=== PATIENT | female | born 1940 | race Caucasian/White ===

== ENCOUNTER → 2018-04-05 16:15 | Outpatient (CLI) | payer MEDICARE, OTHER, SELFPAY ==
[2018-04-05 16:59] LABS: Add Manual Diff / Slide Review NO; Basophils Percent Auto 1.5 % (0-2); Eosinophils Percent Auto 5.7 % (2-4); Hematocrit 28.5 % (36-46); Hemoglobin 9.6 g/dL (12.0-16.0); Lymphocytes Percent Auto 27.2 % (25-40); Mean Corpuscular HGB Conc 33.7 % (30-36); Mean Corpuscular Hemoglobin 29.6 PG (26-34); Mean Corpuscular Volume 87.6 fL (80-100); Monocytes Percent Auto 9.8 % (3-14); Neutrophils Absolute Auto 3900 /uL (3000-5900); Neutrophils Percent Auto 55.8 % (50-75); Platelet Count 390 X10^3/uL (150-400); Red Blood Cell Count 3.25 X10^6/uL (4.0-5.2); Red Cell Distribution Width 15.5 % (11.6-14.8)
[2018-04-05 17:05] LABS: Hemoglobin A1C% w Est Avg Glu 6.6 % (4.0-6.0)
[2018-04-05 17:21] LABS: Alanine Aminotransferase 30 IU/L (9-52); Albumin 3.7 g/dL (3.5-5.0); Albumin Globulin Ratio 1.2 (1.0-2.8); Alkaline Phosphatase 74 U/L (38-126); Aspartate Aminotransferase 27 IU/L (14-36); BUN Creatinine Ratio 25.6 (6-22); Bilirubin Total 0.4 mg/dL (0.2-1.3); Blood Urea Nitrogen 23 mg/dL (7-17); Calcium 8.8 mg/dL (8.4-10.2); Carbon Dioxide 24 mmol/L (22-32); Chloride 99 mmol/L (98-107); Estimated Glomerular Filt Rate > 60.0 mL/min (>60); Globulin 3.2 g/dL (1.7-4.1); Glucose 251 mg/dL (80-110); HEMOLYSIS < 15 (0-50); Potassium 5.1 mmol/L (3.4-5.1); Sodium 133 mmol/L (137-145); Total Protein 6.9 g/dL (6.3-8.2)
== END ==
PROVIDERS: Family Provider Internal Medicine; PCP Internal Medicine; Visit Provider Internal Medicine
DX: E11.9 Type 2 diabetes mellitus without complications (principal); I10 Essential (primary) hypertension
CPT/HCPCS: 36415; 80053; 83036; 85025

== ENCOUNTER → 2018-04-11 14:57 | Outpatient (CLI) | payer MEDICARE, OTHER, SELFPAY ==
--- NOTE | 2018-04-11 | DI.RAD.S_ITS ---
PROCEDURE: XR CHEST 2V INDICATIONS: 78 year-old female with cough. TECHNIQUE: 2 views of the chest were acquired. COMPARISON: [facility], CT, THORAX WITHOUT CONTRAST, 10/08/2012, 9:20. [facility], CR, CHEST 1 VIEW, 04/04/2015, 16:10. [facility], CR, CHEST 1 VIEW, 10/07/2012, 17:55. FINDINGS: Surgical changes and devices: None. Lungs and pleura: No pleural effusions or pneumothorax. Lungs are clear. Mediastinum: Mediastinal contours are normal. Heart size is normal. There is aortic atherosclerosis. Bones and chest wall: 8 mm sclerotic lesion in the left humeral metaphysis has slightly increased in size since 2014, and is new since 2011. There is asymmetric right hemidiaphragm elevation as before. IMPRESSION: 1. No acute cardiopulmonary disease. 2. 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 3. Slowly enlarging 8 mm sclerotic lesion in the proximal left humerus is new since 2011. Even though bone islands can enlarge over time, consider whole body bone scan for further evaluation if there is clinical possibility for sclerotic bony metastases. Dictated by: Luis Lopez M.D. on 04/11/2018 at 15:25 Approved by: Luis Lopez M.D. on 04/11/2018 at 15:29
== END ==
PROVIDERS: Family Provider Internal Medicine; PCP Internal Medicine; Visit Provider Internal Medicine
DX: R05 Cough (principal); M84.822 Other disorders of continuity of bone, left humerus
CPT/HCPCS: 71046

== ENCOUNTER → 2018-05-23 15:40 | Outpatient (CLI) | payer MEDICARE, OTHER, SELFPAY ==
--- NOTE | 2018-05-23 15:45 | DI.RAD.S_ITS ---
PROCEDURE: XR HIP W PEL IF DONE LT MIN 4V INDICATIONS: PAIN LEFT AND RIGHT LEG TECHNIQUE: AP pelvis with lateral view(s) of the left and right hip(s). COMPARISON: None. FINDINGS: Bones: Minimally displaced fracture of the left superior pubic ramus fracture is noted. There is a subtle lucency in the right femoral neck. No dislocations. There is a left hip prosthesis. Severe degenerative joint disease in right hip. No suspicious bony lesions. Soft tissues: The visualized bowel gas pattern is normal. No suspicious soft tissue calcifications. IMPRESSION: 1. Minimally displaced left superior pubic ramal fracture. 2. Subtle lucency in the left femoral neck. Cannot rule out a nondisplaced fracture. CT suggested if clinically indicated. 3. Severe right hip joint degeneration. 4. Left hip prosthesis appears intact. Dictated by: Surinder Sarmiento M.D. on 05/23/2018 at 17:17 Approved by: Surinder Sarmiento M.D. on 05/23/2018 at 17:22
--- NOTE | 2018-05-23 15:45 | DI.RAD.S_ITS ---
PROCEDURE: XR THORACIC SPINE 2V INDICATIONS: FALL, RIGHT AND LEFT LEG PAIN TECHNIQUE: 3 views of the thoracic spine were acquired. COMPARISON: [facility], CR, XR CHEST 2V, 04/11/2018, 14:44. [facility], CT, THORAX WITHOUT CONTRAST, 10/08/2012, 9:20. FINDINGS: Significant motion artifacts in the lower lumbar spine area. Bones: No fractures or dislocations. No suspicious bony lesions. Mild compression deformity of T8, likely chronic. Degenerative changes are noted in the thoracic spine. 12 pairs of ribs are noted, and appear intact where visualized. Soft tissues: No paravertebral stripe thickening. IMPRESSION: 1. Significant motion artifacts in the lower lumbar spine area. If clinical suspicion is high, CT suggested. 2. Mild chronic compression deformity of T8. 3. Degenerative changes. Dictated by: Surinder Sarmiento M.D. on 05/23/2018 at 17:05 Approved by: Surinder Sarmiento M.D. on 05/23/2018 at 17:15
--- NOTE | 2018-05-23 15:45 | DI.RAD.S_ITS ---
PROCEDURE: XR LUMBAR SPINE 2-3V INDICATIONS: FALL LEFT AND RIGHT LEG PAIN TECHNIQUE: 3 views of the lumbar spine were acquired. COMPARISON: [facility], CR, XR THORACIC SPINE 2V, 05/23/2018, 15:28. FINDINGS: Bones: 5 [id number] vertebrae are present. There is moderate scoliosis. No vertebral body compression fractures. No suspicious bony lesions. There is severe degenerative disc disease at T12-L1 and L1-L2, and mild degenerative disc changes at L2 at L3. Severe facet arthropathy is noted at L4 L5 and L5-S1. Osteopenia. Soft tissues: Overlying bowel gas pattern is normal. No suspicious soft tissue calcifications. IMPRESSION: 1. No fractures. 2. Degenerative disc and facet disease. 3. Scoliosis. Dictated by: Surinder Sarmiento M.D. on 05/23/2018 at 17:15 Approved by: Surinder Sarmiento M.D. on 05/23/2018 at 17:16
== END ==
PROVIDERS: Family Provider Internal Medicine; PCP Internal Medicine; Visit Provider Student in an Organized Health Care Education/Training Program
DX: S32.512A Fracture of superior rim of left pubis, initial encounter for closed fracture (principal); M51.34 Other intervertebral disc degeneration, thoracic region; M51.36 Other intervertebral disc degeneration, lumbar region; M41.9 Scoliosis, unspecified; M79.605 Pain in left leg; M79.604 Pain in right leg; M16.11 Unilateral primary osteoarthritis, right hip; Z96.642 Presence of left artificial hip joint
CPT/HCPCS: 72070; 72100; 73522

== ENCOUNTER → 2018-05-30 12:32 | Outpatient (CLI) | payer MEDICARE, OTHER, SELFPAY ==
--- NOTE | 2018-05-30 12:56 | DI.CT.S_ITS ---
PROCEDURE: CT PEL WO CON INDICATIONS: Unspecified fall, initial encounter Abnormal X-ray. TECHNIQUE: Noncontrast 3 mm axial sections acquired through the bony pelvis, with coronal and sagittal reformatting. COMPARISON: [facility], CR, XR HIP W PEL IF DONE JIM 3TO4V, 05/23/2018, 15:28. FINDINGS: Image quality: Excellent. Bones: Generalized osteopenia. Status post total left hip arthroplasty, components appearing in expected position and showing no evidence of loosening. The previously described fracture of the left hemipelvis is shown to be a comminuted fracture of the left pubic bone, involving both superior and inferior rami at the pubic junction. The pelvis is also of concern for possible bilateral insufficiency fractures of the sacral wings. No diastases of the sacroiliac joints seen. There is no apparent fracture of the right femoral neck as of concern on plain film exam. There is however advanced osteoarthritis of the right hip. Advanced facet arthropathy is noted at the L4-5 and L5-S1 levels bilaterally. Soft tissues: Supraumbilical fat filled ventral hernia. Uterus is positioned to the right of midline. IMPRESSION: 1. Severe osteoarthritis of the right hip but no femoral neck fracture is seen. 2. Generalized osteopenia. Probable bilateral sacral insufficiency fractures. This would be better evaluated by noncontrast MRI imaging of the pelvis if clinically indicated. 3. Comminuted fracture left pubic bone. 4. Status post total left hip arthroplasty with no acute abnormality. Dictated by: Darin Michelle M.D. on 05/30/2018 at 16:04 Approved by: Darin Michelle M.D. on 05/30/2018 at 16:16
== END ==
PROVIDERS: Family Provider Internal Medicine; PCP Internal Medicine; Visit Provider Student in an Organized Health Care Education/Training Program
DX: S32.502A Unspecified fracture of left pubis, initial encounter for closed fracture (principal); W19.XXXA Unspecified fall, initial encounter; M16.11 Unilateral primary osteoarthritis, right hip; M85.88 Other specified disorders of bone density and structure, other site; Z96.642 Presence of left artificial hip joint
CPT/HCPCS: 72192

== ENCOUNTER 2018-06-05 09:23 | Outpatient (RCR) | payer MEDICARE, OTHER, SELFPAY ==
--- NOTE | 2018-06-05 13:14 | PT.OIE ---
Current Diagnoses Other abnormalities of gait and mobility (06/05/18) Unspecified fracture of left pubis, initial encounter for closed fracture (06/05/18) History of falling (06/05/18) Past Medical History (Last Updated 03/05/18 @ 05:09 by Narendra Hernandez DO) Hyperlipidemia (Acute) CVA (cerebral vascular accident) (Chronic) Diabetes (Chronic) HTN (hypertension) (Chronic) Provider Visit Care Team Role Provider Type Vitaliy Brock MD Attending Provider Physician Family Provider Primary Care Provider Specialty: Internal Medicine Address: [address] [place] [address] Email: Physical Therapy Initial Evaluation PT-OP-A Visit Information Start: 06/05/18 09:42 Freq: Status: Active Protocol: Document 06/05/18 09:45 AMB (Rec: 06/06/18 10:05 AMB [email or web address]) Out-Patient Physical Therapy Visit Information Visit Information Visit Type Initial Evaluation Visit Start Time 09:45 Visit Stop Time 10:30 Total Visit Minutes 45 Visit Number 1 Evaluation Information Evaluation Date 06/05/18 PT-OP-B Current Condition Start: 06/05/18 09:42 Freq: Status: Active Protocol: Document 06/05/18 09:45 AMB (Rec: 06/06/18 10:05 AMB [email or web address]) Current Condition History of Current Condition Onset Date 05/23/18 Current Complaints inability to walk, bilateral hip pain History of Current Condition The patient fell out of bed onto her left hip. She has a history of CVA with right hemiplegia from 1993 but was ambulatory with a SPC before her fall. This was her second fall in a month, the first she hit her head. Denies lightheadedness/dizziness. Denies falls previous to the two she sustained recently. X -ray showed L hip replacement (from 2008) was intact but she did have a pubic rami fracture on the left, mildly displaced. She then had a CT because there was concern for femoral neck fracture, the CT ruled that out but showed comminuted fracture of the left pubic bone with possible bilateral sacral insufficiency fractures. She has not yet been evaluated by orthopedics, and has been weightbearing fully on the left leg during transfers. She has not been able to walk due to the pain. Future Testing and Treatments Planned After calling Dr. Brock's office for clarification of the patient's weightbearing status, his nurse called back after the patient had left and said that they would be arranging an ortho consult. Prior Functional Status Baseline Function- Other Independent ambulator, able to walk around [facility], used a SPC. Right hands is fairly non-functional due to prior CVA. Wears an AFO on the right foot. Current Functional Impairments (Reported) Functional Limitations- ADL's Unable to ambulate, able to transfer from w/c to bed with pain. Lying down is the most comfortable, then sitting, standing is painful. Personal Factors Other Personal Factors That May Effect Moderate expressive aphasia Therapy/Recovery from previous CVA PT-OP-C Subjective Start: 06/05/18 09:42 Freq: Status: Active Protocol: Document 06/05/18 09:45 AMB (Rec: 06/06/18 10:05 AMB [email or web address]) OP-PT Subjective Patient Comments Patient Comments After interviewing the patient it is apparent that she had stopped taking her hydrocodone , which was unknown to her . OP-PT Pain Assessment Location Bilateral Hip Intensity 4 Scale Used Numeric (1 - 10) PT-OP-G Mobility & Gait Start: 06/06/18 10:15 Freq: Status: Active Protocol: Document 06/05/18 09:45 AMB (Rec: 06/06/18 10:18 AMB [email or web address]) OP Mobility Evaluation Bed Mobility Supine to and from Sit Uses UE predominantly and grimaces slightly Transfers Sit to Stand Uses L UE and R LE predominantly but able to do with SBA. Bed to Chair Transfers Stand pivot transfer with SBA OP Gait Assessment Comments Gait Comments With hemiwalker in L UE pt able to take small step forward with left foot but unable to weightshift onto L leg without significant pain so did not ask patient to do more until after verifying weightbearing precautions. ( Pt has been transferring at home since the fracture). PT-OP-H Neuro Start: 06/06/18 10:14 Freq: Status: Active Protocol: Document 06/05/18 09:45 AMB (Rec: 06/06/18 10:15 AMB [email or web address]) Sensation Evaluation Comments Summary Comments Pt denies numbness tingling in left leg, does have some reduced light touch sensation in right foot due to previous CVA PT-OP-J Posture/Palpation/Skin Start: 06/05/18 09:42 Freq: Status: Active Protocol: Document 06/05/18 09:45 AMB (Rec: 06/06/18 12:58 AMB [email or web address]) Palpation Assessment Location One Palpation Location Left hip Palpation Details Pt denies pain with palpation throughout hip, groin. PT-OP-K Range of Motion Start: 06/05/18 09:42 Freq: Status: Active Protocol: Document 06/05/18 09:45 AMB (Rec: 06/06/18 12:58 AMB [email or web address]) Hip Goniometric Range of Motion Hip ROM Limitations Comments Gentle passive range of motion grossly WFL bilaterally PT-OP-M Strength Start: 06/05/18 09:42 Freq: Status: Active Protocol: Document 06/05/18 09:45 AMB (Rec: 06/06/18 12:58 AMB [email or web address]) Hip Strength Hip Manual Muscle Testing Right Flexion (L2) 4 Good Abduction 4 Good Left Flexion (L2) 4- Good- Knee Strength Knee Manual Muscle Testing Right Flexion (S2) 4 Good Extension (L3) 4 Good Left Flexion (S2) 4 Good Extension (L3) 4 Good PT-OP-Q Treatments Start: 06/05/18 09:42 Freq: Status: Active Protocol: Document 06/05/18 09:45 AMB (Rec: 06/06/18 10:13 AMB [email or web address]) Therapeutic Exercises Sitting Exercises 3 Sitting Exercise Name seated LAQ Reps/Minutes 1x10 2 Sitting Exercise Name ankle dorsiflexion Reps/Minutes 2x10 1 Sitting Exercise Name seated march Reps/Minutes 10 PT-OP-T Assessment and Plan Start: 06/05/18 09:42 Freq: Status: Active Protocol: Document 06/05/18 09:45 AMB (Rec: 06/06/18 10:24 AMB [email or web address]) Physical Therapy Assessment Rehab Potential Rehabilitation Potential Fair Evaluation Complexity Number of Personal Factors/Comorbidities 3 or More Number of Body Systems Impaired 4 or More Clinical Presentation at Evaluation Unstable Impairments Impairments Activity Tolerance Balance Functional Activities Functional Mobility Gait Pain Strength Transfers Goals Three Impairment Pain Short Term Goal (STG) The patient will sit for 1 hour wiht 1/10 pain or less. STG Duration 4 weeks [employer] Goal (LTG) The patient will stand for 10 minutes without an increase in her baseline pain. LTG Duration 8 weeks Two Impairment Transfers Short Term Goal (STG) The patient will perform a car transfer independently. STG Duration 4 weeks One Impairment Gait Short Term Goal (STG) The patient will ambulate with a maximiliano walker for 10 feet over smooth surfaces STG Duration 4 weeks [employer] Director Goal (LTG) The patient will ambulate with a single point cane for 50 feet over smooth surfaces. LTG Duration 8 weeks Assessment Summary Assessment The patient will be getting an orthopedic consultation soon, per Dr. Brock's office. If the patient is determined to be a surgical candidate, the goals and plan will need to be changed. The patient currently is unable to weightbear on the left without significant pain, but is transfering (this is currently quite painful). Her progression will be complicated by her previous CVA. We will confirm her weightbearing status as soon as possible, and that information will also impact her progress. She will benefit from physical therapy, assuming that she is safe to partial weightbear for strengthening and gait training, if she is non- weightbearing we can work on a home exercise program to prevent muscle atrophy while she is healing. Physical Therapy Plan Frequency and Duration Frequency of Treatment 2x/Week Duration of Treatment 8 weeks Plan of Care Start Date 06/05/18 Plan of Care End Date 07/24/18 Therapeutic Interventions Therapeutic Interventions Balance Training Gait Training Manual Therapy Neuromuscular Re-education Self-Care/Home Management Therapeutic Activities Therapeutic Exercises Modalities Cold Pack/Ice Massage Electric Stimulation Hot Packs Ultrasound Next Visit Focus/Plan Next Note Type Treatment Note Next Visit Plan Confirm weightbearing restrictions from pipe recovery specialist
--- NOTE | 2018-06-05 13:14 | PT.OPPOC ---
Current Diagnoses Other abnormalities of gait and mobility (06/05/18) Unspecified fracture of left pubis, initial encounter for closed fracture (06/05/18) History of falling (06/05/18) Provider Visit Care Team Role Provider Type Vitaliy Brock MD Attending Provider Physician Family Provider Primary Care Provider Specialty: Internal Medicine Address: [address] [place] [address], [phone] Email: Plan Of Care PT-OP-T Assessment and Plan Start: 06/05/18 09:42 Freq: Status: Active Protocol: Document 06/05/18 09:45 AMB (Rec: 06/06/18 10:24 AMB [email or web address]) Physical Therapy Assessment Rehab Potential Rehabilitation Potential Fair Evaluation Complexity Number of Personal Factors/Comorbidities 3 or More Number of Body Systems Impaired 4 or More Clinical Presentation at Evaluation Unstable Impairments Impairments Activity Tolerance Balance Functional Activities Functional Mobility Gait Pain Strength Transfers Goals Three Impairment Pain Short Term Goal (STG) The patient will sit for 1 hour wiht 1/10 pain or less. STG Duration 4 weeks Half-Way Goal (LTG) The patient will stand for 10 minutes without an increase in her baseline pain. LTG Duration 8 weeks Two Impairment Transfers Short Term Goal (STG) The patient will perform a car transfer independently. STG Duration 4 weeks One Impairment Gait Short Term Goal (STG) The patient will ambulate with a maximiliano walker for 10 feet over smooth surfaces STG Duration 4 weeks Half-Way Goal (LTG) The patient will ambulate with a single point cane for 50 feet over smooth surfaces. LTG Duration 8 weeks Assessment Summary Assessment The patient will be getting an orthopedic consultation soon, per Dr. Brock's office. If the patient is determined to be a surgical candidate, the goals and plan will need to be changed. The patient currently is unable to weightbear on the left without significant pain, but is transfering (this is currently quite painful). Her progression will be complicated by her previous CVA. We will confirm her weightbearing status as soon as possible, and that information will also impact her progress. She will benefit from physical therapy, assuming that she is safe to partial weightbear for strengthening and gait training, if she is non- weightbearing we can work on a home exercise program to prevent muscle atrophy while she is healing. Physical Therapy Plan Frequency and Duration Frequency of Treatment 2x/Week Duration of Treatment 8 weeks Plan of Care Start Date 06/05/18 Plan of Care End Date 07/24/18 Therapeutic Interventions Therapeutic Interventions Balance Training Gait Training Manual Therapy Neuromuscular Re-education Self-Care/Home Management Therapeutic Activities Therapeutic Exercises Modalities Cold Pack/Ice Massage Electric Stimulation Hot Packs Ultrasound Next Visit Focus/Plan Next Note Type Treatment Note Next Visit Plan Confirm weightbearing restrictions from accounting software specialist Plan of Care Dates Plan of Care Start Date 06/05/18 Plan of Care End Date 07/24/18 Please Sign and Return: I have reviewed this Plan of Care and certify that the skilled therapy services above are required to meet the patient?s needs. Physician Signature Date Printed Name and Credentials Clinical Instructor Signature Printed Name and Credentials
--- NOTE | 2018-06-13 15:20 | PT.OPDS ---
Current Diagnoses Other abnormalities of gait and mobility (06/05/18) Unspecified fracture of right pubis, initial encounter for closed fracture (06/05/18) Unspecified fracture of left pubis, initial encounter for closed fracture (06/05/18) History of falling (06/05/18) Provider Visit Care Team Role Provider Type Vitaliy Brock MD Attending Provider Physician Family Provider Primary Care Provider Specialty: Internal Medicine Address: [address] [place] [address], [facility] Email: Visit Number Visit Number 1 Discharge Summary PT-OP-B Current Condition Start: 06/05/18 09:42 Freq: Status: Active Protocol: Document 06/05/18 09:45 AMB (Rec: 06/06/18 10:05 AMB [id number]) Current Condition History of Current Condition Onset Date 05/23/18 Current Complaints inability to walk, bilateral hip pain History of Current Condition The patient fell out of bed onto her left hip. She has a history of CVA with right hemiplegia from 1993 but was ambulatory with a SPC before her fall. This was her second fall in a month, the first she hit her head. Denies lightheadedness/dizziness. Denies falls previous to the two she sustained recently. X -ray showed L hip replacement (from 2008) was intact but she did have a pubic rami fracture on the left, mildly displaced. She then had a CT because there was concern for femoral neck fracture, the CT ruled that out but showed comminuted fracture of the left pubic bone with possible bilateral sacral insufficiency fractures. She has not yet been evaluated by orthopedics, and has been weightbearing fully on the left leg during transfers. She has not been able to walk due to the pain. Future Testing and Treatments Planned After calling Dr. Brock's office for clarification of the patient's weightbearing status, his nurse called back after the patient had left and said that they would be arranging an ortho consult. Prior Functional Status Baseline Function- Other Independent ambulator, able to walk around [facility], used a SPC. Right hands is fairly non-functional due to prior CVA. Wears an AFO on the right foot. Current Functional Impairments (Reported) Functional Limitations- ADL's Unable to ambulate, able to transfer from w/c to bed with pain. Lying down is the most comfortable, then sitting, standing is painful. Personal Factors Other Personal Factors That May Effect Moderate expressive aphasia Therapy/Recovery from previous CVA PT-OP-C Subjective Start: 06/05/18 09:42 Freq: Status: Active Protocol: Document 06/05/18 09:45 AMB (Rec: 06/06/18 10:05 AMB [email or web address]) OP-PT Subjective Patient Comments Patient Comments After interviewing the patient it is apparent that she had stopped taking her hydrocodone , which was unknown to her . OP-PT Pain Assessment Location Bilateral Hip Intensity 4 Scale Used Numeric (1 - 10) PT-OP-G Mobility & Gait Start: 06/06/18 10:15 Freq: Status: Active Protocol: Document 06/05/18 09:45 AMB (Rec: 06/06/18 10:18 AMB [email or web address]) OP Mobility Evaluation Bed Mobility Supine to and from Sit Uses UE predominantly and grimaces slightly Transfers Sit to Stand Uses L UE and R LE predominantly but able to do with SBA. Bed to Chair Transfers Stand pivot transfer with SBA OP Gait Assessment Comments Gait Comments With hemiwalker in L UE pt able to take small step forward with left foot but unable to weightshift onto L leg without significant pain so did not ask patient to do more until after verifying weightbearing precautions. ( Pt has been transferring at home since the fracture). PT-OP-H Neuro Start: 06/06/18 10:14 Freq: Status: Active Protocol: Document 06/05/18 09:45 AMB (Rec: 06/06/18 10:15 AMB [email or web address]) Sensation Evaluation Comments Summary Comments Pt denies numbness tingling in left leg, does have some reduced light touch sensation in right foot due to previous CVA PT-OP-J Posture/Palpation/Skin Start: 06/05/18 09:42 Freq: Status: Active Protocol: Document 06/05/18 09:45 AMB (Rec: 06/06/18 12:58 AMB [email or web address]) Palpation Assessment Location One Palpation Location Left hip Palpation Details Pt denies pain with palpation throughout hip, groin. PT-OP-K Range of Motion Start: 06/05/18 09:42 Freq: Status: Active Protocol: Document 06/05/18 09:45 AMB (Rec: 06/06/18 12:58 AMB [email or web address]) Hip Goniometric Range of Motion Hip ROM Limitations Comments Gentle passive range of motion grossly WFL bilaterally PT-OP-M Strength Start: 06/05/18 09:42 Freq: Status: Active Protocol: Document 06/05/18 09:45 AMB (Rec: 06/06/18 12:58 AMB [email or web address]) Hip Strength Hip Manual Muscle Testing Right Flexion (L2) 4 Good Abduction 4 Good Left Flexion (L2) 4- Good- Knee Strength Knee Manual Muscle Testing Right Flexion (S2) 4 Good Extension (L3) 4 Good Left Flexion (S2) 4 Good Extension (L3) 4 Good PT-OP-T Assessment and Plan Start: 06/05/18 09:42 Freq: Status: Active Protocol: Document 06/13/18 15:19 AMB (Rec: 06/13/18 15:20 AMB [id number]) Physical Therapy Assessment Assessment Summary Assessment The patient was admitted to the hospital for an increase in pain. She is being discharged to a SNF, therefore her outpatient PT case is closed. She was only seen for evaluation. Physical Therapy Plan Discharge Physical Therapy Discharge Reasons Change in Medical Status
== END 2018-06-20 10:46 ==
LOC: PHYS 09:23
PROVIDERS: Family Provider Internal Medicine; PCP Internal Medicine; Visit Provider Internal Medicine
DX: S32.501A Unspecified fracture of right pubis, initial encounter for closed fracture (principal); R26.89 Other abnormalities of gait and mobility; Z91.81 History of falling; S32.502A Unspecified fracture of left pubis, initial encounter for closed fracture
CPT/HCPCS: 97110; 97163

== ENCOUNTER 2018-06-09 17:26 | Inpatient (IN) | payer MEDICARE, OTHER, SELFPAY ==
[2018-06-09 17:32] VITALS: BP 180/87; PULSE 94; RESP 20; TEMP 37.1; O2SAT 95
--- NOTE | 2018-06-09 18:06 | ED.LOWEXIN ---
HPI - Extremity Injury (Lower) General Chief Complaint: Extremity Injury, Lower Stated Complaint: R hip pain Time Seen by Provider: 06/09/18 18:06 Source: patient and family (Her ) Mode of arrival: wheelchair Limitations: no limitations History of Present Illness HPI Narrative: The patient fell 3 weeks ago sustaining a left pelvic fracture. Hip x-rays revealed a left superior pubic rami fracture. A right femoral neck fracture was suspected. She has a prior left hip replacement. The prosthesis was intact. The patient did well for the 1st week, she has since then had significant increases in pain. She is taking [place] every 6 hr. The pain has exacerbated to the point where she cannot stand or support herself. She has a history of CVA with right-sided deficits, prior to the fall she was ambulatory with a cane. She cannot even move herself to a sitting position due to pelvic pain at this point. She has no any urinary or bowel incontinence. She has no weakness or numbness in the legs. A pelvic CT was ordered last week. The CT shows osteoarthritis and osteopenia. There was no femoral neck fracture seen. A comminuted fracture of the left pubic bone is seen on CT. Also noted is probable bilateral sacral insufficiency fractures. She is having pain through the gluteal region bilaterally, and has pain with any motion of the lower back or the hips. She has no associated urinating or bowel incontinence. Related Data Home Medications Medication Instructions Recorded Confirmed CA CARBONATE/VITAMIN D3/VIT K 1 ctb PO BID #0 10/07/12 06/09/18 (Viactiv Soft Chew Tablet) Chondroitin Sulfate/Glucosam 1 cap PO BID #0 10/07/12 06/09/18 (#CHONDROITIN COMPLEX/GLUCOSAMINE 200 MG-500 M) Fluoxetine Hydrochloride 20 mg PO QDAY #0 10/07/12 06/09/18 (FLUOXETINE) Glucosamine Hydrochloride 1,500 mg PO BID #0 10/07/12 06/09/18 (#GLUCOSAMINE) aspirin 81 mg PO QDAY #0 10/07/12 06/09/18 lisinopril 10 mg PO QDAY #0 10/07/12 06/09/18 simvastatin 20 mg PO QDAY #0 10/07/12 06/09/18 insulin aspart U-100 50 unit SUB-Q DAILY 03/05/18 06/09/18 Allergies Allergy/AdvReac Type Severity Reaction Status Date / Time phenytoin Allergy Unknown TURNED Unverified 02/13/18 13:00 BRIGHT RED Review of Systems Review of Systems All systems reviewed & are unremarkable except as noted in HPI and below Constitutional Denies chills, Denies fever(s), Denies headache(s), Denies lethargy and Reports weakness (Previously existing right-sided weakness due to stroke.) ENT Ears, Nose, Mouth, and Throat: Denies change in voice, Denies dizziness, Denies headache(s), Denies hearing loss, Denies neck pain and Denies sore throat Cardiovascular Denies chest pain, Denies rapid heart rate, Denies irregular heart rhythm, Denies lightheadedness, Denies palpitations, Denies dyspnea, Denies dyspnea on exertion and Denies orthopnea Respiratory Denies cough, Denies dyspnea, Denies dyspnea on exertion and Denies wheezing Gastrointestinal Gastrointestinal: Denies abdominal pain, Denies change in bowel habits, Denies diarrhea, Denies nausea and Denies vomiting Genitourinary Denies hematuria, Denies dysuria and Denies urinary incontinence Musculoskeletal Reports as per HPI and Denies neck pain Integumentary/Breasts Denies erythema, Denies rash and Denies wounds Neurologic Denies dizziness, Denies headache(s) and Reports weakness (Previously existing right-sided weakness due to stroke.) Endocrine Denies palpitations Allergic/Immunologic Denies wheezing [facility] Medical History Hyperlipidemia (Acute) CVA (cerebral vascular accident) (Chronic) Diabetes (Chronic) HTN (hypertension) (Chronic) Social History Smoking Status: Never smoker Exam Initial Vital Signs Initial Vital Signs: Vital Signs Temperature 98.7 F 06/09/18 17:32 Pulse Rate 94 H 06/09/18 17:32 Respiratory Rate 20 06/09/18 17:32 Blood Pressure 180/87 H 06/09/18 17:32 Pulse Oximetry 95 06/09/18 17:32 Const General: cooperative and well developed Nutritional Appearance: well nourished Orientation: alert, awake, oriented x3 and not confused HENMT Head: normocephalic and atraumatic Mouth: oral mucosae normal and moist mucous membranes Throat: posterior oropharynx normal Eyes General: appearance normal, both eyes and all related structures Eyelids: eyelids normal Conjunctivae: conjunctivae normal Pupils: PERRL EOM: EOM intact bilaterally Resp Effort & Inspection: normal respiratory effort, able to speak in complete sentences, no respiratory distress and no use of accessory muscles Auscultation: clear to auscultation bilaterally, no rales, no rhonchi and no wheezes Cardio Rate: regular rate Rhythm: regular rhythm Heart Sounds: no click, no gallops, no murmurs and no rubs Pulses: normal peripheral pulses GI Inspection: non-distended Palpation: soft, no hepatosplenomegaly, No guarding, No pulsatile mass and No tender Auscultation: normal bowel sounds Back/Spine/Pelvis Back: No CVA tenderness Cervical Spine: cervical ROM normal Thoracic/Lumbar Spine: straight leg raise negative bilaterally and lumbar spinal tenderness Sacroiliac Joints: tender to palpation Sacrum: no tenderness Skin General: no rashes or lesions noted, No jaundice and No petechiae Neuro General: alert, oriented x3, gait normal and other (She has generalized lower extremity weakness. The right leg is weaker than the left. 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 She has sacral insufficiency fractures noted on CT, as well as the left pubic fracture. Pain is to the point where she is nonfunctional at home. She cannot support herself to a sitting position much less ambulate. I have discussed her care with the on-call hospitalist, Dr. Shah. The patient be admitted for pain control with consideration for transition to a care facility to hopefully facilitate rehab. Orders Ordered: ED Orders 06/09/18 20:14 Complete Blood Count AUTO DIFF Stat Comprehensive Metabolic Panel Stat Acetaminophen (Tylenol) 650 mg PO Q6HR PRN PRN Reason: As Needed for Fever/Mild Pain Sodium Chloride (Normal Saline 0.9%) 1,000 mls @ 150 mls/hr IV CONT RACHEL Last Admin: 06/09/18 20:23 Dose: 150 mls/hr Morphine Sulfate (Morphine) 2 mg IV Q4HR PRN PRN Reason: Pain, Moderate (4-6) Discontinued Medications Morphine Sulfate (Morphine) 4 mg SUBCUT NOW ONE Stop: 06/09/18 18:13 Last Admin: 06/09/18 18:23 Dose: 4 mg Vital Signs - 8 hr 06/09/18 17:32 06/09/18 18:30 06/09/18 20:00 Temperature 98.7 F Pulse Rate 94 H 83 82 Respiratory Rate 20 Blood Pressure 180/87 H Blood Pressure [Left Arm] 180/82 H 157/82 H Pulse Oximetry 95 93 94 06/09/18 20:56 Temperature 98.3 F Pulse Rate 94 H Respiratory Rate 16 Blood Pressure 179/83 H Blood Pressure [Left Arm] Pulse Oximetry 97 MDM - Extremity Injury (Lower) Lab Data Attestation: I reviewed the patient's lab results. Result diagrams: 06/09/18 20:14 06/09/18 20:14 Lab Results 06/09/18 06/09/18 Range/Units 20:14 20:14 WBC 9.7 (4.5-11.0) X10^3/uL RBC 3.56 L (4.0-5.2) X10^6/uL Hgb 9.1 L (12.0-16.0) g/dL Hct 28.1 L (36-46) % MCV 78.8 L (80-100) fL MCH 25.6 L (26-34) PG MCHC 32.6 (30-36) % RDW 18.5 H (11.6-14.8) % Plt Count 537 H (150-400) X10^3/uL Neut % (Auto) 74.5 (50-75) % Lymph % (Auto) 16.2 L (25-40) % [place] % (Auto) 7.9 (3-14) % Eos % (Auto) 0.7 L (2-4) % Baso % (Auto) 0.7 (0-2) % Neut # (Auto) 7200 H (0326-7420) /uL Sodium 137 (137-145) mmol/L Potassium 4.6 (3.4-5.1) mmol/L Chloride 100 (98-107) mmol/L Carbon Dioxide 31 (22-32) mmol/L BUN 15 (7-17) mg/dL Creatinine 0.80 (0.52-1.04) mg/dL Estimated GFR > 60.0 (>60) mL/min BUN/Creatinine Ratio 18.8 (6-22) Glucose 189 H (80-110) mg/dL Calcium 9.3 (8.4-10.2) mg/dL Total Bilirubin 0.4 (0.2-1.3) mg/dL AST 24 (14-36) IU/L ALT 18 (9-52) IU/L Alkaline Phosphatase 149 H (38-126) U/L Total Protein 6.5 (6.3-8.2) g/dL Albumin 3.4 L (3.5-5.0) g/dL Globulin 3.1 (1.7-4.1) g/dL Albumin/Globulin Ratio 1.1 (1.0-2.8) Discharge Plan Departure Patient Disposition: Admitted As Inpatient Clinical Impression: Bilateral sacral insufficiency fracture, Closed fracture of left superior pubic ramus Discharge Date/Time: 06/09/18 20:49 Interventions: ED Discharge Assessment Last Done: 06/09/18 20:27 Admit Date/Time: 06/09/18 19:49 Admit Provider: Yeimy Shah
[2018-06-09] MEDS: MORPHINE 4 MG/ML INJ SUBCUT (18:23)
[2018-06-09 18:30] VITALS: BP 180/82; PULSE 83; O2SAT 93
[2018-06-09 20:00] VITALS: BP 157/82; PULSE 82; O2SAT 94
[2018-06-09] MEDS: SODIUM CHLORIDE 0.9% 1,000 ML 150 ML IV (20:23)
[2018-06-09 20:31] LABS: Add Manual Diff / Slide Review NO; Basophils Percent Auto 0.7 % (0-2); Eosinophils Percent Auto 0.7 % (2-4); Hemoglobin 9.1 g/dL (12.0-16.0); Lymphocytes Percent Auto 16.2 % (25-40); Mean Corpuscular HGB Conc 32.6 % (30-36); Mean Corpuscular Hemoglobin 25.6 PG (26-34); Mean Corpuscular Volume 78.8 fL (80-100); Monocytes Percent Auto 7.9 % (3-14); Neutrophils Absolute Auto 7200 /uL (3000-5900); Neutrophils Percent Auto 74.5 % (50-75); Platelet Count 537 X10^3/uL (150-400); Red Blood Cell Count 3.56 X10^6/uL (4.0-5.2); Red Cell Distribution Width 18.5 % (11.6-14.8); White Blood Cell Count 9.7 X10^3/uL (4.5-11.0)
[2018-06-09 20:33] LABS: Hematocrit 28.1 % (36-46)
[2018-06-09 20:44] LABS: Alanine Aminotransferase 18 IU/L (9-52); Albumin 3.4 g/dL (3.5-5.0); Albumin Globulin Ratio 1.1 (1.0-2.8); Alkaline Phosphatase 149 U/L (38-126); Aspartate Aminotransferase 24 IU/L (14-36); BUN Creatinine Ratio 18.8 (6-22); Bilirubin Total 0.4 mg/dL (0.2-1.3); Blood Urea Nitrogen 15 mg/dL (7-17); Calcium 9.3 mg/dL (8.4-10.2); Carbon Dioxide 31 mmol/L (22-32); Chloride 100 mmol/L (98-107); Estimated Glomerular Filt Rate > 60.0 mL/min (>60); Globulin 3.1 g/dL (1.7-4.1); Glucose 189 mg/dL (80-110); HEMOLYSIS < 15 (0-50); Potassium 4.6 mmol/L (3.4-5.1); Sodium 137 mmol/L (137-145); Total Protein 6.5 g/dL (6.3-8.2)
[2018-06-09 20:56] VITALS: BP 179/83; PULSE 94; RESP 16; TEMP 36.8; O2SAT 97
[2018-06-10] VITALS (8 sets, daily range): BP systolic 134–179; BP diastolic 75–94; PULSE 84–91; RESP 16–18; TEMP 36.7–37.3; O2SAT 91–95; BMI 28.9
[2018-06-10] MEDS: SODIUM CHLORIDE 0.9% 1,000 ML 150 ML IV (04:17)
[2018-06-10] MEDS: MORPHINE 2 MG/ML INJ IV ×3 (07:51→18:40)
[2018-06-10] MEDS: SODIUM CHLORIDE 0.9% 1,000 ML 100 ML IV (08:15)
--- NOTE | 2018-06-10 10:21 | PT.IPTN ---
Physical Therapy Treatment Note M3 PT-IP Subjective Start: 06/10/18 11:15 Freq: NEEDED Status: Active Protocol: Document 06/10/18 11:15 MDD (Rec: 06/10/18 11:17 MDD [id number]) Subjective Physical Therapy Visit Type Type Patient Refusal Visit Start Time 10:18 Visit Stop Time 10:21 Total Visit Minutes 3 Notes Attempted to see pt at the above time. She refused, reporting that she would like her to be present. Pt has expressive aphasia, but appears to understand well. OT called to set up visit at 1:45 this afternoon.
--- NOTE | 2018-06-10 10:31 | CM.DANOTE ---
Addendum entered by Piper Newton LPN 06/10/18 15:20: Met now with pt. She confirms her has gone home after being part of the PT session. Discussed [facility] plan and she says she is very agreeable, noting that she was there before. Gave her the brochure and white board in room updated with the d/c plan for [facility]. Original Note: Discharge Planning/Care Management DCP: assessment: case received, EMR reviewed and met with pt 0830. Introduced self and role. Pt is a 78 year old female who admitted yesterday to care of hospitalist team. PCP: Dr. Brock. Payer: Medicare and for Life. Discussed case in [facility] team morning meeting. Hospitalist Dr. Shah will see pt today. States pt is admitted as inpt (UR JOVON Sinha indicates her review is in process.) PT and OT are ordered. Spoke by phone with pt's spouse Sandoval: home: [phone]. He cautions that pt has alot of trouble with word finding, needs extra time and often pointing to what she needs works best. He will be here at 1345 today to work with therapy dept. Discussed snf option and he readily agrees this will be needed. SNF choice list provided: decision: Said his was at [facility] in past after a hip surgery and she was happy there. Agreed to put in referral now and then meet later today with him and his to firm up this plan. P: [facility] when stable for same..8/ or >. Need: PAS[facility] CM Discharge Assessment Start: 06/10/18 10:21 Freq: Status: Active Protocol: Document 06/10/18 10:26 ITV (Rec: 06/10/18 10:31 ITV [id number]) Discharge Planning Assessment History Provided By Patient Significant Other Medical Record Is this patient on Medicare? Yes Prior Living Arrangements House Household Members spouse Independent with ADL's No Is patient alert and oriented? Yes: expressive aphasia since 1992 CVA Caregiver for Another No DME Already Rented / Owned Cane Comment prior to fall with pelvic fracture 3 weeks ago pt was functioning well with husands support and sp cane. condition has worsened markedly in the 3 weeks and now apparent new sacral fractures OT and PT are ordered. Review Status In Process Next Review Type Continued Stay Review
[2018-06-10] MEDS: CALCITONIN,SALMON, NASAL SPRAY 1 SPRAYS NASAL (12:36)
[2018-06-10] MEDS: ENOXAPARIN 40 MG/0.4 ML SYRINGE SUBCUT (12:36)
[2018-06-10] MEDS: DOCUSATE 100 MG CAPSULE PO ×2 (12:37→20:48)
[2018-06-10] MEDS: CALCIUM CARB/VIT D3 500/200 TABLET 1 EACH PO ×2 (12:37→20:48)
[2018-06-10] MEDS: ASPIRIN EC 81 MG TABLET PO (12:37)
[2018-06-10] MEDS: SIMVASTATIN 20 MG TABLET PO (12:38)
[2018-06-10] MEDS: FLUoxetine 20 MG CAPSULE PO (12:38)
[2018-06-10] MEDS: GLUCOSAMINE/CHONDROITIN CAPSULE 1 EACH PO ×2 (12:38→20:48)
[2018-06-10] MEDS: LISINOPRIL 10 MG TABLET PO (12:38)
--- NOTE | 2018-06-10 15:10 | PT.IIE ---
Medical History (Last Updated 06/09/18 @ 21:44 by Joann Baires RN) Insulin pump in place (Acute) Hyperlipidemia (Acute) CVA (cerebral vascular accident) (Chronic) Diabetes (Chronic) HTN (hypertension) (Chronic) Physical Therapy Inpatient Evaluation/Re-Eval M1 PT/OT-IP Prior Functional Status Start: 06/10/18 16:41 Freq: NEEDED Status: Active Protocol: Document 06/10/18 16:45 [facility] (Rec: 06/10/18 17:18 [facility] [id number]) Medical Review Prior Functional Status Medical History Reviewed Yes Communication Expressive aphasia, at times looks to her to help answer questions. Mobility and Gait Prior to fall able to use SPC to get around on her own, afterwards needing assist from for transfers and bed mobility. Activities of Daily Living and IADL's Per pt able to do all needs for ADL's and did all IADl needs. Social History Household Members spouse Living Arrangements House Number of Floors (Floors) One Floor Number of Stairs To Enter/Railing? One step and no railings. Home Environment Tub/Shower Home Equipment Straight Cane Manual Wheelchair Raised Toilet Seat Without Armrests Tub Transfer Bench M2 PT-IP Current Condition Start: 06/10/18 11:15 Freq: NEEDED Status: Active Protocol: Document 06/10/18 15:10 MDD (Rec: 06/10/18 17:35 MDD [id number]) Physical Therapy Current Condition Current Condition Evaluation Date 06/10/18 Treatment Diagnosis pelvic fracture, impaired mobility Onset Date 06/09/18 Weight Bearing Status Weight Bearing Status Weight Bear as Tolerated M3 PT-IP Subjective Start: 06/10/18 11:15 Freq: NEEDED Status: Active Protocol: Document 06/10/18 15:10 MDD (Rec: 06/10/18 17:35 MDD [id number]) Subjective Physical Therapy Visit Type Type Initial Evaluation Visit Start Time 14:35 Visit Stop Time 15:10 Total Visit Minutes 35 Notes Pt's reports that initially after her fall she was able to get in/out of bed and get to the bathroom. However, pain began to worsen significantly to the point she could not get out of bed, at which time he brought her to the ED. Number of SNOWMOBILE MECHANIC Visits 0 Physical Therapy Visit Comments Patient Comments Pt agreeable to participating with therapy this day. Therapy Pain Assessment Pain When Pain Assessed During Mobility Pain Present Pain Present Pain Reported Location Right Hip Intensity 10 Scale Used Numeric (1 - 10) Description With Movement Pain Behaviors Calling Out Crying Guarding Holding Area Moaning Pain Management Techniques Timing of Activity with Medications M4 PT-IP Mobility and Gait Start: 06/10/18 11:15 Freq: NEEDED Status: Active Protocol: Document 06/10/18 15:10 MDD (Rec: 06/10/18 17:35 [facility] [id number]) PT-Bed Mobility Assessment Rolling Type of Rolling Bilateral Level of Assist Moderate Assistance 2 Person Assistance PT-Transfer Assessment Comments Mobility Comments Attempted supine to sit x 3 today. Pain too great, pt unable to continue or make it fully upright. M5 PT-IP Objective Assessments Start: 06/10/18 11:15 Freq: NEEDED Status: Active Protocol: Document 06/10/18 15:10 MDD (Rec: 06/10/18 17:35 [facility] [id number]) Orientation Orientation/Cognition Level of Alertness Alert Orientation Name Age Birthday Month Place Situation Language Function Ability Expressive Aphagia Word Finding Difficulties Safety Awareness Understands Safety Issues Memory Description No Deficits Noted Gross Range of Motion Lower Extremity ROM Assessment Within Functional Limits Strength Lower Extremity Strength Assessment Right Impaired Comments Strength Comments R ankle dorsiflexion 3/5, able to perform B straight leg raise and heel slides actively . Additional MMT not tested today due to supine position. Sensation Assessment Sensation Gross Sensation Right UE Impaired Right LE Impaired Sensation Description Numbness Pain Comments Sensation Comments Pt reports her entire R leg is painful M7 PT-IP Assessment and Plan Start: 06/10/18 11:15 Freq: NEEDED Status: Active Protocol: Document 06/10/18 15:10 MDD (Rec: 06/10/18 17:35 [facility] [id number]) PT Summary Assessment and Plan Potential Rehabilitation Potential Fair Status of Condition at Evaluation Evolving Summary Impairments Pain Bed Mobility Transfers Gait Activity Tolerance Progress Towards Goals Slow Progress due to Pain Assessment Summary Evaluation today was extremely limited due to patient's complaints of 10/10 pain with bed mobility and attempts at supine to sit. LE strength appears decent and pt able to scoot up in bed well. If pain continues to be limiting factor, pt may require SNF to improve mobility back to her baseline for safe return home. Goals Bed Mobility Goal Independent Transfer Goal Independent Gait Goal Standby Assistance Gait Distance 30 Other Goals ascend/descend one step with LRAD and CGA Days to Meet Goals 3 Frequency of Treatment Frequency Of Treatment Once a Day Treatment Plan Physical Therapy Treatment Plan Bed Mobility Training Transfer Training Gait Training Therapeutic Exercise Balance Retraining Discharge Planning Other Recommendations and Next Treatment will be coming in at [facility] 11:00 tomorrow ( prefers him to be present). Continue bed mobility and sitting EOB if tolerable. Coordinate with nursing for pain medicine to be given prior to treatment. Recommendations To Nursing Amount of Assist Needed PT/OT Assist Only Discharge Recommendations PT Discharge Recommendations SNF Rehab
--- NOTE | 2018-06-10 17:18 | OT.IP.EVAL ---
Past Medical History (Last Updated 06/09/18 @ 21:44 by Joann Baires RN) Insulin pump in place (Acute) Hyperlipidemia (Acute) CVA (cerebral vascular accident) (Chronic) Diabetes (Chronic) HTN (hypertension) (Chronic) Occupational Therapy Inpatient Evaluation/Re-Eval M1 PT/OT-IP Prior Functional Status Start: 06/10/18 16:41 Freq: NEEDED Status: Active Protocol: Document 06/10/18 16:45 [facility] (Rec: 06/10/18 17:18 [facility] [id number]) Medical Review Prior Functional Status Medical History Reviewed Yes Communication Expressive aphasia, at times looks to her to help answer questions. Mobility and Gait Prior to fall able to use SPC to get around on her own, afterwards needing assist from for transfers and bed mobility. Activities of Daily Living and IADL's Per pt able to do all needs for ADL's and did all IADl needs. Social History Household Members spouse Living Arrangements House Number of Floors (Floors) One Floor Number of Stairs To Enter/Railing? One step and no railings. Home Environment Tub/Shower Home Equipment Straight Cane Manual Wheelchair Raised Toilet Seat Without Armrests Tub Transfer Bench M2 OT-IP Current Condition Start: 06/10/18 16:41 Freq: Status: Active Protocol: Document 06/10/18 16:45 [facility] (Rec: 06/10/18 17:18 [facility] [id number]) Occupational Therapy Current Condition Current Condition Evaluation Date 06/10/18 Treatment Diagnosis Bilateral sacral insuff fx and communited fracture of left pelvic bone M3 OT- IP Subjective and Pain Start: 06/10/18 16:41 Freq: Status: Active Protocol: Document 06/10/18 16:45 [facility] (Rec: 06/10/18 17:18 [facility] [id number]) OT- Subjective Occupational Therapy Visit Type Type Initial Evaluation Visit Start Time 14:40 Visit Stop Time 15:10 Total Visit Minutes 30 Occupational Therapy Visit Comments Patient Comments Pt very emotional and tearful during OT eval. OT Pain Assessment Pain When Pain Assessed During Mobility Pain Present Pain Present Pain Reported Location Right Hip Intensity 10 Scale Used Numeric (1 - 10) Description Shooting M4 OT- IP ADL's Start: 06/10/18 16:41 Freq: Status: Active Protocol: Document 06/10/18 16:45 [facility] (Rec: 06/10/18 17:18 [facility] [id number]) OT ADL-Dressing General Eval Lower Body Dressing Ability Total Assistance Areas Needing Assistance Socks Comments OT Dressing Comments At this time due to pain, pt total assist for LB dressing needs. OT ADL-Toileting General Evaluation Toileting Ability Total Assistance Areas Needing Assistance Manage Clothing Perform Perineal Hygiene Devices Toileting Assistive Devices Bedpan Comments OT Toileting Comments Total assist and use of bed walters due to pain and unable to tolerate sitting or standing at this time. M5 OT- IP IADL's Start: 06/10/18 16:41 Freq: Status: Active Protocol: Document 06/10/18 16:45 [facility] (Rec: 06/10/18 17:18 [facility] [email or web address]) OT-Instrumental Activities of Daily Living Deficits IADL Deficits Identified Deficits Medication Management Medication Management Caregiver Administers Money Management Money Management Caregiver Provides Assistance Meal Preparation Meal Preparation Caregiver Provides Assist Tractor Mechanic Tractor Mechanic Caregiver Provides Assist Driving Driving Caregiver Provides Assist M6 OT- IP Functional Cognition Start: 06/10/18 16:41 Freq: Status: Active Protocol: Document 06/10/18 16:45 [facility] (Rec: 06/10/18 17:18 [facility] [id number]) Cognitive Factors Limiting Selfcare Function Cognitive Ability Level of Alertness Alert Patient Orientation Name Attention Span Ability Capable of Focused Attention Unable to Sustain Attention Ability to Follow Commands Able to Follow One Step Commands Cognitive Comments Cognitive Assessment Comments Pt has expressive aphasia and trouble getting word out and looks to to answer questions. Pt having hard time focusing due to pain. OT- Vision and Hearing OT- Vision Assessment Vision Assessment Comments Pt able to read the clock in the room accurately and states has no deficits with vision. M7 OT- IP Mobility and Balance Start: 06/10/18 16:41 Freq: Status: Active Protocol: Document 06/10/18 16:45 [facility] (Rec: 06/10/18 17:18 [facility] [id number]) OT- Bed Mobility Assessment Rolling Type of Rolling Roll to Left Level of Assistance Moderate Assistance 2 Person Assistance OT-Transfer Assessment Comments Mobility Comments Unable to get to sitting due to severe pain 10/10 and not able to sit up all the way before needing to lie down again, attempted to sit x3. M8 OT- IP Objective Assessments Start: 06/10/18 16:41 Freq: Status: Active Protocol: Document 06/10/18 16:45 [facility] (Rec: 06/10/18 17:18 [facility] [id number]) OT Gross Range of Motion Upper Extremity Range of Motion Assessment Right Impaired ROM Impairments LUE WFL, RUE internally rotated, elbow flexed,hand supinated and flexed at wrist and hands closed. Pt has CVA years ago affected right side and need AFO for right foot. Pt's to bring in brace tomorrow. OT Strength Comments Strength Comments RUE 4/5 , LUE able to move shoulder abduction 0-20. OT-Muscle Tone Assessment Muscle Tone WNL No Comments Muscle Tone Comments Increased tone throughout RUE. OT Sensation Assessment Comments Summary Comments Decreased sensation to right arm, pt states when asked does bump into objects on right side at times. M9 OT- IP Assessment and Plan Start: 06/10/18 16:41 Freq: Status: Active Protocol: Document 06/10/18 16:45 [facility] (Rec: 06/10/18 17:18 [facility] [id number]) OT Summary Assessment and Plan Potential Rehabilitation Potential Good Analytic Complexity at Evaluation Moderate Summary OT Impairments Pain Range of Motion Strength Balance Coordination Sensation Tone Functional Cognition Functional Mobility Self-Feeding Grooming Dressing Toileting Bathing Toilet Transfers Shower Transfers Progress Towards Goals Slow Progress due to Pain Slow Progress due to Medical Issues Slow Progress due to Activity Tolerance Slow Progress due to Cognition Assessment Summary Pt MOD complexity main barrier is pain and not able to get up to sitting at this time. At this time pt needing extensive assist for ADl's, functional mobility, and would benefit from skilled rehab versus home with to assist pending progress and pain management needs. Goals Grooming Goal Standby Assistance Dressing Goal Minimal Assistance Toileting Goal Standby Assistance Bathing Goal Minimal Assistance Toilet Transfer Goal Standby Assistance Shower Transfer Goal Minimal Assistance Patient/Caregiver Education Goal Caregiver Independent Assisting Patient Days to Meet Goals 7 Frequency of Treatment Frequency Of Treatment Once a Day Treatment Plan OT Treatment Plan ADL Training Functional Cognition Training Functional Mobility Patient/Family Education Discharge Planning Other Treatment Recommendations and Next Reassess bed mobility, Treatment Focus functional mobility with right foot brace, ADL's if appropriate. Discharge Recommendations OT Discharge Recommendations SNF Rehab Other Discharge Recommendations Pending significant improvement in pain, pt may be able to go home with husbands [id number].
--- NOTE | 2018-06-10 19:16 | P.HP_ITS ---
History of Present Illness Chief complaint: R hip pain Patient History Medical History Insulin pump in place (Acute) Hyperlipidemia (Acute) CVA (cerebral vascular accident) (Chronic) Diabetes (Chronic) HTN (hypertension) (Chronic) Family & Social History Family History: Reviewed 06/10/18 by Yeimy Shah MD Social History: household members spouse Prior Living Arrangements House Safety & Behavioral: Feels Safe in Current Yes Environment Been Physically Hurt or No Threatened By a Person Suicidal Ideation Description None Suicide Plan Description No Plan Tobacco & Substance use: Smoking Status Never smoker alcohol intake never Substance Use Type does not use Meds Home Medications Medication Instructions Recorded Confirmed Type CA CARBONATE/VITAMIN D3/VIT K 1 ctb PO BID #0 10/07/12 06/09/18 History (Viactiv Soft Chew Tablet) Chondroitin Sulfate/Glucosam 1 cap PO BID #0 10/07/12 06/09/18 History (#CHONDROITIN COMPLEX/GLUCOSAMINE 200 MG-500 M) Fluoxetine Hydrochloride 20 mg PO QDAY #0 10/07/12 06/09/18 History (FLUOXETINE) Glucosamine Hydrochloride 1,500 mg PO BID #0 10/07/12 06/09/18 History (#GLUCOSAMINE) aspirin 81 mg PO QDAY #0 10/07/12 06/09/18 History lisinopril 10 mg PO QDAY #0 10/07/12 06/09/18 History simvastatin 20 mg PO QDAY #0 10/07/12 06/09/18 History insulin aspart U-100 50 unit SUB-Q DAILY 03/05/18 06/09/18 History calcitonin (salmon) 1 spray INTRANASAL QNOON 06/09/18 06/09/18 History hydrocodone-acetaminophen 1 tab PO Q4HR PRN 06/09/18 06/09/18 History Allergies Allergy/AdvReac Type Severity Reaction Status Date / Time phenytoin Allergy Unknown TURNED Unverified 02/13/18 13:00 BRIGHT RED Review of Systems Review of Systems All systems reviewed & are unremarkable except as noted in HPI and below Exam Vital Signs (past 8 hours): - 06/10/18 12:06 06/10/18 15:00 06/10/18 15:30 Temperature 98.8 F 98.8 F Pulse Rate 91 H 90 Respiratory Rate 18 18 Blood Pressure 134/87 H 141/85 H Pulse Oximetry 95 91 93 Oxygen Delivery Method Room Air Oxygen Flow Rate 0 Narrative Exam Narrative: HEENT: Normocephalic atraumatic, extraocular muscles are intact , oropharynx is clear neck is supple Lungs: Clear to auscultation CV: Regular rate and rhythm normal S1 and S2 Abdomen: Soft nontender nondistended without hepatosplenomegaly Extremities: No edema Neuro exam: Nonfocal Skin exam: No lesion Psych exam patient has normal mentation mentation. Objective Labs Result Diagrams: 06/09/18 20:14 06/09/18 20:14 Labs: Laboratory Results - last 24 hr 06/09/18 06/09/18 20:14 20:14 WBC 9.7 RBC 3.56 L Hgb 9.1 L Hct 28.1 L MCV 78.8 L MCH 25.6 L MCHC 32.6 RDW 18.5 H Plt Count 537 H Neut % (Auto) 74.5 Lymph % (Auto) 16.2 L Finney % (Auto) 7.9 Eos % (Auto) 0.7 L Baso % (Auto) 0.7 Neut # (Auto) 7200 H Sodium 137 Potassium 4.6 Chloride 100 Carbon Dioxide 31 BUN 15 Creatinine 0.80 Estimated GFR > 60.0 BUN/Creatinine Ratio 18.8 Glucose 189 H Calcium 9.3 Total Bilirubin 0.4 AST 24 ALT 18 Alkaline Phosphatase 149 H Total Protein 6.5 Albumin 3.4 L Globulin 3.1 Albumin/Globulin Ratio 1.1 Assessment & Plan (1) Bilateral sacral insufficiency fracture: Problem details: Physical therapy occupational therapy consultation. Will continue pain management DVT prophylaxis. Qualifiers: Encounter type: initial encounter Fracture healing: Qualified Code(s) : M84.48XA - Pathological fracture, other site, initial encounter for fracture Current visit: Yes Status: Acute (2) Closed fracture of left superior pubic ramus: Problem details: Continue PT and OT. Patient very likely will need SNF stay at discharge Qualifiers: Encounter type: sequela Fracture healing: Qualified Code(s): S32.512S - Fracture of superior rim of left pubis, sequela Current visit: Yes Status: Acute (3) Osteoporosis: Problem details: Continue vitamin D calcium and bisphosphonate Current visit: Yes Status: Acute (4) Diabetes mellitus: Problem details: Patient is on insulin pump which we will continue Current visit: Yes Status: Acute (5) Hyperlipidemia: Problem details: Continue her statin Current visit: Yes Status: Acute (6) Hypertension: Problem details: Continue HOSSEIN-inhibitor Current visit: Yes Status: Acute Plan: Assessment/Plan Narrative: Patient will require long-term stay at discharge. She is unable to ambulate and is in significant pain. Quality VTE Deep Vein Thrombosis/Pulmonary Embolism Present on Admission: No
[2018-06-11] VITALS (10 sets, daily range): BP systolic 162–186; BP diastolic 78–99; PULSE 66–90; RESP 16–18; TEMP 36.7–37.7; O2SAT 91–97
[2018-06-11] MEDS: MORPHINE 2 MG/ML INJ IV ×2 (03:41→10:54)
[2018-06-11] MEDS: SODIUM CHLORIDE 0.9% 1,000 ML 100 ML IV (03:50)
[2018-06-11] MEDS: ASPART INSULIN INJ (09:01)
[2018-06-11] MEDS: INSULIN ASPART 100 UNIT/ML INSULN PEN 50 UNIT SUBCUT (09:01)
[2018-06-11] MEDS: ENOXAPARIN 40 MG/0.4 ML SYRINGE SUBCUT (09:07)
[2018-06-11] MEDS: LISINOPRIL 10 MG TABLET PO (09:08)
[2018-06-11] MEDS: SIMVASTATIN 20 MG TABLET PO (09:08)
[2018-06-11] MEDS: GLUCOSAMINE/CHONDROITIN CAPSULE 1 EACH PO ×2 (09:08→20:34)
[2018-06-11] MEDS: FLUoxetine 20 MG CAPSULE PO (09:08)
[2018-06-11] MEDS: CALCIUM CARB/VIT D3 500/200 TABLET 1 EACH PO ×2 (09:08→20:34)
[2018-06-11] MEDS: ASPIRIN EC 81 MG TABLET PO (09:08)
[2018-06-11] MEDS: DOCUSATE 100 MG CAPSULE PO ×2 (09:08→20:34)
--- NOTE | 2018-06-11 11:02 | PM.PN.1 ---
Subjective Date Patient Seen: 06/11/18 Time Patient Seen: 11:02 Interval history: Still with bilateral sacral pain. She describes the pain as 5/10. She notes the pain medications help. She has been unable to ambulate. She is agreeable to going to the SNF. Her is at the bedside and concurs with the plan. She denies shortness of breath, chest pain, or nausea Exam Vital Signs (past 8 hours): - 06/11/18 06:29 06/11/18 07:00 06/11/18 08:03 Temperature 98.7 F 98.0 F Pulse Rate 89 90 Respiratory Rate 16 18 Blood Pressure 180/93 H 164/90 H Pulse Oximetry 94 96 95 Oxygen Delivery Method Room Air Oxygen Flow Rate 0 Narrative Exam Narrative: Lungs: Clear to auscultation CV: RRR nlS1S2 2/6 BEATRIZ ABd: soft/non tender/non distended Ext: no edema skin no lesions Neuro: right arm contracted, speech halting ( dysarthria) mild right facial droop Right leg weak Objective Labs Result Diagrams: 06/09/18 20:14 06/09/18 20:14 Assessment & Plan (1) Hypertension: Problem details: Continue HOSSEIN-inhibitor Current visit: Yes Status: Acute (2) Hyperlipidemia: Problem details: Continue her statin Current visit: Yes Status: Acute (3) Diabetes mellitus: Problem details: Patient is on insulin pump which we will continue Current visit: Yes Status: Acute (4) Osteoporosis: Problem details: Continue vitamin D calcium and salmon calcitonin Current visit: Yes Status: Acute (5) Bilateral sacral insufficiency fracture: Problem details: Physical therapy occupational therapy consultation. Will continue pain management DVT prophylaxis. Qualifiers: Encounter type: initial encounter Fracture healing: Qualified Code(s): M84.48XA - Pathological fracture, other site, initial encounter for fracture Current visit: Yes Status: Acute (6) Closed fracture of left superior pubic ramus: Problem details: Continue PT and OT. Patient very likely will need SNF stay at discharge Likely ready tomorrow Qualifiers: Encounter type: sequela Fracture healing: Qualified Code(s): S32.512S - Fracture of superior rim of left pubis, sequela Current visit: Yes Status: Acute Quality VTE Deep Vein Thrombosis/Pulmonary Embolism Present on Admission: No
--- NOTE | 2018-06-11 11:06 | P.PN_ITS ---
Subjective Date Patient Seen: 06/11/18 Time Patient Seen: 11:02 Interval history: Still with bilateral sacral pain. She describes the pain as 5/ 10. She notes the pain medications help. She has been unable to ambulate. She is agreeable to going to the SNF. Her is at the bedside and concurs with the plan. She denies shortness of breath, chest pain, or nausea Exam Vital Signs (past 8 hours): - 06/11/18 06:29 06/11/18 07:00 06/11/18 08:03 Temperature 98.7 F 98.0 F Pulse Rate 89 90 Respiratory Rate 16 18 Blood Pressure 180/93 H 164/90 H Pulse Oximetry 94 96 95 Oxygen Delivery Method Room Air Oxygen Flow Rate 0 Narrative Exam Narrative: Lungs: Clear to auscultation CV: RRR nlS1S2 2/6 BEATRIZ ABd: soft/non tender/non distended Ext: no edema skin no lesions Neuro: right arm contracted, speech halting ( dysarthria) mild right facial droop Right leg weak Objective Labs Result Diagrams: 06/09/18 20:14 06/09/18 20:14 Assessment & Plan (1) Hypertension: Problem details: Continue HOSSEIN-inhibitor Current visit: Yes Status: Acute (2) Hyperlipidemia: Problem details: Continue her statin Current visit: Yes Status: Acute (3) Diabetes mellitus: Problem details: Patient is on insulin pump which we will continue Current visit: Yes Status: Acute (4) Osteoporosis: Problem details: Continue vitamin D calcium and salmon calcitonin Current visit: Yes Status: Acute (5) Bilateral sacral insufficiency fracture: Problem details: Physical therapy occupational therapy consultation. Will continue pain management DVT prophylaxis. Qualifiers: Encounter type: initial encounter Fracture healing: Qualified Code(s) : M84.48XA - Pathological fracture, other site, initial encounter for fracture Current visit: Yes Status: Acute (6) Closed fracture of left superior pubic ramus: Problem details: Continue PT and OT. Patient very likely will need SNF stay at discharge Likely ready tomorrow Qualifiers: Encounter type: sequela Fracture healing: Qualified Code(s): S32.512S - Fracture of superior rim of left pubis, sequela Current visit: Yes Status: Acute Quality VTE Deep Vein Thrombosis/Pulmonary Embolism Present on Admission: No
--- NOTE | 2018-06-11 11:30 | PT.IPTN ---
Current Diagnoses Type 2 diabetes mellitus without complications (06/09/18) Hyperlipidemia, unspecified (06/09/18) Essential (primary) hypertension (06/09/18) Age-related osteoporosis without current pathological fracture (06/09/18) Pathological fracture, other site, initial encounter for fracture (06/09/18) Fracture of superior rim of left pubis, sequela (06/09/18) Physical Therapy Treatment Note M2 PT-IP Current Condition Start: 06/10/18 11:15 Freq: NEEDED Status: Active Protocol: Document 06/10/18 15:10 MDD (Rec: 06/10/18 17:35 MDD [id number]) Physical Therapy Current Condition Current Condition Evaluation Date 06/10/18 Treatment Diagnosis pelvic fracture, impaired mobility Onset Date 06/09/18 Weight Bearing Status Weight Bearing Status Weight Bear as Tolerated M3 PT-IP Subjective Start: 06/10/18 11:15 Freq: NEEDED Status: Active Protocol: Document 06/11/18 11:30 GGD (Rec: 06/11/18 12:58 GGD [email or web address]) Subjective Physical Therapy Visit Type Type Treatment Note Visit Start Time 11:15 Visit Stop Time 11:30 Total Visit Minutes 15 Number of DESK SERGEANT Visits 1 Physical Therapy Visit Comments Patient Comments Pt willing to try and get out of bed. Therapy Pain Assessment Pain When Pain Assessed At Rest Pain Present Pain Present Pain Reported Location Right Hip Intensity 5 Scale Used Numeric (1 - 10) Pain Behaviors Calling Out Crying Facial Grimacing Guarding Moaning Pain Management Techniques Modification of Treatment Timing of Activity with Medications M4 PT-IP Mobility and Gait Start: 06/10/18 11:15 Freq: NEEDED Status: Active Protocol: Document 06/11/18 11:30 GGD (Rec: 06/11/18 12:58 GGD [id number]) PT-Bed Mobility Assessment Supine to Sit Supine to Sit Moderate Assistance 2 Person Assistance Head of Bed Elevated Sit to Supine Sit to Supine Maximum Assistance 2 Person Assistance Head of Bed Elevated Scooting Scooting Up and Down in Bed Dependent PT-Transfer Assessment Comments Mobility Comments Pt unable to tolerate supine to sit. M5 PT-IP Objective Assessments Start: 06/10/18 11:15 Freq: NEEDED Status: Active Protocol: Document 06/10/18 15:10 MDD (Rec: 06/10/18 17:35 MDD [id number]) Orientation Orientation/Cognition Level of Alertness Alert Orientation Name Age Birthday Month Place Situation Language Function Ability Expressive Aphagia Word Finding Difficulties Safety Awareness Understands Safety Issues Memory Description No Deficits Noted Gross Range of Motion Lower Extremity ROM Assessment Within Functional Limits Strength Lower Extremity Strength Assessment Right Impaired Comments Strength Comments R ankle dorsiflexion 3/5, able to perform B straight leg raise and heel slides actively . Additional MMT not tested today due to supine position. Sensation Assessment Sensation Gross Sensation Right UE Impaired Right LE Impaired Sensation Description Numbness Pain Comments Sensation Comments Pt reports her entire R leg is painful M7 PT-IP Assessment and Plan Start: 06/10/18 11:15 Freq: NEEDED Status: Active Protocol: Document 06/11/18 11:30 GGD (Rec: 06/11/18 12:58 GGD [email or web address]) PT Summary Assessment and Plan Summary Assessment Summary Pt had increase in pain with bed mobility. She was unable to tolerate sitting. She had increase in pain when bed with in chair position greater than 45 degress. Pain is a limiting factor with mobility. She will need SNF before retruning to home. Frequency of Treatment Frequency Of Treatment Once a Day Treatment Plan Physical Therapy Treatment Plan Bed Mobility Training Transfer Training Gait Training Therapeutic Exercise Balance Retraining Discharge Planning Recommendations To Nursing Amount of Assist Needed PT/OT Assist Only Mechanical Lift Discharge Recommendations PT Discharge Recommendations SNF Rehab
--- NOTE | 2018-06-11 11:55 | OT.IP.TRT ---
Current Diagnoses Type 2 diabetes mellitus without complications (06/09/18) Hyperlipidemia, unspecified (06/09/18) Essential (primary) hypertension (06/09/18) Age-related osteoporosis without current pathological fracture (06/09/18) Pathological fracture, other site, initial encounter for fracture (06/09/18) Fracture of superior rim of left pubis, sequela (06/09/18) Occupational Therapy Treatment Note M2 OT-IP Current Condition Start: 06/10/18 16:41 Freq: Status: Active Protocol: Document 06/10/18 16:45 CCC (Rec: 06/10/18 17:18 [facility] [id number]) Occupational Therapy Current Condition Current Condition Evaluation Date 06/10/18 Treatment Diagnosis Bilateral sacral insuff fx and comminuted fracture of left pelvic bone M3 OT- IP Subjective and Pain Start: 06/10/18 16:41 Freq: Status: Active Protocol: Document 06/11/18 16:10 PJEloise (Rec: 06/11/18 16:29 PJM [id number]) OT- Subjective Occupational Therapy Visit Type Type Treatment Note Visit Start Time 11:23 Visit Stop Time 11:55 Total Visit Minutes 32 Notes Pt's her observing this session. Occupational Therapy Visit Comments Patient Comments Pt has expressive aphasia but gestures and communicates with short phrases Patient/Caregiver Goals to have less pain and tono ble to go home OT Pain Assessment Pain When Pain Assessed During Weight Bearing Pain Present Pain Present Pain Reported Location Right Hip Intensity 10 Scale Used Numeric (1 - 10) Description Aching Acute Sharp Pain Behaviors Facial Grimacing Guarding Moaning Wincing Management Techniques Re-positioning Timing of Activity with Medications M4 OT- IP ADL's Start: 06/10/18 16:41 Freq: Status: Active Protocol: Document 06/11/18 16:10 PJM (Rec: 06/11/18 16:29 PJM [id number]) OT FIP-Dkhd-Nlclqiy General Evaluation Self-Feeding Ability Independent Comments OT Self-Feeding Comments using dominant L hand OT ADL-Grooming General Evaluation Grooming Ability Standby Assistance Areas Needing Assistance Retrieving/Set-up of Grooming Items Combing/Brushing Hair Face Washing Comments OT Grooming Comments in bed OT ADL-Oral Care General Eval Oral Care Ability Standby Assistance Areas of Assistance Brushing Teeth Comments Oral Care Comments in bed OT ADL-Dressing General Eval Upper Body Dressing Ability Moderate Assistance Lower Body Dressing Ability Total Assistance Comments OT Dressing Comments pt has to dress in bed; unable to tolerate sitting EOB due to severe pain OT ADL-Toileting General Evaluation Toileting Ability Total Assistance Devices Toileting Assistive Devices Bedpan Comments OT Toileting Comments pt cannot tolerate sitting on BSc due to severe pain OT ADL-Bathing Bathing Type Bathing Type Bed Bath General Evaluation Bathing Ability Maximal Assistance M5 OT- IP IADL's Start: 06/10/18 16:41 Freq: Status: Active Protocol: Document 06/11/18 16:10 PJM (Rec: 06/11/18 16:29 [facility] [id number]) OT-Instrumental Activities of Daily Living Deficits IADL Deficits Identified Deficits Home Safety Awareness Awareness of Need for Assistance at Home Good Awareness Ability to Problem Solve Emergency Able to Problem Solve Situations Medication Management Medication Management No Deficits Identified Money Management Money Management No Deficits Identified Meal Preparation Meal Preparation No Deficits Identified Caregiver Provides Assist Meal Preparation Comments Pt did all cooking at home prior to admit. Architectural Engineering Teacher Architectural Engineering Teacher Caregiver Provides Assist Architectural Engineering Teacher Comments Pt/ share cleaning and laundry chores. Driving Driving Caregiver Provides Assist M6 OT- IP Functional Cognition Start: 06/10/18 16:41 Freq: Status: Active Protocol: Document 06/11/18 16:10 PJM (Rec: 06/11/18 16:29 [facility] [id number]) Cognitive Factors Limiting Selfcare Function Cognitive Ability Level of Alertness Alert Patient Orientation Name Age Birthday Month Date Year Day of Week Place Situation Attention Span Ability Capable of Focused Attention Capable of Sustained Attention Ability to Follow Commands Able to Follow One Step Commands Memory Description No Deficits Noted Safety Awareness No Deficits Noted Problem Solving Ability No deficits Noted Cognitive Comments Cognitive Assessment Comments Pt alert and oriented; good effort and participation with good receptive language skills . Pt has significant expressive aphasia and prefers to have present for therapy session to assist with providing information PRN. OT- Vision and Hearing OT- Hearing Assessment OT- Hearing Assessment WFL OT- Vision Assessment Visual Acuity WFL Glasses All The Time Visual Attentiveness WFL Occular Pursuits WFL Visual [place] WFL Vision Assessment Comments Pt denies any recent vision changes. Pt had no vision deficits from stroke M7 OT- IP Mobility and Balance Start: 06/10/18 16:41 Freq: Status: Active Protocol: Document 06/11/18 16:10 PJM (Rec: 06/11/18 16:29 [facility] [id number]) OT-Transfer Assessment Comments Mobility Comments Pt unable to transfer at present due to high pain level OT- Gait Assessment Comments Gait Ability Comments Pt unable to ambulate at present due to high pain level . OT- Balance Assessment Comments Other Balance Tests/Deviations/Treatment Pt unable to tolerate sitting : >45 degrees in bed due to pelvic pain. M8 OT- IP Objective Assessments Start: 06/10/18 16:41 Freq: Status: Active Protocol: Document 06/11/18 16:10 PJ (Rec: 06/11/18 16:29 [facility] [id number]) OT Gross Range of Motion Upper Extremity Range of Motion Assessment Right Impaired ROM Impairments R shldr active abd to about 30 , flexion to about 20 degrees. No AROM distally. 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 Pt tolerates passive IP extension to alow cleaning of palm. Thumb flexed and place between index and middle finger. OT Strength Upper Extremity Strength Assessment Right Impaired Shoulder 2-/5 abd, flex Elbow 0/5 Forearm 0/5 Wrist 0/5 Hand 0/5 Hand Railroad Track Mechanic Strength Hand Dominance Left OT- Coordination Assessment Upper Extremity Finger to Nose Test Right UE Impaired Finger Tapping Test Right UE Impaired Comments Coordination Comments RUE/hand non functional; pt does not use it as gross assist per OT-Muscle Tone Assessment Muscle Tone WNL No Muscle Tone Location Right Upper Extremity Type of Tone Hypertonicity Severity of Tone Moderate Adelaida Grade Scale Grade 4 OT Sensation Assessment Location Right Arm Light Touch Intact/Normal Edema Edema Absent M9 OT- IP Assessment and Plan Start: 06/10/18 16:41 Freq: Status: Active Protocol: Document 06/11/18 16:10 PJ (Rec: 06/11/18 16:29 [facility] [id number]) OT Summary Assessment and Plan Potential Rehabilitation Potential Fair Analytic Complexity at Evaluation Low Summary OT Impairments Pain Progress Towards Goals Slow Progress due to Pain Assessment Summary Pt seen to complete moderate complexity assessment due to comorbidity of old stroke with RUE flexion contracture and expressive aphasia which was started yesterday. Pt motivated to improve with good effort and participation this session, but unable to tolerate sitting up more than 45 degrees in bed and unable to tolerate EOB due to severe pelvic and back pain. Pt is far below her baseline level of function of complete independence with all self care,functional mobility with cane. IADLS and driving. Discussed pt's high pain level with Dr Shah. Pt will need SNF at discharge. Treatment Plan OT Treatment Plan ADL Training Functional Cognition Training Functional Mobility Patient/Family Education Discharge Planning Discharge Recommendations OT Discharge Recommendations SNF Rehab Home Equipment Needs to be determined in next rehab setting
--- NOTE | 2018-06-11 12:31 | PC.NURSE ---
Pts blood sugar 220 this morning, she gave herself 9u of insulin from her pump and she had an order for 50u of novolog to be given but she requested only 25u. Pt worked with p.t. and unable to get up, given 2mg of IV morphine and helpful. Pt is in a chair position in bed and has asked up to put hob up at 5 degree increments. She is visiting with her now. Noon bs is 126 and pt gave herself 3u from her insulin pump.
[2018-06-11] MEDS: CALCITONIN,SALMON, NASAL SPRAY 1 SPRAYS NASAL (12:57)
[2018-06-12] VITALS (7 sets, daily range): BP systolic 137–181; BP diastolic 67–88; PULSE 78–93; RESP 15–18; TEMP 36.2–36.9; O2SAT 91–95
--- NOTE | 2018-06-12 | DI.MRI.S_ITS ---
PROCEDURE: MR PELVIS WO CON INDICATIONS: pain in pelvis TECHNIQUE: Noncontrast coronal and axial T1 spin echo and STIR through the bony pelvis. COMPARISON: [facility], CT, CT PEL WO CON, 05/30/2018, 12:43. FINDINGS: Image quality: Excellent. Bones: Bilateral symmetric marrow edema seen within the sacral ala, in keeping with sacral insufficiency fractures as described and visualized on the comparison CT dated 05/30/18. There is also marrow edema related to the left pubic body fracture seen on the prior CT, with adjacent muscle edema in the left adductor compartment which could be reactive versus acute strain. Postsurgical changes related to left hip arthroplasty. Soft tissues: Presacral soft tissue edema No joint effusions. No free pelvic fluid. Bladder is distended. Genitourinary structures and bowel loops appear normal where visualized. IMPRESSION: Bilateral sacral ala insufficiency fractures. Comminuted left pubic body fracture with associated marrow edema. Distended bladder. Dictated by: Tereso Campos M.D. on 06/12/2018 at 13:06 Approved by: Tereso Campos M.D. on 06/12/2018 at 13:13
[2018-06-12] MEDS: FLUoxetine 20 MG CAPSULE PO (08:28)
[2018-06-12] MEDS: ENOXAPARIN 40 MG/0.4 ML SYRINGE SUBCUT (08:28)
[2018-06-12] MEDS: CALCIUM CARB/VIT D3 500/200 TABLET 1 EACH PO ×2 (08:28→20:26)
[2018-06-12] MEDS: GLUCOSAMINE/CHONDROITIN CAPSULE 1 EACH PO ×2 (08:28→20:26)
[2018-06-12] MEDS: DOCUSATE 100 MG CAPSULE PO ×2 (08:28→20:26)
[2018-06-12] MEDS: ASPIRIN EC 81 MG TABLET PO (08:28)
[2018-06-12] MEDS: LISINOPRIL 10 MG TABLET PO (08:28)
[2018-06-12] MEDS: SIMVASTATIN 20 MG TABLET PO (08:28)
[2018-06-12] MEDS: ASPART INSULIN INJ ×2 (08:29→12:17)
[2018-06-12] MEDS: ACETAMINOPHEN 325 MG TABLET 650 MG PO (08:59)
[2018-06-12] MEDS: OXYCODONE/ACETAMINOPHEN 5/325 TABLET 1 TAB PO ×2 (09:36→17:43)
--- NOTE | 2018-06-12 10:25 | PT.IPTN ---
Current Diagnoses Type 2 diabetes mellitus without complications (06/09/18) Hyperlipidemia, unspecified (06/09/18) Essential (primary) hypertension (06/09/18) Age-related osteoporosis without current pathological fracture (06/09/18) Pathological fracture, other site, initial encounter for fracture (06/09/18) Fracture of superior rim of left pubis, sequela (06/09/18) Physical Therapy Treatment Note M2 PT-IP Current Condition Start: 06/10/18 11:15 Freq: NEEDED Status: Active Protocol: Document 06/10/18 15:10 MDD (Rec: 06/10/18 17:35 MDD [id number]) Physical Therapy Current Condition Current Condition Evaluation Date 06/10/18 Treatment Diagnosis pelvic fracture, impaired mobility Onset Date 06/09/18 Weight Bearing Status Weight Bearing Status Weight Bear as Tolerated M3 PT-IP Subjective Start: 06/10/18 11:15 Freq: NEEDED Status: Active Protocol: Document 06/12/18 10:25 GGD (Rec: 06/12/18 11:50 GGD [id number]) Subjective Physical Therapy Visit Type Type Treatment Note Visit Start Time 10:00 Visit Stop Time 10:25 Total Visit Minutes 25 Number of NIGHT CLUB MANAGER Visits 2 Physical Therapy Visit Comments Patient Comments Pt willing to work with PT. Therapy Pain Assessment Pain When Pain Assessed During Mobility Pain Present Pain Present Pain Reported Location Right Hip Intensity 10 Scale Used Numeric (1 - 10) Pain Behaviors Calling Out Crying Facial Grimacing Moaning Pain Management Techniques Modification of Treatment Timing of Activity with Medications M4 PT-IP Mobility and Gait Start: 06/10/18 11:15 Freq: NEEDED Status: Active Protocol: Document 06/12/18 10:25 GGD (Rec: 06/12/18 11:50 GGD [id number]) PT-Bed Mobility Assessment Rolling Type of Rolling Bilateral Level of Assist Moderate Assistance 1 Person Assistance Scooting Scooting Up and Down in Bed Dependent PT-Transfer Assessment Comments Mobility Comments Pt unable to tolerate supine to sit. She was able to tolerate 65 degrees of head of bed elevation. M5 PT-IP Objective Assessments Start: 06/10/18 11:15 Freq: NEEDED Status: Active Protocol: Document 06/10/18 15:10 MDD (Rec: 06/10/18 17:35 MDD [id number]) Orientation Orientation/Cognition Level of Alertness Alert Orientation Name Age Birthday Month Place Situation Language Function Ability Expressive Aphagia Word Finding Difficulties Safety Awareness Understands Safety Issues Memory Description No Deficits Noted Gross Range of Motion Lower Extremity ROM Assessment Within Functional Limits Strength Lower Extremity Strength Assessment Right Impaired Comments Strength Comments R ankle dorsiflexion 3/5, able to perform B straight leg raise and heel slides actively . Additional MMT not tested today due to supine position. Sensation Assessment Sensation Gross Sensation Right UE Impaired Right LE Impaired Sensation Description Numbness Pain Comments Sensation Comments Pt reports her entire R leg is painful M6 PT-IP Treatment Start: 06/10/18 11:15 Freq: NEEDED Status: Active Protocol: Document 06/12/18 10:25 GGD (Rec: 06/12/18 11:50 GGD [id number]) Physical Therapy Treatment Exercises Exercises Ankle Pumps Gluteal Sets Quad Sets Heel Slides Straight Leg Raises Supine Hip Abduction M7 PT-IP Assessment and Plan Start: 06/10/18 11:15 Freq: NEEDED Status: Active Protocol: Document 06/12/18 10:25 GGD (Rec: 06/12/18 11:50 GGD [id number]) PT Summary Assessment and Plan Summary Assessment Summary Patient had increase in pain with supine to sit with head of bed elevating or with log roll. She was able to tolerate LE exercise without increase in pain. Frequency of Treatment Frequency Of Treatment Once a Day Treatment Plan Physical Therapy Treatment Plan Bed Mobility Training Transfer Training Gait Training Therapeutic Exercise Balance Retraining Discharge Planning Recommendations To Nursing Amount of Assist Needed PT/OT Assist Only Mechanical Lift Discharge Recommendations PT Discharge Recommendations SNF Rehab
--- NOTE | 2018-06-12 11:00 | OT.IP.TRT ---
Current Diagnoses Type 2 diabetes mellitus without complications (06/09/18) Hyperlipidemia, unspecified (06/09/18) Essential (primary) hypertension (06/09/18) Age-related osteoporosis without current pathological fracture (06/09/18) Pathological fracture, other site, initial encounter for fracture (06/09/18) Fracture of superior rim of left pubis, sequela (06/09/18) Occupational Therapy Treatment Note M2 OT-IP Current Condition Start: 06/10/18 16:41 Freq: Status: Active Protocol: Document 06/10/18 16:45 [facility] (Rec: 06/10/18 17:18 [facility] [id number]) Occupational Therapy Current Condition Current Condition Evaluation Date 06/10/18 Treatment Diagnosis Biliateral sacral insuff fx and communited fracture of left pelvic bone M3 OT- IP Subjective and Pain Start: 06/10/18 16:41 Freq: Status: Active Protocol: Document 06/12/18 13:05 PJM (Rec: 06/12/18 13:06 PJM [id number]) OT- Subjective Occupational Therapy Visit Type Type Administrative Note Visit Start Time 11:00 Notes OT attempt. Per RN, pt continues to have severe pain with any attempts to sit EOB. MRI has been ordered for today . Will hold OT today and recheck pt's status in AM as medical status permits.
[2018-06-12] MEDS: CALCITONIN,SALMON, NASAL SPRAY 1 SPRAYS NASAL (12:17)
--- NOTE | 2018-06-12 15:12 | PC.NURSE ---
patient unable to void all shift. denies urge to void. bladder scanned w/ >999 per bladder scanner. order to place jay w/ approx 800cc's yellow clear urine return and still draining.
--- NOTE | 2018-06-12 16:28 | P.PN_ITS ---
Subjective Date Patient Seen: 06/12/18 Interval history: Patient continues to have significant pain with movement. She has been unable to sit upright. Repeat MRI confirms sacral insufficiency fractures with a pelvic rim fracture ( old) Exam Vital Signs (past 8 hours): - 06/12/18 11:00 Pulse Rate 90 Respiratory Rate 15 Blood Pressure 169/82 H Pulse Oximetry 94 Oxygen Delivery Method Room Air Oxygen Flow Rate 0 Narrative Exam Narrative: Lungs: clear to auscultation CV: RRR nl Sl S2 Abd: soft/non tender non distended Ext: right arm with contracture, speech dysarthric, strength weak on right arm and leg Objective Labs Result Diagrams: 06/09/18 20:14 06/09/18 20:14 Assessment & Plan (1) Hypertension: Problem details: Continue HOSSEIN-inhibitor Current visit: Yes Status: Acute (2) Hyperlipidemia: Problem details: Continue her statin Current visit: Yes Status: Acute (3) Diabetes mellitus: Problem details: Patient is on insulin pump which we will continue Current visit: Yes Status: Acute (4) Osteoporosis: Problem details: Continue vitamin D calcium and salmon calcitonin Current visit: Yes Status: Acute (5) Bilateral sacral insufficiency fracture: Problem details: Physical therapy occupational therapy consultation. Will continue pain management DVT prophylaxis. Will start Tordol for better pain control Qualifiers: Encounter type: initial encounter Fracture healing: Qualified Code(s) : M84.48XA - Pathological fracture, other site, initial encounter for fracture Current visit: Yes Status: Acute (6) Closed fracture of left superior pubic ramus: Problem details: Continue PT and OT. Patient very likely will need SNF stay at discharge Likely ready tomorrow Qualifiers: Encounter type: sequela Fracture healing: Qualified Code(s): S32.512S - Fracture of superior rim of left pubis, sequela Current visit: Yes Status: Acute Quality VTE Deep Vein Thrombosis/Pulmonary Embolism Present on Admission: No
--- NOTE | 2018-06-12 18:38 | PC.NURSE ---
Pt awake and alert resting quietly in bed. Rates lower back pain 5/10 and was given percocet as per emar. Pt's spouse and pt's daughter are present in room and have questions re today's MRI results. Dr. Shah was notified by this medical underwriter and family informed of MD's report MRI confirms what the xray shows, no changes. Perry to gravity with large quantity clear, yellow urine. Pt is able to feed self with set up. Contracture right hand s/p CVA.
[2018-06-12] MEDS: OXYCODONE ER 10 MG TAB PO (20:26)
[2018-06-13 00:08] VITALS: BP 164/69; PULSE 76; RESP 17; TEMP 36.6; O2SAT 97
[2018-06-13 03:50] VITALS: BP 166/73; PULSE 79; RESP 16; TEMP 36.4; O2SAT 93
[2018-06-13 08:00] VITALS: BP 150/83; PULSE 96; RESP 18; TEMP 36.8; O2SAT 93
[2018-06-13] MEDS: LISINOPRIL 10 MG TABLET PO (08:33)
[2018-06-13] MEDS: FLUoxetine 20 MG CAPSULE PO (08:33)
[2018-06-13] MEDS: DOCUSATE 100 MG CAPSULE PO (08:33)
[2018-06-13] MEDS: SIMVASTATIN 20 MG TABLET PO (08:33)
[2018-06-13] MEDS: GLUCOSAMINE/CHONDROITIN CAPSULE 1 EACH PO (08:33)
[2018-06-13] MEDS: ASPIRIN EC 81 MG TABLET PO (08:33)
[2018-06-13] MEDS: CALCIUM CARB/VIT D3 500/200 TABLET 1 EACH PO (08:33)
[2018-06-13] MEDS: ASPART INSULIN INJ (08:34)
[2018-06-13] MEDS: ENOXAPARIN 40 MG/0.4 ML SYRINGE SUBCUT (08:34)
[2018-06-13] MEDS: OXYCODONE ER 10 MG TAB PO (08:38)
--- NOTE | 2018-06-13 09:25 | PT.IPTN ---
Current Diagnoses Type 2 diabetes mellitus without complications (06/09/18) Hyperlipidemia, unspecified (06/09/18) Essential (primary) hypertension (06/09/18) Age-related osteoporosis without current pathological fracture (06/09/18) Pathological fracture, other site, initial encounter for fracture (06/09/18) Fracture of superior rim of left pubis, sequela (06/09/18) Physical Therapy Treatment Note M2 PT-IP Current Condition Start: 06/10/18 11:15 Freq: NEEDED Status: Active Protocol: Document 06/10/18 15:10 MDD (Rec: 06/10/18 17:35 MDD [id number]) Physical Therapy Current Condition Current Condition Evaluation Date 06/10/18 Treatment Diagnosis pelvic fracture, impaired mobility Onset Date 06/09/18 Weight Bearing Status Weight Bearing Status Weight Bear as Tolerated M3 PT-IP Subjective Start: 06/10/18 11:15 Freq: NEEDED Status: Active Protocol: Document 06/13/18 09:24 GGD (Rec: 06/13/18 09:30 GGD [email or web address]) Subjective Physical Therapy Visit Type Type Treatment Note Visit Start Time 08:55 Visit Stop Time 09:20 Total Visit Minutes 25 Number of ASSISTANT PRESSMAN Visits 3 Physical Therapy Visit Comments Patient Comments Pt willing to work with PT. Therapy Pain Assessment Pain When Pain Assessed During Mobility Pain Present Pain Present Pain Reported Location Right Hip Intensity 10 Scale Used Numeric (1 - 10) Pain Behaviors Calling Out Crying Facial Grimacing Guarding Moaning Wincing Pain Management Techniques Modification of Treatment Timing of Activity with Medications M4 PT-IP Mobility and Gait Start: 06/10/18 11:15 Freq: NEEDED Status: Active Protocol: Document 06/13/18 09:24 GGD (Rec: 06/13/18 09:30 GGD [email or web address]) PT-Bed Mobility Assessment Rolling Type of Rolling Bilateral Level of Assist Minimal Assistance Moderate Assistance 1 Person Assistance Supine to Sit Supine to Sit Moderate Assistance 1 Person Assistance Head of Bed Elevated Bedrails Sit to Supine Sit to Supine Minimal Assistance 1 Person Assistance Bedrails Scooting Scooting Up and Down in Bed Dependent PT-Transfer Assessment Comments Mobility Comments PT need min A for rolling to the right, but mod for rolling to left. Did bed mobility rolling x 2 each direction. Supine to sit with log roll x 2 with mod A able to sit on edge of bed for 5 seconds before pain increased with nthe need to return to supine. M5 PT-IP Objective Assessments Start: 06/10/18 11:15 Freq: NEEDED Status: Active Protocol: Document 06/10/18 15:10 MDD (Rec: 06/10/18 17:35 MDD [id number]) Orientation Orientation/Cognition Level of Alertness Alert Orientation Name Age Birthday Month Place Situation Language Function Ability Expressive Aphagia Word Finding Difficulties Safety Awareness Understands Safety Issues Memory Description No Deficits Noted Gross Range of Motion Lower Extremity ROM Assessment Within Functional Limits Strength Lower Extremity Strength Assessment Right Impaired Comments Strength Comments R ankle dorsiflexion 3/5, able to perform B straight leg raise and heel slides actively . Additional MMT not tested today due to supine position. Sensation Assessment Sensation Gross Sensation Right UE Impaired Right LE Impaired Sensation Description Numbness Pain Comments Sensation Comments Pt reports her entire R leg is painful M6 PT-IP Treatment Start: 06/10/18 11:15 Freq: NEEDED Status: Active Protocol: Document 06/13/18 09:24 GGD (Rec: 06/13/18 09:30 GGD [email or web address]) Physical Therapy Treatment Exercises Exercises Ankle Pumps Gluteal Sets Quad Sets Heel Slides Straight Leg Raises Supine Hip Abduction M7 PT-IP Assessment and Plan Start: 06/10/18 11:15 Freq: NEEDED Status: Active Protocol: Document 06/13/18 09:24 GGD (Rec: 06/13/18 09:30 GGD [email or web address]) PT Summary Assessment and Plan Summary Assessment Summary Patient dias increase in pain with supine to sit. She had poor tolerance to sitting position. She improved with able to achive sit on edge of bed, but unable to tolerate sitting. Frequency of Treatment Frequency Of Treatment Once a Day Treatment Plan Physical Therapy Treatment Plan Bed Mobility Training Transfer Training Gait Training Therapeutic Exercise Balance Retraining Discharge Planning Recommendations To Nursing Amount of Assist Needed PT/OT Assist Only Mechanical Lift Discharge Recommendations PT Discharge Recommendations SNF Rehab
[2018-06-13 10:01] VITALS: O2SAT 98
--- NOTE | 2018-06-13 11:22 | CM.DPC ---
Hospitalist is to discharge patient today to [facility], updated Reanna, and she confirmed that she can accept today. Updated patient as well. Discussed BLS transport with her, and the possibility of insurance not fully covering, and she confirms that she is agreeable to discharging to [facility] by stretcher transport. Called BLS transport with [place] [facility], and they will pick her up at approximately 1:30. Completed BLS form, as well as PASSR, and Katherine agreed to fax med rec, scripts, and PASSR to [facility]. Updated nurse, as well as coordinator. P: Patient will be transported to [facility] today Gracia Nguyen RN/Cell Attendant
[2018-06-13] MEDS: CALCITONIN,SALMON, NASAL SPRAY 1 SPRAYS NASAL (12:21)
[2018-06-13] MEDS: OXYCODONE/ACETAMINOPHEN 5/325 TABLET 1 TAB PO (13:54)
--- NOTE | 2018-06-13 14:29 | PC.NURSE ---
Pt discharged to [facility]. Report called to [place]. Pt given percocet prior to departure by ambulance. Pt agreeable and in no distress. No IV access. Taken by ambulance at 1415.
--- NOTE | 2018-06-13 17:43 | P.DS_ITS ---
History of Present Illness Date Patient Seen: 06/13/18 Chief complaint: R hip pain Narrative: The patient fell 3 weeks ago sustaining a left pelvic fracture. Hip x -rays revealed a left superior pubic rami fracture. A right femoral neck fracture was suspected. She has a prior left hip replacement. The prosthesis was intact. The patient did well for the 1st week, she has since then had significant increases in pain. She is taking Gackle every 6 hr. The pain has exacerbated to the point where she cannot stand or support herself. She has a history of CVA with right-sided deficits, prior to the fall she was ambulatory with a cane. She cannot even move herself to a sitting position due to pelvic pain at this point. She has no any urinary or bowel incontinence. She has no weakness or numbness in the legs. A pelvic CT was ordered last week. The CT shows osteoarthritis and osteopenia. There was no femoral neck fracture seen. A comminuted fracture of the left pubic bone is seen on CT. Also noted is probable bilateral sacral insufficiency fractures. She is having pain through the gluteal region bilaterally, and has pain with any motion of the lower back or the hips. She has no associated urinating or bowel incontinence. Discharge Providers Date of admission: 06/09/18 19:49 Primary care physician: Vitaliy Brock MD Consults: 06/09/18 21:11 Consult to Dietitian, Adult Routine Comment: Reason For Exam: weight loss; poor appetite. Aphasia s/p cva 199206/10/18 08:12 Consult to Occupational Therapy Evaluate & Treat Comment: possible SNF placement Physician Instructions: Evaluate and treat Consult to Physical Therapy Evaluate & Treat Comment: possible SNF placement Physician Instructions: Evaluate and Treat Discharge provider: Yeimy Shah MD Summary Discharge Diagnosis: Bilateral sacrl insufficiency fractures Pubic ramus fracture osteoporosis Type 1 diabetes Mellitus Hyperlipidemia Hospital Course: Patient was admitted to the hospital with bilateral sacral insufficiency fractures. She had significant pain and was essentially immobile. MRI and CT confirm the fractures. The patient was placed on pain medications and was slowly able to work with PT/OT. She was transferred to [facility] for ongoing rehabilitaion. Status at Discharge Cognitive/behavioral status at discharge: At baseline Functional status at discharge: bed bound Overall status at discharge: patient is not back to baseline Time Spent with Patient Less than 30 minutes Exam Vital Signs (past 8 hours): - 06/13/18 10:01 Pulse Oximetry 98 Oxygen Delivery Method Room Air Oxygen Flow Rate 0 Objective Labs Result Diagrams: 06/09/18 20:14 06/09/18 20:14 Discharge Plan Discharge Plan Patient Disposition: SNF Transfer to: [facility] Transportation: Ambulance I certify the postop hospital alf care is medically necessary on a continuing basis for any conditions for which he/ she received care during this hospitalization.: Yes The receiving facility has agreed to accept transfer and provide medical treatment.: Yes Provider Discharge Instructions Diet: Carb-consistent/Diabetic and Low-sodium Liquid consistency: Normal/Thin Food texture: Regular Activity: as tolerated Catheter: 2-way Perry Catheter comment: needs bladder retraining Special Rehabilitation Services Reason for rehabilitation: Recovery r/t decondition Rehab type: Physical therapy and Occupational therapy Discharge Data Primary Care Provider: Vitaliy Brock Attending Provider: Yeimy Shah Admit Date/Time: 06/09/18 19:49 Discharges patient from system. Discharge Date/Time: 06/13/18 14:31 Quality VTE Deep Vein Thrombosis/Pulmonary Embolism Present on Admission: No
== END 2018-06-13 14:31 | DRG 543 ==
LOC: ED 19:25 → AC 06-10 10:45
PROVIDERS: Admitting Provider Internal Medicine; Emergency Provider Emergency Medicine; PCP Internal Medicine; Visit Provider Internal Medicine
DX: M80.08XA Age-related osteoporosis with current pathological fracture, vertebra(e), initial encounter for fracture (principal); I69.351 Hemiplegia and hemiparesis following cerebral infarction affecting right dominant side; M80.052A Age-related osteoporosis with current pathological fracture, left femur, initial encounter for fracture; W19.XXXA Unspecified fall, initial encounter; Z96.41 Presence of insulin pump (external) (internal); Z79.4 Long term (current) use of insulin; E78.5 Hyperlipidemia, unspecified; I10 Essential (primary) hypertension; E10.9 Type 1 diabetes mellitus without complications; Z96.642 Presence of left artificial hip joint
CPT/HCPCS: 36591; 36592; 72195; 80053; 82962; 85025; 96374; 96376; 97110; 97162; 97166; 97530; 97535; 99282; 99283; J1650; J2270

== ENCOUNTER → 2018-06-21 07:11 | Outpatient (REF) | payer SELFPAY ==
[2018-06-21 08:11] LABS: Add Manual Diff / Slide Review NO; Basophils Percent Auto 0.8 % (0-2); Eosinophils Percent Auto 4.2 % (2-4); Hematocrit 29.1 % (36-46); Hemoglobin 9.3 g/dL (12.0-16.0); Lymphocytes Percent Auto 28.8 % (25-40); Mean Corpuscular Hemoglobin 24.8 PG (26-34); Mean Corpuscular Volume 77.7 fL (80-100); Monocytes Percent Auto 7.7 % (3-14); Neutrophils Absolute Auto 4400 /uL (3000-5900); Neutrophils Percent Auto 58.5 % (50-75); Platelet Count 455 X10^3/uL (150-400); Red Blood Cell Count 3.75 X10^6/uL (4.0-5.2); Red Cell Distribution Width 18.5 % (11.6-14.8); White Blood Cell Count 7.5 X10^3/uL (4.5-11.0)
[2018-06-21 08:15] LABS: Alanine Aminotransferase 20 IU/L (9-52); Albumin 3.4 g/dL (3.5-5.0); Albumin Globulin Ratio 1.1 (1.0-2.8); Alkaline Phosphatase 159 U/L (38-126); Aspartate Aminotransferase 20 IU/L (14-36); Bilirubin Total 0.4 mg/dL (0.2-1.3); Blood Urea Nitrogen 20 mg/dL (7-17); Calcium 8.9 mg/dL (8.4-10.2); Carbon Dioxide 28 mmol/L (22-32); Chloride 98 mmol/L (98-107); Estimated Glomerular Filt Rate > 60.0 mL/min (>60); Glucose 178 mg/dL (80-110); HEMOLYSIS < 15 (0-50); Potassium 3.8 mmol/L (3.4-5.1); Sodium 134 mmol/L (137-145); Total Protein 6.4 g/dL (6.3-8.2)
== END ==
LOC: LAB 07:11
PROVIDERS: PCP Internal Medicine; Visit Provider Nurse Practitioner Family
DX: D64.9 Anemia, unspecified (principal); I10 Essential (primary) hypertension; S32.9XXA Fracture of unspecified parts of lumbosacral spine and pelvis, initial encounter for closed fracture
CPT/HCPCS: 36415; 80053; 85025

== ENCOUNTER → 2018-06-24 08:34 | Outpatient (REF) | payer SELFPAY ==
[2018-06-24 09:02] LABS: Hematocrit 29.4 % (36-46); Hemoglobin 9.3 g/dL (12.0-16.0)
[2018-06-24 09:24] LABS: Alanine Aminotransferase 24 IU/L (9-52); Albumin 3.4 g/dL (3.5-5.0); Albumin Globulin Ratio 1.2 (1.0-2.8); Alkaline Phosphatase 158 U/L (38-126); Aspartate Aminotransferase 23 IU/L (14-36); Bilirubin Total 0.5 mg/dL (0.2-1.3); Bilirubin Unconjugated 0.2 mg/dL (0.0-1.1); Globulin 2.8 g/dL (1.7-4.1); HEMOLYSIS < 15 (0-50); Total Protein 6.2 g/dL (6.3-8.2)
== END ==
LOC: LAB 08:34
PROVIDERS: PCP Internal Medicine; Visit Provider Internal Medicine
DX: D64.9 Anemia, unspecified (principal); R74.8 Abnormal levels of other serum enzymes
CPT/HCPCS: 36415; 80076; 85014; 85018

== ENCOUNTER → 2018-08-01 10:28 | Outpatient (CLI) | payer MEDICARE, OTHER, SELFPAY ==
[2018-08-01 11:36] LABS: Add Manual Diff / Slide Review NO; Eosinophils Percent Auto 2.4 % (2-4); Lymphocytes Percent Auto 20.5 % (25-40); Mean Corpuscular HGB Conc 31.4 % (30-36); Mean Corpuscular Hemoglobin 23.5 PG (26-34); Mean Corpuscular Volume 74.9 fL (80-100); Neutrophils Absolute Auto 5000 /uL (3000-5900); Neutrophils Percent Auto 68.1 % (50-75); Platelet Count 445 X10^3/uL (150-400); Red Blood Cell Count 4.28 X10^6/uL (4.0-5.2); Red Cell Distribution Width 20.3 % (11.6-14.8); White Blood Cell Count 7.4 X10^3/uL (4.5-11.0)
[2018-08-01 11:49] LABS: Alanine Aminotransferase 16 IU/L (9-52); Albumin 3.8 g/dL (3.5-5.0); Albumin Globulin Ratio 1.2 (1.0-2.8); Alkaline Phosphatase 84 U/L (38-126); Aspartate Aminotransferase 26 IU/L (14-36); BUN Creatinine Ratio 21.1 (6-22); Bilirubin Total 0.5 mg/dL (0.2-1.3); Blood Urea Nitrogen 19 mg/dL (7-17); Calcium 9.4 mg/dL (8.4-10.2); Carbon Dioxide 27 mmol/L (22-32); Chloride 100 mmol/L (98-107); Estimated Glomerular Filt Rate > 60.0 mL/min (>60); Globulin 3.2 g/dL (1.7-4.1); Glucose 251 mg/dL (80-110); Hemoglobin A1C% w Est Avg Glu 7.5 % (4.0-6.0); Potassium 4.8 mmol/L (3.4-5.1); Sodium 137 mmol/L (137-145)
[2018-08-01 11:50] LABS: HEMOLYSIS 52 (0-50)
[2018-08-01 12:24] LABS: Anisocytosis 1+
== END ==
PROVIDERS: PCP Internal Medicine; Visit Provider Internal Medicine
DX: E11.9 Type 2 diabetes mellitus without complications (principal)
CPT/HCPCS: 36415; 80053; 83036; 85025

== ENCOUNTER → 2018-08-09 14:41 | Outpatient (CLI) | payer MEDICARE, OTHER, SELFPAY ==
--- NOTE | 2018-08-09 | DI.RAD.S_ITS ---
This blank DEXA report has been sent in error by the PACS system. The correct and complete report will be forthcoming in 1-2 days. Thank you for your patience and understanding. Dictated by: Terrance Mcgraw M.D. on 08/09/2018 at 15:50 Approved by: Terrance Mcgraw M.D. on 08/09/2018 at 15:50
== END ==
PROVIDERS: PCP Internal Medicine; Visit Provider Internal Medicine
DX: Z13.820 Encounter for screening for osteoporosis (principal); M85.832 Other specified disorders of bone density and structure, left forearm; Z78.0 Asymptomatic menopausal state; E11.9 Type 2 diabetes mellitus without complications
CPT/HCPCS: 77080; 77081

== ENCOUNTER → 2018-09-19 10:53 | Outpatient (CLI) | payer MEDICARE, OTHER, SELFPAY ==
--- NOTE | 2018-09-19 | DI.RAD.S_ITS ---
PROCEDURE: FL BARIUM SWALLOW W SPEECH INDICATIONS: ASPIRATION TECHNIQUE: Examination was conducted in conjunction with speech pathology per standard protocol. In the lateral projection, filming was performed of the patient swallowing. AP projection filming may also be performed with patient swallowing. COMPARISON: None. FINDINGS: Function: The oral preparatory phase appears normal, with proper containment. The subsequent oral propulsive phase, pharyngeal phase, and esophageal phase of swallowing also appear normal with all proffered substances. No laryngotracheal penetration or aspiration. No pathologic vallecular pooling. Morphology: No cricopharyngeal bar is identified. No cervical esophageal webs. No Zenker's diverticulum. No strictures. IMPRESSION: Normal examination. Please also refer to the dedicated speech therapy specialist report that will be independently generated. Dictated by: Fredy Patterson M.D. on 09/19/2018 at 12:39 Approved by: Fredy Patterson M.D. on 09/19/2018 at 12:40
== END ==
PROVIDERS: PCP Internal Medicine; Visit Provider Internal Medicine
DX: R05 Cough (principal); Z86.73 Personal history of transient ischemic attack (TIA), and cerebral infarction without residual deficits
CPT/HCPCS: 74230; 92611

== ENCOUNTER → 2019-02-22 11:08 | Outpatient (CLI) | payer MEDICARE, OTHER, SELFPAY ==
[2019-02-22 12:21] LABS: Add Manual Diff / Slide Review NO; Basophils Absolute Auto 200 /uL (0-100); Basophils Percent Auto 2.5 % (0-2); Eosinophils Absolute Auto 400 /uL (0-450); Eosinophils Percent Auto 5.9 % (2-4); Hematocrit 33.3 % (36-46); Hemoglobin 10.6 g/dL (12.0-16.0); Lymphocytes Absolute Auto 1400 /uL (1100-4500); Lymphocytes Percent Auto 21.5 % (25-40); Mean Corpuscular HGB Conc 31.8 % (30-36); Mean Corpuscular Hemoglobin 26.1 PG (26-34); Mean Corpuscular Volume 82.1 fL (80-100); Monocytes Absolute Auto 500 /uL (0-900); Monocytes Percent Auto 8.3 % (3-14); Neutrophils Absolute Auto 3900 /uL (1500-7000); Neutrophils Percent Auto 61.8 % (50-75); Platelet Count 338 X10^3/uL (150-400); Red Blood Cell Count 4.05 X10^6/uL (4.0-5.2); Red Cell Distribution Width 18.6 % (11.6-14.8); White Blood Cell Count 6.3 X10^3/uL (4.5-11.0)
[2019-02-22 15:11] LABS: HEMOLYSIS < 15 (0-50); Iron 47 ug/dL (37-170)
[2019-02-22 15:22] LABS: Percent Iron Saturation 12 % (15-50); Total Iron Binding Capacity 382 ug/dL (265-497); Transferrin 304 mg/dL (206-381)
== END ==
PROVIDERS: PCP Internal Medicine; Visit Provider Internal Medicine Gastroenterology
DX: D50.9 Iron deficiency anemia, unspecified (principal)
CPT/HCPCS: 36415; 82728; 83540; 83550; 85025

== ENCOUNTER 2019-08-12 21:54 | Emergency (ER) | payer MEDICARE, OTHER, SELFPAY ==
[2019-08-12 22:08] VITALS: BP 129/71; PULSE 93; RESP 14; TEMP 36.3; O2SAT 98
[2019-08-12 22:48] LABS: pH VBG 7.34 (7.33-7.43)
[2019-08-12 22:49] LABS: HCO3 VBG 22 mmol/L (23-28); Oxygen Saturation VBG 40 % (70-75); PO2 VBG 24 mmHg (35-45); Total CO2 VBG 24 mmol/L (24-29)
[2019-08-12] MEDS: SODIUM CHLORIDE 0.9% 1,000 ML 1000 ML IV (22:49)
--- NOTE | 2019-08-12 22:50 | ED_ITS ---
HPI - General Adult General Chief complaint: Diabetic Problem Stated complaint: Hyperglycemia Time Seen by Provider: 08/12/19 22:17 Source: patient Mode of arrival: Wheelchair Limitations: no limitations History of Present Illness HPI narrative: Patient is a [age]-year-old female here for evaluation of elevated blood sugar. Patient is a history of insulin-dependent diabetes. She has an insulin pump. She is at the insulin pump for many years. Patient states she feels falling. She has no complaints. They checked her blood sugar at home and it was elevated. After arriving here to the emergency department when they removed her insulin pump was found that the catheter was bent. Patient has never had a diagnosis of DKA. Related Data Home Medications Medication Instructions Recorded Confirmed CA CARBONATE/VITAMIN D3/VIT K 1 ctb PO BID #0 10/07/12 06/09/18 (Viactiv Soft Chew Tablet) Chondroitin Sulfate/Glucosam 1 cap PO BID #0 10/07/12 06/09/18 (#CHONDROITIN COMPLEX/GLUCOSAMINE 200 MG-500 M) Fluoxetine Hydrochloride 20 mg PO QDAY #0 10/07/12 06/09/18 (FLUOXETINE) Glucosamine Hydrochloride 1,500 mg PO BID #0 10/07/12 06/09/18 (#GLUCOSAMINE) aspirin 81 mg PO QDAY #0 10/07/12 06/09/18 lisinopril 10 mg PO QDAY #0 10/07/12 06/09/18 simvastatin 20 mg PO QDAY #0 10/07/12 06/09/18 insulin aspart U-100 50 unit SUB-Q DAILY 03/05/18 06/09/18 calcitonin (salmon) 1 spray INTRANASAL QNOON 06/09/18 06/09/18 hydrocodone-acetaminophen 1 tab PO Q4HR PRN 06/09/18 06/09/18 Previous Rx's Medication Instructions Recorded hydrocodone-acetaminophen 1 tab PO Q4-6H PRN #20 tab 06/13/18 oxycodone [OxyContin] 10 mg PO Q12H #20 tab 06/13/18 Allergies Allergy/AdvReac Type Severity Reaction Status Date / Time phenytoin Allergy Mild TURNED Verified 08/12/19 22:08 BRIGHT RED Review of Systems Constitutional Constitutional: Denies fever(s) Cardiovascular Cardiovascular: Denies chest pain and Denies dyspnea Respiratory Respiratory: Denies dyspnea Gastrointestinal Gastrointestinal: Denies abdominal pain Genitourinary Genitourinary: Denies dysuria Musculoskeletal Musculoskeletal: Denies myalgias and Denies arthralgias Integumentary/Breasts Skin/Breast: Denies lesions and Denies rash Neurologic Neurologic: Denies behavioral changes Psychiatric Psychiatric: Denies behavioral changes Hematologic/Lymphatic Hematologic/Lymphatic: Denies easy bleeding and Denies easy bruising [facility] Medical History CVA (cerebral vascular accident) (Chronic) Diabetes (Chronic) HTN (hypertension) (Chronic) Hyperlipidemia (Acute) Insulin pump in place (Acute) Social History household members: spouse Smoking Status: Never smoker alcohol intake: never Exam Initial Vital Signs Initial Vital Signs: Vital Signs Temperature 97.3 F L 08/12/19 22:08 Pulse Rate 93 H 08/12/19 22:08 Respiratory Rate 14 08/12/19 22:08 Blood Pressure 129/71 08/12/19 22:08 Pulse Oximetry 98 08/12/19 22:08 Const General: cooperative, comfortable and well developed Orientation: alert and awake Resp Effort & Inspection: normal respiratory effort Cardio Rate: regular rate Skin Lesions: no lesions Rashes: no rashes Neuro General: alert and awake Cognition: normal cognition Extrem Other: Contracted right upper extremity that is not new Psych Appearance: grossly normal and well kempt Course Orders Ordered: ED Orders 08/12/19 22:33 Venous Blood Gas Stat 08/12/19 22:40 Complete Blood Count AUTO DIFF Stat Comprehensive Metabolic Panel Stat Ketones (Beta-Hydroxybutyrate) Stat Lactate (Lactic Acid) Stat Lipase Stat Magnesium Stat Phosphorous Stat Procalcitonin Stat Troponin I Stat Discontinued Medications Sodium Chloride (Normal Saline 0.9%) 1,000 mls @ 1,000 mls/hr IV BOLUS ONE Stop: 08/12/19 23:16 Last Infusion: 08/13/19 00:32 Dose: 0 mls/hr Documented by: Admin: 08/12/19 22:49 Dose: 1,000 mls/hr Documented by: NINA Insulin Human Regular (Humulin R) 10 unit SUBCUT NOW ONE Stop: 08/12/19 23:13 Last Admin: 08/12/19 23:20 Dose: 10 unit Documented by: NIAN Ralph by: KELLY Vital Signs Vital signs: Vital Signs - 8 hr 08/12/19 22:08 08/13/19 00:28 Temperature 97.3 F L Pulse Rate 93 H 80 Respiratory Rate 14 16 Blood Pressure 129/71 148/66 H Pulse Oximetry 98 99 Medical Decision Making Lab Data Lab results reviewed: Yes I reviewed the patient's lab results. Result diagrams: 08/12/19 22:40 08/12/19 22:40 Labs: Lab Results 08/12/19 08/12/19 08/12/19 Range/Units 22:33 22:40 22:40 WBC 8.4 (4.5-11.0) X10^3/uL RBC 4.12 (4.0-5.2) X10^6/uL Hgb 11.1 L (12.0-16.0) g/dL Hct 34.3 L (36-46) % MCV 83.3 (80-100) fL MCH 26.8 (26-34) PG MCHC 32.2 (30-36) % RDW 17.0 H (11.6-14.8) % Plt Count 341 (150-400) X10^3/uL Neut % (Auto) 74.9 (50-75) % Lymph % (Auto) 13.9 L (25-40) % Gila % (Auto) 9.6 (3-14) % Eos % (Auto) 0.1 L (2-4) % Baso % (Auto) 1.5 (0-2) % Neut # (Auto) 6300 (7084-2473) /uL Lymph # (Auto) 1200 (3101-0321) /uL Gila # (Auto) 800 (0-900) /uL Eos # (Auto) 0 (0-450) /uL Baso # (Auto) 100 (0-100) /uL VBG pH 7.34 (7.33-7.43) VBG pCO2 41.0 L (45-50) mmHg VBG pO2 24 L (35-45) mmHg VBG HCO3 22 L (23-28) mmol/L VBG Total CO2 24 (24-29) mmol/L VBG O2 Saturation 40 L (70-75) % VBG Base Excess -3.0 L (0-4) mmol/L Sodium 132 L (137-145) mmol/L Potassium 4.0 (3.4-5.1) mmol/L Chloride 97 L (98-107) mmol/L Carbon Dioxide 23 (22-32) mmol/L BUN 29 H (7-17) mg/dL Creatinine 1.10 H (0.52-1.04) mg/dL Estimated GFR 48.0 L (>60) mL/min BUN/Creatinine Ratio 26.4 H (6-22) Glucose 403 H (80-110) mg/dL Lactate (0.7-2.1) mmol/L Calcium 10.4 H (8.4-10.2) mg/dL Phosphorus 2.8 (2.8-4.1) mg/dL Magnesium 2.1 (1.6-2.3) mg/dL Total Bilirubin 0.5 (0.2-1.3) mg/dL AST 27 (14-36) IU/L ALT 19 (9-52) IU/L Alkaline Phosphatase 81 (38-126) U/L Troponin I < 0.012 (0.01-0.034) ng/mL Total Protein 7.3 (6.3-8.2) g/dL Albumin 4.1 (3.5-5.0) g/dL Globulin 3.2 (1.7-4.1) g/dL Albumin/Globulin Ratio 1.3 (1.0-2.8) Lipase 69 (23-300) U/L Procalcitonin (<0.5) ng/mL Ketones 0.20 (<0.27) mmol/L 08/12/19 08/12/19 Range/Units 22:40 22:40 WBC (4.5-11.0) X10^3/uL RBC (4.0-5.2) X10^6/uL Hgb (12.0-16.0) g/dL Hct (36-46) % MCV (80-100) fL MCH (26-34) PG MCHC (30-36) % RDW (11.6-14.8) % Plt Count (150-400) X10^3/uL Neut % (Auto) (50-75) % Lymph % (Auto) (25-40) % Gila % (Auto) (3-14) % Eos % (Auto) (2-4) % Baso % (Auto) (0-2) % Neut # (Auto) (6214-3765) /uL Lymph # (Auto) (0221-1619) /uL Gila # (Auto) (0-900) /uL Eos # (Auto) (0-450) /uL Baso # (Auto) (0-100) /uL VBG pH (7.33-7.43) VBG pCO2 (45-50) mmHg VBG pO2 (35-45) mmHg VBG HCO3 (23-28) mmol/L VBG Total CO2 (24-29) mmol/L VBG O2 Saturation (70-75) % VBG Base Excess (0-4) mmol/L Sodium (137-145) mmol/L Potassium (3.4-5.1) mmol/L Chloride (98-107) mmol/L Carbon Dioxide (22-32) mmol/L BUN (7-17) mg/dL Creatinine (0.52-1.04) mg/dL Estimated GFR (>60) mL/min BUN/Creatinine Ratio (6-22) Glucose (80-110) mg/dL Lactate 3.0 H (0.7-2.1) mmol/L Calcium (8.4-10.2) mg/dL Phosphorus (2.8-4.1) mg/dL Magnesium (1.6-2.3) mg/dL Total Bilirubin (0.2-1.3) mg/dL AST (14-36) IU/L ALT (9-52) IU/L Alkaline Phosphatase (38-126) U/L Troponin I (0.01-0.034) ng/mL Total Protein (6.3-8.2) g/dL Albumin (3.5-5.0) g/dL Globulin (1.7-4.1) g/dL Albumin/Globulin Ratio (1.0-2.8) Lipase (23-300) U/L Procalcitonin 2.26 H (<0.5) ng/mL Ketones (<0.27) mmol/L Point of Care Testing Glucose POC 323 Point of care testing: Point of Care Testing Glucose POC 323 MDM Narrative Medical decision making narrative: Patient is hyperglycemic however this did improve with fluids and insulin. Labs are not consistent with DKA. Do suspect that her symptoms were related to the fact that the catheter from her insulin pump was bent. Unsure as to how this happened or how long it has been there. No indication for admission to the hospital. They have supplies to replace the insulin pump. She has a sliding scale at home. Will have her continue her norm al insulin regiment. Patient was given return precautions and follow-up instructions. She is at baseline neurologic status per her and her . How expressed understanding and agreement with plan. Discharge Plan Departure Patient Disposition: Home Clinical Impression: Hyperglycemia Discharge Date/Time: 08/13/19 00:28 Instructions: DI for Hyperglycemia -- Adult Activity Restrictions/Additional Instructions: I do recommend that you replace your insulin pump in start following your sli ding scale dosing of the insulin. Contact your primary provider for follow-up. Return to the emergency department for any new or worsening symptoms Prescriptions: No Action simvastatin 20 MG tablet 20 mg PO QDAY Qty: 0 RF: 0 lisinopril 10 MG tablet 10 mg PO QDAY Qty: 0 RF: 0 Fluoxetine Hydrochloride (FLUOXETINE) 20 mg PO QDAY Qty: 0 RF: 0 aspirin 81 MG tablet,delayed release (DR/EC) 81 mg PO QDAY Qty: 0 RF: 0 CA CARBONATE/VITAMIN D3/VIT K (Viactiv Soft Chew Tablet) 1 ctb PO BID Qty: 0 RF: 0 Glucosamine Hydrochloride (#GLUCOSAMINE) tablet 1,500 mg PO BID Qty: 0 RF: 0 Chondroitin Sulfate/Glucosam (#CHONDROITIN COMPLEX/GLUCOSAMINE 200 MG-500 M) 1 cap PO BID Qty: 0 RF: 0 insulin aspart U-100 100 unit/mL Cartridge 50 unit SUB-Q DAILY RF: 0 calcitonin (salmon) 200 unit/actuation spray,non-aerosol 1 spray Intranasal QNOON RF: 0 hydrocodone-acetaminophen 5-325 mg tablet 1 tab PO Q4HR PRN (Reason: Pain (Scale Score 1-3)) RF: 0 oxycodone [OxyContin] 10 mg tablet,oral only,ext.rel.12 hr 10 mg PO Q12H Qty: 20 RF: 0 hydrocodone-acetaminophen 5-300 mg tablet 1 tab PO Q4-6H PRN (Reason: pain) Qty: 20 RF: 0 Referrals: Vitaliy Brock MD [Primary Care Provider] -
[2019-08-12 22:52] LABS: Add Manual Diff / Slide Review NO; Basophils Absolute Auto 100 /uL (0-100); Basophils Percent Auto 1.5 % (0-2); Eosinophils Absolute Auto 0 /uL (0-450); Eosinophils Percent Auto 0.1 % (2-4); Hematocrit 34.3 % (36-46); Hemoglobin 11.1 g/dL (12.0-16.0); Lymphocytes Absolute Auto 1200 /uL (1100-4500); Lymphocytes Percent Auto 13.9 % (25-40); Mean Corpuscular HGB Conc 32.2 % (30-36); Mean Corpuscular Hemoglobin 26.8 PG (26-34); Mean Corpuscular Volume 83.3 fL (80-100); Monocytes Absolute Auto 800 /uL (0-900); Monocytes Percent Auto 9.6 % (3-14); Neutrophils Absolute Auto 6300 /uL (1500-7000); Neutrophils Percent Auto 74.9 % (50-75); Platelet Count 341 X10^3/uL (150-400); Red Blood Cell Count 4.12 X10^6/uL (4.0-5.2); White Blood Cell Count 8.4 X10^3/uL (4.5-11.0)
[2019-08-12 23:05] LABS: Alanine Aminotransferase 19 IU/L (9-52); Albumin 4.1 g/dL (3.5-5.0); Albumin Globulin Ratio 1.3 (1.0-2.8); Alkaline Phosphatase 81 U/L (38-126); Aspartate Aminotransferase 27 IU/L (14-36); BUN Creatinine Ratio 26.4 (6-22); Bilirubin Total 0.5 mg/dL (0.2-1.3); Blood Urea Nitrogen 29 mg/dL (7-17); Calcium 10.4 mg/dL (8.4-10.2); Carbon Dioxide 23 mmol/L (22-32); Chloride 97 mmol/L (98-107); Globulin 3.2 g/dL (1.7-4.1); Glucose 403 mg/dL (80-110); HEMOLYSIS < 15 (0-50); Lipase 69 U/L (23-300); Magnesium 2.1 mg/dL (1.6-2.3); Phosphorous 2.8 mg/dL (2.8-4.1); Sodium 132 mmol/L (137-145); Total Protein 7.3 g/dL (6.3-8.2)
[2019-08-12 23:15] LABS: Troponin I < 0.012 ng/mL (0.01-0.034)
[2019-08-12 23:18] LABS: Procalcitonin 2.26 ng/mL (<0.5)
[2019-08-12] MEDS: INSULIN REGULAR 100 UNIT/ML 3 ML VIAL 10 UNIT SUBCUT (23:20)
[2019-08-13 00:28] VITALS: BP 148/66; PULSE 80; RESP 16; O2SAT 99
[2019-08-13 00:46] LABS: Reflexed Lactate in 2 Hours Y
== END 2019-08-13 00:28 | disposition home or self-care (01) ==
PROVIDERS: Emergency Provider Emergency Medicine; Family Provider Internal Medicine; PCP Internal Medicine
DX: E11.65 Type 2 diabetes mellitus with hyperglycemia (principal); Z79.4 Long term (current) use of insulin
CPT/HCPCS: 36415; 80053; 82009; 82805; 82962; 83605; 83690; 83735; 84100; 84145; 84484; 85025; 96360; 96361; 96372; 99283; 99284

== ENCOUNTER → 2019-10-07 11:55 | Outpatient (CLI) | payer MEDICARE, OTHER, SELFPAY ==
[2019-10-07 12:35] LABS: Add Manual Diff / Slide Review NO; Basophils Absolute Auto 100 /uL (0-100); Eosinophils Absolute Auto 500 /uL (0-450); Eosinophils Percent Auto 5.8 % (2-4); Hematocrit 35.1 % (36-46); Hemoglobin 11.3 g/dL (12.0-16.0); Lymphocytes Absolute Auto 1700 /uL (1100-4500); Lymphocytes Percent Auto 19.5 % (25-40); Mean Corpuscular HGB Conc 32.4 % (30-36); Mean Corpuscular Volume 83.3 fL (80-100); Monocytes Absolute Auto 500 /uL (0-900); Monocytes Percent Auto 6.3 % (3-14); Neutrophils Absolute Auto 5800 /uL (1500-7000); Neutrophils Percent Auto 67.4 % (50-75); Platelet Count 331 X10^3/uL (150-400); Red Blood Cell Count 4.21 X10^6/uL (4.0-5.2); Red Cell Distribution Width 17.2 % (11.6-14.8); White Blood Cell Count 8.5 X10^3/uL (4.5-11.0)
[2019-10-07 12:50] LABS: Hemoglobin A1C% w Est Avg Glu 6.9 % (4.0-6.0)
[2019-10-07 13:12] LABS: HEMOLYSIS < 15 (0-50); Iron 58 ug/dL (37-170)
[2019-10-07 13:13] LABS: BUN Creatinine Ratio 24.4 (6-22); Blood Urea Nitrogen 22 mg/dL (7-17); Calcium 10.6 mg/dL (8.4-10.2); Carbon Dioxide 27 mmol/L (22-32); Chloride 102 mmol/L (98-107); Estimated Glomerular Filt Rate > 60.0 mL/min (>60); Glucose 218 mg/dL (80-110); HEMOLYSIS < 15 (0-50); Potassium 4.4 mmol/L (3.4-5.1); Sodium 138 mmol/L (137-145)
[2019-10-07 13:22] LABS: Percent Iron Saturation 15 % (15-50); Total Iron Binding Capacity 377 ug/dL (265-497); Transferrin 314 mg/dL (206-381)
== END ==
PROVIDERS: PCP Internal Medicine; Visit Provider Internal Medicine
DX: E11.9 Type 2 diabetes mellitus without complications (principal); I10 Essential (primary) hypertension; D64.9 Anemia, unspecified
CPT/HCPCS: 36415; 80048; 83036; 83540; 83550; 85025

== ENCOUNTER → 2019-11-07 14:32 | Outpatient (CLI) | payer MEDICARE, OTHER, SELFPAY ==
--- NOTE | 2019-11-07 | DI.MG.S_ITS ---
BILATERAL DIGITAL SCREENING MAMMOGRAM 3D/2D WITH CAD: 11/07/2019 CLINICAL: Routine screening. Comparison is made to exams dated: 11/29/2015 mammogram, 12/05/2012 mammogram, and 12/04/2011 mammogram - [facility]. There are scattered fibroglandular elements in both breasts. Current study was also evaluated with a Computer Aided Detection (CAD) system. There are benign calcifications in the left breast. No significant masses, calcifications, or other findings are seen in either breast. There has been no significant interval change. IMPRESSION: There is no mammographic evidence of malignancy. A 1 year screening mammogram is recommended. This exam was interpreted at Station ID: [id number]. NOTE: For mammograms, a report in lay terms will be sent to the patient. Approximately 15% of breast malignancies will not be visualized mammographically. In the management of a palpable breast mass, a negative mammogram must not discourage biopsy of a clinically suspicious lesion. Electronically Signed By: Kaylah swan/kyung:11/07/2019 17:14:36 letter sent: Normal Exam ACR BI-RADS Category 2: Benign Finding(s) 3342F
== END ==
PROVIDERS: PCP Internal Medicine; Visit Provider Internal Medicine
DX: Z12.31 Encounter for screening mammogram for malignant neoplasm of breast (principal)
CPT/HCPCS: 77063; 77067

== ENCOUNTER → 2020-02-27 14:42 | Outpatient (CLI) | payer MEDICARE, OTHER, SELFPAY | PROVIDERS: PCP Internal Medicine; Referring Provider Internal Medicine; Visit Provider Internal Medicine | DX: E11.9 Type 2 diabetes mellitus without complications (principal); D64.9 Anemia, unspecified | CPT/HCPCS: 36415; 83036 ==

== ENCOUNTER → 2020-11-01 19:04 | Outpatient (ROUT) | payer MEDICARE, OTHER, SELFPAY ==
[2020-11-01 19:23] LABS: Add Manual Diff / Slide Review NO; Basophils Absolute Auto 100 /uL (0-100); Basophils Percent Auto 1.1 % (0-2); Eosinophils Absolute Auto 100 /uL (0-450); Eosinophils Percent Auto 1.8 % (2-4); Hematocrit 40.6 % (36-46); Hemoglobin 13.1 g/dL (12.0-16.0); Lymphocytes Absolute Auto 1600 /uL (1100-4500); Lymphocytes Percent Auto 22.1 % (25-40); Mean Corpuscular HGB Conc 32.3 % (30-36); Mean Corpuscular Hemoglobin 29.2 PG (26-34); Mean Corpuscular Volume 90.5 fL (80-100); Monocytes Absolute Auto 600 /uL (0-900); Monocytes Percent Auto 7.8 % (3-14); Neutrophils Absolute Auto 4700 /uL (1500-7000); Neutrophils Percent Auto 67.2 % (50-75); Platelet Count 283 X10^3/uL (150-400); Red Blood Cell Count 4.48 X10^6/uL (4.0-5.2); Red Cell Distribution Width 15.9 % (11.6-14.8); White Blood Cell Count 7.1 X10^3/uL (4.5-11.0)
[2020-11-01 19:29] LABS: Alanine Aminotransferase 16 IU/L (<35); Albumin 3.9 g/dL (3.5-5.0); Albumin Globulin Ratio 1.2 (1.0-2.8); Alkaline Phosphatase 76 U/L (38-126); Aspartate Aminotransferase 25 IU/L (14-36); BUN Creatinine Ratio 19.8 (6-22); Bilirubin Total 0.4 mg/dL (0.2-1.3); Blood Urea Nitrogen 17 mg/dL (7-17); Calcium 10.5 mg/dL (8.4-10.2); Carbon Dioxide 30 mmol/L (22-32); Chloride 100 mmol/L (98-107); Estimated Glomerular Filt Rate > 60.0 mL/min (>60); Globulin 3.2 g/dL (1.7-4.1); Glucose 186 mg/dL (80-110); HEMOLYSIS < 15 (0-50); Potassium 4.8 mmol/L (3.4-5.1); Sodium 133 mmol/L (137-145); Total Protein 7.1 g/dL (6.3-8.2)
== END ==
PROVIDERS: PCP Internal Medicine; Visit Provider Internal Medicine
DX: D64.9 Anemia, unspecified (principal); E08.8 Diabetes mellitus due to underlying condition with unspecified complications
CPT/HCPCS: 80053; 85025

== ENCOUNTER 2021-04-28 20:13 | Emergency (ER) | payer MEDICARE, OTHER, SELFPAY ==
[2021-04-28] VITALS (11 sets, daily range): BP systolic 105–141; BP diastolic 51–65; PULSE 85–95; RESP 19–29; TEMP 36.6–37.3; O2SAT 91–95; BMI 29.2
--- NOTE | 2021-04-28 20:41 | DI.RAD.S_ITS ---
PROCEDURE: XR CHEST 1V INDICATIONS: altered mental status TECHNIQUE: One view of the chest was acquired. COMPARISON: [facility], CR, XR CHEST 2V, 04/11/2018, 14:44. FINDINGS: Surgical changes and devices: None. Lungs and pleura: Lungs are clear. No pleural effusions or pneumothorax. Mediastinum: Mediastinal contours appear normal. Heart size is normal. Bones and chest wall: No suspicious bony lesions. Overlying soft tissues appear unremarkable. IMPRESSION: No acute process. Dictated by: Dougie Baires M.D. on 04/28/2021 at 21:29 Approved by: Dougie Baires M.D. on 04/28/2021 at 21:29
[2021-04-28 21:37] LABS: Ammonia (NH3) < 9 umol/L (9-30)
[2021-04-28 21:39] LABS: Alanine Aminotransferase 22 IU/L (<35); Albumin Globulin Ratio 1.3 (1.0-2.8); Alkaline Phosphatase 77 U/L (38-126); Aspartate Aminotransferase 29 IU/L (14-36); BUN Creatinine Ratio 31.7 (6-22); Bilirubin Total 0.8 mg/dL (0.2-1.3); Blood Urea Nitrogen 44 mg/dL (7-17); Calcium 10.9 mg/dL (8.4-10.2); Carbon Dioxide 24 mmol/L (22-32); Chloride 103 mmol/L (98-107); Estimated Glomerular Filt Rate 36.5 mL/min (>60); Globulin 3.1 g/dL (1.7-4.1); Glucose 197 mg/dL (80-110); HEMOLYSIS < 15 (0-50); Potassium 4.3 mmol/L (3.4-5.1); Sodium 139 mmol/L (137-145); Total Protein 7.1 g/dL (6.3-8.2)
[2021-04-28 21:52] LABS: Add Manual Diff / Slide Review NO; Basophils Absolute Auto 0 /uL (0-100); Basophils Percent Auto 0.2 % (0-2); Eosinophils Absolute Auto 0 /uL (0-450); Hematocrit 39.9 % (36-46); Hemoglobin 13.1 g/dL (12.0-16.0); Lymphocytes Absolute Auto 900 /uL (1100-4500); Lymphocytes Percent Auto 5.1 % (25-40); Mean Corpuscular HGB Conc 32.8 % (30-36); Mean Corpuscular Hemoglobin 30.5 PG (26-34); Mean Corpuscular Volume 93.1 fL (80-100); Monocytes Absolute Auto 800 /uL (0-900); Monocytes Percent Auto 4.7 % (3-14); Neutrophils Absolute Auto 16200 /uL (1500-7000); Platelet Count 325 X10^3/uL (150-400); Red Blood Cell Count 4.29 X10^6/uL (4.0-5.2); Red Cell Distribution Width 14.8 % (11.6-14.8)
--- NOTE | 2021-04-28 23:42 | ED_ITS ---
HPI - General Adult <Jessy Nuñez MD - Last Filed: 05/05/21 18:21> General Chief complaint: Diabetic Problem Stated complaint: confusion, high blood sugar Time Seen by Provider: 04/28/21 23:41 Source: patient Mode of arrival: Wheelchair Limitations: no limitations History of Present Illness HPI narrative: 81-year-old type 1 diabetic with history of hyperlipidemia, memory dysfunction, hypertension and stroke with right-sided symptoms presents with blood sugars over 500 without changes to eating (she is on an insulin pump) increased vomiting increased sleep and increased confusion this morning. She denies any fever, cough, chills. She isn't having abdominal pain. She is incontinent of urine and not complaining of dysuria. Related Data Home Medications Medication Instructions Recorded Confirmed CA CARBONATE/VITAMIN D3/VIT K 1 ctb PO BID #0 10/07/12 06/09/18 (Viactiv Soft Chew Tablet) Chondroitin Sulfate/Glucosam 1 cap PO BID #0 10/07/12 06/09/18 (#CHONDROITIN COMPLEX/GLUCOSAMINE 200 MG-500 M) Fluoxetine Hydrochloride 20 mg PO QDAY #0 10/07/12 06/09/18 (FLUOXETINE) Glucosamine Hydrochloride 1,500 mg PO BID #0 10/07/12 06/09/18 (#GLUCOSAMINE) aspirin 81 mg tablet,delayed 81 mg PO QDAY #0 10/07/12 06/09/18 release lisinopril 10 mg tablet 10 mg PO QDAY #0 10/07/12 06/09/18 simvastatin 20 mg tablet 20 mg PO QDAY #0 10/07/12 06/09/18 insulin aspart U-100 100 unit/mL 50 unit SUB-Q DAILY 03/05/18 06/09/18 subcutaneous cartridge calcitonin (salmon) 200 1 spray INTRANASAL QNOON 06/09/18 06/09/18 unit/actuation nasal spray hydrocodone 5 mg-acetaminophen 325 1 tab PO Q4HR PRN 06/09/18 06/09/18 mg tablet Previous Rx's Medication Instructions Recorded hydrocodone 5 mg-acetaminophen 300 1 tab PO Q4-6H PRN #20 tab 06/13/18 mg tablet oxycodone 10 mg tablet,crush 10 mg PO Q12H #20 tab 06/13/18 resistant,extended release 12 hr (OxyContin) Allergies Allergy/AdvReac Type Severity Reaction Status Date / Time phenytoin Allergy Mild TURNED Verified 04/28/21 20:27 BRIGHT RED Review of Systems <Jessy Nuñez MD - Last Filed: 05/05/21 18:21> Review of Systems Narrative: Remainder of complete review of systems is otherwise unremarkable except for that included in the HPI. Patient History <Jessy Nuñez MD - Last Filed: 05/05/21 18:21> Medical History (Updated 04/29/21 @ 11:25 by Luz Elena De DO) CVA (cerebral vascular accident) Diabetes HTN (hypertension) Hyperlipidemia Insulin pump in place Social History household members: spouse Smoking Status: Never smoker alcohol intake: never Smoking Status: Never smoker alcohol intake frequency: other Substance Use Type: does not use Exam <Jessy Nuñez MD - Last Filed: 05/05/21 18:21> Narrative Exam Narrative: General: Older-appearing woman, mildly confused and depends on her to answer most questions she is able to speak in full sentences HEENT: Moist mucous membranes, normal sclera with reactive pupils, Neck: No JVD, supple Respiratory: Lungs with mild rhonchi in the left mid axillary line, no respiratory distress, no accessory muscle use and no wheezing. No basilar crackles. Full and symmetrical air movement Cardiac: Regular rate and rhythm no murmurs no bruits Abdomen: Soft, nontender, good bowel tones, no flank pain, insulin pump is in place Skin: Warm and dry, no rashes, no areas with concern for cellulitis Neurologic: Right hand contractures and right foot AFO in place. Extremities: No trauma, well perfused Psych: Somewhat slowed overall, cooperative, Initial Vital Signs Initial Vital Signs: Vital Signs Pulse Rate 91 H 04/28/21 20:21 Blood Pressure 127/59 L 04/28/21 20:21 Pulse Oximetry 95 04/28/21 20:21 <Luz Elena De DO - Last Filed: 04/29/21 19:36> Initial Vital Signs Initial Vital Signs: Vital Signs Pulse Rate 91 H 04/28/21 20:21 Blood Pressure 127/59 L 04/28/21 20:21 Pulse Oximetry 95 04/28/21 20:21 Course <Jessy Nuñez MD - Last Filed: 05/05/21 18:21> Orders Ordered: Discontinued Medications Sodium Chloride (Normal Saline 0.9%) 1,000 mls @ 1,000 mls/hr IV BOLUS ONE Stop: 04/29/21 00:54 Last Infusion: 04/29/21 00:56 Dose: 0 mls/hr Documented by: Admin: 04/29/21 00:02 Dose: 1,000 mls/hr Documented by: LEOBARDO Ceftriaxone Sodium 2,000 mg/ (Sodium Chloride) 100 mls @ 200 mls/hr IV NOW ONE Stop: 04/28/21 23:56 Last Infusion: 04/29/21 00:56 Dose: 0 mls/hr Documented by: Admin: 04/29/21 00:02 Dose: 200 mls/hr Documented by: LEOBARDO Sodium Chloride (Normal Saline 0.9%) 1,000 mls @ 1,000 mls/hr IV BOLUS ONE Stop: 04/29/21 03:13 Last Infusion: 04/29/21 05:01 Dose: 0 mls/hr Documented by: Admin: 04/29/21 02:21 Dose: 1,000 mls/hr Documented by: LEOBARDO Sodium Chloride (Normal Saline 0.9%) 1,000 mls @ 1,000 mls/hr IV BOLUS ONE Stop: 04/29/21 11:23 Last Infusion: 04/29/21 13:35 Dose: 0 mls/hr Documented by: Admin: 04/29/21 11:34 Dose: 1,000 mls/hr Documented by: INEZ INSULIN DRIP PREMIX (Myxredlin Drip Premix) 100 unit in 100 mls @ 6 mls/hr IV TITRATE RACHEL; Protocol Last Titration: 04/29/21 14:00 Dose: 0 ml/hr, 0 mls/hr Documented by: INEZ Cosigned by: BRODERICK Admin: 04/29/21 11:36 Dose: 6 ml/hr, 6 mls/hr Documented by: INEZ Cosigned by: BRODERICK Sodium Chloride (Normal Saline 0.45%) 1,000 mls @ 100 mls/hr IV CONT RACHEL Last Infusion: 04/29/21 14:00 Dose: 0 mls/hr Documented by: Admin: 04/29/21 12:18 Dose: 100 mls/hr Documented by: INEZ POTASSIUM CHLORIDE IN WATER (Potassium Cl 10 Meq/100 Ml Joanne) 10 meq in 100 mls @ 100 mls/hr IV Q1H RACHEL Stop: 04/29/21 13:44 Last Infusion: 04/29/21 14:01 Dose: 0 mls/hr Documented by: Admin: 04/29/21 13:29 Dose: 100 mls/hr Documented by: Infusion: 04/29/21 13:28 Dose: 0 mls/hr Documented by: Admin: 04/29/21 12:20 Dose: 100 mls/hr Documented by: INEZ Insulin Human Regular (Insulin Regular 100 Unit/Ml 3 Ml Vial) 8 unit IV NOW ONE Stop: 04/29/21 04:43 Last Admin: 04/29/21 04:53 Dose: 8 unit Documented by: GEORGETTE Cosigned by: LEOBARDO Ondansetron HCl (Ondansetron 4 Mg/2 Ml Inj) 4 mg IV NOW ONE Stop: 04/29/21 11:27 Last Admin: 04/29/21 11:35 Dose: 4 mg Documented by: INEZ Vital Signs Vital signs: Vital Signs - 8 hr 04/29/21 12:00 04/29/21 12:30 04/29/21 13:00 Pulse Rate 120 H 119 H 119 H Respiratory Rate 26 H 27 H 31 H Blood Pressure Pulse Oximetry 96 95 97 04/29/21 13:30 04/29/21 13:40 04/29/21 14:00 Pulse Rate 120 H 124 H 121 H Respiratory Rate 24 35 H 23 Blood Pressure 128/57 L 123/58 L Pulse Oximetry 96 95 98 <Luz Elena De DO - Last Filed: 04/29/21 19:36> Orders Ordered: Discontinued Medications Sodium Chloride (Normal Saline 0.9%) 1,000 mls @ 1,000 mls/hr IV BOLUS ONE Stop: 04/29/21 00:54 Last Infusion: 04/29/21 00:56 Dose: 0 mls/hr Documented by: Admin: 04/29/21 00:02 Dose: 1,000 mls/hr Documented by: LEOBARDO Ceftriaxone Sodium 2,000 mg/ (Sodium Chloride) 100 mls @ 200 mls/hr IV NOW ONE Stop: 04/28/21 23:56 Last Infusion: 04/29/21 00:56 Dose: 0 mls/hr Documented by: Admin: 04/29/21 00:02 Dose: 200 mls/hr Documented by: LEOBARDO Sodium Chloride (Normal Saline 0.9%) 1,000 mls @ 1,000 mls/hr IV BOLUS ONE Stop: 04/29/21 03:13 Last Infusion: 04/29/21 05:01 Dose: 0 mls/hr Documented by: Admin: 04/29/21 02:21 Dose: 1,000 mls/hr Documented by: LEOBARDO Sodium Chloride (Normal Saline 0.9%) 1,000 mls @ 1,000 mls/hr IV BOLUS ONE Stop: 04/29/21 11:23 Last Infusion: 04/29/21 13:35 Dose: 0 mls/hr Documented by: Admin: 04/29/21 11:34 Dose: 1,000 mls/hr Documented by: INEZ INSULIN DRIP PREMIX (Myxredlin Drip Premix) 100 unit in 100 mls @ 6 mls/hr IV TITRATE RACHEL; Protocol Last Titration: 04/29/21 14:00 Dose: 0 ml/hr, 0 mls/hr Documented by: INEZ Cosigned by: KBROTEM Admin: 04/29/21 11:36 Dose: 6 ml/hr, 6 mls/hr Documented by: INEZ Cosigned by: BRODERICK Sodium Chloride (Normal Saline 0.45%) 1,000 mls @ 100 mls/hr IV CONT RACHEL Last Infusion: 04/29/21 14:00 Dose: 0 mls/hr Documented by: Admin: 04/29/21 12:18 Dose: 100 mls/hr Documented by: INEZ POTASSIUM CHLORIDE IN WATER (Potassium Cl 10 Meq/100 Ml Joanne) 10 meq in 100 mls @ 100 mls/hr IV Q1H RACHEL Stop: 04/29/21 13:44 Last Infusion: 04/29/21 14:01 Dose: 0 mls/hr Documented by: Admin: 04/29/21 13:29 Dose: 100 mls/hr Documented by: Infusion: 04/29/21 13:28 Dose: 0 mls/hr Documented by: Admin: 04/29/21 12:20 Dose: 100 mls/hr Documented by: INEZ Insulin Human Regular (Insulin Regular 100 Unit/Ml 3 Ml Vial) 8 unit IV NOW ONE Stop: 04/29/21 04:43 Last Admin: 04/29/21 04:53 Dose: 8 unit Documented by: GEORGETTE Cosigned by: LEOBARDO Ondansetron HCl (Ondansetron 4 Mg/2 Ml Inj) 4 mg IV NOW ONE Stop: 04/29/21 11:27 Last Admin: 04/29/21 11:35 Dose: 4 mg Documented by: INEZ Consultations Consultation #1: Dr. Webb accepts at [facility]. Claim Clinician. He does recommend a 3rd L of normal saline to continue to monitor to see if gap closes quickly. Time: 12:22 Vital Signs Vital signs: Vital Signs - 8 hr 04/29/21 12:00 04/29/21 12:30 04/29/21 13:00 Pulse Rate 120 H 119 H 119 H Respiratory Rate 26 H 27 H 31 H Blood Pressure Pulse Oximetry 96 95 97 04/29/21 13:30 04/29/21 13:40 04/29/21 14:00 Pulse Rate 120 H 124 H 121 H Respiratory Rate 24 35 H 23 Blood Pressure 128/57 L 123/58 L Pulse Oximetry 96 95 98 Medical Decision Making <Jessy Nuñez MD - Last Filed: 05/05/21 18:21> Medical Records Medical records reviewed: Yes I reviewed the patient's medical records. Lab Data Lab results reviewed: Yes I reviewed the patient's lab results. Result diagrams: 04/29/21 10:44 04/29/21 10:44 Labs: Lab Results 04/28/21 04/28/21 04/28/21 Range/Units 21:15 21:15 21:15 WBC 18.0 H (4.5-11.0) X10^3/uL RBC 4.29 (4.0-5.2) X10^6/uL Hgb 13.1 (12.0-16.0) g/dL Hct 39.9 (36-46) % MCV 93.1 (80-100) fL MCH 30.5 (26-34) PG MCHC 32.8 (30-36) % RDW 14.8 (11.6-14.8) % Plt Count 325 (150-400) X10^3/uL Neut % (Auto) 90.0 H (50-75) % Lymph % (Auto) 5.1 L (25-40) % Crisp % (Auto) 4.7 (3-14) % Eos % (Auto) 0.0 L (2-4) % Baso % (Auto) 0.2 (0-2) % Neut # (Auto) 57133 H (5186-8939) /uL Lymph # (Auto) 900 L (5127-9634) /uL Crisp # (Auto) 800 (0-900) /uL Eos # (Auto) 0 (0-450) /uL Baso # (Auto) 0 (0-100) /uL ABG pH (7.35-7.45) ABG pCO2 (35-45) mmHg ABG pO2 (80-100) mmHg ABG HCO3 (22-26) mmol/L ABG Total CO2 (21-31) mmol/L ABG O2 Saturation (95-100) % ABG Base Excess (-2-2) mmol/L FiO2 Sodium 139 (137-145) mmol/L Potassium 4.3 (3.4-5.1) mmol/L Chloride 103 (98-107) mmol/L Carbon Dioxide 24 (22-32) mmol/L BUN 44 H (7-17) mg/dL Creatinine 1.39 H (0.52-1.04) mg/dL Estimated GFR 36.5 L (>60) mL/min BUN/Creatinine Ratio 31.7 H (6-22) Glucose 197 H (80-110) mg/dL Lactate (0.7-2.1) mmol/L Calcium 10.9 H (8.4-10.2) mg/dL Total Bilirubin 0.8 (0.2-1.3) mg/dL AST 29 (14-36) IU/L ALT 22 (<35) IU/L Alkaline Phosphatase 77 (38-126) U/L Ammonia < 9 L (9-30) umol/L Troponin I (0.01-0.034) ng/mL Total Protein 7.1 (6.3-8.2) g/dL Albumin 4.0 (3.5-5.0) g/dL Globulin 3.1 (1.7-4.1) g/dL Albumin/Globulin Ratio 1.3 (1.0-2.8) Urine Color Urine Appearance Urine pH (4.5-8.0) Ur Specific Mcdowell (1.000-1.035) Urine Protein (Negative) Urine Glucose (UA) (Negative) g/dL Urine Ketones (NEGATIVE) Urine Occult Blood (Negative) Urine Nitrate (Negative) Urine Bilirubin (NEGATIVE) Urine Urobilinogen (0.2) E.U./dL Ur Leukocyte Esterase (NEGATIVE) Urine RBC (0-5/HPF) Urine WBC (0-5/HPF) Ur Squamous Epith Cells (0-5/HPF) Amorphous Sediment Urine Bacteria (None) Hyaline Casts (None) Urine Mucus (Negative) Ur Culture Indicated? U Opiates 300ng/mL cut (Negative) Ur Oxycodone Screen (Negative) Urine Methadone Screen (Negative) Ur Barbiturates Screen (Negative) U Tricyclic Antidepress (Negative) Ur Phencyclidine Scrn (Negative) Ur Amphetamines Screen (Negative) U Methamphetamines Scrn (Negative) Ur MDMA Scrn (Ecstasy) (Negative) U Benzodiazepines Scrn (Negative) Urine Cocaine Screen (Negative) U Marijuana (THC) Screen (Negative) Ketones (<0.27) mmol/L Chlamy pneumoniae PCR (Not Detect) Adenovirus (PCR) (Not Detect) B. pertussis DNA (PCR) (Not Detecte) B.parapertussis DNA PCR (Not Detecte) Coronavirus OC43 (PCR) (Not Detect) Coronavirus HKU1 (PCR) (Not Detect) Coronavirus 229E (PCR) (Not Detect) SARS-CoV-2 (PCR) (Not Detecte) Coronavirus NL63 (PCR) (Not Detect) Human Metapneumovir PCR (Not Detect) Influenza Type A (PCR) (Not Detect) Influenza Type B (PCR) (Not Detect) M. pneumoniae (PCR) (Not Detect) Parainfluenza 1 (PCR) (Not Detect) Parainfluenza 2 (PCR) (Not Detect) Parainfluenza 3 (PCR) (Not Detect) Parainfluenza 4 (PCR) (Not Detect) RSV (PCR) (Not Detect) Entero/Rhino (PCR) (Not Detect) 04/28/21 04/28/21 04/29/21 Range/Units 21:15 21:15 00:04 WBC (4.5-11.0) X10^3/uL RBC (4.0-5.2) X10^6/uL Hgb (12.0-16.0) g/dL Hct (36-46) % MCV (80-100) fL MCH (26-34) PG MCHC (30-36) % RDW (11.6-14.8) % Plt Count (150-400) X10^3/uL Neut % (Auto) (50-75) % Lymph % (Auto) (25-40) % Crisp % (Auto) (3-14) % Eos % (Auto) (2-4) % Baso % (Auto) (0-2) % Neut # (Auto) (1887-4020) /uL Lymph # (Auto) (3199-6670) /uL Crisp # (Auto) (0-900) /uL Eos # (Auto) (0-450) /uL Baso # (Auto) (0-100) /uL ABG pH (7.35-7.45) ABG pCO2 (35-45) mmHg ABG pO2 (80-100) mmHg ABG HCO3 (22-26) mmol/L ABG Total CO2 (21-31) mmol/L ABG O2 Saturation (95-100) % ABG Base Excess (-2-2) mmol/L FiO2 Sodium (137-145) mmol/L Potassium (3.4-5.1) mmol/L Chloride (98-107) mmol/L Carbon Dioxide (22-32) mmol/L BUN (7-17) mg/dL Creatinine (0.52-1.04) mg/dL Estimated GFR (>60) mL/min BUN/Creatinine Ratio (6-22) Glucose (80-110) mg/dL Lactate 3.3 H (0.7-2.1) mmol/L Calcium (8.4-10.2) mg/dL Total Bilirubin (0.2-1.3) mg/dL AST (14-36) IU/L ALT (<35) IU/L Alkaline Phosphatase (38-126) U/L Ammonia (9-30) umol/L Troponin I 0.029 (0.01-0.034) ng/mL Total Protein (6.3-8.2) g/dL Albumin (3.5-5.0) g/dL Globulin (1.7-4.1) g/dL Albumin/Globulin Ratio (1.0-2.8) Urine Color Yellow Urine Appearance Clear Urine pH 5.0 (4.5-8.0) Ur Specific Mcdowell 1.025 (1.000-1.035) Urine Protein Trace H (Negative) Urine Glucose (UA) 2+ H (Negative) g/dL Urine Ketones 1+ H (NEGATIVE) Urine Occult Blood Negative (Negative) Urine Nitrate Negative (Negative) Urine Bilirubin Negative (NEGATIVE) Urine Urobilinogen 0.2 (0.2) E.U./dL Ur Leukocyte Esterase Negative (NEGATIVE) Urine RBC None seen (0-5/HPF) Urine WBC None seen (0-5/HPF) Ur Squamous Epith Cells 0-1 /hpf (0-5/HPF) Amorphous Sediment 1+ Urine Bacteria Few (2-10) H (None) Hyaline Casts 5-10/lpf (None) Urine Mucus 1+ H (Negative) Ur Culture Indicated? Cult not indicated U Opiates 300ng/mL cut (Negative) Ur Oxycodone Screen (Negative) Urine Methadone Screen (Negative) Ur Barbiturates Screen (Negative) U Tricyclic Antidepress (Negative) Ur Phencyclidine Scrn (Negative) Ur Amphetamines Screen (Negative) U Methamphetamines Scrn (Negative) Ur MDMA Scrn (Ecstasy) (Negative) U Benzodiazepines Scrn (Negative) Urine Cocaine Screen (Negative) U Marijuana (THC) Screen (Negative) Ketones (<0.27) mmol/L Chlamy pneumoniae PCR (Not Detect) Adenovirus (PCR) (Not Detect) B. pertussis DNA (PCR) (Not Detecte) B.parapertussis DNA PCR (Not Detecte) Coronavirus OC43 (PCR) (Not Detect) Coronavirus HKU1 (PCR) (Not Detect) Coronavirus 229E (PCR) (Not Detect) SARS-CoV-2 (PCR) (Not Detecte) Coronavirus NL63 (PCR) (Not Detect) Human Metapneumovir PCR (Not Detect) Influenza Type A (PCR) (Not Detect) Influenza Type B (PCR) (Not Detect) M. pneumoniae (PCR) (Not Detect) Parainfluenza 1 (PCR) (Not Detect) Parainfluenza 2 (PCR) (Not Detect) Parainfluenza 3 (PCR) (Not Detect) Parainfluenza 4 (PCR) (Not Detect) RSV (PCR) (Not Detect) Entero/Rhino (PCR) (Not Detect) 04/29/21 04/29/21 04/29/21 Range/Units 00:04 00:25 02:05 WBC (4.5-11.0) X10^3/uL RBC (4.0-5.2) X10^6/uL Hgb (12.0-16.0) g/dL Hct (36-46) % MCV (80-100) fL MCH (26-34) PG MCHC (30-36) % RDW (11.6-14.8) % Plt Count (150-400) X10^3/uL Neut % (Auto) (50-75) % Lymph % (Auto) (25-40) % Crisp % (Auto) (3-14) % Eos % (Auto) (2-4) % Baso % (Auto) (0-2) % Neut # (Auto) (9113-1795) /uL Lymph # (Auto) (5646-9443) /uL Crisp # (Auto) (0-900) /uL Eos # (Auto) (0-450) /uL Baso # (Auto) (0-100) /uL ABG pH (7.35-7.45) ABG pCO2 (35-45) mmHg ABG pO2 (80-100) mmHg ABG HCO3 (22-26) mmol/L ABG Total CO2 (21-31) mmol/L ABG O2 Saturation (95-100) % ABG Base Excess (-2-2) mmol/L FiO2 Sodium (137-145) mmol/L Potassium (3.4-5.1) mmol/L Chloride (98-107) mmol/L Carbon Dioxide (22-32) mmol/L BUN (7-17) mg/dL Creatinine (0.52-1.04) mg/dL Estimated GFR (>60) mL/min BUN/Creatinine Ratio (6-22) Glucose (80-110) mg/dL Lactate 1.6 (0.7-2.1) mmol/L Calcium (8.4-10.2) mg/dL Total Bilirubin (0.2-1.3) mg/dL AST (14-36) IU/L ALT (<35) IU/L Alkaline Phosphatase (38-126) U/L Ammonia (9-30) umol/L Troponin I (0.01-0.034) ng/mL Total Protein (6.3-8.2) g/dL Albumin (3.5-5.0) g/dL Globulin (1.7-4.1) g/dL Albumin/Globulin Ratio (1.0-2.8) Urine Color Urine Appearance Urine pH (4.5-8.0) Ur Specific Mcdowell (1.000-1.035) Urine Protein (Negative) Urine Glucose (UA) (Negative) g/dL Urine Ketones (NEGATIVE) Urine Occult Blood (Negative) Urine Nitrate (Negative) Urine Bilirubin (NEGATIVE) Urine Urobilinogen (0.2) E.U./dL Ur Leukocyte Esterase (NEGATIVE) Urine RBC (0-5/HPF) Urine WBC (0-5/HPF) Ur Squamous Epith Cells (0-5/HPF) Amorphous Sediment Urine Bacteria (None) Hyaline Casts (None) Urine Mucus (Negative) Ur Culture Indicated? U Opiates 300ng/mL cut Negative (Negative) Ur Oxycodone Screen Negative (Negative) Urine Methadone Screen Negative (Negative) Ur Barbiturates Screen Negative (Negative) U Tricyclic Antidepress Negative (Negative) Ur Phencyclidine Scrn Negative (Negative) Ur Amphetamines Screen Negative (Negative) U Methamphetamines Scrn Negative (Negative) Ur MDMA Scrn (Ecstasy) Negative (Negative) U Benzodiazepines Scrn Negative (Negative) Urine Cocaine Screen Negative (Negative) U Marijuana (THC) Screen Negative (Negative) Ketones (<0.27) mmol/L Chlamy pneumoniae PCR Not detected (Not Detect) Adenovirus (PCR) Not detected (Not Detect) B. pertussis DNA (PCR) Not detected (Not Detecte) B.parapertussis DNA PCR Not detected (Not Detecte) Coronavirus OC43 (PCR) Not detected (Not Detect) Coronavirus HKU1 (PCR) Not detected (Not Detect) Coronavirus 229E (PCR) Not detected (Not Detect) SARS-CoV-2 (PCR) Not detected (Not Detecte) Coronavirus NL63 (PCR) Not detected (Not Detect) Human Metapneumovir PCR Not detected (Not Detect) Influenza Type A (PCR) Not detected (Not Detect) Influenza Type B (PCR) Not detected (Not Detect) M. pneumoniae (PCR) Not detected (Not Detect) Parainfluenza 1 (PCR) Not detected (Not Detect) Parainfluenza 2 (PCR) Not detected (Not Detect) Parainfluenza 3 (PCR) Not detected (Not Detect) Parainfluenza 4 (PCR) Not detected (Not Detect) RSV (PCR) Not detected (Not Detect) Entero/Rhino (PCR) Not detected (Not Detect) 04/29/21 04/29/21 04/29/21 Range/Units 10:44 10:44 10:44 WBC 22.1 H (4.5-11.0) X10^3/uL RBC 4.14 (4.0-5.2) X10^6/uL Hgb 12.8 (12.0-16.0) g/dL Hct 39.3 (36-46) % MCV 95.0 (80-100) fL MCH 31.0 (26-34) PG MCHC 32.6 (30-36) % RDW 15.6 H (11.6-14.8) % Plt Count 258 (150-400) X10^3/uL Neut % (Auto) 91.7 H (50-75) % Lymph % (Auto) 4.5 L (25-40) % Crisp % (Auto) 3.6 (3-14) % Eos % (Auto) 0.0 L (2-4) % Baso % (Auto) 0.2 (0-2) % Neut # (Auto) 88312 H (6291-4319) /uL Lymph # (Auto) 1000 L (4900-5145) /uL Crisp # (Auto) 800 (0-900) /uL Eos # (Auto) 0 (0-450) /uL Baso # (Auto) 0 (0-100) /uL ABG pH (7.35-7.45) ABG pCO2 (35-45) mmHg ABG pO2 (80-100) mmHg ABG HCO3 (22-26) mmol/L ABG Total CO2 (21-31) mmol/L ABG O2 Saturation (95-100) % ABG Base Excess (-2-2) mmol/L FiO2 Sodium 134 L (137-145) mmol/L Potassium 4.7 (3.4-5.1) mmol/L Chloride 101 (98-107) mmol/L Carbon Dioxide 16 L (22-32) mmol/L BUN 47 H (7-17) mg/dL Creatinine 1.44 H (0.52-1.04) mg/dL Estimated GFR 35.0 L (>60) mL/min BUN/Creatinine Ratio 32.6 H (6-22) Glucose 591 H* D (80-110) mg/dL Lactate 2.2 H (0.7-2.1) mmol/L Calcium 10.0 (8.4-10.2) mg/dL Total Bilirubin (0.2-1.3) mg/dL AST (14-36) IU/L ALT (<35) IU/L Alkaline Phosphatase (38-126) U/L Ammonia (9-30) umol/L Troponin I (0.01-0.034) ng/mL Total Protein (6.3-8.2) g/dL Albumin (3.5-5.0) g/dL Globulin (1.7-4.1) g/dL Albumin/Globulin Ratio (1.0-2.8) Urine Color Urine Appearance Urine pH (4.5-8.0) Ur Specific Mcdowell (1.000-1.035) Urine Protein (Negative) Urine Glucose (UA) (Negative) g/dL Urine Ketones (NEGATIVE) Urine Occult Blood (Negative) Urine Nitrate (Negative) Urine Bilirubin (NEGATIVE) Urine Urobilinogen (0.2) E.U./dL Ur Leukocyte Esterase (NEGATIVE) Urine RBC (0-5/HPF) Urine WBC (0-5/HPF) Ur Squamous Epith Cells (0-5/HPF) Amorphous Sediment Urine Bacteria (None) Hyaline Casts (None) Urine Mucus (Negative) Ur Culture Indicated? U Opiates 300ng/mL cut (Negative) Ur Oxycodone Screen (Negative) Urine Methadone Screen (Negative) Ur Barbiturates Screen (Negative) U Tricyclic Antidepress (Negative) Ur Phencyclidine Scrn (Negative) Ur Amphetamines Screen (Negative) U Methamphetamines Scrn (Negative) Ur MDMA Scrn (Ecstasy) (Negative) U Benzodiazepines Scrn (Negative) Urine Cocaine Screen (Negative) U Marijuana (THC) Screen (Negative) Ketones (<0.27) mmol/L Chlamy pneumoniae PCR (Not Detect) Adenovirus (PCR) (Not Detect) B. pertussis DNA (PCR) (Not Detecte) B.parapertussis DNA PCR (Not Detecte) Coronavirus OC43 (PCR) (Not Detect) Coronavirus HKU1 (PCR) (Not Detect) Coronavirus 229E (PCR) (Not Detect) SARS-CoV-2 (PCR) (Not Detecte) Coronavirus NL63 (PCR) (Not Detect) Human Metapneumovir PCR (Not Detect) Influenza Type A (PCR) (Not Detect) Influenza Type B (PCR) (Not Detect) M. pneumoniae (PCR) (Not Detect) Parainfluenza 1 (PCR) (Not Detect) Parainfluenza 2 (PCR) (Not Detect) Parainfluenza 3 (PCR) (Not Detect) Parainfluenza 4 (PCR) (Not Detect) RSV (PCR) (Not Detect) Entero/Rhino (PCR) (Not Detect) 04/29/21 04/29/21 Range/Units 10:44 11:52 WBC (4.5-11.0) X10^3/uL RBC (4.0-5.2) X10^6/uL Hgb (12.0-16.0) g/dL Hct (36-46) % MCV (80-100) fL MCH (26-34) PG MCHC (30-36) % RDW (11.6-14.8) % Plt Count (150-400) X10^3/uL Neut % (Auto) (50-75) % Lymph % (Auto) (25-40) % Crisp % (Auto) (3-14) % Eos % (Auto) (2-4) % Baso % (Auto) (0-2) % Neut # (Auto) (9732-2467) /uL Lymph # (Auto) (9406-2240) /uL Crisp # (Auto) (0-900) /uL Eos # (Auto) (0-450) /uL Baso # (Auto) (0-100) /uL ABG pH 7.35 (7.35-7.45) ABG pCO2 26.6 L (35-45) mmHg ABG pO2 69 L (80-100) mmHg ABG HCO3 15 L (22-26) mmol/L ABG Total CO2 15 L (21-31) mmol/L ABG O2 Saturation 93 L (95-100) % ABG Base Excess -11.0 L (-2-2) mmol/L FiO2 21 Sodium (137-145) mmol/L Potassium (3.4-5.1) mmol/L Chloride (98-107) mmol/L Carbon Dioxide (22-32) mmol/L BUN (7-17) mg/dL Creatinine (0.52-1.04) mg/dL Estimated GFR (>60) mL/min BUN/Creatinine Ratio (6-22) Glucose (80-110) mg/dL Lactate (0.7-2.1) mmol/L Calcium (8.4-10.2) mg/dL Total Bilirubin (0.2-1.3) mg/dL AST (14-36) IU/L ALT (<35) IU/L Alkaline Phosphatase (38-126) U/L Ammonia (9-30) umol/L Troponin I (0.01-0.034) ng/mL Total Protein (6.3-8.2) g/dL Albumin (3.5-5.0) g/dL Globulin (1.7-4.1) g/dL Albumin/Globulin Ratio (1.0-2.8) Urine Color Urine Appearance Urine pH (4.5-8.0) Ur Specific Mcdowell (1.000-1.035) Urine Protein (Negative) Urine Glucose (UA) (Negative) g/dL Urine Ketones (NEGATIVE) Urine Occult Blood (Negative) Urine Nitrate (Negative) Urine Bilirubin (NEGATIVE) Urine Urobilinogen (0.2) E.U./dL Ur Leukocyte Esterase (NEGATIVE) Urine RBC (0-5/HPF) Urine WBC (0-5/HPF) Ur Squamous Epith Cells (0-5/HPF) Amorphous Sediment Urine Bacteria (None) Hyaline Casts (None) Urine Mucus (Negative) Ur Culture Indicated? U Opiates 300ng/mL cut (Negative) Ur Oxycodone Screen (Negative) Urine Methadone Screen (Negative) Ur Barbiturates Screen (Negative) U Tricyclic Antidepress (Negative) Ur Phencyclidine Scrn (Negative) Ur Amphetamines Screen (Negative) U Methamphetamines Scrn (Negative) Ur MDMA Scrn (Ecstasy) (Negative) U Benzodiazepines Scrn (Negative) Urine Cocaine Screen (Negative) U Marijuana (THC) Screen (Negative) Ketones 4.45 H (<0.27) mmol/L Chlamy pneumoniae PCR (Not Detect) Adenovirus (PCR) (Not Detect) B. pertussis DNA (PCR) (Not Detecte) B.parapertussis DNA PCR (Not Detecte) Coronavirus OC43 (PCR) (Not Detect) Coronavirus HKU1 (PCR) (Not Detect) Coronavirus 229E (PCR) (Not Detect) SARS-CoV-2 (PCR) (Not Detecte) Coronavirus NL63 (PCR) (Not Detect) Human Metapneumovir PCR (Not Detect) Influenza Type A (PCR) (Not Detect) Influenza Type B (PCR) (Not Detect) M. pneumoniae (PCR) (Not Detect) Parainfluenza 1 (PCR) (Not Detect) Parainfluenza 2 (PCR) (Not Detect) Parainfluenza 3 (PCR) (Not Detect) Parainfluenza 4 (PCR) (Not Detect) RSV (PCR) (Not Detect) Entero/Rhino (PCR) (Not Detect) Point of Care Testing Glucose POC 500 Urine Dip Bedside Urine Glucose 1000 mg/dl Bedside Urine Bilirubin - Negative Bedside Urine Ketone +/- 5 Urine Specific Mcdowell 1.030 Bedside Urine Occult Blood - Negative Bedside Urine pH 6.0 Bedside Urine Protein - Negative Bedside Urine Urobilinogen - Negative Bedside Urine Nitrite - Negative Bedside Urine Leukocytes - Negative Esterase Point of care testing: Point of Care Testing Glucose POC 500 Urine Dip Bedside Urine Glucose 1000 mg/dl Bedside Urine Bilirubin - Negative Bedside Urine Ketone +/- 5 Urine Specific Mcdowell 1.030 Bedside Urine Occult Blood - Negative Bedside Urine pH 6.0 Bedside Urine Protein - Negative Bedside Urine Urobilinogen - Negative Bedside Urine Nitrite - Negative Bedside Urine Leukocytes - Negative Esterase Imaging Data Chest x-ray: Radiologist's Impression: FINDINGS: Surgical changes and devices: None. Lungs and pleura: Lungs are clear. No pleural effusions or pneumothorax. Mediastinum: Mediastinal contours appear normal. Heart size is normal. Bones and chest wall: No suspicious bony lesions. Overlying soft tissues ap pear unremarkable. IMPRESSION: No acute process. Dictated by: Dougie Baires M.D. on 04/28/2021 at 21:29 ECG Data Interpretation: Sinus rhythm at a rate of [address] T wave abnormalities Normal axis, normal intervals MDM Narrative Medical decision making narrative: 81-year-old woman with a history of type 1 diabetes presents with elevated blood sugars, increased confusion, vomiting and increasing sleeping. She does not have any overt signs of infection, no obvious pneumonia, cellulitis, abdominal pain to suggest intra-abdominal infection, UTI. Lactic acid is elevated at 3.3. Anion gap is 12 with signs of mild dehydration and creatinine 1.39. With fluid resuscitation in the lactic acid comes down to 1.6. She started on ceftriaxone home while trying to sort out a source of presumed infection given her behavioral changes [place] [address]. At this time, additional observation given concern for infection causing elevated blood sugars is recommended. There is no e vidence for stroke or meningitis. EKG does not have any specific changes. Troponin is currently pending but she has no cardiac complaints. <Luz Elena De, DO - Last Filed: 04/29/21 19:36> Lab Data Lab results reviewed: Yes I reviewed the patient's lab results. Labs: Lab Results 04/28/21 04/28/21 04/28/21 Range/Units 21:15 21:15 21:15 WBC 18.0 H (4.5-11.0) X10^3/uL RBC 4.29 (4.0-5.2) X10^6/uL Hgb 13.1 (12.0-16.0) g/dL Hct 39.9 (36-46) % MCV 93.1 (80-100) fL MCH 30.5 (26-34) PG MCHC 32.8 (30-36) % RDW 14.8 (11.6-14.8) % Plt Count 325 (150-400) X10^3/uL Neut % (Auto) 90.0 H (50-75) % Lymph % (Auto) 5.1 L (25-40) % Crisp % (Auto) 4.7 (3-14) % Eos % (Auto) 0.0 L (2-4) % Baso % (Auto) 0.2 (0-2) % Neut # (Auto) 55584 H (1361-1545) /uL Lymph # (Auto) 900 L (2019-5487) /uL Crisp # (Auto) 800 (0-900) /uL Eos # (Auto) 0 (0-450) /uL Baso # (Auto) 0 (0-100) /uL ABG pH (7.35-7.45) ABG pCO2 (35-45) mmHg ABG pO2 (80-100) mmHg ABG HCO3 (22-26) mmol/L ABG Total CO2 (21-31) mmol/L ABG O2 Saturation (95-100) % ABG Base Excess (-2-2) mmol/L FiO2 Sodium 139 (137-145) mmol/L Potassium 4.3 (3.4-5.1) mmol/L Chloride 103 (98-107) mmol/L Carbon Dioxide 24 (22-32) mmol/L BUN 44 H (7-17) mg/dL Creatinine 1.39 H (0.52-1.04) mg/dL Estimated GFR 36.5 L (>60) mL/min BUN/Creatinine Ratio 31.7 H (6-22) Glucose 197 H (80-110) mg/dL Lactate (0.7-2.1) mmol/L Calcium 10.9 H (8.4-10.2) mg/dL Total Bilirubin 0.8 (0.2-1.3) mg/dL AST 29 (14-36) IU/L ALT 22 (<35) IU/L Alkaline Phosphatase 77 (38-126) U/L Ammonia < 9 L (9-30) umol/L Troponin I (0.01-0.034) ng/mL Total Protein 7.1 (6.3-8.2) g/dL Albumin 4.0 (3.5-5.0) g/dL Globulin 3.1 (1.7-4.1) g/dL Albumin/Globulin Ratio 1.3 (1.0-2.8) Urine Color Urine Appearance Urine pH (4.5-8.0) Ur Specific Mcdowell (1.000-1.035) Urine Protein (Negative) Urine Glucose (UA) (Negative) g/dL Urine Ketones (NEGATIVE) Urine Occult Blood (Negative) Urine Nitrate (Negative) Urine Bilirubin (NEGATIVE) Urine Urobilinogen (0.2) E.U./dL Ur Leukocyte Esterase (NEGATIVE) Urine RBC (0-5/HPF) Urine WBC (0-5/HPF) Ur Squamous Epith Cells (0-5/HPF) Amorphous Sediment Urine Bacteria (None) Hyaline Casts (None) Urine Mucus (Negative) Ur Culture Indicated? U Opiates 300ng/mL cut (Negative) Ur Oxycodone Screen (Negative) Urine Methadone Screen (Negative) Ur Barbiturates Screen (Negative) U Tricyclic Antidepress (Negative) Ur Phencyclidine Scrn (Negative) Ur Amphetamines Screen (Negative) U Methamphetamines Scrn (Negative) Ur MDMA Scrn (Ecstasy) (Negative) U Benzodiazepines Scrn (Negative) Urine Cocaine Screen (Negative) U Marijuana (THC) Screen (Negative) Ketones (<0.27) mmol/L Chlamy pneumoniae PCR (Not Detect) Adenovirus (PCR) (Not Detect) B. pertussis DNA (PCR) (Not Detecte) B.parapertussis DNA PCR (Not Detecte) Coronavirus OC43 (PCR) (Not Detect) Coronavirus HKU1 (PCR) (Not Detect) Coronavirus 229E (PCR) (Not Detect) SARS-CoV-2 (PCR) (Not Detecte) Coronavirus NL63 (PCR) (Not Detect) Human Metapneumovir PCR (Not Detect) Influenza Type A (PCR) (Not Detect) Influenza Type B (PCR) (Not Detect) M. pneumoniae (PCR) (Not Detect) Parainfluenza 1 (PCR) (Not Detect) Parainfluenza 2 (PCR) (Not Detect) Parainfluenza 3 (PCR) (Not Detect) Parainfluenza 4 (PCR) (Not Detect) RSV (PCR) (Not Detect) Entero/Rhino (PCR) (Not Detect) 04/28/21 04/28/21 04/29/21 Range/Units 21:15 21:15 00:04 WBC (4.5-11.0) X10^3/uL RBC (4.0-5.2) X10^6/uL Hgb (12.0-16.0) g/dL Hct (36-46) % MCV (80-100) fL MCH (26-34) PG MCHC (30-36) % RDW (11.6-14.8) % Plt Count (150-400) X10^3/uL Neut % (Auto) (50-75) % Lymph % (Auto) (25-40) % Crisp % (Auto) (3-14) % Eos % (Auto) (2-4) % Baso % (Auto) (0-2) % Neut # (Auto) (0533-4671) /uL Lymph # (Auto) (2781-8002) /uL Crisp # (Auto) (0-900) /uL Eos # (Auto) (0-450) /uL Baso # (Auto) (0-100) /uL ABG pH (7.35-7.45) ABG pCO2 (35-45) mmHg ABG pO2 (80-100) mmHg ABG HCO3 (22-26) mmol/L ABG Total CO2 (21-31) mmol/L ABG O2 Saturation (95-100) % ABG Base Excess (-2-2) mmol/L FiO2 Sodium (137-145) mmol/L Potassium (3.4-5.1) mmol/L Chloride (98-107) mmol/L Carbon Dioxide (22-32) mmol/L BUN (7-17) mg/dL Creatinine (0.52-1.04) mg/dL Estimated GFR (>60) mL/min BUN/Creatinine Ratio (6-22) Glucose (80-110) mg/dL Lactate 3.3 H (0.7-2.1) mmol/L Calcium (8.4-10.2) mg/dL Total Bilirubin (0.2-1.3) mg/dL AST (14-36) IU/L ALT (<35) IU/L Alkaline Phosphatase (38-126) U/L Ammonia (9-30) umol/L Troponin I 0.029 (0.01-0.034) ng/mL Total Protein (6.3-8.2) g/dL Albumin (3.5-5.0) g/dL Globulin (1.7-4.1) g/dL Albumin/Globulin Ratio (1.0-2.8) Urine Color Yellow Urine Appearance Clear Urine pH 5.0 (4.5-8.0) Ur Specific Mcdowell 1.025 (1.000-1.035) Urine Protein Trace H (Negative) Urine Glucose (UA) 2+ H (Negative) g/dL Urine Ketones 1+ H (NEGATIVE) Urine Occult Blood Negative (Negative) Urine Nitrate Negative (Negative) Urine Bilirubin Negative (NEGATIVE) Urine Urobilinogen 0.2 (0.2) E.U./dL Ur Leukocyte Esterase Negative (NEGATIVE) Urine RBC None seen (0-5/HPF) Urine WBC None seen (0-5/HPF) Ur Squamous Epith Cells 0-1 /hpf (0-5/HPF) Amorphous Sediment 1+ Urine Bacteria Few (2-10) H (None) Hyaline Casts 5-10/lpf (None) Urine Mucus 1+ H (Negative) Ur Culture Indicated? Cult not indicated U Opiates 300ng/mL cut (Negative) Ur Oxycodone Screen (Negative) Urine Methadone Screen (Negative) Ur Barbiturates Screen (Negative) U Tricyclic Antidepress (Negative) Ur Phencyclidine Scrn (Negative) Ur Amphetamines Screen (Negative) U Methamphetamines Scrn (Negative) Ur MDMA Scrn (Ecstasy) (Negative) U Benzodiazepines Scrn (Negative) Urine Cocaine Screen (Negative) U Marijuana (THC) Screen (Negative) Ketones (<0.27) mmol/L Chlamy pneumoniae PCR (Not Detect) Adenovirus (PCR) (Not Detect) B. pertussis DNA (PCR) (Not Detecte) B.parapertussis DNA PCR (Not Detecte) Coronavirus OC43 (PCR) (Not Detect) Coronavirus HKU1 (PCR) (Not Detect) Coronavirus 229E (PCR) (Not Detect) SARS-CoV-2 (PCR) (Not Detecte) Coronavirus NL63 (PCR) (Not Detect) Human Metapneumovir PCR (Not Detect) Influenza Type A (PCR) (Not Detect) Influenza Type B (PCR) (Not Detect) M. pneumoniae (PCR) (Not Detect) Parainfluenza 1 (PCR) (Not Detect) Parainfluenza 2 (PCR) (Not Detect) Parainfluenza 3 (PCR) (Not Detect) Parainfluenza 4 (PCR) (Not Detect) RSV (PCR) (Not Detect) Entero/Rhino (PCR) (Not Detect) 04/29/21 04/29/21 04/29/21 Range/Units 00:04 00:25 02:05 WBC (4.5-11.0) X10^3/uL RBC (4.0-5.2) X10^6/uL Hgb (12.0-16.0) g/dL Hct (36-46) % MCV (80-100) fL MCH (26-34) PG MCHC (30-36) % RDW (11.6-14.8) % Plt Count (150-400) X10^3/uL Neut % (Auto) (50-75) % Lymph % (Auto) (25-40) % Crisp % (Auto) (3-14) % Eos % (Auto) (2-4) % Baso % (Auto) (0-2) % Neut # (Auto) (7026-8344) /uL Lymph # (Auto) (7006-2495) /uL Crisp # (Auto) (0-900) /uL Eos # (Auto) (0-450) /uL Baso # (Auto) (0-100) /uL ABG pH (7.35-7.45) ABG pCO2 (35-45) mmHg ABG pO2 (80-100) mmHg ABG HCO3 (22-26) mmol/L ABG Total CO2 (21-31) mmol/L ABG O2 Saturation (95-100) % ABG Base Excess (-2-2) mmol/L FiO2 Sodium (137-145) mmol/L Potassium (3.4-5.1) mmol/L Chloride (98-107) mmol/L Carbon Dioxide (22-32) mmol/L BUN (7-17) mg/dL Creatinine (0.52-1.04) mg/dL Estimated GFR (>60) mL/min BUN/Creatinine Ratio (6-22) Glucose (80-110) mg/dL Lactate 1.6 (0.7-2.1) mmol/L Calcium (8.4-10.2) mg/dL Total Bilirubin (0.2-1.3) mg/dL AST (14-36) IU/L ALT (<35) IU/L Alkaline Phosphatase (38-126) U/L Ammonia (9-30) umol/L Troponin I (0.01-0.034) ng/mL Total Protein (6.3-8.2) g/dL Albumin (3.5-5.0) g/dL Globulin (1.7-4.1) g/dL Albumin/Globulin Ratio (1.0-2.8) Urine Color Urine Appearance Urine pH (4.5-8.0) Ur Specific Mcdowell (1.000-1.035) Urine Protein (Negative) Urine Glucose (UA) (Negative) g/dL Urine Ketones (NEGATIVE) Urine Occult Blood (Negative) Urine Nitrate (Negative) Urine Bilirubin (NEGATIVE) Urine Urobilinogen (0.2) E.U./dL Ur Leukocyte Esterase (NEGATIVE) Urine RBC (0-5/HPF) Urine WBC (0-5/HPF) Ur Squamous Epith Cells (0-5/HPF) Amorphous Sediment Urine Bacteria (None) Hyaline Casts (None) Urine Mucus (Negative) Ur Culture Indicated? U Opiates 300ng/mL cut Negative (Negative) Ur Oxycodone Screen Negative (Negative) Urine Methadone Screen Negative (Negative) Ur Barbiturates Screen Negative (Negative) U Tricyclic Antidepress Negative (Negative) Ur Phencyclidine Scrn Negative (Negative) Ur Amphetamines Screen Negative (Negative) U Methamphetamines Scrn Negative (Negative) Ur MDMA Scrn (Ecstasy) Negative (Negative) U Benzodiazepines Scrn Negative (Negative) Urine Cocaine Screen Negative (Negative) U Marijuana (THC) Screen Negative (Negative) Ketones (<0.27) mmol/L Chlamy pneumoniae PCR Not detected (Not Detect) Adenovirus (PCR) Not detected (Not Detect) B. pertussis DNA (PCR) Not detected (Not Detecte) B.parapertussis DNA PCR Not detected (Not Detecte) Coronavirus OC43 (PCR) Not detected (Not Detect) Coronavirus HKU1 (PCR) Not detected (Not Detect) Coronavirus 229E (PCR) Not detected (Not Detect) SARS-CoV-2 (PCR) Not detected (Not Detecte) Coronavirus NL63 (PCR) Not detected (Not Detect) Human Metapneumovir PCR Not detected (Not Detect) Influenza Type A (PCR) Not detected (Not Detect) Influenza Type B (PCR) Not detected (Not Detect) M. pneumoniae (PCR) Not detected (Not Detect) Parainfluenza 1 (PCR) Not detected (Not Detect) Parainfluenza 2 (PCR) Not detected (Not Detect) Parainfluenza 3 (PCR) Not detected (Not Detect) Parainfluenza 4 (PCR) Not detected (Not Detect) RSV (PCR) Not detected (Not Detect) Entero/Rhino (PCR) Not detected (Not Detect) 04/29/21 04/29/21 04/29/21 Range/Units 10:44 10:44 10:44 WBC 22.1 H (4.5-11.0) X10^3/uL RBC 4.14 (4.0-5.2) X10^6/uL Hgb 12.8 (12.0-16.0) g/dL Hct 39.3 (36-46) % MCV 95.0 (80-100) fL MCH 31.0 (26-34) PG MCHC 32.6 (30-36) % RDW 15.6 H (11.6-14.8) % Plt Count 258 (150-400) X10^3/uL Neut % (Auto) 91.7 H (50-75) % Lymph % (Auto) 4.5 L (25-40) % Crisp % (Auto) 3.6 (3-14) % Eos % (Auto) 0.0 L (2-4) % Baso % (Auto) 0.2 (0-2) % Neut # (Auto) 21419 H (8231-4510) /uL Lymph # (Auto) 1000 L (2441-1593) /uL Crisp # (Auto) 800 (0-900) /uL Eos # (Auto) 0 (0-450) /uL Baso # (Auto) 0 (0-100) /uL ABG pH (7.35-7.45) ABG pCO2 (35-45) mmHg ABG pO2 (80-100) mmHg ABG HCO3 (22-26) mmol/L ABG Total CO2 (21-31) mmol/L ABG O2 Saturation (95-100) % ABG Base Excess (-2-2) mmol/L FiO2 Sodium 134 L (137-145) mmol/L Potassium 4.7 (3.4-5.1) mmol/L Chloride 101 (98-107) mmol/L Carbon Dioxide 16 L (22-32) mmol/L BUN 47 H (7-17) mg/dL Creatinine 1.44 H (0.52-1.04) mg/dL Estimated GFR 35.0 L (>60) mL/min BUN/Creatinine Ratio 32.6 H (6-22) Glucose 591 H* D (80-110) mg/dL Lactate 2.2 H (0.7-2.1) mmol/L Calcium 10.0 (8.4-10.2) mg/dL Total Bilirubin (0.2-1.3) mg/dL AST (14-36) IU/L ALT (<35) IU/L Alkaline Phosphatase (38-126) U/L Ammonia (9-30) umol/L Troponin I (0.01-0.034) ng/mL Total Protein (6.3-8.2) g/dL Albumin (3.5-5.0) g/dL Globulin (1.7-4.1) g/dL Albumin/Globulin Ratio (1.0-2.8) Urine Color Urine Appearance Urine pH (4.5-8.0) Ur Specific Mcdowell (1.000-1.035) Urine Protein (Negative) Urine Glucose (UA) (Negative) g/dL Urine Ketones (NEGATIVE) Urine Occult Blood (Negative) Urine Nitrate (Negative) Urine Bilirubin (NEGATIVE) Urine Urobilinogen (0.2) E.U./dL Ur Leukocyte Esterase (NEGATIVE) Urine RBC (0-5/HPF) Urine WBC (0-5/HPF) Ur Squamous Epith Cells (0-5/HPF) Amorphous Sediment Urine Bacteria (None) Hyaline Casts (None) Urine Mucus (Negative) Ur Culture Indicated? U Opiates 300ng/mL cut (Negative) Ur Oxycodone Screen (Negative) Urine Methadone Screen (Negative) Ur Barbiturates Screen (Negative) U Tricyclic Antidepress (Negative) Ur Phencyclidine Scrn (Negative) Ur Amphetamines Screen (Negative) U Methamphetamines Scrn (Negative) Ur MDMA Scrn (Ecstasy) (Negative) U Benzodiazepines Scrn (Negative) Urine Cocaine Screen (Negative) U Marijuana (THC) Screen (Negative) Ketones (<0.27) mmol/L Chlamy pneumoniae PCR (Not Detect) Adenovirus (PCR) (Not Detect) B. pertussis DNA (PCR) (Not Detecte) B.parapertussis DNA PCR (Not Detecte) Coronavirus OC43 (PCR) (Not Detect) Coronavirus HKU1 (PCR) (Not Detect) Coronavirus 229E (PCR) (Not Detect) SARS-CoV-2 (PCR) (Not Detecte) Coronavirus NL63 (PCR) (Not Detect) Human Metapneumovir PCR (Not Detect) Influenza Type A (PCR) (Not Detect) Influenza Type B (PCR) (Not Detect) M. pneumoniae (PCR) (Not Detect) Parainfluenza 1 (PCR) (Not Detect) Parainfluenza 2 (PCR) (Not Detect) Parainfluenza 3 (PCR) (Not Detect) Parainfluenza 4 (PCR) (Not Detect) RSV (PCR) (Not Detect) Entero/Rhino (PCR) (Not Detect) 04/29/21 04/29/21 Range/Units 10:44 11:52 WBC (4.5-11.0) X10^3/uL RBC (4.0-5.2) X10^6/uL Hgb (12.0-16.0) g/dL Hct (36-46) % MCV (80-100) fL MCH (26-34) PG MCHC (30-36) % RDW (11.6-14.8) % Plt Count (150-400) X10^3/uL Neut % (Auto) (50-75) % Lymph % (Auto) (25-40) % Crisp % (Auto) (3-14) % Eos % (Auto) (2-4) % Baso % (Auto) (0-2) % Neut # (Auto) (2257-0787) /uL Lymph # (Auto) (6108-7065) /uL Crisp # (Auto) (0-900) /uL Eos # (Auto) (0-450) /uL Baso # (Auto) (0-100) /uL ABG pH 7.35 (7.35-7.45) ABG pCO2 26.6 L (35-45) mmHg ABG pO2 69 L (80-100) mmHg ABG HCO3 15 L (22-26) mmol/L ABG Total CO2 15 L (21-31) mmol/L ABG O2 Saturation 93 L (95-100) % ABG Base Excess -11.0 L (-2-2) mmol/L FiO2 21 Sodium (137-145) mmol/L Potassium (3.4-5.1) mmol/L Chloride (98-107) mmol/L Carbon Dioxide (22-32) mmol/L BUN (7-17) mg/dL Creatinine (0.52-1.04) mg/dL Estimated GFR (>60) mL/min BUN/Creatinine Ratio (6-22) Glucose (80-110) mg/dL Lactate (0.7-2.1) mmol/L Calcium (8.4-10.2) mg/dL Total Bilirubin (0.2-1.3) mg/dL AST (14-36) IU/L ALT (<35) IU/L Alkaline Phosphatase (38-126) U/L Ammonia (9-30) umol/L Troponin I (0.01-0.034) ng/mL Total Protein (6.3-8.2) g/dL Albumin (3.5-5.0) g/dL Globulin (1.7-4.1) g/dL Albumin/Globulin Ratio (1.0-2.8) Urine Color Urine Appearance Urine pH (4.5-8.0) Ur Specific Mcdowell (1.000-1.035) Urine Protein (Negative) Urine Glucose (UA) (Negative) g/dL Urine Ketones (NEGATIVE) Urine Occult Blood (Negative) Urine Nitrate (Negative) Urine Bilirubin (NEGATIVE) Urine Urobilinogen (0.2) E.U./dL Ur Leukocyte Esterase (NEGATIVE) Urine RBC (0-5/HPF) Urine WBC (0-5/HPF) Ur Squamous Epith Cells (0-5/HPF) Amorphous Sediment Urine Bacteria (None) Hyaline Casts (None) Urine Mucus (Negative) Ur Culture Indicated? U Opiates 300ng/mL cut (Negative) Ur Oxycodone Screen (Negative) Urine Methadone Screen (Negative) Ur Barbiturates Screen (Negative) U Tricyclic Antidepress (Negative) Ur Phencyclidine Scrn (Negative) Ur Amphetamines Screen (Negative) U Methamphetamines Scrn (Negative) Ur MDMA Scrn (Ecstasy) (Negative) U Benzodiazepines Scrn (Negative) Urine Cocaine Screen (Negative) U Marijuana (THC) Screen (Negative) Ketones 4.45 H (<0.27) mmol/L Chlamy pneumoniae PCR (Not Detect) Adenovirus (PCR) (Not Detect) B. pertussis DNA (PCR) (Not Detecte) B.parapertussis DNA PCR (Not Detecte) Coronavirus OC43 (PCR) (Not Detect) Coronavirus HKU1 (PCR) (Not Detect) Coronavirus 229E (PCR) (Not Detect) SARS-CoV-2 (PCR) (Not Detecte) Coronavirus NL63 (PCR) (Not Detect) Human Metapneumovir PCR (Not Detect) Influenza Type A (PCR) (Not Detect) Influenza Type B (PCR) (Not Detect) M. pneumoniae (PCR) (Not Detect) Parainfluenza 1 (PCR) (Not Detect) Parainfluenza 2 (PCR) (Not Detect) Parainfluenza 3 (PCR) (Not Detect) Parainfluenza 4 (PCR) (Not Detect) RSV (PCR) (Not Detect) Entero/Rhino (PCR) (Not Detect) Point of Care Testing Glucose POC 500 Urine Dip Bedside Urine Glucose 1000 mg/dl Bedside Urine Bilirubin - Negative Bedside Urine Ketone +/- 5 Urine Specific Mcdowell 1.030 Bedside Urine Occult Blood - Negative Bedside Urine pH 6.0 Bedside Urine Protein - Negative Bedside Urine Urobilinogen - Negative Bedside Urine Nitrite - Negative Bedside Urine Leukocytes - Negative Esterase Point of care testing: Point of Care Testing Glucose POC 500 Urine Dip Bedside Urine Glucose 1000 mg/dl Bedside Urine Bilirubin - Negative Bedside Urine Ketone +/- 5 Urine Specific Mcdowell 1.030 Bedside Urine Occult Blood - Negative Bedside Urine pH 6.0 Bedside Urine Protein - Negative Bedside Urine Urobilinogen - Negative Bedside Urine Nitrite - Negative Bedside Urine Leukocytes - Negative Esterase Imaging Data Chest x-ray: Radiologist's Impression: Mariya William 81 F [address] [id number] ReportSigned Patient: Mariya William JMR#: [id number]: 1940cct:[id number]/Sex: 81 / FDate of Service: 04/28/21Loc: EDAccession Number: [id number] Procedure: XR chest 1V Ordering Provider: Jessy Nuñez MD PROCEDURE: XR CHEST 1V INDICATIONS: altered mental status TECHNIQUE: One view of the chest was acquired. COMPARISON: [facility], CR, XR CHEST 2V, 04/11/2018, 14:44. FINDINGS: Surgical changes and devices: None. Lungs and pleura: Lungs are clear. No pleural effusions or pneumothorax. Mediastinum: Mediastinal contours appear normal. Heart size is normal. Bones and chest wall: No suspicious bony lesions. Overlying soft tissues appear unremarkable. IMPRESSION: No acute process. Dictated by: Dougie Baires M.D. on 04/28/2021 at 21:29 Approved by: Dougie Baires M.D. on 04/28/2021 at 21:29 CT scan - head: Radiologist's Impression: [address] [id number] Scan ReportSigned Patient: Mariya William JMR#: [id number]: 1Acct:[id number]/Sex: 81 / FDate of Service: 04/29/21Loc: EDAccession Number: [id number] Procedure: CT head/brain wo con Ordering Provider: Luz Elena De D.O. PROCEDURE: CT HEAD/BRAIN WO CON INDICATIONS: confusion TECHNIQUE: Noncontrast 4.5 mm thick angled axial sections acquired from the foramen magnum to the vertex, with coronal and sagittal reformats. For radiation dose reduction, the following was used: automated exposure control, adjustment of mA and/or kV according to patient size. COMPARISON: [facility], CT, CT HEAD/BRAIN WO CON, 03/05/2018, 4:50. FINDINGS: Image quality: Excellent. CSF spaces: Basal cisterns are patent. No extra-axial fluid collections. The ventricles are symmetric in size and shape. Brain: Chronic left MCA infarct is stable compared to March 05, 2018. No intracranial bleeds or masses. There is cerebral volume loss for age, with resultant ventricular and sulcal prominence. There are periventricular and deep white matter chronic sma ll vessel ischemic changes. There is intracranial internal carotid artery atherosclerosis. Skull and face: Calvarium and visualized facial bones appear intact, without suspicious lesions. Calvarial hyperostosis is stable. Sinuses: Visualized sinuses and mastoids are clear. IMPRESSION: No acute intracranial disease process. Dictated by: Urvashi Flynn MD, PhD on 04/29/2021 at 10:37 Approved by: Urvashi Flynn MD, PhD on 04/29/2021 at 10:44 ECG Data Attestation: I personally reviewed and interpreted this ECG as follows: Prior ECG tracings: available for review Interpretation: Sinus rhythm PVCs. Rate of 94 NV 138 QRS of 78 QTC of 420. MDM Narrative Medical decision making narrative: An 81-year-old female signed out to me for altered mental status with plan for admission. We do not have any beds locally in the were no beds on the surrounding area overnight. Patient typically is not as confused she does have a white count of 18 initial lactate was 3.3. She also has a bump in her creatinine 1.39. Patient's labs showed improvement in the lactate after some fluids to 1.6. Patient's troponin was negative. Her abdominal labs are negative. Patient chest x-ray was negative but she has been tachycardic with some mild tachypnea. On examination patient is confused, she does have right-sided deficits was noted in her prior exam on prior admissions. Patient is able to tell me her name she knows she is at a hospital but does not know where. She also has some trouble answering questions but has clear speech. Physical exam does not show any new focal deficits today. She is afebrile here in the department and throughout overnight. There was concern about possible infection but clear source has not found. Blood cultures are pending. Her urine was also showed possible infection although it was not highly suspicious. Blood cultures are pending. Chest x-ray is negative. Patient was given a dose of Rocephin here in the department. Because the patient's worsening confusion that is fairly acute head CT was ordered which is negative, labs were repeated which shows an increasing white count, elevated glucose that has increased significantly, patient appears to have an anion gap is positive for ketones with a bicarb that is 16. Insulin drip, IV fluids with potassium chloride or initiated. Patient had our nursing and dose of Rocephin. I had spoken with our local hospitalist but we do not have any intensive care beds available here and unlikely to have any available anytime soon. They do have beds available at [facility] spoke with Dr. Webb the craniologist who accepts for transfer . <Luz Elena De, - Last Filed: 04/29/21 19:36> Critical Care Time Critical Care Time: Yes Total Critical Care Time: 100 Attestation: The high probability of a clinically significant, sudden or life threatening deterioration of the [cardiac, pulm] system(s) required my full and direct at tention, intervention and personal management. The aggregate critical care time was [] minutes. This time is in addition to time spent performing reported procedures but includes the following: [x] Data Review and interpretation [x] Patient assessment and monitoring of vital signs [x] Documentation [x] Medication orders and management Discharge Plan [facility]: DKA (diabetic ketoacidoses) Prescriptions: No Action simvastatin 20 MG tablet 20 mg PO QDAY Qty: 0 RF: 0 lisinopril 10 MG tablet 10 mg PO QDAY Qty: 0 RF: 0 Fluoxetine Hydrochloride (FLUOXETINE) 20 mg PO QDAY Qty: 0 RF: 0 aspirin 81 MG tablet,delayed release (DR/EC) 81 mg PO QDAY Qty: 0 RF: 0 CA CARBONATE/VITAMIN D3/VIT K (Viactiv Soft Chew Tablet) 1 ctb PO BID Qty: 0 RF: 0 Glucosamine Hydrochloride (#GLUCOSAMINE) tablet 1,500 mg PO BID Qty: 0 RF: 0 Chondroitin Sulfate/Glucosam (#CHONDROITIN COMPLEX/GLUCOSAMINE 200 MG-500 M) 1 cap PO BID Qty: 0 RF: 0 insulin aspart U-100 100 unit/mL Cartridge 50 unit SUB-Q DAILY RF: 0 calcitonin (salmon) 200 unit/actuation spray,non-aerosol 1 spray Intranasal QNOON RF: 0 hydrocodone-acetaminophen 5-325 mg tablet 1 tab PO Q4HR PRN (Reason: Pain (Scale Score 1-3)) RF: 0 oxycodone [OxyContin] 10 mg tablet,oral only,ext.rel.12 hr 10 mg PO Q12H Qty: 20 RF: 0 hydrocodone-acetaminophen 5-300 mg tablet 1 tab PO Q4-6H PRN (Reason: pain) Qty: 20 RF: 0 Referrals: Vitaliy Brock MD [Primary Care Provider] -
[2021-04-29] VITALS (34 sets, daily range): BP systolic 114–180; BP diastolic 57–85; PULSE 91–124; RESP 17–41; O2SAT 92–98
[2021-04-29] MEDS: cefTRIAXone 2,000 MG in SODIUM CHLORIDE 0.9% 100 ML 200 ML IV (00:02)
[2021-04-29] MEDS: SODIUM CHLORIDE 0.9% 1,000 ML 1000 ML IV ×3 (00:02→11:34)
[2021-04-29 00:09] LABS: RBC Urine None Seen (0-5/HPF); WBC Urine None Seen (0-5/HPF)
[2021-04-29 00:11] LABS: Appearance Urine UA CLEAR; Color Urine UA YELLOW; Glucose Urine UA 2+ g/dL (Negative); Ketones Urine UA 1+ (NEGATIVE); Leukocyte Esterase Urine UA NEGATIVE (NEGATIVE); Nitrite Urine UA NEGATIVE (Negative); Occult Blood Urine UA NEGATIVE (Negative); Protein Urine UA TRACE (Negative); Specific Gravity Urine UA 1.025 (1.000-1.035); Urobilinogen Urine UA 0.2 E.U./dL (0.2)
[2021-04-29 00:17] LABS: Bilirubin Urine UA Negative (NEGATIVE); UR Morphine/Opiate cutoff 300 Negative (Negative); Ur Creatinine Normal (Normal); Ur Specific Gravity Normal (Normal); Urine Amphetamines Negative (Negative); Urine Barbiturates Negative (Negative); Urine Benzodiazepines Negative (Negative); Urine Cocaine Negative (Negative); Urine MDMA Negative (Negative); Urine Methadone Negative (Negative); Urine Methamphetamines Negative (Negative); Urine Oxycodone Negative (Negative); Urine Phencyclidine Negative (Negative); Urine Tetrahydrocannabinol Negative (Negative); Urine Tricyclic Antidepressant Negative (Negative); Urine pH Normal (Normal)
[2021-04-29 00:20] LABS: Amorphous Sediment Urine 1+; Bacteria Urine Few (2-10); Hyaline Casts Urine 5-10/LPF; Mucus Urine 1+ (Negative); Squamous Epithelial Cell Urine 0-1 /HPF (0-5/HPF)
[2021-04-29 00:21] LABS: Culture Indicated Urine Cult Not Indicated
[2021-04-29 00:29] LABS: Lactate (Lactic Acid) 3.3 mmol/L (0.7-2.1)
[2021-04-29 01:28] LABS: Adenovirus Not Detected (Not Detect); B. parapertussis Not Detected (Not Detecte); Bordetella pertussis Not Detected (Not Detecte); Chlamydophila pneumoniae Not Detected (Not Detect); Coronavirus 229E Not Detected (Not Detect); Coronavirus HKU1 Not Detected (Not Detect); Coronavirus NL 63 Not Detected (Not Detect); Coronavirus OC43 Not Detected (Not Detect); Human Metapneumovirus Not Detected (Not Detect); Human Rhinovirus/Enterovirus Not Detected (Not Detect); Influenza A Not Detected (Not Detect); Influenza B Not Detected (Not Detect); Mycoplasma pneumoniae Not Detected (Not Detect); Parainfluenza Virus 1 Not Detected (Not Detect); Parainfluenza Virus 2 Not Detected (Not Detect); Parainfluenza Virus 3 Not Detected (Not Detect); Parainfluenza Virus 4 Not Detected (Not Detect); Respiratory Syncytial Virus Not Detected (Not Detect); SARS- CoV-2 Not Detected (Not Detecte)
[2021-04-29 02:05] LABS: Reflexed Lactate in 2 Hours Y
[2021-04-29 02:31] LABS: Lactate 2HR (Lactic Acid Rflx) 1.6 mmol/L (0.7-2.1)
[2021-04-29 03:54] LABS: Troponin I 0.029 ng/mL (0.01-0.034)
[2021-04-29] MEDS: INSULIN REGULAR 100 UNIT/ML 3 ML VIAL 8 UNIT IV (04:53)
--- NOTE | 2021-04-29 10:12 | DI.CT.S_ITS ---
PROCEDURE: CT HEAD/BRAIN WO CON INDICATIONS: confusion TECHNIQUE: Noncontrast 4.5 mm thick angled axial sections acquired from the foramen magnum to the vertex, with coronal and sagittal reformats. For radiation dose reduction, the following was used: automated exposure control, adjustment of mA and/or kV according to patient size. COMPARISON: [facility], CT, CT HEAD/BRAIN WO CON, 03/05/2018, 4:50. FINDINGS: Image quality: Excellent. CSF spaces: Basal cisterns are patent. No extra-axial fluid collections. The ventricles are symmetric in size and shape. Brain: Chronic left MCA infarct is stable compared to March 05, 2018. No intracranial bleeds or masses. There is cerebral volume loss for age, with resultant ventricular and sulcal prominence. There are periventricular and deep white matter chronic small vessel ischemic changes. There is intracranial internal carotid artery atherosclerosis. Skull and face: Calvarium and visualized facial bones appear intact, without suspicious lesions. Calvarial hyperostosis is stable. Sinuses: Visualized sinuses and mastoids are clear. IMPRESSION: No acute intracranial disease process. Dictated by: Urvashi Flynn MD, PhD on 04/29/2021 at 10:37 Approved by: Urvashi Flynn MD, PhD on 04/29/2021 at 10:44
[2021-04-29 10:54] LABS: Add Manual Diff / Slide Review NO; Basophils Absolute Auto 0 /uL (0-100); Basophils Percent Auto 0.2 % (0-2); Eosinophils Absolute Auto 0 /uL (0-450); Hematocrit 39.3 % (36-46); Hemoglobin 12.8 g/dL (12.0-16.0); Lymphocytes Absolute Auto 1000 /uL (1100-4500); Lymphocytes Percent Auto 4.5 % (25-40); Mean Corpuscular HGB Conc 32.6 % (30-36); Monocytes Absolute Auto 800 /uL (0-900); Monocytes Percent Auto 3.6 % (3-14); Neutrophils Absolute Auto 20300 /uL (1500-7000); Neutrophils Percent Auto 91.7 % (50-75); Platelet Count 258 X10^3/uL (150-400); Red Blood Cell Count 4.14 X10^6/uL (4.0-5.2); Red Cell Distribution Width 15.6 % (11.6-14.8); White Blood Cell Count 22.1 X10^3/uL (4.5-11.0)
[2021-04-29 11:04] LABS: BUN Creatinine Ratio 32.6 (6-22); Blood Urea Nitrogen 47 mg/dL (7-17); Carbon Dioxide 16 mmol/L (22-32); Chloride 101 mmol/L (98-107); HEMOLYSIS < 15 (0-50); Potassium 4.7 mmol/L (3.4-5.1); Sodium 134 mmol/L (137-145)
[2021-04-29 11:23] LABS: Glucose 591 mg/dL (80-110)
[2021-04-29] MEDS: ONDANSETRON 4 MG/2 ML INJ IV (11:35)
[2021-04-29] MEDS: INSULIN DRIP PREMIX 100 UNIT/100 ML PLAST..BAG 6 UNIT IV (11:36)
[2021-04-29 11:38] LABS: Lactate (Lactic Acid) 2.2 mmol/L (0.7-2.1)
[2021-04-29 11:57] LABS: Ketones (Beta-Hydroxybutyrate) 4.45 mmol/L (<0.27)
[2021-04-29 12:09] LABS: HCO3 ABG 15 mmol/L (22-26); PCO2 ABG 26.6 mmHg (35-45); PO2 ABG 69 mmHg (80-100); pH ABG 7.35 (7.35-7.45)
[2021-04-29 12:10] LABS: Fractionated Inspired Oxygen 21; Oxygen Saturation ABG 93 % (95-100); TCO2 ABG 15 mmol/L (21-31)
[2021-04-29] MEDS: SODIUM CHLORIDE 0.45% 1,000 ML 100 ML IV (12:18)
[2021-04-29] MEDS: POTASSIUM CHLORIDE IN WATER 10 MEQ/100 ML PIGGYBACK 100 MEQ IV ×2 (12:20→13:29)
--- NOTE | 2021-04-29 13:17 | PC.NURSE ---
Talked with Fredi at [facility]. Dr. Webb accepts ICU rm 336 bed 1. [facility] eta here is 1400 with arrival at [facility] aprox. 1515. Rpt # [phone] ext [phone]
[2021-04-29 13:30] LABS: Reflexed Lactate in 2 Hours Y
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
--- NOTE | 2021-04-29 14:01 | PC.NURSE ---
Continued upon transfer with Ambulance (not wasted): Potassium Chloride 10MEQ at 100ml/hr 0.45% Normal Saline 100ml/hr Insulin Drip 6ml/6units/hr I spoke with Dr. De about how blood sugar is now showing >500 again. She states to leave the insulin at 6 units/hr and send the patient to [facility]
--- NOTE | 2021-04-29 14:04 | PC.NURSE ---
Report given to [facility] RN.
== END 2021-04-29 14:13 | disposition short-term general hospital (02) ==
PROVIDERS: Emergency Medicine; Emergency Provider Emergency Medicine; PCP Internal Medicine
DX: E10.10 Type 1 diabetes mellitus with ketoacidosis without coma (principal); Z79.4 Long term (current) use of insulin; R41.0 Disorientation, unspecified; R00.0 Tachycardia, unspecified; I10 Essential (primary) hypertension; Z20.822 Contact with and (suspected) exposure to COVID-19
CPT/HCPCS: 36415; 36600; 70450; 71045; 80048; 80053; 80305; 81001; 81003; 82009; 82140; 82805; 82962; 83605; 84484; 85025; 87040; 87633; 93005; 93010; 96361; 96365; 96366; 96367; 96375; 99285; 99291; 99292; J0696; J2405; J7050

== ENCOUNTER → 2021-10-27 10:07 | Outpatient (CLI) | payer MEDICARE, OTHER, SELFPAY ==
--- NOTE | 2021-10-27 | DI.MG.S_ITS ---
BILATERAL DIGITAL SCREENING MAMMOGRAM 3D/2D WITH CAD: 10/27/2021 CLINICAL: Routine screening. Comparison is made to exams dated: 11/07/2019 mammogram, 11/29/2015 mammogram, and 12/05/2012 mammogram - [facility]. There are scattered fibroglandular elements in both breasts. Current study was also evaluated with a Computer Aided Detection (CAD) system. There are benign calcifications in the left breast. No significant masses, calcifications, or other findings are seen in either breast. There has been no significant interval change. IMPRESSION: BENIGN There is no mammographic evidence of malignancy. A 1 year screening mammogram is recommended. This exam was interpreted at Station ID: [id number]. NOTE: For mammograms, a report in lay terms will be sent to the patient. Approximately 15% of breast malignancies will not be visualized mammographically. In the management of a palpable breast mass, a negative mammogram must not discourage biopsy of a clinically suspicious lesion. Electronically Signed By: Fabricio Valencia M.D., jr/kyugn:10/27/2021 10:59:28 letter sent: Normal Exam ACR BI-RADS Category 2: Benign Finding(s) 3342F
== END ==
PROVIDERS: PCP Internal Medicine; Referring Provider Internal Medicine; Visit Provider Internal Medicine
DX: Z12.31 Encounter for screening mammogram for malignant neoplasm of breast (principal)
CPT/HCPCS: 77063; 77067

== ENCOUNTER → 2023-04-06 10:55 | Outpatient (CLI) | payer MEDICARE, OTHER, SELFPAY ==
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
== END ==
PROVIDERS: PCP Physician Assistant; Referring Provider Physician Assistant; Visit Provider Physician Assistant
DX: M81.0 Age-related osteoporosis without current pathological fracture (principal); M85.89 Other specified disorders of bone density and structure, multiple sites
CPT/HCPCS: 77080

== ENCOUNTER 2023-05-23 13:17 | Emergency (ER) | payer MEDICARE, OTHER, SELFPAY ==
[2023-05-23 13:44] VITALS: BP 162/78; PULSE 82; RESP 20; TEMP 36.9; O2SAT 95
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
[2023-05-23] MEDS: ACETAMINOPHEN 325 MG TABLET 975 MG PO (15:45)
[2023-05-23 15:58] VITALS: BP 171/89; PULSE 89; RESP 20; O2SAT 95
== END 2023-05-23 15:59 | disposition home or self-care (01) ==
PROVIDERS: Emergency Provider Emergency Medicine; PCP Physician Assistant
DX: M54.6 Pain in thoracic spine (principal); S09.90XA Unspecified injury of head, initial encounter; V89.2XXA Person injured in unspecified motor-vehicle accident, traffic, initial encounter
CPT/HCPCS: 70450; 71101; 72072; 81003; 99283

== ENCOUNTER → 2023-06-07 14:33 | Outpatient (CLI) | payer MEDICARE, OTHER, SELFPAY ==
--- NOTE | 2023-06-07 | DI.RAD.S_ITS ---
PROCEDURE: XR RIBS BI MIN 4V W CXR1V INDICATIONS: Dorsalgia, unspecified TECHNIQUE: Four views of the bilateral ribs were acquired, along with a single view chest. COMPARISON: [facility], CR, XR RIBS LT MIN 3V W CXR1V, 05/23/2023, 13:59. FINDINGS: Surgical changes and devices: None. Bones and chest wall: Minimally displaced fractures of the anterolateral left 3rd, 4th, and 6th ribs seen on one view only. No suspicious bony lesions. Overlying soft tissues appear unremarkable. Lungs and pleura: No pleural effusions or pneumothorax. Elevation of the right hemidiaphragm is again seen with atelectasis of the right lung base. Lungs are otherwise clear. Mediastinum: Mediastinal contours appear normal. Heart size is normal. IMPRESSION: Minimally displaced fractures of the anterolateral left third, 4th, and 6th ribs. Recommend correlation for point tenderness. No pleural effusion or pneumothorax. Chronic elevation of the right hemidiaphragm. Approved by: Ken Jackson M.D. on 06/07/2023 at 21:24
--- NOTE | 2023-06-07 | DI.RAD.S_ITS ---
PROCEDURE: XR LUMBAR SPINE 2-3V INDICATIONS: Dorsalgia, unspecified TECHNIQUE: 3 views of the lumbar spine were acquired. COMPARISON: [facility], CR, XR LUMBAR SPINE 2-3V, 05/23/2018, 15:28. FINDINGS: Bones: Five [id number] vertebrae are present. There is levoconvex curvature of the lower thoracic and lumbar spine. No vertebral body compression fractures. Multilevel disc space narrowing degenerative endplate changes throughout the lumbar spine and multilevel facet hypertrophy. No acute compression fracture is seen in the lumbar spine. No suspicious bony lesions. A left hip prosthesis is present. Degenerative changes are seen at the right hip. Soft tissues: Overlying bowel gas pattern is normal. No suspicious soft tissue calcifications. IMPRESSION: Moderate multilevel spondylosis. No acute osseous abnormality. If the symptoms persist, consider cross sectional imaging such as MRI or CT for further assessment. Approved by: Ken Jackson M.D. on 06/07/2023 at 21:30
--- NOTE | 2023-06-07 | DI.RAD.S_ITS ---
PROCEDURE: XR THORACIC SPINE 2V INDICATIONS: Dorsalgia, unspecified TECHNIQUE: 2 views of the thoracic spine were acquired. COMPARISON: [facility], CR, XR THORACIC SPINE 2V, 05/23/2018, 15:28. FINDINGS: Bones: Mild scoliotic curvature of the lower thoracic and lumbar spine. Moderate T8 compression fracture is again seen, and there may be mildly increased loss of vertebral body height. Multilevel spondylosis. Portions of the lower thoracic spine are obscured by overlapping soft tissues on the lateral view. Soft tissues: No paravertebral stripe thickening. Chronic elevation of the right hemidiaphragm. IMPRESSION: Moderate compression deformity at T8, which may have mildly increased when compared to the prior radiographs from 05/23/2018 and acute on chronic injury is not excluded. MRI could be performed to evaluate for acute edema if indicated clinically. Approved by: Ken Jackson M.D. on 06/07/2023 at 21:29
== END ==
PROVIDERS: PCP Physician Assistant; Referring Provider Physician Assistant; Visit Provider Physician Assistant
DX: S22.42XA Multiple fractures of ribs, left side, initial encounter for closed fracture (principal); M47.816 Spondylosis without myelopathy or radiculopathy, lumbar region; M47.814 Spondylosis without myelopathy or radiculopathy, thoracic region; M48.54XA Collapsed vertebra, not elsewhere classified, thoracic region, initial encounter for fracture; M54.9 Dorsalgia, unspecified
CPT/HCPCS: 71111; 72070; 72100

== ENCOUNTER → 2025-01-01 10:26 | Outpatient (CLI) | payer MEDICARE, OTHER, SELFPAY ==
--- NOTE | 2025-01-01 10:30 | DI.RAD.S_ITS ---
PROCEDURE: XR HIP W PEL IF DONE RT 2V INDICATIONS: PAIN TECHNIQUE: 3 views of the hip were acquired. COMPARISON: [facility], CR, XR HIP W PEL IF DONE JIM 3TO4V, 05/23/2018, 15:28. FINDINGS AND IMPRESSION: Severe right hip arthritic changes with subchondral lucencies and femoral head and acetabular mild deformities. Advanced arthritic changes of the pubic symphysis, with left parasymphyseal pubic deformity. Partially seen lumbosacral degenerative changes also present. These are worse than prior. Left hip arthroplasty is in place. If there is high concern for further derangement, consider MRI evaluation. Dictated by: Koby Ventura M.D. on 01/01/2025 at 16:34 Approved by: Koby Ventura M.D. on 01/01/2025 at 16:36
--- NOTE | 2025-01-01 10:30 | DI.RAD.S_ITS ---
PROCEDURE: XR KNEE LT 3V INDICATIONS: PAIN TECHNIQUE: 3 views of the knee were acquired. COMPARISON: None. FINDINGS AND IMPRESSION: Moderate knee degenerative changes, with joint space loss most significant medial compartment. No acute displaced fracture or dislocation. Trace joint effusion. Possible prominent osteophyte or loose body projecting over the posterior joint on lateral view. If there is high concern for further derangement, consider MRI evaluation. Dictated by: Koby Ventura M.D. on 01/01/2025 at 16:33 Approved by: Koby Ventura M.D. on 01/01/2025 at 16:34
--- NOTE | 2025-01-01 10:30 | DI.RAD.S_ITS ---
PROCEDURE: XR KNEE RT 3V INDICATIONS: PAIN TECHNIQUE: 3 views of the knee were acquired. COMPARISON: None. FINDINGS AND IMPRESSION: [id number] knee arthrosis, most significant in the medial compartment. No acute displaced fracture or dislocation Trace joint effusion. If there is high concern for further derangement, consider MRI evaluation. Dictated by: Koby Ventura M.D. on 01/01/2025 at 16:32 Approved by: Koby Ventura M.D. on 01/01/2025 at 16:33
== END ==
PROVIDERS: Family Provider Physician Assistant; PCP Physician Assistant; Referring Provider Physician Assistant; Visit Provider Physician Assistant
DX: M17.11 Unilateral primary osteoarthritis, right knee (principal); M47.817 Spondylosis without myelopathy or radiculopathy, lumbosacral region; M25.551 Pain in right hip; M25.561 Pain in right knee; M25.562 Pain in left knee; M25.361 Other instability, right knee; R29.6 Repeated falls; Z96.642 Presence of left artificial hip joint
CPT/HCPCS: 73502; 73562

== ENCOUNTER → 2025-01-29 09:53 | Outpatient (CLI) | payer MEDICARE, OTHER, SELFPAY ==
--- NOTE | 2025-01-29 09:58 | EKG_ITS ---
[address] [address] Test Date: 2025-01-29 Pat Name: Mariya William Department: [facility] Room: Gender: Female Alarm Signal Operator: KATARZYNA : 1940 Requested By: Order Number: [id number] Reading MD: Guillermo Kamara MD Measurements Intervals [place] Rate: 90 P: 54 CA: 146 QRS: -7 QRSD: 80 T: 59 QT: 374 QTc: 457 Interpretive Statements Normal sinus rhythm Electronically Signed On 01-29-2025 11:59:00 PDT by Guillermo Kamara MD
[2025-01-29 10:43] LABS: Add Manual Diff / Slide Review NO; Basophils Absolute Auto 100 /uL (0-100); Basophils Percent Auto 0.9 % (0-2); Eosinophils Absolute Auto 600 /uL (0-450); Eosinophils Percent Auto 8.7 % (2-4); Lymphocytes Absolute Auto 1500 /uL (1100-4500); Lymphocytes Percent Auto 20.5 % (25-40); Mean Corpuscular HGB Conc 33.4 % (30-36); Mean Corpuscular Hemoglobin 31.3 PG (26-34); Mean Corpuscular Volume 93.5 fL (80-100); Monocytes Absolute Auto 600 /uL (0-900); Neutrophils Absolute Auto 4500 /uL (1500-7000); Neutrophils Percent Auto 61.9 % (50-75); Platelet Count 335 X10^3/uL (150-400); Red Blood Cell Count 4.16 X10^6/uL (4.0-5.2); Red Cell Distribution Width 14.4 % (11.6-14.8); White Blood Cell Count 7.3 X10^3/uL (4.5-11.0)
[2025-01-29 11:04] LABS: Hemoglobin A1C% w Est Avg Glu 6.5 % (4.0-6.0)
[2025-01-29 11:26] LABS: BUN Creatinine Ratio 25.6 (6-22); Blood Urea Nitrogen 20 mg/dL (7-17); Calcium 10.9 mg/dL (8.4-10.2); Carbon Dioxide 20 mmol/L (22-32); Chloride 102 mmol/L (98-107); Estimated Glomerular Filt Rate > 60 mL/min (>60); Glucose 243 mg/dL (80-110); HEMOLYSIS < 15 (0-50); Sodium 135 mmol/L (137-145)
[2025-01-29 13:22] LABS: Appearance Urine UA CLEAR; Bilirubin Urine UA NEGATIVE (NEGATIVE); Color Urine UA YELLOW; Glucose Urine UA NEGATIVE (Negative); Ketones Urine UA NEGATIVE (NEGATIVE); Leukocyte Esterase Urine UA NEGATIVE (NEGATIVE); Nitrite Urine UA NEGATIVE (Negative); Occult Blood Urine UA NEGATIVE (Negative); Protein Urine UA NEGATIVE (Negative); Urobilinogen Urine UA 0.2 E.U./dL (0.2)
[2025-01-29 13:49] LABS: Bacteria Urine None Seen; Culture Indicated Urine Cult Not Indicated; RBC Urine None Seen (0-5/HPF); Squamous Epithelial Cell Urine 0-1 /HPF (0-5/HPF); Urine Volume 10mL (spun); WBC Urine 0-1/HPF (0-5/HPF)
== END ==
PROVIDERS: Family Provider Physician Assistant; PCP Physician Assistant; Referring Provider Orthopaedic Surgery; Visit Provider Orthopaedic Surgery
DX: Z01.818 Encounter for other preprocedural examination (principal); R73.9 Hyperglycemia, unspecified; Z01.812 Encounter for preprocedural laboratory examination; N39.0 Urinary tract infection, site not specified
CPT/HCPCS: 36415; 80048; 81001; 83036; 85025; 93005; 93010

== ENCOUNTER → 2025-02-19 14:48 | Outpatient (CLI) | payer MEDICARE, OTHER, SELFPAY ==
--- NOTE | 2025-02-19 14:49 | DI.RAD.S_ITS ---
PROCEDURE: XR DEXA AXIAL SKELETON INDICATIONS: HYPERPARATHYROIDISM COMPARISON: [facility], , XR DEXA AXIAL SKELETON, 04/06/2023, 11:19. [facility], CR, XR DEXA AXIAL SKELETON, 08/09/2018, 15:20. FINDINGS: Lumbar Spine: Bone mineral density 1.109 g/cm2, T score 0.1, decreased by 2.2%. Left Forearm: Bone mineral density 0.557 g/cm2, T score -2.3, decreased by 3.9%. (T score greater or equal to -1.0 to: NORMAL) (T score from -1.1 to -2.4: OSTEOPENIA) (T score less than or equal to -2.5: OSTEOPOROSIS) IMPRESSION: Low bone mineral density (osteopenia) by WHO classification. Follow-up guidelines as follows: Osteoporosis: Consider a repeat DEXA and Vertebral Fracture Assessment (VFA) exam in 2 years or sooner if medically necessary, to reassess this patient's status. Osteopenia: Consider a repeat DEXA in 2-3 years to reassess this patient's status, or if there is a new clinical indication. Normal: Consider a repeat DEXA in 5 years or sooner, or if there is a new clinical indication. All treatment decisions require clinical judgment and consideration of individual patient factors, including patient preferences, comorbidities, previous drug use, risk factors not captured in the FRAX model (e.g., frailty, falls, vitamin D deficiency, increased bone turnover, interval significant decline in bone density ) and possible under- or over-estimation of fracture risk by FRAX. In addition, the NOF Guide recommends that FDA-approved medical therapies be considered in postmenopausal women and men age >= 50 years with a: * Hip or vertebral (clinical or morphometric) fracture * T-score of <=-2.5 at the spine or hip * Ten-year fracture probability by FRAX of >= 3% for hip fracture or >=20% for major osteoporotic fracture. Dictated by: Efren Jacobs M.D. on 02/19/2025 at 19:50 Approved by: Efren Jacobs M.D. on 02/19/2025 at 19:51
== END ==
PROVIDERS: Family Provider Physician Assistant; PCP Physician Assistant; Referring Provider Student in an Organized Health Care Education/Training Program; Visit Provider Student in an Organized Health Care Education/Training Program
DX: E21.0 Primary hyperparathyroidism (principal); M85.832 Other specified disorders of bone density and structure, left forearm
CPT/HCPCS: 77080

== ENCOUNTER → 2025-03-19 12:00 | Outpatient (CLI) | payer MEDICARE, OTHER, SELFPAY ==
[2025-03-19 15:31] LABS: Calcium 24 Hour Urine 145 mg/day (100-300); Calcium Urine Random 14.5 mg/dL; Collection Time Urine 24 Hours; Total Volume Urine 1000 mL
== END ==
PROVIDERS: Family Provider Physician Assistant; PCP Physician Assistant; Referring Provider Physician Assistant; Visit Provider Student in an Organized Health Care Education/Training Program
DX: E21.0 Primary hyperparathyroidism (principal)
CPT/HCPCS: 82340

== ENCOUNTER 2025-03-24 18:17 | Inpatient (IN) | payer MEDICARE, OTHER, SELFPAY ==
[2025-03-12 09:07] VITALS: BMI 28.3
[2025-03-24] VITALS (10 sets, daily range): BP systolic 135–163; BP diastolic 64–82; PULSE 74–107; RESP 14–30; TEMP 36.2–36.7; O2SAT 92–98; BMI 27.4
--- NOTE | 2025-03-24 | DI.RAD.S_ITS ---
PROCEDURE: XR PELVIS 1-2V INDICATIONS: RIGHT BUNNY INTRAOP TECHNIQUE: 1 view(s) of the pelvis acquired. COM[facility], [place], XR PELVIS WITH LATERAL HIP RIGHT, 03/11/2025, 16:24. FINDINGS AND IMPRESSION: Intraoperative images were obtained for right hip arthroplasty. Similar appearance of the left hip arthroplasty compared to prior imaging. Similar slight offset of the pubic symphysis. Please see operative note full details. Dictated by: Koby Ventura M.D. on 03/24/2025 at 16:38 Approved by: Koby Ventura M.D. on 03/24/2025 at 16:39
--- NOTE | 2025-03-24 11:00 | DI.RAD.S_ITS ---
PROCEDURE: XR HIP W PEL IF DONE RT 2V INDICATIONS: BUNNY TECHNIQUE: AP pelvis and lateral view of the hip acquired. COMPARISON: [facility], CR, XR PELVIS 1-2V, 03/24/2025, 15:43. [facility], CR, XR PELVIS WITH LATERAL HIP RIGHT, 03/11/2025, 16:24. [facility], CR, XR HIP W PEL IF DONE RT 2V, 01/01/2025, 10:29. [facility], CR, XR HIP W PEL IF DONE JIM 3TO4V, 05/23/2018, 15:28. FINDINGS: Bones: Patient is status post right hip arthroplasty, with hardware components in expected positions. The hip joint appears congruent. The visualized bony structures appear intact. Prior left hip arthroplasty is stable. Soft tissues: Overlying postoperative changes are noted. No suspicious soft tissue densities. IMPRESSION: Expected post-operative appearance of the right hip arthroplasty. Dictated by: Mayito Brady M.D. on 03/24/2025 at 20:04 Approved by: Mayito Brady M.D. on 03/24/2025 at 20:05
[2025-03-24] MEDS: LACTATED RINGERS 1,000 ML 42 ML IV ×2 (11:51→16:36)
[2025-03-24] MEDS: ACETAMINOPHEN 325 MG TABLET 975 MG PO (11:51)
[2025-03-24] MEDS: VANCOMYCIN 1,000 MG in SODIUM CHLORIDE 0.9% 250 ML 250 MG IV (13:11)
--- NOTE | 2025-03-24 14:16 | PM.PREOP ---
Pre-operative Note Interval Note History & Physical reviewed/Exam performed by Physician: Yes Changes to H&P: No
--- NOTE | 2025-03-24 14:28 | PM.OP.1 ---
Operative Date/Time/Diagnoses Date of procedure: 03/24/25 Time of procedure: 14:30 Pre-op diagnosis: Severe right hip OA Post-op diagnosis: same Procedure & Clinicians Procedure: Right total hip arthroplasty posterior approach Same procedure as scheduled: Yes Indications: The patient has had progressively worsening right hip pain with radiographic changes consistent with arthritis. Non-operative management has failed and the patient has requested total hip replacement. The risks, benefits and alternatives to surgery were discussed with the patient prior to proceeding. Risks discussed included, but were not limited to, failure to relieve pain, leg length discrepancy, dislocation, stiffness, infection, nerve damage, deep venous thrombosis, pulmonary embolism, stroke, coma, heart attack, permanent paralysis and , as well as the potential need for eventual revision of the prosthetic. Surgeon: Leah Souza Fountain Roller Assembler: Geremias Pugh Anesthesia Type: General Operative Notes Findings: Severe right hip OA, adequate stability, soft bone Closure Type: primary Specimen(s): none sent Prosthetic devices, grafts, tissues, transplants, or devices: Souza and nephew R3 50, neutral poly liner,two 6.5 mm screw, cemented Synergy stem standard offset size 10, 36 by +0 Estimated Blood Loss (mL): 250 Blood products transfused: none Procedure in detail: The patient was seen in the pre-operative area, where the patient identified the right hip as the operative site and this was marked with my initials. The patient received pre-operative antibiotics and was taken to the operating room and placed on the operative table in the left lateral decubitus position after satisfactory anesthesia. She was noted to have a severe right hip flexion contracture preoperatively. A [employer] out was performed. The right leg was prepared from the ankle to the iliac crest with ChloroPrep in the usual fashion and draped through sterile drapes. A PA was used during the procedure and was essential for intraoperative retraction and safe implantation of the components. The hip was approached through an approximately 20 cm incision centered over the greater trochanter and curving gently posteriorly as it went proximally. This was carried sharply to the fascia santino, which was divided and retracted with a self retaining retractor. The trochanteric bursa was excised with care being taken to avoid the sciatic nerve, which was identified and protected throughout the case. The short external rotators were incised and the capsulomuscular flap was raised and tagged for later repair. The hip was dislocated, and a femoral neck osteotomy performed approximately 15 mm above the lesser trochanter. Retractors were placed around the femur. The canal was opened with a box cutting osteotome, followed by a T handled reamer and a lateralizing reamer. The chili pepper broach was then used, followed by sequential broaching until there was good stability of the broach in the femur. Retractors were placed to expose the acetabulum. The labrum and central soft tissues were removed. Reaming was performed initially going up in 2 mm increments, then 1 mm increments until good bite was obtained with an odd sized reamer. The cup 1 mm larger than the last reamer was then inserted using the appropriate anteversion guides. It was further stabilized with 2 screws. A trial neutral liner was placed. The broach was placed in the canal. A trial head and neck were then placed and the hip relocated and checked for leg length and stability. An intraoperative film confirmed the component position and no evidence of fracture. The patient was stable in the position of sleep, of squatting, and could be put through a range of motion with 45 degrees internal rotation without dislocation. At 90 degrees flexion, internal rotation to 80 ? was possible before dislocation. This was felt to be satisfactory and the appropriate components were opened, and the trials were removed. The acetabular liner was impacted into position. She had very soft bone. It was felt that she was best treated with a cemented femoral stem. The canal was meticulously prepped irrigated with pulse lavage and hemostasis was achieved. The final stem was then cemented into the prepared femoral canal. A brief Betadine soak was performed while trialing with head options. The hip was meticulously irrigated with normal saline. She did have a significant hip flexion contracture preoperatively. I specifically loosened a portion of the anterior capsule. She was noted to be tight with moravian of her leg length but it was felt that this was appropriate leg length and stability. Finally the femoral head was impacted onto the stem. The acetabulum was cleared of all material and the hip relocated one final time. The capsulomuscular flap was then repaired to the greater trochanter though an awl hole using the tag sutures. The short external rotators were repaired with a nonabsorbable suture. The fascia santino was closed with Vicryl. The subcutaneous layer was closed with barbed sutures and surgical glue. A zuleyka dressing was applied and the patient was taken to recovery having tolerated the procedure well. Complications: none Post-operative Condition: stable Disposition: Acute Care Plan for aftercare: The patient will be maintained on a standard total hip replacement protocol with weight bearing as tolerated and posterior hip precautions. She had a significant preoperative flexion contracture which was slightly improved with surgery. She has a history of a hemiparesis on the right secondary to a CVA. The patient will receive Aspirin and sequential compression devices for DVT prophylaxis. The patient will be discharged home when safe for the home environment. She needs admission for postoperative monitoring including careful monitoring of her diabetes she has a history of a CVA with hemiplegia and does require substantial assistance. Anticipate that she will need several nights of nursing support and monitoring and ultimate discharge to rehab.
[2025-03-24] MEDS: TRANEXAMIC ACID 1,000 MG VIAL 1000 MG INJ ×2 (14:50→17:05)
[2025-03-24] MEDS: CEFAZOLIN 2 GM/100 ML PREMIX 100 ML IV ×2 (14:55→22:37)
--- NOTE | 2025-03-24 15:24 | SUR.OPER ---
Lateral on padded OR bed. Gel axillary roll. Arms secured on padded armboard with pillow supporting top arm. Padded hip positioner braces x4 - anterior and posterior chest and pelvis. Additional gel pad used anterior pelvis. Gel pad under bottom leg from knee to foot and secured with tape over sheet.
[2025-03-24] MEDS: EPINEPHrine 1 MG/ML TOP (16:15)
[2025-03-24] MEDS: BUPIVACAINE LIPOSOME 266 MG/20 ML VIAL INJ (16:30)
[2025-03-24] MEDS: BUPIVACAINE 0.25% W/ EPI 30 ML VIAL 60 ML INJ (16:31)
--- NOTE | 2025-03-24 17:51 | SUR.OPER ---
Pt right leg unable to straighten after procedure for transfer off OR bed to bed. Dr. Souza notified, no response at this time, endorsed care to PACU, RN and also floor RN for continuation of care.
--- NOTE | 2025-03-24 18:07 | P.CONS_ITS ---
History of Present Illness Consult details Date Patient Seen: 03/24/25 Chief complaint: R BUNNY posterior *OPB* Reason for consult: Management of diabetes and secondary prevention of stroke Requesting provider: Leah Souza Narrative: Chief complaint: Postoperative care and management of diabetes and secondary prophylaxis against CVA History of present illness A 84-year-old female with osteoarthritis status post standard total hip replacement today. No complications perioperatively. Past medical history: * Type 2 diabetes on insulin monitoring and administrative pump system * History of stroke * Obstructive sleep apnea * Hyper tension Review of systems: Too sedated to participate Physical exam: Sedated postoperative Heart rate and rhythm regular Lungs clear Abdomen nondistended Capillary refill and dorsalis pedis pulses in both feet satisfactory Assessment and plan: Type 2 diabetes * Orders for continued operation of insulin pump and glucose monitoring automatic system * Accu-Chek q.6 hours and then switching to a.c. HS when eating Hypertension and previous history of stroke * Resume home medication DVT prophylaxis: * Aspirin per orthopedic surgeon Code status: * Full code Meds Home Medications and Allergies Home Medications Medication Instructions Recorded Confirmed Type aspirin 81 mg tablet,delayed 81 mg PO QDAY ##0 10/07/12 03/24/25 History release simvastatin 20 mg tablet 20 mg PO QDAY ##0 10/07/12 03/24/25 History insulin aspart U-100 100 unit/mL 50 unit SUBCUT DAILY 03/05/18 03/12/25 History subcutaneous cartridge One-A-Day Women's Complete 1 tab PO DAILY 03/12/25 03/24/25 History amlodipine 5 mg tablet 5 mg PO DAILY 03/12/25 03/24/25 History fluoxetine 20 mg capsule 20 mg PO DAILY 03/12/25 03/24/25 History lisinopril 40 mg tablet 40 mg PO DAILY 03/12/25 03/24/25 History Allergies Allergy/AdvReac Type Severity Reaction Status Date / Time phenytoin Allergy Mild TURNED Verified 03/24/25 11:52 BRIGHT RED Exam Vital Signs (past 8 hours): - 03/24/25 12:37 03/24/25 17:35 03/24/25 17:49 Temperature 98 F 98.0 F 98.0 F Pulse Rate 85 74 75 Respiratory Rate 16 14 18 Blood Pressure 159/82 H 155/66 H 145/65 H Pulse Oximetry 95 98 95 Oxygen Delivery Method Room Air Nasal Cannula Nasal Cannula Oxygen Flow Rate 2 2 03/24/25 17:54 Temperature 97.7 F Pulse Rate 85 Respiratory Rate 20 Blood Pressure 145/72 H Pulse Oximetry 96 Oxygen Delivery Method Nasal Cannula Oxygen Flow Rate 2 Oxygen Delivery Method Nasal Cannula Oxygen Flow Rate 2 [facility] Medical History DAVID (obstructive sleep apnea) Spasticity as late effect of cerebrovascular accident (CVA) Hypercalcemia (10/13/22) Pelvic fracture (05/2018) Hypercholesteremia Gastritis Depression Anemia Insulin pump in place Hyperlipidemia HTN (hypertension) CVA (cerebral vascular accident) (1992) Diabetes Surgical History Hx of tonsillectomy History of colon resection (2013) History of cataract extraction History of total left hip arthroplasty (04/2009) Social History household members: spouse Tobacco & Substance Use Smoking Status: Never smoker alcohol intake: former Assessment & Plan Time-Based Coding :: 35 minute spent with patient and on the chart (including review of chart, obtaining history, exam, reviewing outside data, placing orders, documenting exam and treatment plan, and counseling patient) .
[2025-03-24] MEDS: LACTATED RINGERS 1,000 ML 100 ML IV (18:30)
[2025-03-24] MEDS: ASPIRIN EC 81 MG TABLET PO (20:14)
[2025-03-24] MEDS: DOCUSATE 100 MG CAPSULE PO (20:14)
[2025-03-25] VITALS (9 sets, daily range): BP systolic 107–139; BP diastolic 44–74; PULSE 97–105; RESP 15–24; TEMP 36.9–37.8; O2SAT 88–95
[2025-03-25] MEDS: INSULIN PUMP 1 REQUEST MISC (00:21)
[2025-03-25 06:08] LABS: Hematocrit 31.5 % (36-46); Hemoglobin 10.7 g/dL (12.0-16.0)
[2025-03-25] MEDS: CEFAZOLIN 2 GM/100 ML PREMIX 100 ML IV (06:22)
--- NOTE | 2025-03-25 06:55 | PM.PNPO.1 ---
Subjective Subjective Interval history: She was resting comfortably in bed. She has minimal pain. Exam Vital Signs (past 8 hours): Fraction of Inspired Oxygen 24 SaO2/FiO2 Ratio 408 Oxygen Delivery Method Nasal Cannula Oxygen Flow Rate 1 Narrative Exam Narrative: She has some flexion and extension in the right foot, she does have a hip flexion contracture but can be straightened some. She has minimal pain with gentle range motion in her hip. Dressings intact. Objective Labs 03/25/25 05:36 Labs: Laboratory Results - last 24 hr 03/25/25 05:36 Hgb 10.7 L Hct 31.5 L PFSH Medical History DAVID (obstructive sleep apnea) Spasticity as late effect of cerebrovascular accident (CVA) Hypercalcemia (10/13/22) Pelvic fracture (05/2018) Hypercholesteremia Gastritis Depression Anemia Insulin pump in place Hyperlipidemia HTN (hypertension) CVA (cerebral vascular accident) (1992) Diabetes Surgical History (Updated 03/25/25 @ 06:56 by Leah Souza MD) Hx of tonsillectomy History of colon resection (2013) History of cataract extraction History of total left hip arthroplasty (04/2009) Social History household members: spouse Smoking Status: Never smoker alcohol intake: former Assessment & Plan Post-op Assessment and plan (1) Osteoporosis: (2) S/P total hip arthroplasty: (3) Diabetes mellitus: Postoperative Procedures: Procedures Operation Date: 03/24/25 13:45 Actual Procedure Side Surgeon p Total Hip Arthroplasty, cemented Right Leah Souza MD Postoperative day: 1 Postoperative status: doing well Postoperative status narrative: He is doing well postoperatively. She has a significant hip flexion contracture and a history of hemiplegia on the right. She also has substantial diabetes. I feel she needs inpatient admission which we did yesterday. The plan is to mobilize her with physical therapy today. Anticipate she will need rehab due to her multiple problems. Postoperative plan: ambulate Quality VTE Deep Vein Thrombosis/Pulmonary Embolism Present on Admission: No
[2025-03-25] MEDS: LACTATED RINGERS 1,000 ML 100 ML IV ×2 (08:13→19:06)
[2025-03-25] MEDS: polyethylene glycoL 3350 17 GM POWD.PACK PO (08:13)
[2025-03-25] MEDS: ATORVASTATIN 20 MG TABLET 10 MG PO (08:15)
[2025-03-25] MEDS: MULTIVITAMIN 1 TABLET 1 TAB PO (08:15)
[2025-03-25] MEDS: AMLODIPINE 5 MG TABLET PO (08:15)
[2025-03-25] MEDS: IBUPROFEN 400 MG TABLET PO (08:16)
[2025-03-25] MEDS: lisinopriL 20 MG TABLET 40 MG PO (08:16)
[2025-03-25] MEDS: FLUoxetine 20 MG CAPSULE PO (08:16)
[2025-03-25] MEDS: ASPIRIN EC 81 MG TABLET PO ×2 (08:17→22:13)
[2025-03-25] MEDS: DOCUSATE 100 MG CAPSULE PO ×2 (08:17→22:13)
--- NOTE | 2025-03-25 08:19 | P.PN_ITS ---
Subjective Subjective Interval history: Chief complaint: R BUNNY posterior *OPB* Reason for consult: Management of diabetes and secondary prevention of stroke Requesting provider: Leah Souza Narrative: Chief complaint: Postoperative care and management of diabetes and secondary prophylaxis against CVA History of present illness A 84-year-old female with osteoarthritis status post standard total hip replacement today. No complications perioperatively. Past medical history: * Type 2 diabetes on insulin monitoring and administrative pump system * History of stroke * Obstructive sleep apnea * Hyper tension S: She was doing well today. She was no hip pain. Her blood sugars have been under 200. She was using a pump with a meter and managing this. She has been eating without difficulty he was able to get to the bedside commode and a Sylvia lift and have both bowel movements and urinate without difficulty. Exam Vital Signs (past 8 hours): - 03/25/25 08:00 03/25/25 08:16 03/25/25 08:16 Temperature 100 F H 100.0 F H Pulse Rate 105 H 105 H Respiratory Rate 15 Blood Pressure 139/71 139/74 Pulse Oximetry 93 Oxygen Flow Rate 1 Fraction of Inspired Oxygen 24 SaO2/FiO2 Ratio 408 Oxygen Delivery Method Nasal Cannula Oxygen Flow Rate 1 Narrative Exam Narrative: NAD, alert and oriented. Fluent speech. Lungs are clear, normal rate and effort. Heart is regular, no murmur gallop or rub. Abdomen is soft, non distended. Extremities are free of edema. Objective Labs 03/25/25 05:36 Labs: Laboratory Results - last 24 hr 03/25/25 05:36 Hgb 10.7 L Hct 31.5 L PFSH Medical History DAVID (obstructive sleep apnea) Spasticity as late effect of cerebrovascular accident (CVA) Hypercalcemia (10/13/22) Pelvic fracture (05/2018) Hypercholesteremia Gastritis Depression Anemia Insulin pump in place Hyperlipidemia HTN (hypertension) CVA (cerebral vascular accident) (1992) Diabetes Surgical History Hx of tonsillectomy History of colon resection (2013) History of cataract extraction History of total left hip arthroplasty (04/2009) Social History household members: spouse Smoking Status: Never smoker alcohol intake: former Assessment & Plan Assessment & Plan narrative: Type 2 diabetes * Orders for continued operation of insulin pump and glucose monitoring automatic system * Accu-Chek q.6 hours and then switching to a.c. HS when eating Hypertension and previous history of stroke * Resume home medication PLAN: -no change to current plan. We will can continue to monitor her hypertension and diabetes. DVT prophylaxis: * Aspirin per orthopedic surgeon Discharge planning per ortho. Time-Based Coding :: [TOTAL MINUTES] spent with patient and on the chart (including review of chart, obtaining history, exam, reviewing outside data, placing orders, documenting exam and treatment plan, and counseling patient) on [DATE]. Quality VTE Deep Vein Thrombosis/Pulmonary Embolism Present on Admission: No
--- NOTE | 2025-03-25 09:05 | PT.IIE ---
Current Diagnoses Type 2 diabetes mellitus without complications (03/24/25) Unilateral primary osteoarthritis, right hip (03/24/25) Age-related osteoporosis without current pathological fracture (03/24/25) Presence of unspecified artificial hip joint (03/24/25) Surgery Performed Operation Date: 03/24/25 13:45 Actual Procedures p Total Hip Arthroplasty, cemented(Right) - Leah Souza MD Surgical History (Last Reviewed 03/25/25 @ 08:20 by Maurice Membreno MD) History of cataract extraction History of colon resection (2013) History of total left hip arthroplasty (04/2009) Hx of tonsillectomy Medical History (Last Reviewed 03/25/25 @ 08:20 by Maurice Membreno MD) Anemia CVA (cerebral vascular accident) (1992) Depression Diabetes Gastritis HTN (hypertension) Hypercalcemia (10/13/22) Hypercholesteremia Hyperlipidemia Insulin pump in place DAVID (obstructive sleep apnea) Pelvic fracture (05/2018) Spasticity as late effect of cerebrovascular accident (CVA) Physical Therapy Inpatient Evaluation/Re-Eval M1 PT/OT-IP Prior Functional Status Start: 03/25/25 11:56 Freq: NEEDED Status: Active Protocol: Document 03/25/25 09:05 AB (Rec: 03/25/25 12:19 AB [id number]) Medical Review Prior Functional Status Medical History Reviewed Yes Communication able to answer questions but with h/o aphasia due to CVA and needed time to respond and with word finding difficulty Mobility and Gait pt's daughter provided and confirms pt's info: stated that pt has been w/c bound for ~ 2 months due to increase R hip pain and contracture. pt was able to ambulate using a quad cane prior to being w/c bound; able to do bed mobility and transfers mod I but daughter stated that she assists pt with toilet transfers; has R AFO for walking but has not been using since she was w/c bound Social History Household Members spouse Living Arrangements House Number of Floors (Floors) One Floor Number of Stairs To Enter/Railing? ramp to enter Home Environment High Toilet,Walk in Shower Home Equipment Quad Cane,Shower Seat with Backrest,Hand Held Shower,Grab Bars Near Toilet,Grab Bars In Shower Additional Social History Comment spouse will not be able to assist pt M2 PT-IP Current Condition Start: 03/25/25 11:56 Freq: NEEDED Status: Active Protocol: Document 03/25/25 09:05 AB (Rec: 03/25/25 12:19 AB [id number]) Physical Therapy Current Condition Current Condition Evaluation Date 03/25/25 Treatment Diagnosis s/p R BUNNY posterior; difficulty in walking Onset Date 03/24/25 M3 PT-IP Subjective Start: 03/25/25 11:56 Freq: NEEDED Status: Active Protocol: Document 03/25/25 09:05 AB (Rec: 03/25/25 12:19 AB [id number]) Subjective Physical Therapy Visit Type Type Initial Evaluation Visit Start Time 09:05 Visit Stop Time 10:15 Number of ADDICTION SOCIAL WORKER Visits 0 Physical Therapy Visit Comments Patient Comments agreeable to do PT Therapy Pain Assessment Pain Present Pain Present Denied Pain M4 PT-IP Mobility and Gait Start: 03/25/25 11:56 Freq: NEEDED Status: Active Protocol: Document 03/25/25 09:05 AB (Rec: 03/25/25 12:19 AB [id number]) PT-Bed Mobility Assessment Supine to Sit Supine to Sit Maximum Assistance,1 Person Assistance,Head of Bed Elevated,Bedrails Scooting Scooting to Edge of Bed Maximum Assistance PT-Transfer Assessment Sit to and From Stand Sit to and from Stand Maximum Assistance,2 Person Assistance,Use of Upper Extremities Equipment Transfer Assistive Device Isai Walker Orthotic/Prosthetic Devices or Brace: No Transfers Transfer Destination Chair Transfer Technique Squat Pivot Transfer Ability Level of Assist Maximum Assistance,2 Person Assistance,Use of Upper Extremities Comments Mobility Comments pt in bed. daughter in room. obtained PLOF and home set up. educated pt and daughter regarding R hip posterior precautions. pt with h/o CVA with R sided weakness. pt presents with UE flexor contracture and R knee contracture ~20-30 deg. also presents with increase flexor synergy during movement needing assist for LE positioning for hip posterior precautions. completed supine to sit max A and max cues. able to sit on EOB CGA. sit <>stand x 2 using hemiwalker for support requiring max Ax 2 and max cues. pt with RLE flexor synergy and with difficulty putting weight on RLE due to this. max A for stabilizing RLE and position in extension. completed squat pivot transfer with PT assisting pt in front and nurse behind pt. pt needs to be cleaned up and brief change. sit to stand from chair max A x 2 and max cues using hemiwalker for support. nurse assisted with hygiene care and brief management. positioned pt back to chair. call light and table placed within reach. OT in room and left pt with OT . PT-Balance Assessment Sitting Balance and Reactions Static Sitting Balance Ability Good Dynamic Sitting Balance Ability Fair Standing Balance and Reactions Static Standing Balance Ability Poor Dynamic Standing Balance Ability Poor Device Used hemiwalker M5 PT-IP Objective Assessments Start: 03/25/25 11:56 Freq: NEEDED Status: Active Protocol: Document 03/25/25 09:05 AB (Rec: 03/25/25 12:19 AB [id number]) Orientation Orientation/Cognition Level of Alertness Alert Orientation Name,Place,Situation Language Function Ability Expressive Aphasia,Receptive Aphasia Safety Awareness Decreased Safety Awareness Memory Description Short Term Impaired Gross Range of Motion Upper Extremity ROM Assessment Right Impaired Impairments R UE flexion contracture: refer to OT note Lower Extremity ROM Assessment Right Impaired Impairments R knee contracture 20-30 deg Strength Lower Extremity Strength Assessment Right Impaired Hip 3-/5 Knee 2+/5 Muscle Tone Muscle Tone WNL No Muscle Tone Location Right Lower Extremity Type of Tone Hypertonicity,Flexor Severity of Tone Moderate M6 PT-IP Treatment Start: 03/25/25 11:56 Freq: NEEDED Status: Active Protocol: Document 03/25/25 09:05 AB (Rec: 03/25/25 12:19 AB [id number]) Physical Therapy Treatment Education Education Provided Precautions,Weight Bearing Status,Post-Op Packet,Safety M7 PT-IP Assessment and Plan Start: 03/25/25 11:56 Freq: NEEDED Status: Active Protocol: Document 03/25/25 09:05 AB (Rec: 03/25/25 12:19 AB [id number]) PT Summary Assessment and Plan Potential Rehabilitation Potential Fair Status of Condition at Evaluation Evolving Summary Impairments Pain,ROM,Strength,Balance, Coordination,Sensation,Tone, Cognition,Bed Mobility, Transfers,Gait,Activity Tolerance Assessment Summary pt is an 84 y/o F s/p R BUNNY posterior approach POD 1. pt with R BUNNY posterior precautions and is WBAT. pt with h/o CVA with R hemiparesis and presents with RUE/LE contractures. pt with increase flexor synergy on R affecting mobility. pt presents with increase RLE hip /knee flexion/adduction/IR during mobility especially in standing and with difficulty for pt to put R foot flat on floor for weight bearing. pt requiring max A for bed mobility and max A x 2 for squat pivot transfer. pt will require SNF rehab to improve overall mobility. Goals Bed Mobility Goal Moderate Assistance Transfer Goal Moderate Assistance Gait Goal Moderate Assistance,Isai Walker Gait Distance 25 Other Goals improve bed mobility, transfers , ambulation using hemiwalker ~ 100 ft CGA Days to Meet Goals 10 Frequency of Treatment Frequency Of Treatment Once a Day Treatment Plan Physical Therapy Treatment Plan Bed Mobility Training,Transfer Training,Gait Training, Therapeutic Exercise,Balance Retraining,Post Op Education, Discharge Planning,Hot or Cold Pack,Neuromuscular Re-ed, Coordination Retraining,Manual Therapy Precautions Posterior Hip Precautions No Hip Flexion > 90 degrees,No Hip Internal Rotation,No Hip Adduction Weight Bearing Status Weight Bearing Status Weight Bear as Tolerated Allowed Weight Bearing Amount (enter % RLE WBAT or #) (%) Recommendations To Nursing Amount of Assist Needed Mechanical Lift Discharge Recommendations PT Discharge Recommendations SNF Rehab Transportation Needs at Discharge Wheelchair/Cabulance - PT assist 2
--- NOTE | 2025-03-25 10:36 | OT.IP.EVAL ---
Current Diagnoses Type 2 diabetes mellitus without complications (03/24/25) Unilateral primary osteoarthritis, right hip (03/24/25) Age-related osteoporosis without current pathological fracture (03/24/25) Presence of unspecified artificial hip joint (03/24/25) Surgery Performed Operation Date: 03/24/25 13:45 Actual Procedures p Total Hip Arthroplasty, cemented(Right) - Leah Souza MD Past Medical History (Last Reviewed 03/25/25 @ 08:20 by Maurice Membreno MD) Anemia CVA (cerebral vascular accident) (1992) Depression Diabetes Gastritis HTN (hypertension) Hypercalcemia (10/13/22) Hypercholesteremia Hyperlipidemia Insulin pump in place DAVID (obstructive sleep apnea) Pelvic fracture (05/2018) Spasticity as late effect of cerebrovascular accident (CVA) Surgical History (Last Reviewed 03/25/25 @ 08:20 by Maurice Membreno MD) History of cataract extraction History of colon resection (2013) History of total left hip arthroplasty (04/2009) Hx of tonsillectomy Occupational Therapy Inpatient Evaluation/Re-Eval M1 PT/OT-IP Prior Functional Status Start: 03/25/25 11:56 Freq: NEEDED Status: Active Protocol: Document 03/25/25 10:00 [facility] (Rec: 03/25/25 13:08 [facility] Desktop) Medical Review Prior Functional Status Medical History Reviewed Yes Communication able to answer questions but with h/o aphasia due to CVA and needed time to respond and with word finding difficulty Mobility and Gait pt's daughter provided and confirms pt's info: stated that pt has been w/c bound for ~ 2 months due to increase R hip pain and contracture. pt was able to ambulate using a quad cane prior to being w/c bound; able to do bed mobility and transfers mod I but daughter stated that she assists pt with toilet transfers; has R AFO for walking but has not been using since she was w/c bound Activities of Daily Living and IADL's Last 2 months, pt needing more assist with toileting and showering needs. Social History Household Members spouse Living Arrangements House Number of Floors (Floors) One Floor Number of Stairs To Enter/Railing? ramp to enter Home Environment High Toilet,Walk in Shower Home Equipment Quad Cane,Shower Seat with Backrest,Hand Held Shower,Grab Bars Near Toilet,Grab Bars In Shower Additional Social History Comment spouse will not be able to assist pt M2 OT-IP Current Condition Start: 03/25/25 12:43 Freq: Status: Active Protocol: Document 03/25/25 10:00 [facility] (Rec: 03/25/25 13:08 [facility] Desktop) Occupational Therapy Current Condition Current Condition Evaluation Date 03/25/25 Treatment Diagnosis S/P R BUNNY posterior approach Diagnosis Onset Date 03/24/25 Post Operative Precautions Posterior Hip Precautions No Hip Flexion > 90 degrees,No Hip Internal Rotation,No Hip Adduction M3 OT- IP Subjective and Pain Start: 03/25/25 12:43 Freq: Status: Active Protocol: Document 03/25/25 10:00 [facility] (Rec: 03/25/25 13:08 [facility] Desktop) OT- Subjective Occupational Therapy Visit Type Type Initial Evaluation Visit Start Time 10:00 Visit Stop Time 10:36 Occupational Therapy Visit Comments Patient Comments Pt working with PT when OT came in. Patient/Caregiver Goals TO get better and be able to return to prior level of being able to do all ADL's on her own with increased time and able to walk with her quad cane. OT Pain Assessment Pain When Pain Assessed At Rest Pain Present Pain Present Denied Pain M4 OT- IP ADL's Start: 03/25/25 12:43 Freq: Status: Active Protocol: Document 03/25/25 10:00 [facility] (Rec: 03/25/25 13:08 [facility] Desktop) OT [id number] Comments OT Self-Feeding Comments Not at meal time. OT ADL-Grooming Comments OT Grooming Comments Not performed. OT ADL-Oral Care General Eval Oral Care Ability Standby Assistance Areas of Assistance Retrieving/Set-Up of Items Comments Oral Care Comments Set-up assist and able to do while seated. OT ADL-Dressing General Eval Lower Body Dressing Ability Maximum Assistance Areas Needing Assistance Socks OT ADL-Toileting General Evaluation Toileting Ability Total Assistance Comments OT Toileting Comments MAX AX 2 with maximiliano-walker and another person to assist with brief change and hygiene needs . OT ADL-Bathing Comments OT Bathing Comments Sponge bath more appropriate at this time. M5 OT- IP IADL's Start: 03/25/25 12:43 Freq: Status: Active Protocol: Document 03/25/25 10:00 [facility] (Rec: 03/25/25 13:08 [facility] Desktop) OT-Instrumental Activities of Daily Living Meal Preparation Meal Preparation Caregiver Provides Assist Decal Cutter Decal Cutter Caregiver Provides Assist M6 OT- IP Functional Cognition Start: 03/25/25 12:43 Freq: Status: Active Protocol: Document 03/25/25 10:00 [facility] (Rec: 03/25/25 13:08 [facility] Desktop) Cognitive Factors Limiting Selfcare Function Cognitive Ability Level of Alertness Alert Patient Orientation Name,Place,Situation Attention Span Ability Capable of Focused Attention, Capable of Sustained Attention Ability to Follow Commands Able to Follow One Step Commands Memory Description Short Term Impaired Cognitive Comments Cognitive Assessment Comments Pt able to follow commands for ADL and mobility needs. OT- Vision and Hearing OT- Vision Assessment Visual Attentiveness WFL Occular Pursuits WFL M7 OT- IP Mobility and Balance Start: 03/25/25 12:43 Freq: Status: Active Protocol: Document 03/25/25 10:00 [facility] (Rec: 03/25/25 13:08 [facility] Desktop) OT-Transfer Assessment Sit to and From Stand Sit to and from Stand Maximum Assistance,2 Person Assistance Transfers Transfer Ability Maximum Assistance,2 Person Assistance Technique Transfer Technique Squat Pivot Comments Mobility Comments MAX AX 2 to stand to the maximiliano- walker. OT- Balance Assessment Sitting Balance and Reactions Static Sitting Balance Ability Good Dynamic Sitting Balance Ability Fair Standing Balance and Reactions Static Standing Balance Ability Poor Dynamic Standing Balance Ability Poor M8 OT- IP Objective Assessments Start: 03/25/25 12:43 Freq: Status: Active Protocol: Document 03/25/25 10:00 [facility] (Rec: 03/25/25 13:08 [facility] Desktop) OT Gross Range of Motion Upper Extremity Range of Motion Assessment Right Impaired OT Strength Upper Extremity Strength Assessment Right Impaired Comments Strength Comments RUE slight movements shoulder scaption. OT-Muscle Tone Assessment Muscle Tone WNL No Muscle Tone Location Right Lower Extremity Type of Tone Hypertonicity,Flexor Comments Muscle Tone Comments Pt's RUE internally rotated, elbow, wrist, and finger flexion. M9 OT- IP Assessment and Plan Start: 03/25/25 12:43 Freq: Status: Active Protocol: Document 03/25/25 10:00 [facility] (Rec: 03/25/25 13:08 [facility] Desktop) OT Summary Assessment and Plan Potential Rehabilitation Potential Good Analytic Complexity at Evaluation Moderate Summary OT Impairments Range of Motion,Strength, Balance,Tone,Functional Cognition,Functional Mobility, Self-Feeding,Grooming,Dressing ,Toileting,Bathing,Toilet Transfers,Shower Transfers, Activity Tolerance Progress Towards Goals Slow Progress due to Medical Issues,Slow Progress due to Activity Tolerance Assessment Summary Pt MOD complexity and main barriers are history of CVA resulting in flexor synergy during movements, decreased balance, endurance, and strength. Pt will benefit from skilled rehab. Per pt's daughter states to have pt see a neurologist for possible medications to help with her tone after rehab. Goals Self-Feeding Goal Independent Grooming Goal Independent Dressing Goal Minimal Assistance Toileting Goal Standby Assistance Bathing Goal Minimal Assistance Toilet Transfer Goal Standby Assistance Shower Transfer Goal Contact Guard Assistance Days to Meet Goals 30 Frequency of Treatment Other frequency 5x/week Treatment Plan OT Treatment Plan ADL Training,Functional Mobility,Patient/Family Education,Discharge Planning Discharge Recommendations OT Discharge Recommendations SNF Rehab Transportation Needs at Discharge Wheelchair/Cabulance
[2025-03-25] MEDS: ACETAMINOPHEN 325 MG TABLET 650 MG PO ×2 (11:44→17:47)
--- NOTE | 2025-03-25 14:21 | DIET.INSP ---
Nutrition/Diabetes Insulin Pump Consult Assessment: 84y F referred to nutrition for Insulin Pump consult. Type of pump: Medtronic Minimed Guardian 4 Blood Sugar Information Patient stated blood sugar goals: alarms set for 70 and 250 What blood sugar the patient considers hypoglycemia: <70 Treatment: juice or pretzels or chocolate What blood sugar the patient considers hyperglycemia: >180 Treatment: pump corrects, pt monitors change Nutrition Information Do they carb count? No, pt s/p stroke and is unable to count carbs, daughter helps and pt eats standard diet daily. B: muffin, black coffee L: 1/2 sandwich, fruit and chips D: steak c 1/2 potato or chicken with pasta Do they have a carb to insulin ratio? If not, how do they determine a bolus? Pt boluses pump assisted long acting novolog instead of short acting Interventions: Reviewed blood sugar goals during hospitalization Reviewed hypoglycemia treatment Discussed carb counting and carb to insulin ratio or dosing for portions Determined appropriate consistent carb diet for patient while admitted
--- NOTE | 2025-03-25 15:12 | CM.DANOTE ---
[facility] Note Reviewed EMR and team rounds for status updates. Met with pt and dtr at bedside to introduce self and role, pt was found to be alert, but disengaged, and defered to dtr to discuss d/c needs and plan. Pt lives modified independently with her in their own home here in [place]. She is currently staying with her dtr while her spouse is out of town, however he will be returning this coming weekend. PT/OT recommends SNF rehab at d/c, pt was unable to stand or mobilize with therapies, and was a total assist to get out of bed and into the chair. Pt also shared that one of her arms is also weak, and she is concerned about being able to manage a walker at rehab. Per their preference and request, this COLLECTION COORDINATOR sent a referral to [facility], who can accept at /. Pt will be Medicare eligible for SNF as of this coming Sunday, 03/27. COLLECTION COORDINATOR will assist with this transition of care and final d/c needs. Payor: Medicare Attending: Dr. Leha Souza Pt is a 84 year-old F post-op day 1 from a R-total hip arthroplasty surgery. She was already very compromised prior to surgery, with a hx of worsening and debilitating hip pain. She had been able to mobilize independently with a cane, however now requires a wheelchair for mobility needs. Plan is for pt to continue to work with therapies as able until Sunday, will confirm d/c time and plan for transport by tomorrow (). Discharge Planning/Care Management Advanced directive, confirm from FAMILY Start: 03/24/25 18:43 Freq: Q24H Status: Active Protocol: Document 03/24/25 18:43 BT (Rec: 03/24/25 18:49 BT [id number]) Advance Directive, confirm on record Time 18:49 Person contacted Pt Copy received No CM Discharge Assessment Start: 03/24/25 14:12 Freq: Status: Active Protocol: Document 03/25/25 15:08 DPL (Rec: 03/25/25 15:12 DPL [id number]) Discharge Planning Assessment Assigned Wood Heel Cementer ABIOLA Adams Advance Directives? Yes Advance Directives on File No History Provided By Patient,Significant Other, Medical Record Prior Living Arrangements House Household Members spouse Type of transporation used prior to Relies on Others admit Independent with ADL's No: modified independent with a walker, now requires a wheelchair Needs Assistance With Meal Prep,Toileting,Managing Medications,Home Chores / Shopping Caregiver for Another No DME Already Rented / Owned Bath Bench,Wheelchair,Elevated Toilet Seat,FWW / Walker,Cane Comment Pending PT/OT evals and recs Patient/Family Preference Longterm Facility Barriers to Discharge No Discharge Plan Longterm Facility Transportation Arrangement Facility Referrals Initiated Longterm If patient plan is SNF: Has PASSR been No completed? Inpatient Status as of 03/24/25 Medicare Choice List Provided Yes Medicare choice list reviewed on patient,family electronic tablet with Has Agency SNF been contacted Yes Whiteboard Updated in Patient Room with Yes name and ext. # of Wood Heel Cementer Review Status In Process Please Provide Date Initial DC 03/25/25 Assessment Was Performed Pre-Anesthesia Assessment Start: 03/12/25 09:07 Freq: Status: Active Protocol: Document 03/12/25 09:07 LB (Rec: 03/12/25 11:55 LB [id number]) Pre-Anesthesia Assessment PAC Comment 03/12/25 Phone assessment. Right arm contracture. Wears right foot/ankle brace. Currently using wheelchair. Requires assistance for transfers. Patient Information Reviewed Via Phone Assessment Assessment Completed With Patient,Child Comment Daughter Jeanne Carpenter. Diagnostic Results BMP/CMP,CBC,EKG,Urinalysis Comment 01/29/25 at . Primary Care Provider Haleigh Mohan Specialist Seen Extension Agent,Orthopedist Primary Language Malawian Preferred Language Malawian Gas Transfer Operator Required No Height 154.94 cm Weight 68.039 kg Body Mass Index (BMI) 28.3 Hearing Ability Normal Visual Assist None Dentition Type Teeth, Natural Present Other Aids No Hx Anesthesia Reactions No Hx Family Anesthesia Reaction No Hx Malignant Hyperthermia No Hx Blood Transfusions Yes Hx Blood Transfusion Reaction No Anesthesia Review Requested Yes: Per surgeon for multiple medical. Facilitator Yes alcohol intake former Smoking Status Never smoker Substance Use Type [#R] does not use Pain Present Pain Reported Comment Right hip and groin. Musculoskeletal Symptoms Difficulty Walking,Joint Pain, Limited Range of Motion,Muscle Spasms,Muscle Weakness, Tremors History of Falling (Recent or History of Yes ) Comment Last fall 01/27. Patient is completely paralyzed or No completely immobile Prosthesis or Orthotic Device Wheelchair Mental Status Oriented to own ability Comment Right arm contractured. Is patient on oxygen? No Does patient have ALONSO/SOB No Hx Sleep Apnea Yes CPAP/BIPAP use prescribed not used Currently Taking a Beta Hipolito No Can You Climb a Flight of Stairs Without No: Unable to climb stairs. SOB Hx Chest Pain No Hx SOB No Hx Syncope or Dizziness Yes: Syncope- possibly r/t hypotension. Anti-Coagulant Therapy Yes: Aspirin 81mg daily. Pt to check with PCP when to hold. Has a Associate Media Planner No Cardiac Testing No Hx Pacemaker/ICD No Dysphagia No Gastrointestinal Symptoms None Chronic UTI No Bladder Pattern Nocturia,Urgency Urinary Catheter Present No Hx Urinary Self Catheterization No Diabetes Yes HgbA1C 6.5 Date 01/29/25 Patient No Lactating No Presence of External or Internal Medical Yes: Insulin pump, CGM, left Devices hip, bilat IOL's. Have you had any close contact with No someone diagnosed with COVID-19? Are you experiencing any of these No symptoms symptoms? Comment Denies covid last 8 weeks. Marital Status Lives With spouse Current Living Arrangements House Number of Floors (Floors) One Floor Number of Stairs To Enter/Railing? Has a ramp to enter. Support System Child/Children,Significant Other Does the Patient Have Assistance After Yes Surgery Patient Discharge Plan Description Longterm Facility/Rehab Additional comment Plan for 1-2 day LOS and then to rehab. Do You Have Any Spiritual Beliefs That No May Affect Your HC Choices? Do You Have Any Cultural Practices That No May Affect Your HC Choices? Emergency Contact Name Sandoval Bartholomew - Emergency Contact Advance Directives? Yes Advance Directives on File No Requested Patient Bring Advanced Yes Directives DOS Power of Box Inspector Yes Power of Box Inspector Name Sandoval Bartholomew - Power of Box Inspector PAC Instructions Assistance for 24 hours post- op,Diabetes instructions,Do not shave/clip surgical site, Medications to take/avoid, Nasal antibiotic,No ETOH/ petroleum product on skin DOS, NPO,Pre-surgical wash,Sensory aids,Sturdy shoes/comfortable clothes,Do not bring valuables and remove jewelry
[2025-03-26] VITALS (11 sets, daily range): BP systolic 116–155; BP diastolic 54–78; PULSE 88–112; RESP 16–24; TEMP 36.7–37.8; O2SAT 90–97
[2025-03-26] MEDS: LACTATED RINGERS 1,000 ML 100 ML IV (03:23)
--- NOTE | 2025-03-26 09:00 | PT.IPTN ---
Current Diagnoses Type 2 diabetes mellitus without complications (03/24/25) Unilateral primary osteoarthritis, right hip (03/24/25) Age-related osteoporosis without current pathological fracture (03/24/25) Presence of unspecified artificial hip joint (03/24/25) Surgery Performed Operation Date: 03/24/25 13:45 Actual Procedures p Total Hip Arthroplasty, cemented(Right) - Leah Souza MD Physical Therapy Treatment Note M2 PT-IP Current Condition Start: 03/25/25 11:56 Freq: NEEDED Status: Active Protocol: Document 03/25/25 09:05 AB (Rec: 03/25/25 12:19 AB [id number]) Physical Therapy Current Condition Current Condition Evaluation Date 03/25/25 Treatment Diagnosis s/p R BUNNY posterior; difficulty in walking Onset Date 03/24/25 M3 PT-IP Subjective Start: 03/25/25 11:56 Freq: NEEDED Status: Active Protocol: Document 03/26/25 08:37 PG (Rec: 03/26/25 09:40 PG [id number]) Subjective Physical Therapy Visit Type Type Treatment Note Visit Start Time 08:37 Visit Stop Time 09:00 Notes With permission of pt, BOUCHRA, Ani helped ROTARY SWAGING MACHINE OPERATOR, Abril with treatment Number of ROTARY SWAGING MACHINE OPERATOR Visits 1 Physical Therapy Visit Comments Patient Comments agreeable to do PT M4 PT-IP Mobility and Gait Start: 03/25/25 11:56 Freq: NEEDED Status: Active Protocol: Document 03/26/25 08:37 PG (Rec: 03/26/25 09:40 PG [id number]) PT-Bed Mobility Assessment Supine to Sit Supine to Sit Maximum Assistance,2 Person Assistance,Bedrails Scooting Scooting to Edge of Bed Moderate Assistance PT-Transfer Assessment Sit to and From Stand Sit to and from Stand Maximum Assistance,2 Person Assistance,Use of Upper Extremities Equipment Transfer Assistive Device Gait Belt,Isai Walker Orthotic/Prosthetic Devices or Brace: No Transfers Transfer Destination Chair Transfer Technique Stand Pivot Transfer Ability Level of Assist Maximum Assistance,2 Person Assistance,Use of Upper Extremities Comments Mobility Comments pt in bed, daughter in room, reviewed R hip posterior precautions with daughter who knew 2/3 due to pt not knowing . Pt's baseline BP: 146/60, Reviewed post op exercises in supine, pt was able to perform ankle pumps and glute sets independently with instruction but required ModA with heel slides and cues to try and straighten knee. Complete supine to sit at EOB with Max x 2 with handrail and max cues . Able to sit on EOB with CGA . Sit <> Stand w Isai walker and MaxAx2, cues to push off bed with LUE, pt's daughter states she doesn't trust bed due to softness. Pushed off hemiwalker stationed by SPTA. Verbal and tactile cues to put R foot on ground, pt able to toe touch. Stand pivot transfer to chair with MaxAx2 and isai walker. MaxAx2 with scooting back in chair. Pt positioned in chair with call light and breakfast in reach. BP after bed to chair transfer: 143/66 PT-Balance Assessment Sitting Balance and Reactions Static Sitting Balance Ability Good Dynamic Sitting Balance Ability Fair Standing Balance and Reactions Static Standing Balance Ability Poor Dynamic Standing Balance Ability Poor Device Used hemiwalker M5 PT-IP Objective Assessments Start: 03/25/25 11:56 Freq: NEEDED Status: Active Protocol: Document 03/25/25 09:05 AB (Rec: 03/25/25 12:19 AB [id number]) Orientation Orientation/Cognition Level of Alertness Alert Orientation Name,Place,Situation Language Function Ability Expressive Aphasia,Receptive Aphasia Safety Awareness Decreased Safety Awareness Memory Description Short Term Impaired Gross Range of Motion Upper Extremity ROM Assessment Right Impaired Impairments R UE flexion contracture: refer to OT note Lower Extremity ROM Assessment Right Impaired Impairments R knee contracture 20-30 deg Strength Lower Extremity Strength Assessment Right Impaired Hip 3-/5 Knee 2+/5 Muscle Tone Muscle Tone WNL No Muscle Tone Location Right Lower Extremity Type of Tone Hypertonicity,Flexor Severity of Tone Moderate M6 PT-IP Treatment Start: 03/25/25 11:56 Freq: NEEDED Status: Active Protocol: Document 03/26/25 08:37 PG (Rec: 03/26/25 09:40 PG [id number]) Physical Therapy Treatment Education Education Provided Precautions M7 PT-IP Assessment and Plan Start: 03/25/25 11:56 Freq: NEEDED Status: Active Protocol: Document 03/26/25 08:37 PG (Rec: 03/26/25 09:40 PG [id number]) PT Summary Assessment and Plan Potential Rehabilitation Potential Fair Status of Condition at Evaluation Evolving Summary Impairments ROM,Strength,Balance, Coordination,Tone,Cognition, Bed Mobility,Transfers,Gait, Activity Tolerance Assessment Summary Pt required MaxA x2 for bed mobility and MaxA x 2 with isai walker for transfers. Presents increase flexor synergy on R UE and LE continuing to affect mobility and stability in standing. Pt would benefit from SNF rehab after discharge to improve mobility and strength. Daughter would like pt to see a neurologist after rehab. Would suggest bed rail at home for help with self mobility. Goals Bed Mobility Goal Moderate Assistance Transfer Goal Moderate Assistance Gait Goal Moderate Assistance,Isai Walker Gait Distance 25 Other Goals improve bed mobility, transfers , ambulation using hemiwalker ~ 100 ft CGA Days to Meet Goals 10 Frequency of Treatment Frequency Of Treatment Once a Day Treatment Plan Physical Therapy Treatment Plan Bed Mobility Training,Transfer Training,Gait Training, Therapeutic Exercise,Balance Retraining,Post Op Education, Discharge Planning,Hot or Cold Pack,Neuromuscular Re-ed, Coordination Retraining,Manual Therapy Precautions Posterior Hip Precautions No Hip Flexion > 90 degrees,No Hip Internal Rotation,No Hip Adduction Weight Bearing Status Weight Bearing Status Weight Bear as Tolerated Allowed Weight Bearing Amount (enter % RLE WBAT or #) (%) Recommendations To Nursing Amount of Assist Needed 2 Person Assist Discharge Recommendations PT Discharge Recommendations SNF Rehab Transportation Needs at Discharge Wheelchair/Cabulance - PT assist 2
--- NOTE | 2025-03-26 09:00 | PT.IPTN ---
Current Diagnoses Type 2 diabetes mellitus without complications (03/24/25) Unilateral primary osteoarthritis, right hip (03/24/25) Age-related osteoporosis without current pathological fracture (03/24/25) Presence of unspecified artificial hip joint (03/24/25) Surgery Performed Operation Date: 03/24/25 13:45 Actual Procedures p Total Hip Arthroplasty, cemented(Right) - Leah Souza MD Physical Therapy Treatment Note M2 PT-IP Current Condition Start: 03/25/25 11:56 Freq: NEEDED Status: Active Protocol: Document 03/25/25 09:05 AB (Rec: 03/25/25 12:19 AB [id number]) Physical Therapy Current Condition Current Condition Evaluation Date 03/25/25 Treatment Diagnosis s/p R BUNNY posterior; difficulty in walking Onset Date 03/24/25 M3 PT-IP Subjective Start: 03/25/25 11:56 Freq: NEEDED Status: Active Protocol: Document 03/26/25 08:37 PG (Rec: 03/26/25 09:40 PG [id number]) Subjective Physical Therapy Visit Type Type Treatment Note Visit Start Time 08:37 Visit Stop Time 09:00 Notes With permission of pt, BOUCHRA, Ani helped WEBSITE DEVELOPER, Abril with treatment Number of WEBSITE DEVELOPER Visits 1 Physical Therapy Visit Comments Patient Comments agreeable to do PT M4 PT-IP Mobility and Gait Start: 03/25/25 11:56 Freq: NEEDED Status: Active Protocol: Document 03/26/25 08:37 PG (Rec: 03/26/25 09:40 PG [id number]) PT-Bed Mobility Assessment Supine to Sit Supine to Sit Maximum Assistance,2 Person Assistance,Bedrails Scooting Scooting to Edge of Bed Moderate Assistance PT-Transfer Assessment Sit to and From Stand Sit to and from Stand Maximum Assistance,2 Person Assistance,Use of Upper Extremities Equipment Transfer Assistive Device Gait Belt,Isai Walker Orthotic/Prosthetic Devices or Brace: No Transfers Transfer Destination Chair Transfer Technique Stand Pivot Transfer Ability Level of Assist Maximum Assistance,2 Person Assistance,Use of Upper Extremities Comments Mobility Comments pt in bed, daughter in room, reviewed R hip posterior precautions with daughter who knew 2/3 due to pt not knowing . Pt's baseline BP: 146/60, Reviewed post op exercises in supine, pt was able to perform ankle pumps and glute sets independently with instruction but required ModA with heel slides and cues to try and straighten knee. Complete supine to sit at EOB with Max x 2 with handrail and max cues . Able to sit on EOB with CGA . Sit <> Stand w Isai walker and MaxAx2, cues to push off bed with LUE, pt's daughter states she doesn't trust bed due to softness. Pushed off hemiwalker stationed by SPTA. Verbal and tactile cues to put R foot on ground, pt able to toe touch. Stand pivot transfer to chair with MaxAx2 and isai walker. MaxAx2 with scooting back in chair. Pt positioned in chair with call light and breakfast in reach. BP after bed to chair transfer: 143/66 PT-Balance Assessment Sitting Balance and Reactions Static Sitting Balance Ability Good Dynamic Sitting Balance Ability Fair Standing Balance and Reactions Static Standing Balance Ability Poor Dynamic Standing Balance Ability Poor Device Used hemiwalker M5 PT-IP Objective Assessments Start: 03/25/25 11:56 Freq: NEEDED Status: Active Protocol: Document 03/25/25 09:05 AB (Rec: 03/25/25 12:19 AB [id number]) Orientation Orientation/Cognition Level of Alertness Alert Orientation Name,Place,Situation Language Function Ability Expressive Aphasia,Receptive Aphasia Safety Awareness Decreased Safety Awareness Memory Description Short Term Impaired Gross Range of Motion Upper Extremity ROM Assessment Right Impaired Impairments R UE flexion contracture: refer to OT note Lower Extremity ROM Assessment Right Impaired Impairments R knee contracture 20-30 deg Strength Lower Extremity Strength Assessment Right Impaired Hip 3-/5 Knee 2+/5 Muscle Tone Muscle Tone WNL No Muscle Tone Location Right Lower Extremity Type of Tone Hypertonicity,Flexor Severity of Tone Moderate M6 PT-IP Treatment Start: 03/25/25 11:56 Freq: NEEDED Status: Active Protocol: Document 03/26/25 08:37 PG (Rec: 03/26/25 09:40 PG [id number]) Physical Therapy Treatment Education Education Provided Precautions M7 PT-IP Assessment and Plan Start: 03/25/25 11:56 Freq: NEEDED Status: Active Protocol: Document 03/26/25 08:37 PG (Rec: 03/26/25 09:40 PG [id number]) PT Summary Assessment and Plan Potential Rehabilitation Potential Fair Status of Condition at Evaluation Evolving Summary Impairments ROM,Strength,Balance, Coordination,Tone,Cognition, Bed Mobility,Transfers,Gait, Activity Tolerance Assessment Summary Pt required MaxA x2 for bed mobility and MaxA x 2 with isai walker for transfers. Presents increase flexor synergy on R UE and LE continuing to affect mobility and stability in standing. Pt would benefit from SNF rehab after discharge to improve mobility and strength. Daughter would like pt to see a neurologist after rehab. Would suggest bed rail at home for help with self mobility. Goals Bed Mobility Goal Moderate Assistance Transfer Goal Moderate Assistance Gait Goal Moderate Assistance,Isai Walker Gait Distance 25 Other Goals improve bed mobility, transfers , ambulation using hemiwalker ~ 100 ft CGA Days to Meet Goals 10 Frequency of Treatment Frequency Of Treatment Once a Day Treatment Plan Physical Therapy Treatment Plan Bed Mobility Training,Transfer Training,Gait Training, Therapeutic Exercise,Balance Retraining,Post Op Education, Discharge Planning,Hot or Cold Pack,Neuromuscular Re-ed, Coordination Retraining,Manual Therapy Precautions Posterior Hip Precautions No Hip Flexion > 90 degrees,No Hip Internal Rotation,No Hip Adduction Weight Bearing Status Weight Bearing Status Weight Bear as Tolerated Allowed Weight Bearing Amount (enter % RLE WBAT or #) (%) Recommendations To Nursing Amount of Assist Needed 2 Person Assist Discharge Recommendations PT Discharge Recommendations SNF Rehab Transportation Needs at Discharge Wheelchair/Cabulance - PT assist 2
[2025-03-26] MEDS: AMLODIPINE 5 MG TABLET PO (09:06)
[2025-03-26] MEDS: ASPIRIN EC 81 MG TABLET PO (09:07)
[2025-03-26] MEDS: ATORVASTATIN 20 MG TABLET 10 MG PO (09:07)
[2025-03-26] MEDS: DOCUSATE 100 MG CAPSULE PO (09:13)
[2025-03-26] MEDS: lisinopriL 20 MG TABLET 40 MG PO (09:14)
[2025-03-26] MEDS: FLUoxetine 20 MG CAPSULE PO (09:14)
[2025-03-26] MEDS: MULTIVITAMIN 1 TABLET 1 TAB PO (09:15)
[2025-03-26] MEDS: ACETAMINOPHEN 325 MG TABLET 650 MG PO (12:18)
--- NOTE | 2025-03-26 13:28 | CM.DPC ---
DCP SNF Planning: Per MD and Ortho, pt making progress and still recommending SNF at d/c and not yet stable for discharge today. Per PT/OT, recommending SNF and pt has been 2PA for mobility and transfers. Per [facility] admissions, they can accept pt when MCR eligible and stable for discharge. Pt MCR eligible for SNF starting tomorrow 03/27. PASRR done but needs MD signature for Hospital Exempted discharge due to depression medication. ePg Bolden MSW
--- NOTE | 2025-03-26 13:45 | OT.IP.TRT ---
Current Diagnoses Type 2 diabetes mellitus without complications (03/24/25) Unilateral primary osteoarthritis, right hip (03/24/25) Age-related osteoporosis without current pathological fracture (03/24/25) Presence of unspecified artificial hip joint (03/24/25) Surgery Performed Operation Date: 03/24/25 13:45 Actual Procedures p Total Hip Arthroplasty, cemented(Right) - Leah Souza MD Occupational Therapy Treatment Note M2 OT-IP Current Condition Start: 03/25/25 12:43 Freq: Status: Active Protocol: Document 03/25/25 10:00 [facility] (Rec: 03/25/25 13:08 [facility] Desktop) Occupational Therapy Current Condition Current Condition Evaluation Date 03/25/25 Treatment Diagnosis S/P R BUNNY posterior approach Diagnosis Onset Date 03/24/25 Post Operative Precautions Posterior Hip Precautions No Hip Flexion > 90 degrees,No Hip Internal Rotation,No Hip Adduction M3 OT- IP Subjective and Pain Start: 03/25/25 12:43 Freq: Status: Active Protocol: Document 03/26/25 14:10 [facility] (Rec: 03/26/25 14:16 [facility] Desktop) OT- Subjective Occupational Therapy Visit Type Type Treatment Note Visit Start Time 13:45 Visit Stop Time 13:53 Occupational Therapy Visit Comments Patient Comments Pt not wanting to get up but agreed to do oral care needs while seated in the recliner. Patient/Caregiver Goals To get better. OT Pain Assessment Pain When Pain Assessed At Rest Pain Present Pain Present Denied Pain M4 OT- IP ADL's Start: 03/25/25 12:43 Freq: Status: Active Protocol: Document 03/26/25 14:10 [facility] (Rec: 03/26/25 14:16 [facility] Desktop) OT [id number] Comments OT Self-Feeding Comments Pt will need assist with set- up. OT ADL-Grooming General Evaluation Grooming Ability Standby Assistance Comments OT Grooming Comments set- up assist while seated in the recliner. OT ADL-Oral Care General Eval Oral Care Ability Standby Assistance Areas of Assistance Retrieving/Set-Up of Items Comments Oral Care Comments Set-up assist and able to do while seated. OT ADL-Bathing Comments OT Bathing Comments Pt able to use wash cloth in left hand to wash her face and right arm with LARA. Pt not open to doing any more at this time. M5 OT- IP IADL's Start: 03/25/25 12:43 Freq: Status: Active Protocol: Document 03/25/25 10:00 [facility] (Rec: 03/25/25 13:08 [facility] Desktop) OT-Instrumental Activities of Daily Living Meal Preparation Meal Preparation Caregiver Provides Assist Welfare Director Welfare Director Caregiver Provides Assist M6 OT- IP Functional Cognition Start: 03/25/25 12:43 Freq: Status: Active Protocol: Document 03/26/25 14:10 [facility] (Rec: 03/26/25 14:16 [facility] Desktop) Cognitive Factors Limiting Selfcare Function Cognitive Comments Cognitive Assessment Comments Pt not able to recall her hip precautions and able to go over multiple times and still just able to recall 2/3 of them. M8 OT- IP Objective Assessments Start: 03/25/25 12:43 Freq: Status: Active Protocol: Document 03/25/25 10:00 [facility] (Rec: 03/25/25 13:08 [facility] Desktop) OT Gross Range of Motion Upper Extremity Range of Motion Assessment Right Impaired OT Strength Upper Extremity Strength Assessment Right Impaired Comments Strength Comments RUE slight movements shoulder scaption. OT-Muscle Tone Assessment Muscle Tone WNL No Muscle Tone Location Right Lower Extremity Type of Tone Hypertonicity,Flexor Comments Muscle Tone Comments Pt's RUE internally rotated, elbow, wrist, and finger flexion. M9 OT- IP Assessment and Plan Start: 03/25/25 12:43 Freq: Status: Active Protocol: Document 03/26/25 14:10 [facility] (Rec: 03/26/25 14:16 [facility] Desktop) OT Summary Assessment and Plan Potential Rehabilitation Potential Good Analytic Complexity at Evaluation Moderate Summary OT Impairments Range of Motion,Strength, Balance,Tone,Functional Cognition,Functional Mobility, Self-Feeding,Grooming,Dressing ,Toileting,Bathing,Toilet Transfers,Shower Transfers, Activity Tolerance Progress Towards Goals Slow Progress due to Medical Issues,Slow Progress due to Activity Tolerance,Slow Progress due to Cognition Assessment Summary Pt agreed to do oral care and grooming needs while seated in the recliner. Pt not wanting to get up at this time. Pt looking to go to skilled rehab when medically stable. Goals Self-Feeding Goal Independent Grooming Goal Independent Dressing Goal Moderate Assistance Toileting Goal Minimal Assistance Bathing Goal Minimal Assistance Toilet Transfer Goal Contact Guard Assistance Shower Transfer Goal Contact Guard Assistance Days to Meet Goals 30 Frequency of Treatment Other frequency 5x/week Treatment Plan OT Treatment Plan ADL Training,Functional Mobility,Patient/Family Education,Discharge Planning Discharge Recommendations OT Discharge Recommendations SNF Rehab Transportation Needs at Discharge Wheelchair/Cabulance
--- NOTE | 2025-03-26 17:43 | P.PN_ITS ---
Subjective Subjective Interval history: Chief complaint: R BUNNY posterior *OPB* Reason for consult: Management of diabetes and secondary prevention of stroke Requesting provider: Leah Souza Narrative: Chief complaint: Postoperative care and management of diabetes and secondary prophylaxis against CVA History of present illness A 84-year-old female with osteoarthritis status post standard total hip replacement. No complications perioperatively. Past medical history: * Type 2 diabetes on insulin monitoring and administrative pump system * History of stroke * Obstructive sleep apnea * Hyper tension S: She was doing well today. She was no hip pain. Her blood sugars have been under 200. She was using a pump with a meter and managing this. She has been eating without difficulty. Likely plan for SNF tomorrow. Exam Vital Signs (past 8 hours): - 03/26/25 12:00 03/26/25 12:11 03/26/25 16:40 Temperature 99 F 98.1 F Pulse Rate 102 H 88 Respiratory Rate 16 18 Blood Pressure 127/54 L 116/71 Pulse Oximetry 96 93 94 Oxygen Delivery Method Nasal Cannula Oxygen Flow Rate 1.5 1 Fraction of Inspired Oxygen 24 Fraction of Inspired Oxygen 24 SaO2/FiO2 Ratio 387 Oxygen Delivery Method Nasal Cannula Oxygen Flow Rate 1 Narrative Exam Narrative: NAD, alert and oriented. Fluent speech. Lungs are clear, normal rate and effort. Heart is regular, no murmur gallop or rub. Abdomen is soft, non distended. Extremities are free of edema. Objective Labs 03/25/25 05:36 [facility] Medical History DAVID (obstructive sleep apnea) Spasticity as late effect of cerebrovascular accident (CVA) Hypercalcemia (10/13/22) Pelvic fracture (05/2018) Hypercholesteremia Gastritis Depression Anemia Insulin pump in place Hyperlipidemia HTN (hypertension) CVA (cerebral vascular accident) (1992) Diabetes Surgical History Hx of tonsillectomy History of colon resection (2013) History of cataract extraction History of total left hip arthroplasty (04/2009) Social History household members: spouse Smoking Status: Never smoker alcohol intake: former Assessment & Plan Assessment & Plan narrative: Type 2 diabetes * Orders for continued operation of insulin pump and glucose monitoring automatic system * Accu-Chek q.6 hours and then switching to a.c. HS when eating Hypertension and previous history of stroke * Resume home medication PLAN: -no change to current plan. We will can continue to monitor her hypertension and diabetes. Plan for SNF likely tomorrow. DVT prophylaxis: * Aspirin per orthopedic surgeon Discharge planning per ortho. Time-Based Coding :: [TOTAL MINUTES] spent with patient and on the chart (including review of chart, obtaining history, exam, reviewing outside data, placing orders, documenting exam and treatment plan, and counseling patient) on [DATE]. Quality VTE Deep Vein Thrombosis/Pulmonary Embolism Present on Admission: No
--- NOTE | 2025-03-26 19:51 | P.PN_ITS ---
Subjective Subjective Interval history: She mobilized with physical therapy today. She requires a 2 person assist because of balance issues, a hemiplegia and her right total hip arthroplasty. She notes her pain is markedly decreased in comparison to preoperatively. Exam Vital Signs (past 8 hours): - 03/26/25 12:00 03/26/25 12:11 03/26/25 16:40 Temperature 99 F 98.1 F Pulse Rate 102 H 88 Respiratory Rate 16 18 Blood Pressure 127/54 L 116/71 Pulse Oximetry 96 93 94 Oxygen Delivery Method Nasal Cannula Oxygen Flow Rate 1.5 1 Fraction of Inspired Oxygen 24 03/26/25 19:41 Temperature Pulse Rate Respiratory Rate Blood Pressure Pulse Oximetry 94 Oxygen Delivery Method Nasal Cannula Oxygen Flow Rate 2 Fraction of Inspired Oxygen 28 Fraction of Inspired Oxygen 28 SaO2/FiO2 Ratio 335 Oxygen Delivery Method Nasal Cannula Oxygen Flow Rate 2 Narrative Exam Narrative: She was resting comfortably in bed she has minimal pain with range of motion in her right hip her right hip flexion contracture slightly decreased in comparison to previously. She can fire her toe flexors and extensors her calf is soft Objective Labs 03/25/25 05:36 [facility] Medical History DAVID (obstructive sleep apnea) Spasticity as late effect of cerebrovascular accident (CVA) Hypercalcemia (10/13/22) Pelvic fracture (05/2018) Hypercholesteremia Gastritis Depression Anemia Insulin pump in place Hyperlipidemia HTN (hypertension) CVA (cerebral vascular accident) (1992) Diabetes Surgical History Hx of tonsillectomy History of colon resection (2013) History of cataract extraction History of total left hip arthroplasty (04/2009) Social History household members: spouse Smoking Status: Never smoker alcohol intake: former Assessment & Plan Post-op Postoperative Procedures: Procedures Operation Date: 03/24/25 13:45 Actual Procedure Side Surgeon p Total Hip Arthroplasty, cemented Right Leah Souza MD Postoperative day: 2 Postoperative status: doing well Postoperative status narrative: She is doing reasonably well postoperatively. She is a very complex person because of history of hemiplegia and substantial right hip flexion contracture. She was motivated and working with therapy and OT. Postoperative plan: routine post-op care Postoperative plan narrative: She was making progress with physical therapy. I anticipate she likely will be stable for discharge to rehab tomorrow. It is okay to continue to work on progressive ambulation and on her right hip flexion contracture and her right knee flexion contracture. She can be weight-bearing as tolerated on the right lower extremity. We will continue posterior hip precautions. Quality VTE Deep Vein Thrombosis/Pulmonary Embolism Present on Admission: No
--- NOTE | 2025-03-26 20:43 | PC.NURSE ---
negative retoucher RN did physical assessment and was going to administer 2100 medications, Patient politely declined, stating she just wanted to rest, and did not want to be woken tonight for medications, She would notify staff if she needed any pain medication. RN also questioned if patient used a CPAP machine at home, patient denied. Charge aware. RT aware, Patient is on continues O2 monitor with 1 liter NC. reading 92%
[2025-03-27 02:00] VITALS: BP 151/75; PULSE 109; RESP 24; TEMP 37.1; O2SAT 97
--- NOTE | 2025-03-27 07:12 | PM.DS.1 ---
History of Present Illness History of Present Illness Date Patient Seen: 03/27/25 Time Patient Seen: 07:12 Chief complaint: R BUNNY posterior *OPB* Narrative: She had severe right hip osteoarthritis. She under was taken the operating room and underwent a right total hip arthroplasty. She tolerated the procedure well. She preoperatively had a severe right hip flexion contracture and right knee flexion contracture and had been in a wheelchair at least for about 3 months. She has a history of a prior right CVA with some spasticity in the right upper and lower extremity. She tolerated her surgical procedure for a right posterior hip replacement without difficulty. Discharge Providers Provider Date of admission: 03/24/25 18:17 Discharge Date: 03/27/25 Primary care physician: Haleigh Mohan PA-C Consults: 03/12/25 11:55 Consult to Anesthesiology Routine Comment: Consulting Provider: Anesthesiologist Reason for consultation: Surgeon request for multiple medical. 03/24/25 11:00 Consult to Anesthesiology Routine Comment: Consulting Provider: Anesthesiologist Reason for consultation: Regional block for post operative pain control Has provider been notified: No 03/24/25 15:01 Consult to Dietitian, Adult Routine Comment: Reason For Exam: Insulin pump Consult to Hospitalist Service Routine Comment: Consulting Provider: Fredy Beal Reason for consultation: Diabetes management perioperatively Has provider been notified: Yes 03/24/25 18:17 Consult to Discharge Planning Routine Comment: Consult to Hospitalist Service Routine Comment: Consulting Provider: Fredy Beal Reason for consultation: IDDM Has provider been notified: Yes Consult to Occupational Therapy Evaluate & Treat Comment: Physician Instructions: Evaluate and treat Consult to Physical Therapy Evaluate & Treat Comment: Physician Instructions: post op BUNNY protocol Discharge provider: Leah Souza MD Summary Hospital Course Discharge Diagnosis: Right total hip arthroplasty. History of a CVA with a right hemiparesis. Insulin-dependent diabetes aphasia Hospital Course: She was taken the operating room she underwent a right total hip arthroplasty. She tolerated the procedure well. She was mobilized with physical therapy but did require a 2 person assist. Her pain was improved postoperatively. She was stable for discharge to rehab. Status at Discharge Cognitive/behavioral status at discharge: oriented Functional status at discharge: uses cane/walker Overall status at discharge: patient is progressing back to baseline Time Spent with Patient Time spent: Less than 30 minutes Exam Vital Signs (past 8 hours): - 03/27/25 02:00 Temperature 98.7 F Pulse Rate 109 H Respiratory Rate 24 Blood Pressure 151/75 H Pulse Oximetry 97 Oxygen Flow Rate 3.5 Fraction of Inspired Oxygen 28 SaO2/FiO2 Ratio 335 Oxygen Delivery Method Nasal Cannula Oxygen Flow Rate 3.5 Narrative Exam Narrative: Resting comfortably in bed in no distress, minimal to no pain with range motion in the right hip, right hip flexion contracture, dressing intact, peak was working, calves soft distally, Objective Labs 03/25/25 05:36 [facility] Medical History DAVID (obstructive sleep apnea) Spasticity as late effect of cerebrovascular accident (CVA) Hypercalcemia (10/13/22) Pelvic fracture (05/2018) Hypercholesteremia Gastritis Depression Anemia Insulin pump in place Hyperlipidemia HTN (hypertension) CVA (cerebral vascular accident) (1992) Diabetes Surgical History Hx of tonsillectomy History of colon resection (2013) History of cataract extraction History of total left hip arthroplasty (04/2009) Social History household members: spouse Smoking Status: Never smoker alcohol intake: former Discharge Plan Discharge Plan Patient Disposition: SNF Transfer to: [facility] Consult as needed: Dental, Hearing and Podiatry Discharge orders & Medications Prescriptions: New acetaminophen 325 mg Tablet 650 mg PO Q6H Qty: 90 0RF polyethylene glycol 3350 17 gram Powder In Packet 17 g PO DAILY PRN (Reason: Constipation) Qty: 14 0RF aspirin 81 mg Tablet,Delayed Release (Dr/Ec) 81 mg PO BID Qty: 90 0RF ibuprofen 400 mg Tablet 400 mg PO Q4H PRN (Reason: Pain, Mild (1-3)) Qty: 90 0RF docusate sodium 100 mg Capsule 100 mg PO BID Qty: 30 0RF insulin lispro [Admelog U-100 Insulin lispro] 100 unit/mL Solution 1 unit miscellaneous DAILY@0000 Qty: 10 0RF ondansetron 4 mg Tablet,Disintegrating 4 mg PO Q4HR PRN (Reason: Nausea) Qty: 30 0RF Continued simvastatin 20 MG tablet 20 mg PO QDAY Qty: 0 aspirin 81 MG tablet,delayed release (DR/EC) 81 mg PO QDAY Qty: 0 insulin aspart U-100 100 unit/mL Cartridge 50 unit SUBCUT DAILY Patient Comments: Per insulin pump. Has CGM. amlodipine 5 mg tablet 5 mg PO DAILY lisinopril 40 mg tablet 40 mg PO DAILY fluoxetine 20 mg capsule 20 mg PO DAILY One-A-Day Women's Complete 1 tab PO DAILY Follow up/Referrals: Haleigh Mohan, [facility] [Primary Care Provider] - Discharge Health Status Multidrug resistant organism: No MDRO Precautions: [place] Diet/Activity/Treatments Diet: Diet as Tolerated Food texture: Regular Activity: Ambulate as tolerated. Okay to be full weight-bearing on the right lower extremity. Posterior hip precautions Cold/Heat Therapy: Use ice on the right hip several times a day. Other treatments: No hip flexion greater than 90? Skin/Wound/Dressing Care Report to your healthcare provider any signs of infection, such as:: chills, fever, night sweats, increased pain, unusual drainage and unusual redness Dressing: Leave dressing on. My battery will in approximately 5 days. Leave dressing on disconnect battery [facility] Reason for rehabilitation: Post-operative therapy Rehab type: Physical therapy and Occupational therapy Restrictions to mobility: Work on right hip flexion contracture and right knee flexion contracture to progressively straightened right leg Visit Report/Discharge Packet Instructions: DI for Hip Replacement, DI for Prescription Opioid Use Stand Alone Forms: Patient Portal/API Discharge Data Primary Care Provider: Haleigh Mohan Quality VTE Deep Vein Thrombosis/Pulmonary Embolism Present on Admission: No
[2025-03-27 08:25] VITALS: O2SAT 98
--- NOTE | 2025-03-27 09:00 | CM.SWNOTE ---
DCP Continued: Reviewed EMR and team rounds for pt?s medical status. Pt has orders for discharge and is cleared to dc to [facility]. Per [facility], pt is slotted for transport at 1130a via their facility van. DCP notified pt RN and discussed that PASRR (placed in red chart), signed Rx, and signed Med list are needed for transfer packet. RN stated she will notify discharging MD. Plan: Anticipating dc to [facility] at 1130a via wheelchair facility van. CM Team will continue to follow for coordination of discharge plans. MISHA Lane
[2025-03-27] MEDS: ATORVASTATIN 20 MG TABLET 10 MG PO (09:02)
[2025-03-27] MEDS: MULTIVITAMIN 1 TABLET 1 TAB PO (09:03)
[2025-03-27] MEDS: lisinopriL 20 MG TABLET 40 MG PO (09:03)
[2025-03-27] MEDS: FLUoxetine 20 MG CAPSULE PO (09:03)
[2025-03-27] MEDS: AMLODIPINE 5 MG TABLET PO (09:03)
[2025-03-27] MEDS: ASPIRIN EC 81 MG TABLET PO (09:04)
[2025-03-27] MEDS: DOCUSATE 100 MG CAPSULE PO (09:04)
[2025-03-27 10:00] VITALS: BP 146/71; PULSE 105; RESP 16; TEMP 37; O2SAT 93
--- NOTE | 2025-03-27 15:07 | PC.NURSE ---
Patient is Alert, pleasant, able to call appropriately and let her needs known. She is A&Ox2 forgetful, weaned to RA and tolerating well at 92% 02 saturation. Dressing to R hip C/d/i- zuleyka dressing flashing green light. She denies pain. She is evaluated and cleared by MD Souza this a.m. Daughter at bedside acknowledging follow up and plan. Report called to [facility] and given to nurse Elena. Patient has glucometer and insulin pump. Her daughter says she will bring cartridge tomorrow for patient. [facility] by [facility] at 1130 a.m. and facility designee transported her to [facility] this a.m. at 11:40 a.m.
== END 2025-03-27 11:40 | DRG 470 ==
LOC: OR 03-25 13:01 → AC 03-25 13:01
PROVIDERS: Admitting Provider Orthopaedic Surgery; Family Provider Physician Assistant; PCP Physician Assistant; Referring Provider Physician Assistant; Visit Provider Orthopaedic Surgery
PROC: 0SR90JZ Replacement of Right Hip Joint with Synthetic Substitute, Open Approach (ICD-10-PCS; CPT 27130; principal; 2025-03-24 13:45)
DX: M16.11 Unilateral primary osteoarthritis, right hip (principal); I69.351 Hemiplegia and hemiparesis following cerebral infarction affecting right dominant side; M81.0 Age-related osteoporosis without current pathological fracture; E11.9 Type 2 diabetes mellitus without complications; I10 Essential (primary) hypertension; M24.551 Contracture, right hip; M24.561 Contracture, right knee; E78.5 Hyperlipidemia, unspecified; F32.A Depression, unspecified; G47.33 Obstructive sleep apnea (adult) (pediatric); Z96.41 Presence of insulin pump (external) (internal); Z79.4 Long term (current) use of insulin
CPT/HCPCS: 72170; 73502; 82962; 85014; 85018; 94760; 94762; 97110; 97162; 97166; 97530; 97535; C1776; C1713; J0171; J0666; J0690; J2405; J2704; J3010

== ENCOUNTER 2025-07-23 13:00 | Outpatient (RCR) | payer MEDICARE, OTHER, SELFPAY ==
[2025-03-24 14:12] VITALS: BMI 27.4
--- NOTE | 2025-06-22 16:28 | PT.OIE ---
Current Diagnoses Presence of right artificial hip joint (06/22/25) Past Medical History (Last Reviewed 03/25/25 @ 08:20 by Maurice Membreno MD) Anemia CVA (cerebral vascular accident) (1992) Depression Diabetes Gastritis HTN (hypertension) Hypercalcemia (10/13/22) Hypercholesteremia Hyperlipidemia Insulin pump in place DAVID (obstructive sleep apnea) Pelvic fracture (05/2018) Spasticity as late effect of cerebrovascular accident (CVA) Past Surgical History (Last Reviewed 03/25/25 @ 08:20 by Maurice Membreno MD) History of cataract extraction History of colon resection (2013) History of total left hip arthroplasty (04/2009) Hx of tonsillectomy Visit Care Team Role Provider Type Haleigh Mohan PA-C Attending Provider Advanced Cattle Driver Family Provider Primary Care Provider Referring Provider Specialty: Medical Address: [address] [place] [address], [facility] Email: Physical Therapy Initial Evaluation PT OP: Lower Back/Lower Extremity Start: 06/22/25 12:26 Freq: Status: Active Protocol: Document 06/22/25 15:23 [facility] (Rec: 06/22/25 16:20 [facility] [id number]) Out-Patient Physical Therapy Visit Information Visit Information Visit Type Initial Evaluation Visit Start Time 15:20 Visit Stop Time 16:05 Visit Number 1 Number of HOSPITAL ADMINISTRATIVE ASSISTANT Visits 0 Progress Note Due 07/22/25 Precautions Precautions R post BUNNY 3 months ago Current Condition History of Current Condition Onset Date 03/24 Current Complaints R post BUNNY History of Current Pt had R BUNNY post on 03/24 then was DC to SNF for 3 to 4 Condition weeks then for a month and ended about 1 month ago. had cvA affecting R side in 1992 and L Bunny. Barely walking now per . Prior to hip surgery, she could walk maybe 100 yards with 4WW w/a couple stops in between d/t R hip pain. has been using 4WW for a long time. needs help with getting in/out of the shower and uses a seat in the shower. indep with dressing and toileting. still helps with cooking. pt tearful throughout eval and notes she does cry a lot. pt sometimes has word finding difficulties. pt uses WC around the home, but pt will walk with Dgt and cane and WC follow about 30ft x4 in the day. no other exercises at this time. ramp entry and SLH. Fell prior to the surgery where she tripped and fell but not happening frequently. hx of pelvis fx about 7 years ago from a fall too w/o surgery. for about 1 year required WC at all times. Treatment Goals Patient/Caregiver return to walks Goals Patient Questionnaires Lower Extremity Functional Scale LEFS Score 18/80 Functional Tests Timed Up and Go (TUG) Score 65 sec Comments quad cane CGA OP Mobility Evaluation Bed Mobility Supine to and from SBA Sit Transfers Sit to Stand multiple attempts to SPC Bed to Chair Min A Transfers OP Gait Assessment Gait Gait Assistance Contact Guard Assist Required: Distance (Feet) 50 Assistive Devices Assistive Device Small Based Quad Cane Orthotic/Prosthetic Yes Devices or Brace: Gait Deviations General Gait Pattern Decreased Stride Length,Decreased Feet Clearance,Flexed Trunk,Step-to Gait Posture Evaluation Comments Posture Comments stands flexed fwd w/R knee flexed Knee Goniometric Range of Motion Knee ROM Limitations Comments knee lacking 29 deg to straight; hip unable to get ext (tested in SL but pt has difficulty maintaining SL to get good measurement); significant R HS tightness Hip Strength Hip Manual Muscle Testing Right Flexion (L2) 3+ Fair+ Abduction 4- Good- External Rotation 3 Fair Internal Rotation 3+ Fair+ Left Flexion (L2) 3+ Fair+ Abduction 4+ Good+ External Rotation 3+ Fair+ Internal Rotation 4 Good Comments seated Knee Strength Knee Manual Muscle Testing Right Flexion (S2) 4- Good- Extension (L3) 3- Fair- Left Flexion (S2) 5 Normal Extension (L3) 4+ Good+ Ankle/Foot Strength Ankle and Foot Manual Muscle Testing Right Dorsiflexion (L4) 3 Fair Plantarflexion (S1) 4 Good Comments seated Left Dorsiflexion (L4) 5 Normal Plantarflexion (S1) 5 Normal Therapeutic Exercises Sitting Exercises DF Side bilateral Reps/Minutes 15 stretch Sitting Exercise HS -PT assisted as pt unable to set up herself Name Side right Reps/Minutes 60 s LAQ Side right Equipment Used L2 Reps/Minutes 15 hip abd Side bilateral Equipment Used L2 Reps/Minutes 15 january Side bilateral Equipment Used L2 Reps/Minutes 15 Comments cues control Physical Therapy Assessment Rehab Potential Rehabilitation Good Potential Evaluation Complexity Number of Personal 3 or More Factors/ Comorbidities Number of Body 4 or More Systems Impaired Clinical Evolving Presentation at Evaluation Impairments Impairments Activity Tolerance,Balance,Functional Activities, Functional Mobility,Gait,Integument,Pain,Posture,ROM, Soft Tissue Mobility,Strength,Transfers Goals TUG Impairment 65 sec Short Term Goal (STG Pt will complete TUG within at least 50 sec ) STG Duration 08/04 Senior Care Goal (LTG) Pt will complete TUG within at least 30 sec to show dec risk for falls LTG Duration 09/20 gait Short Term Goal (STG Pt will be able to complete a 2 min walk test. ) STG Duration 08/14 Commercial Lines Manager Goal (LTG) Pt will be able to ambulate SBA with NBQC with step through gait pattern for at least 300ft. LTG Duration 09/20 sit to stand Short Term Goal (STG Pt will be able to consistantly do sit to stand w/o ) assist /multiple attempts in clinic. STG Duration 08/04 Commercial Lines Manager Goal (LTG) Pt will be able to do at least 5 sit to stands w/UEs in 30 sec to show improved LE strength and coordination. LTG Duration 09/20 Assessment Summary Assessment Pt presents 3 months s/p R post BUNNY with good pain control but significant weakness and dec RLE ROM along w/dec gait tolerance. She requires assistance w/gait d/ t risk for falls and TUG demonstrates high risk for falls. She has hx of stroke that affected her R side about 30 years ago which limits her ability to use a walker d/t dec RUE use. She has step to gait pattern w/ dec RLE stance time. No pain noted during session, but pt lack of hip and knee ext affect her posture in standing and gait mechanics. She would benefit from skilled PT to address her deficits and improve her gait and dec risk for falls. Physical Therapy Plan Frequency and Duration Frequency of 2x/Week Treatment Duration of 12 treatment (weeks) Plan of Care Start 06/22/25 Date Plan of Care End 09/20/25 Date Therapeutic Interventions Therapeutic Balance Training,Gait Training,Home Exercise Program, Interventions Joint Mobilizations,Manual Therapy,Neuromuscular Re- education,Patient/Caregiver Education,Self-Care/Home Management,Soft Tissue Mobilization,Taping,Therapeutic Activities,Therapeutic Exercises Modalities Cold Pack/Ice Massage,Electric Stimulation,Hot Packs Next Visit Focus/Plan Next Note Type Treatment Note Next Visit Plan review exercises, gait working, standing balance, leg press, manual to R HS and improving R knee ext and hip ext
--- NOTE | 2025-06-22 17:29 | PT.OPPOC ---
Addendum entered and electronically signed by Sunni Quiñonez, PT 06/23/25 10:37: POC faxed Original Note: Physical, Occupational & Speech Therapy At [facility] Current Diagnoses Presence of right artificial hip joint (06/22/25) Visit Care Team Role Provider Type Haleigh Mohan PA-C Attending Provider Advanced Internet Marketing Coordinator Family Provider Primary Care Provider Referring Provider Specialty: Medical Address: [address] [place] [address], [id number] Email: Plan Of Care PT OP: Lower Back/Lower Extremity Start: 06/22/25 12:26 Freq: Status: Active Protocol: Document 06/22/25 15:23 [facility] (Rec: 06/22/25 16:20 [facility] [id number]) Out-Patient Physical Therapy Visit Information Visit Information Visit Type Initial Evaluation Visit Start Time 15:20 Visit Stop Time 16:05 Visit Number 1 Number of WALLBOARD WORKER Visits 0 Progress Note Due 07/22/25 Precautions Precautions R post BUNNY 3 months ago Current Condition History of Current Condition Onset Date 03/24 Current Complaints R post BUNNY History of Current Pt had R BUNNY post on 03/24 then was DC to SNF for 3 to 4 Condition weeks then HH for a month and ended about 1 month ago. had cvA affecting R side in 1992 and L Bunny. Barely walking now per . Prior to hip surgery, she could walk maybe 100 yards with 4WW w/a couple stops in between d/t R hip pain. has been using 4WW for a long time. needs help with getting in/out of the shower and uses a seat in the shower. indep with dressing and toileting. still helps with cooking. pt tearful throughout eval and notes she does cry a lot. pt sometimes has word finding difficulties. pt uses WC around the home, but pt will walk with Dgt and cane and WC follow about 30ft x4 in the day. no other exercises at this time. ramp entry and SLH. Fell prior to the surgery where she tripped and fell but not happening frequently. hx of pelvis fx about 7 years ago from a fall too w/o surgery. for about 1 year required WC at all times. Treatment Goals Patient/Caregiver return to walks Goals Patient Questionnaires Lower Extremity Functional Scale LEFS Score 18/80 Functional Tests Timed Up and Go (TUG) Score 65 sec Comments quad cane CGA OP Mobility Evaluation Bed Mobility Supine to and from SBA Sit Transfers Sit to Stand multiple attempts to SPC Bed to Chair Min A Transfers OP Gait Assessment Gait Gait Assistance Contact Guard Assist Required: Distance (Feet) 50 Assistive Devices Assistive Device Small Based Quad Cane Orthotic/Prosthetic Yes Devices or Brace: Gait Deviations General Gait Pattern Decreased Stride Length,Decreased Feet Clearance,Flexed Trunk,Step-to Gait Posture Evaluation Comments Posture Comments stands flexed fwd w/R knee flexed Knee Goniometric Range of Motion Knee ROM Limitations Comments knee lacking 29 deg to straight; hip unable to get ext (tested in SL but pt has difficulty maintaining SL to get good measurement); significant R HS tightness Hip Strength Hip Manual Muscle Testing Right Flexion (L2) 3+ Fair+ Abduction 4- Good- External Rotation 3 Fair Internal Rotation 3+ Fair+ Left Flexion (L2) 3+ Fair+ Abduction 4+ Good+ External Rotation 3+ Fair+ Internal Rotation 4 Good Comments seated Knee Strength Knee Manual Muscle Testing Right Flexion (S2) 4- Good- Extension (L3) 3- Fair- Left Flexion (S2) 5 Normal Extension (L3) 4+ Good+ Ankle/Foot Strength Ankle and Foot Manual Muscle Testing Right Dorsiflexion (L4) 3 Fair Plantarflexion (S1) 4 Good Comments seated Left Dorsiflexion (L4) 5 Normal Plantarflexion (S1) 5 Normal Therapeutic Exercises Sitting Exercises DF Side bilateral Reps/Minutes 15 stretch Sitting Exercise HS -PT assisted as pt unable to set up herself Name Side right Reps/Minutes 60 s LAQ Side right Equipment Used L2 Reps/Minutes 15 hip abd Side bilateral Equipment Used L2 Reps/Minutes 15 march Side bilateral Equipment Used L2 Reps/Minutes 15 Comments cues control Physical Therapy Assessment Rehab Potential Rehabilitation Good Potential Evaluation Complexity Number of Personal 3 or More Factors/ Comorbidities Number of Body 4 or More Systems Impaired Clinical Evolving Presentation at Evaluation Impairments Impairments Activity Tolerance,Balance,Functional Activities, Functional Mobility,Gait,Integument,Pain,Posture,ROM, Soft Tissue Mobility,Strength,Transfers Goals TUG Impairment 65 sec Short Term Goal (STG Pt will complete TUG within at least 50 sec ) STG Duration 08/04 Conservation Science Officer Goal (LTG) Pt will complete TUG within at least 30 sec to show dec risk for falls LTG Duration 09/20 gait Short Term Goal (STG Pt will be able to complete a 2 min walk test. ) STG Duration 08/14 Conservation Science Officer Goal (LTG) Pt will be able to ambulate SBA with NBQC with step through gait pattern for at least 300ft. LTG Duration 09/20 sit to stand Short Term Goal (STG Pt will be able to consistantly do sit to stand w/o ) assist /multiple attempts in clinic. STG Duration 08/04 Snf Goal (LTG) Pt will be able to do at least 5 sit to stands w/UEs in 30 sec to show improved LE strength and coordination. LTG Duration 09/20 Assessment Summary Assessment Pt presents 3 months s/p R post BUNNY with good pain control but significant weakness and dec RLE ROM along w/dec gait tolerance. She requires assistance w/gait d/ t risk for falls and TUG demonstrates high risk for falls. She has hx of stroke that affected her R side about 30 years ago which limits her ability to use a walker d/t dec RUE use. She has step to gait pattern w/ dec RLE stance time. No pain noted during session, but pt lack of hip and knee ext affect her posture in standing and gait mechanics. She would benefit from skilled PT to address her deficits and improve her gait and dec risk for falls. Physical Therapy Plan Frequency and Duration Frequency of 2x/Week Treatment Duration of 12 treatment (weeks) Plan of Care Start 06/22/25 Date Plan of Care End 09/20/25 Date Therapeutic Interventions Therapeutic Balance Training,Gait Training,Home Exercise Program, Interventions Joint Mobilizations,Manual Therapy,Neuromuscular Re- education,Patient/Caregiver Education,Self-Care/Home Management,Soft Tissue Mobilization,Taping,Therapeutic Activities,Therapeutic Exercises Modalities Cold Pack/Ice Massage,Electric Stimulation,Hot Packs Next Visit Focus/Plan Next Note Type Treatment Note Next Visit Plan review exercises, gait working, standing balance, leg press, manual to R HS and improving R knee ext and hip ext Plan of Care Dates Plan of Care Start Date 06/22/25 Plan of Care End Date 09/20/25 Electronically Signed by: Sunni Quiñonez, PT 06/23/25 [id number] If you are in agreement with this Plan of Care, please return a signed and dated copy. I have reviewed this Plan of Care and certify that the skilled therapy services above are required to meet the patient?s needs. Physician Signature Date Printed Name and Credentials Clinical Instructor Signature Printed Name and Credentials
--- NOTE | 2025-06-25 12:33 | PT.OTN ---
Current Diagnoses Presence of right artificial hip joint (06/25/25) Physical Therapy Treatment Note PT OP: Lower Back/Lower Extremity Start: 06/22/25 12:26 Freq: Status: Active Protocol: Document 06/25/25 10:43 [facility] (Rec: 06/25/25 11:23 [facility] [id number]) Out-Patient Physical Therapy Visit Information Visit Information Visit Type Treatment Note Visit Start Time 10:45 Visit Stop Time 11:30 Visit Number 2 Number of OPERATOR RECEPTIONIST Visits 1 Precautions Precautions R post BUNNY 3 months ago OP-PT Subjective Patient Comments Patient Comments Daughter reports patient does 4 rounds of walking in the kitchen, requires a little assist through turns, and has to rest after the 2nd round. Patient/daughter report she was fine post eval Therapeutic Activity Therapeutic Activity transfers Reps/Minutes 11 Comments min assist scoot pivot L min assist for LE position sit to sidelying (Le caught on bed lever) sit to stand X 3 with min A focus on posture when reaching upright supine to sit max asssist. Gait Training Gait Activity with small based quad cane Distance/Duration 25ft and 12ft Comments focus on posture, larger step dec velocity CGA to minimal assist. Manual Therapy Treatment Consent Patient gave verbal Yes consent for manual treatment Soft Tissue Mobilization R LE Body Location illopsoas and hamstring Mobilization Type Cross-Friction,Rolling Intensity/Depth Moderate Body Position Hooklying Comments and sidelying to superficial ( dec binu to pressure areas of illiopsoas) Manual Techniques R hip stretches Comments illiopsoas 90 to 120 sec HS 60 sex X 2 each Physical Therapy Assessment Goals TUG Impairment 65 sec Short Term Goal (STG Pt will complete TUG within at least 50 sec ) STG Duration 08/04 Senior Living Goal (LTG) Pt will complete TUG within at least 30 sec to show dec risk for falls LTG Duration 09/20 gait Short Term Goal (STG Pt will be able to complete a 2 min walk test. ) STG Duration 08/14 Food And Drug Inspector Goal (LTG) Pt will be able to ambulate SBA with NBQC with step through gait pattern for at least 300ft. LTG Duration 09/20 sit to stand Short Term Goal (STG Pt will be able to consistantly do sit to stand w/o ) assist /multiple attempts in clinic. STG Duration 08/04 Senior Living Goal (LTG) Pt will be able to do at least 5 sit to stands w/UEs in 30 sec to show improved LE strength and coordination. LTG Duration 09/20 Assessment Summary Assessment Good return demonstration for verbal cues for gait training, with verbal cues to decreased velocity or take larger steps patient did both. Increased stiffness R HS and illiopsoas limiting weight bearing R LE Physical Therapy Plan Frequency and Duration Frequency of 2x/Week Treatment Duration of 12 treatment (weeks) Plan of Care Start 06/22/25 Date Plan of Care End 09/20/25 Date Next Visit Focus/Plan Next Note Type Treatment Note Next Visit Plan review exercises, gait working, standing balance, leg press, manual to R HS and improving R knee ext and hip ext
--- NOTE | 2025-06-29 15:19 | PT.OTN ---
Current Diagnoses Presence of right artificial hip joint (06/29/25) Physical Therapy Treatment Note PT OP: Lower Back/Lower Extremity Start: 06/22/25 12:26 Freq: Status: Active Protocol: Document 06/29/25 14:00 [facility] (Rec: 06/29/25 15:19 [facility] [id number]) Out-Patient Physical Therapy Visit Information Visit Information Visit Type Treatment Note Visit Start Time 13:48 Visit Stop Time 14:30 Visit Number 3 Number of APIGEE DEVELOPER Visits 0 Progress Note Due 07/22/25 Precautions Precautions R post BUNNY 3 months ago OP-PT Subjective Patient Comments Patient Comments reports they have been doing their kitchen walks at home Therapeutic Exercises Standing Exercises ext Side bilateral Equipment Used rail Reps/Minutes 10 Comments cues for hip ext which is difficult for pt so some knee flex abduction Side bilateral Equipment Used rail Reps/Minutes 12 Comments cues posture march Side bilateral Equipment Used rail Reps/Minutes 12 Comments cues posture Gait Training Gait Activity hurdles Device Used 6 hurdles Level of Assistance CGA to min A Distance/Duration 6 hurdles Comments step to w/alt LE leading x4-cues for LE step Surface 4 in step Comments step up w/rail w/min A x3 B with small based quad cane Comments 47ft,37ft-max cues for inc LLE stride length-stopped when pt fatigued Manual Therapy Treatment Consent Patient gave verbal Yes consent for manual treatment Soft Tissue Mobilization R LE Body Location hamstring w/stretch position; distal iliopsoas and RF Mobilization Type Rolling Intensity/Depth Moderate Body Position Hooklying Physical Therapy Assessment Goals TUG Impairment 65 sec Short Term Goal (STG Pt will complete TUG within at least 50 sec ) STG Duration 08/04 Supervisor Shed Workers Goal (LTG) Pt will complete TUG within at least 30 sec to show dec risk for falls LTG Duration 09/20 gait Short Term Goal (STG Pt will be able to complete a 2 min walk test. ) STG Duration 08/14 Shelter Goal (LTG) Pt will be able to ambulate SBA with NBQC with step through gait pattern for at least 300ft. LTG Duration 09/20 sit to stand Short Term Goal (STG Pt will be able to consistantly do sit to stand w/o ) assist /multiple attempts in clinic. STG Duration 08/04 Shelter Goal (LTG) Pt will be able to do at least 5 sit to stands w/UEs in 30 sec to show improved LE strength and coordination. LTG Duration 09/20 Assessment Summary Assessment Pt was fatigued with session and was challenged by activities in session today. She did struggle w/RLE WB likely d/t flex contracture of hip and knee. Physical Therapy Plan Frequency and Duration Frequency of 2x/Week Treatment Duration of 12 treatment (weeks) Plan of Care Start 06/22/25 Date Plan of Care End 09/20/25 Date Next Visit Focus/Plan Next Note Type Treatment Note Next Visit Plan review exercises, gait working, standing balance, leg press, manual to R HS and improving R knee ext and hip ext
--- NOTE | 2025-07-01 18:02 | PT.OTN ---
Current Diagnoses Presence of right artificial hip joint (07/01/25) Physical Therapy Treatment Note PT OP: Lower Back/Lower Extremity Start: 06/22/25 12:26 Freq: Status: Active Protocol: Document 07/01/25 16:16 [facility] (Rec: 07/01/25 17:04 [facility] [id number]) Out-Patient Physical Therapy Visit Information Visit Information Visit Type Treatment Note Visit Start Time 15:18 Visit Stop Time 16:01 Visit Number 4 Number of FILM EDITOR Visits 1 Progress Note Due 07/22/25 Precautions Precautions R post BUNNY 3 months ago OP-PT Subjective Patient Comments Patient Comments reports he thinks it's getting better. ( regarding how patient is walking.) Mariya reports she was fine post previous session and fine, fine fine. walking athome. Therapeutic Exercises Sitting Exercises hip abd Resistance manual and level one band Reps/Minutes 3 20 seconds at most hold for ~3 minute of trials Comments verbal and tactile cues Standing Exercises fwd and retro step Standing Exercise focus on inc R knee ext with retro step Name Reps/Minutes UE on therapist shoulder very light assist at shoulder CGA Comments 3-5 steps fwd and retro x 4 mini squat Standing Exercise feet even and R LE retro Name Reps/Minutes X6 each position Comments CGA vc to stand fully upright step up Standing Exercise 4 inch step with UE use Name Side right Reps/Minutes X 5 Comments CGA and use of rail unable to fully extend, verbal cues ext Standing Exercise terminal ext with band UE use on // bar CGA Name Side right Resistance level one band Reps/Minutes X 8 Manual Therapy Treatment Consent Patient gave verbal Yes consent for manual treatment Soft Tissue Mobilization R LE Body Location hamstring and illiopsoas Mobilization Type Cross-Friction,Rolling Intensity/Depth Moderate Body Position Hooklying Comments and sidelying Manual Techniques R hip stretches Comments illiopsoas 60 to 90 secHS 60 sec X 1.5 each Physical Therapy Assessment Goals TUG Impairment 65 sec Short Term Goal (STG Pt will complete TUG within at least 50 sec ) STG Duration 08/04 Shelter Goal (LTG) Pt will complete TUG within at least 30 sec to show dec risk for falls LTG Duration 11 gait Short Term Goal (STG Pt will be able to complete a 2 min walk test. ) STG Duration 08/14 Shelter Goal (LTG) Pt will be able to ambulate SBA with NBQC with step through gait pattern for at least 300ft. LTG Duration 09/20 sit to stand Short Term Goal (STG Pt will be able to consistantly do sit to stand w/o ) assist /multiple attempts in clinic. STG Duration 08/04 Sales Representative Goal (LTG) Pt will be able to do at least 5 sit to stands w/UEs in 30 sec to show improved LE strength and coordination. LTG Duration 09/20 Assessment Summary Assessment Patient performs fwd and retro stepping with very light support L UE on therapist's shoulder. Fatigues rapidly , unable to perform a full step up on 4 inch step with UE use Physical Therapy Plan Frequency and Duration Frequency of 2x/Week Treatment Duration of 12 treatment (weeks) Plan of Care Start 06/22/25 Date Plan of Care End 09/20/25 Date Next Visit Focus/Plan Next Note Type Treatment Note Next Visit Plan review exercises, gait working, standing balance, leg press, manual to R HS and improving R knee ext and hip ext
--- NOTE | 2025-07-09 12:27 | PT.OTN ---
Current Diagnoses Presence of right artificial hip joint (07/09/25) Physical Therapy Treatment Note PT OP: Lower Back/Lower Extremity Start: 06/22/25 12:26 Freq: Status: Active Protocol: Document 07/09/25 11:06 AB (Rec: 07/09/25 12:25 AB [id number]) Out-Patient Physical Therapy Visit Information Visit Information Visit Type Treatment Note Visit Start Time 11:36 Visit Stop Time 12:17 Visit Number 5 Number of SCOUT Visits 2 Progress Note Due 07/22/25 Precautions Precautions R post BUNNY 3 months ago OP-PT Subjective Patient Comments Patient Comments Patient had blood sugar issues Sunday and Sunday had blood sugar issues over 500, so did not do walking on those days/needle was bent on pump. ( Family couldn't wake patient up) Daughter reports sugar level 160. Prior to the weekend patient was making 2.5 laps in the kitchen vs 1 lap start of therapy, and occ is taking more normal steps and sometimes can lift LE over step of shower. Therapeutic Activity Therapeutic Activity transfers Reps/Minutes 12 Comments min assist scoot pivot R armrest removed CGA for LE position sit to sidelying sit to stand X 10 ( raised seat eight) with min A to CGA focus on posture/ inc hip and knee ext when reaching upright supine to sit max asssist. VC for posture, for hip hinge with sit to stand, and UE position ie on mat then reach for quad cane once upright, transfer to chair with SBQC CGA Verbal cues for sequence. Manual Therapy Treatment Consent Patient gave verbal Yes consent for manual treatment Soft Tissue Mobilization R LE Body Location hamstring and illiopsoas also scar tissue this session Mobilization Type Cross-Friction,Rolling Intensity/Depth Moderate Body Position Hooklying Comments and sidelying daughter ed rolling tech during session for HS Manual Techniques R hip stretches Comments illiopsoas and HS 90 sec X 2 each Physical Therapy Assessment Goals TUG Impairment 65 sec Short Term Goal (STG Pt will complete TUG within at least 50 sec ) STG Duration 08/04 Fdc Goal (LTG) Pt will complete TUG within at least 30 sec to show dec risk for falls LTG Duration 09/20 gait Short Term Goal (STG Pt will be able to complete a 2 min walk test. ) STG Duration 08/14 Fdc Goal (LTG) Pt will be able to ambulate SBA with NBQC with step through gait pattern for at least 300ft. LTG Duration 09/20 sit to stand Short Term Goal (STG Pt will be able to consistantly do sit to stand w/o ) assist /multiple attempts in clinic. STG Duration 08/04 Fdc Goal (LTG) Pt will be able to do at least 5 sit to stands w/UEs in 30 sec to show improved LE strength and coordination. LTG Duration 09/20 Assessment Summary Assessment Patient progressed from min assist sit to stand to CGA during session, with improved hip hinge. Physical Therapy Plan Frequency and Duration Frequency of 2x/Week Treatment Duration of 12 treatment (weeks) Plan of Care Start 06/22/25 Date Plan of Care End 09/20/25 Date Next Visit Focus/Plan Next Note Type Treatment Note Next Visit Plan review exercises, gait working, standing balance, leg press, manual to R HS and improving R knee ext and hip ext Possibly photo of Nilo gary for HEP
--- NOTE | 2025-07-09 12:28 | PT.OTN ---
Current Diagnoses Presence of right artificial hip joint (07/09/25) Physical Therapy Treatment Note PT OP: Lower Back/Lower Extremity Start: 06/22/25 12:26 Freq: Status: Active Protocol: Document 07/09/25 11:06 AB (Rec: 07/09/25 12:25 AB [id number]) Out-Patient Physical Therapy Visit Information Visit Information Visit Type Treatment Note Visit Start Time 11:36 Visit Stop Time 12:17 Visit Number 5 Number of TEMPLATE STORAGE CLERK Visits 2 Progress Note Due 07/22/25 Precautions Precautions R post BUNNY 3 months ago OP-PT Subjective Patient Comments Patient Comments Patient had blood sugar issues Sunday and Sunday had blood sugar issues over 500, so did not do walking on those days/needle was bent on pump. ( Family couldn't wake patient up) Daughter reports sugar level 160. Prior to the weekend patient was making 2.5 laps in the kitchen vs 1 lap start of therapy, and occ is taking more normal steps and sometimes can lift LE over step of shower. Therapeutic Activity Therapeutic Activity transfers Reps/Minutes 12 Comments min assist scoot pivot R armrest removed CGA for LE position sit to sidelying sit to stand X 10 ( raised seat eight) with min A to CGA focus on posture/ inc hip and knee ext when reaching upright supine to sit max asssist. VC for posture, for hip hinge with sit to stand, and UE position ie on mat then reach for quad cane once upright, transfer to chair with SBQC CGA Verbal cues for sequence. Manual Therapy Treatment Consent Patient gave verbal Yes consent for manual treatment Soft Tissue Mobilization R LE Body Location hamstring and illiopsoas also scar tissue this session Mobilization Type Cross-Friction,Rolling Intensity/Depth Moderate Body Position Hooklying Comments and sidelying daughter ed rolling tech during session for HS Manual Techniques R hip stretches Comments illiopsoas and HS 90 sec X 2 each Physical Therapy Assessment Goals TUG Impairment 65 sec Short Term Goal (STG Pt will complete TUG within at least 50 sec ) STG Duration 08/04 Skilled Nursing Goal (LTG) Pt will complete TUG within at least 30 sec to show dec risk for falls LTG Duration 09/20 gait Short Term Goal (STG Pt will be able to complete a 2 min walk test. ) STG Duration 08/14 Skilled Nursing Goal (LTG) Pt will be able to ambulate SBA with NBQC with step through gait pattern for at least 300ft. LTG Duration 09/20 sit to stand Short Term Goal (STG Pt will be able to consistantly do sit to stand w/o ) assist /multiple attempts in clinic. STG Duration 08/04 Skilled Nursing Goal (LTG) Pt will be able to do at least 5 sit to stands w/UEs in 30 sec to show improved LE strength and coordination. LTG Duration 09/20 Assessment Summary Assessment Patient progressed from min assist sit to stand to CGA during session, with improved hip hinge. Physical Therapy Plan Frequency and Duration Frequency of 2x/Week Treatment Duration of 12 treatment (weeks) Plan of Care Start 06/22/25 Date Plan of Care End 09/20/25 Date Next Visit Focus/Plan Next Note Type Treatment Note Next Visit Plan review exercises, gait working, standing balance, leg press, manual to R HS and improving R knee ext and hip ext Possibly photo of Nilo gary for HEP
--- NOTE | 2025-07-15 18:09 | PT.OTN ---
Current Diagnoses Presence of right artificial hip joint (07/15/25) Physical Therapy Treatment Note PT OP: Lower Back/Lower Extremity Start: 06/22/25 12:26 Freq: Status: Active Protocol: Document 07/15/25 16:39 AB (Rec: 07/15/25 18:09 AB [id number]) Out-Patient Physical Therapy Visit Information Visit Information Visit Type Treatment Note Visit Start Time 17:04 Visit Stop Time 17:49 Visit Number 6 Number of TRENCH TRIMMER FINE Visits 3 Progress Note Due 07/22/25 Precautions Precautions R post BUNNY 3 months ago OP-PT Subjective Patient Comments Patient Comments Daughter reports she has been busier at work and hasn't been able to do more walking with Mariya at home. Therapeutic Exercises Supine Exercises R LE stretches Supine Exercise Name Mod Gabe stretch Side right Reps/Minutes 60 seconds Comments assist for set up Gait Training Gait Activity hurdles Device Used 6 hurdles Level of Assistance CGA to min A Distance/Duration 4hurdles Comments 4 hurdles L LE then 4 leading with R LE with UE use step Surface 4 in step Comments step up w/rail w/min A x4 R LE Mod assist on 4th trila with small based quad cane Comments 51 feet start of session, does not fully step through CGA Manual Therapy Treatment Soft Tissue Mobilization R LE Body Location hamstring and illiopsoas also scar tissue this session Mobilization Type Cross-Friction,Rolling Intensity/Depth Moderate Body Position Hooklying Comments and sidelying daughter ed rolling tech during session for HS Manual Techniques R hip stretches Comments HS stretch R LE 60 sec X 3 Physical Therapy Assessment Goals TUG Impairment 65 sec Short Term Goal (STG Pt will complete TUG within at least 50 sec ) STG Duration 08/04 Fpc Goal (LTG) Pt will complete TUG within at least 30 sec to show dec risk for falls LTG Duration 09/20 gait Short Term Goal (STG Pt will be able to complete a 2 min walk test. ) STG Duration 08/14 Fpc Goal (LTG) Pt will be able to ambulate SBA with NBQC with step through gait pattern for at least 300ft. LTG Duration 09/20 sit to stand Short Term Goal (STG Pt will be able to consistantly do sit to stand w/o ) assist /multiple attempts in clinic. STG Duration 08/04 Package Winder Goal (LTG) Pt will be able to do at least 5 sit to stands w/UEs in 30 sec to show improved LE strength and coordination. LTG Duration 09/20 Assessment Summary Assessment Patient ambulated 51 feet with SBQC CGA start of session stopping when feeling fatigue, step length L LE and stance time R LE continues to be limited. Physical Therapy Plan Frequency and Duration Frequency of 2x/Week Treatment Duration of 12 treatment (weeks) Plan of Care Start 06/22/25 Date Plan of Care End 09/20/25 Date Next Visit Focus/Plan Next Note Type Treatment Note Next Visit Plan review exercises, gait working, standing balance, leg press, manual to R HS and improving R knee ext and hip ext Possibly photo of Nilo gary for HEP
--- NOTE | 2025-07-17 14:57 | PT.OTN ---
Current Diagnoses Presence of right artificial hip joint (07/17/25) Physical Therapy Treatment Note PT OP: Lower Back/Lower Extremity Start: 06/22/25 12:26 Freq: Status: Active Protocol: Document 07/17/25 12:59 AB (Rec: 07/17/25 13:51 AB [id number]) Out-Patient Physical Therapy Visit Information Visit Information Visit Type Treatment Note Visit Note Access Code [email or web address] Visit Start Time 13:01 Visit Stop Time 13:46 Visit Number 7 Number of PROPERTY CLAIMS ADJUSTER Visits 4 Precautions Precautions R post BUNNY 3 months ago OP-PT Subjective Patient Comments Patient Comments Daughter reports they have been walking around the house since last visit and have been working on leaning fwd when standing up ( IE hip hinge without pause) Therapeutic Exercises Supine Exercises R LE stretches Supine Exercise Name Mod Gabe stretch Side right Reps/Minutes 60 seconds X 2 with AROM knee flexion HEP Comments assist for set up Gait Training Gait Activity with small based quad cane Comments 64 feet, minimally SOB last 8 feet, positioned for breathlessness post CGA tandem stepping then retro stepping one UE use // bars 10 feet X 2 each CGA Manual Therapy Treatment Consent Patient gave verbal Yes consent for manual treatment Soft Tissue Mobilization R LE Body Location hamstring and illiopsoas also scar tissue this session Mobilization Type Cross-Friction,Rolling Intensity/Depth Moderate Body Position Hooklying Comments and sidelying daughter ed rolling tech during session for HS Manual Techniques R hip stretches Comments HS stretch R LE 60 sec X 3 Physical Therapy Assessment Goals TUG Impairment 65 sec Short Term Goal (STG Pt will complete TUG within at least 50 sec ) STG Duration 08/04 Layer Off Goal (LTG) Pt will complete TUG within at least 30 sec to show dec risk for falls LTG Duration 09/20 gait Short Term Goal (STG Pt will be able to complete a 2 min walk test. ) STG Duration 08/14 Layer Off Goal (LTG) Pt will be able to ambulate SBA with NBQC with step through gait pattern for at least 300ft. LTG Duration 09/20 sit to stand Short Term Goal (STG Pt will be able to consistantly do sit to stand w/o ) assist /multiple attempts in clinic. STG Duration 08/04 Custodial Goal (LTG) Pt will be able to do at least 5 sit to stands w/UEs in 30 sec to show improved LE strength and coordination. LTG Duration 11/16 Assessment Summary Assessment Patient with reciprocal gait pattern using SPQC CGA increased distance limited by inc breathlessness, malcolm step length nearly equal Physical Therapy Plan Frequency and Duration Frequency of 2x/Week Treatment Duration of 12 treatment (weeks) Plan of Care Start 06/22/25 Date Plan of Care End 09/20/25 Date Next Visit Focus/Plan Next Note Type Treatment Note Next Visit Plan review exercises, gait working, standing balance, leg press, manual to R HS and improving R knee ext and hip ext
--- NOTE | 2025-07-23 18:12 | PT.OTN ---
Current Diagnoses Presence of right artificial hip joint (07/23/25) Physical Therapy Treatment Note PT OP: Lower Back/Lower Extremity Start: 06/22/25 12:26 Freq: Status: Active Protocol: Document 07/23/25 13:02 AB (Rec: 07/23/25 13:16 AB [id number]) Out-Patient Physical Therapy Visit Information Visit Information Visit Type Treatment Note Visit Note Access Code [email or web address] Visit Start Time 13:04 Visit Stop Time 13:46 Visit Number 8 Number of FORK TRUCK DRIVER Visits 5 Progress Note Due 07/22/25 Precautions Precautions R post BUNNY 3 months ago OP-PT Subjective Patient Comments Patient Comments Daughter reports patient stand up on first trial once every 3-4 times when standing up throughout the day at home. Therapeutic Exercises Standing Exercises sit to stand Reps/Minutes X 5 Comments CGA VC for hip hinge and to complete the mvt Manual Therapy Treatment Consent Patient gave verbal Yes consent for manual treatment Soft Tissue Mobilization R LE Body Location hamstring and illiopsoas Mobilization Type Cross-Friction,Rolling Intensity/Depth Moderate Body Position Hooklying Comments and sidelying Manual Techniques R hip stretches Comments HS X 60 Physical Therapy Assessment Goals TUG Impairment 65 sec Short Term Goal (STG Pt will complete TUG within at least 50 sec ) 07/23/2025 59.21 sec ( inc time for sit to stand and pt fixes clothes prior to initiating stepping ) STG Duration 08/04 Fci Goal (LTG) Pt will complete TUG within at least 30 sec to show dec risk for falls LTG Duration 09/20 gait Short Term Goal (STG Pt will be able to complete a 2 min walk test. ) 07/23/2025 Patient completed 2 minute walk test CGA using SPQC 79 feet. STG Duration 08/14met Fci Goal (LTG) Pt will be able to ambulate SBA with NBQC with step through gait pattern for at least 300ft. LTG Duration 09/20 sit to stand Short Term Goal (STG Pt will be able to consistantly do sit to stand w/o ) assist /multiple attempts in clinic. 07/23/2025 continues to require multiple attempts for sit to stand, post repeated cues able to perform a few without multiple trials by end of session. STG Duration 08/04 not met progressing Key Punch Teacher Goal (LTG) Pt will be able to do at least 5 sit to stands w/UEs in 30 sec to show improved LE strength and coordination. LTG Duration 09/20 Assessment Summary Assessment Patient met goal for 2 min walk test, did not meet goal for sit to stand or TUG, TUG score inc due to inc trials for sit to stand and patient fixing clothing prior to initiating stepping. Physical Therapy Plan Frequency and Duration Frequency of 2x/Week Treatment Duration of 12 treatment (weeks) Plan of Care Start 06/22/25 Date Plan of Care End 09/20/25 Date Next Visit Focus/Plan Next Note Type Treatment Note Next Visit Plan review exercises, gait working, standing balance, leg press, manual to R HS and improving R knee ext and hip ext
--- NOTE | 2025-07-23 18:28 | PT.OPPN ---
Current Diagnoses Presence of right artificial hip joint (07/23/25) Physical Therapy Progress Note PT OP: Lower Back/Lower Extremity Start: 06/22/25 12:26 Freq: Status: Active Protocol: Document 07/23/25 18:26 [facility] (Rec: 07/23/25 18:28 [facility] [id number]) Out-Patient Physical Therapy Visit Information Visit Information Progress Note Due 08/22/25 OP-PT Subjective Patient Comments Patient Comments Pt dgt notes she feels like pt is walking further and getting stronger Physical Therapy Assessment Goals TUG Impairment 65 sec Short Term Goal (STG Pt will complete TUG within at least 50 sec ) 07/23/2025 59.21 sec ( inc time for sit to stand and pt fixes clothes prior to initiating stepping ) STG Duration 08/04 Openstack Developer Goal (LTG) Pt will complete TUG within at least 30 sec to show dec risk for falls LTG Duration 09/20 gait Short Term Goal (STG Pt will be able to complete a 2 min walk test. ) 07/23/2025 Patient completed 2 minute walk test CGA using SPQC 79 feet. STG Duration 08/14met Openstack Developer Goal (LTG) Pt will be able to ambulate SBA with NBQC with step through gait pattern for at least 300ft. LTG Duration 09/20 sit to stand Short Term Goal (STG Pt will be able to consistantly do sit to stand w/o ) assist /multiple attempts in clinic. 07/23/2025 continues to require multiple attempts for sit to stand, post repeated cues able to perform a few without multiple trials by end of session. STG Duration 08/04 not met progressing Openstack Developer Goal (LTG) Pt will be able to do at least 5 sit to stands w/UEs in 30 sec to show improved LE strength and coordination. LTG Duration 09/20 Assessment Summary Assessment Pt is improving walking distance and was able to walk 2 min today. She scored less with TUG but cont to struggle to stand from a chair consistently and wanted to fix pants when standing, dec time. She would benefit from cont PT to improve gait, strength and transfers. Physical Therapy Plan Frequency and Duration Frequency of 2x/Week Treatment Duration of 12 treatment (weeks) Plan of Care Start 06/22/25 Date Plan of Care End 09/20/25 Date Therapeutic Interventions Therapeutic Balance Training,Gait Training,Home Exercise Program, Interventions Joint Mobilizations,Manual Therapy,Neuromuscular Re- education,Patient/Caregiver Education,Self-Care/Home Management,Soft Tissue Mobilization,Taping,Therapeutic Activities,Therapeutic Exercises Modalities Cold Pack/Ice Massage,Electric Stimulation,Hot Packs Next Visit Focus/Plan Next Note Type Treatment Note Next Visit Plan review exercises, gait working, standing balance, leg press, manual to R HS and improving R knee ext and hip ext
--- NOTE | 2025-08-04 15:55 | PT.OPDS ---
Current Diagnoses Presence of right artificial hip joint (07/23/25) Visit Care Team Role Provider Type Haleigh Mohan PA-C Attending Provider Advanced Personal Lines Agent Family Provider Primary Care Provider Referring Provider Specialty: Medical Address: [address] [place] [address], [id number] Email: Visit Number Visit Number 8 Discharge Summary PT OP: Lower Back/Lower Extremity Start: 06/22/25 12:26 Freq: Status: Active Protocol: Document 08/04/25 15:53 [facility] (Rec: 08/04/25 15:55 [facility] [id number]) Out-Patient Physical Therapy Visit Information Visit Information Visit Type Discharge Summary Physical Therapy Assessment Goals TUG Impairment 65 sec Short Term Goal (STG Pt will complete TUG within at least 50 sec ) 07/23/2025 59.21 sec ( inc time for sit to stand and pt fixes clothes prior to initiating stepping ) STG Duration 08/04 Supply Chain Design Manager Goal (LTG) Pt will complete TUG within at least 30 sec to show dec risk for falls LTG Duration 09/20 gait Short Term Goal (STG Pt will be able to complete a 2 min walk test. ) 07/23/2025 Patient completed 2 minute walk test CGA using SPQC 79 feet. STG Duration 08/14met Prison Goal (LTG) Pt will be able to ambulate SBA with NBQC with step through gait pattern for at least 300ft. LTG Duration 09/20 sit to stand Short Term Goal (STG Pt will be able to consistantly do sit to stand w/o ) assist /multiple attempts in clinic. 07/23/2025 continues to require multiple attempts for sit to stand, post repeated cues able to perform a few without multiple trials by end of session. STG Duration 08/04 not met progressing Supply Chain Design Manager Goal (LTG) Pt will be able to do at least 5 sit to stands w/UEs in 30 sec to show improved LE strength and coordination. LTG Duration 09/20 Assessment Summary Assessment Pt was making progress towards goals and dgt noting inc strength noted at home by her when doing mobility with patient. Pt was hospitalized 07/27-07/30 with hernia surgery. At this time dc d/t change in medical status. In order to resume PT, pt will require new referral. Front notified pt of this when called today. Physical Therapy Plan Discharge Physical Therapy Discharge Reasons Change in Medical Status
== END 2025-08-05 09:54 | disposition home or self-care (01) ==
LOC: PHYS 13:00
PROVIDERS: Family Provider Physician Assistant; PCP Physician Assistant; Referring Provider Physician Assistant; Visit Provider Physician Assistant
DX: Z96.641 Presence of right artificial hip joint (principal)
CPT/HCPCS: 97110; 97116; 97140; 97162; 97530

== ENCOUNTER 2025-07-27 13:59 | Inpatient (IN) | payer MEDICARE, OTHER, SELFPAY ==
[2025-03-24 14:12] VITALS: BMI 27.4
[2025-07-27] VITALS (19 sets, daily range): BP systolic 118–151; BP diastolic 55–74; PULSE 81–101; RESP 14–29; TEMP 36.1–37.2; O2SAT 91–97; BMI 26.9
--- NOTE | 2025-07-27 14:12 | EKG_ITS ---
[facility] [id number] [address] [place] [address] Test Date: 2025-07-27 Pat Name: Mariya William Department: Room: Gender: Female Settlement Technician: WILLI : 1940 Requested By: Order Number: [id number] Reading MD: Guillermo Kamara MD Measurements Intervals [place] Rate: 95 P: 41 LA: 154 QRS: 14 QRSD: 78 T: 64 QT: 342 QTc: 429 Interpretive Statements Sinus rhythm with premature atrial complexes Nonspecific ST and T wave abnormality Electronically Signed On 07-27-2025 15:46:01 PDT by Guillermo Kamara MD
[2025-07-27 15:00] LABS: Alanine Aminotransferase 22 IU/L (<35); Albumin 3.8 g/dL (3.5-5.0); Albumin Globulin Ratio 1.2 (1.0-2.8); Alkaline Phosphatase 101 U/L (38-126); Blood Urea Nitrogen 20 mg/dL (7-17); Calcium 10.3 mg/dL (8.4-10.2); Carbon Dioxide 22 mmol/L (22-32); Chloride 105 mmol/L (98-107); Estimated Glomerular Filt Rate > 60 mL/min (>60); Globulin 3.3 g/dL (1.7-4.1); Glucose 208 mg/dL (70-99); HEMOLYSIS < 15 (0-50); Lipase 96 U/L (23-300); Potassium 3.7 mmol/L (3.4-5.1); Sodium 135 mmol/L (137-145); Total Protein 7.1 g/dL (6.3-8.2)
--- NOTE | 2025-07-27 15:22 | ED.GENADULT ---
HPI - General Adult General Chief complaint: Abdominal Pain Stated complaint: Hernia pain belly button Time Seen by Provider: 07/27/25 14:59 Source: patient Mode of arrival: Ambulatory History of Present Illness HPI narrative: 85-year-old woman with a history of prior stroke right-sided deficits and aphasia, diabetes with an insulin pump, hypertension, hyperlipidemia, right hip replacement surgery in March who presents with worsening pain associated with a supraumbilical hernia. Patient is not exactly sure when she 1st started having symptoms of her hernia, she has seen her primary care physician was not having any pain she actually has an appointment scheduled with surgery for outpatient evaluation of this hernia on the . Over the last week she has been having increasing pain and today since approximately 1:00 p.m. she has been having episodes of severe spasm. The umbilical/supraumbilical hernia is more firm and there is an area that is not reducible. No recent fevers, cough, chills, chest pain, lower extremity edema. Related Data Home Medications ?Medication ?Instructions ?Recorded ?Confirmed aspirin 81 mg tablet,delayed 81 mg PO QDAY ##0 10/07/12 03/24/25 release simvastatin 20 mg tablet 20 mg PO QDAY ##0 10/07/12 03/24/25 insulin aspart U-100 100 unit/mL 50 unit SUBCUT DAILY 03/05/18 03/12/25 subcutaneous cartridge One-A-Day Women's Complete 1 tab PO DAILY 03/12/25 03/24/25 amlodipine 5 mg tablet 5 mg PO DAILY 03/12/25 03/24/25 fluoxetine 20 mg capsule 20 mg PO DAILY 03/12/25 03/24/25 lisinopril 40 mg tablet 40 mg PO DAILY 03/12/25 03/24/25 Previous Rx's ?Medication ?Instructions ?Recorded acetaminophen 325 mg tablet 650 mg (2 x 325 mg) PO Q6H #90 tabs 03/27/25 aspirin 81 mg tablet,delayed 81 mg PO BID #90 tabs 03/27/25 release docusate sodium 100 mg capsule 100 mg PO BID #30 caps 03/27/25 ibuprofen 400 mg tablet 400 mg PO Q4H PRN Pain, Mild (1-3) 03/27/25 #90 tabs insulin lispro 100 unit/mL 1 unit (0.01 mL) miscellaneous 03/27/25 subcutaneous solution (Admelog DAILY@0000 #10 mL U-100 Insulin lispro) ondansetron 4 mg disintegrating 4 mg PO Q4HR PRN Nausea #30 tabs 03/27/25 tablet polyethylene glycol 3350 17 gram 17 g PO DAILY PRN Constipation #14 03/27/25 oral powder packet ea Allergies Allergy/AdvReac Type Severity Reaction Status Date / Time phenytoin Allergy Mild TURNED Verified 07/27/25 14:07 BRIGHT RED Review of Systems Review of Systems Narrative: Pertinent positive and negative findings as per HPI Patient History Medical History DAVID (obstructive sleep apnea) Spasticity as late effect of cerebrovascular accident (CVA) Hypercalcemia (10/13/22) Pelvic fracture (05/2018) Hypercholesteremia Gastritis Depression Anemia Insulin pump in place Hyperlipidemia HTN (hypertension) CVA (cerebral vascular accident) (1992) Diabetes Surgical History Hx of tonsillectomy History of colon resection (2013) History of cataract extraction History of total left hip arthroplasty (04/2009) Social History household members: spouse Smoking Status: Never smoker alcohol intake: former Smoking Status: Never smoker alcohol intake frequency: other Exam Initial Vital Signs Initial Vital Signs: Vital Signs Temperature 97.0 F L 07/27/25 14:03 Pulse Rate 94 H 07/27/25 14:03 Respiratory Rate 18 07/27/25 14:03 Blood Pressure 144/69 H 07/27/25 14:03 Pulse Oximetry 97 07/27/25 14:03 Oxygen Delivery Method Room Air 07/27/25 14:03 General: Sequela of prior stroke with right-sided deficits and expressive aphasia in no acute distress HEENT: Moist mucous membranes, normal sclera with reactive pupils, Respiratory: Full and symmetrical air movement Cardiac: Regular rate and rhythm no murmurs no bruits Abdomen: Soft, proximally 6 cm size supraumbilical hernia with a firm 3-4 cm area in the superior portion of the hernia that is not reproducible and does recreate her pain. Skin: Warm and dry, no rashes Neurologic: Significant right side stroke deficits with arm contractures, facial droop, expressive aphasia, right leg weakness Extremities: No trauma, well perfused Psych: Cooperative, appropriate insight and affect Course Orders Ordered: ED Orders 07/27/25 14:12 EKG-12 Lead Stat 07/27/25 14:38 Complete Blood Count AUTO DIFF Stat Comprehensive Metabolic Panel Stat Lipase Stat 07/27/25 15:32 CT abdomen pelvis w con Stat Hydromorphone HCl (Hydromorphone Hcl 0.5 Mg/0.5 Ml Syringe) 0.5 mg IV Q15MIN PRN PRN Reason: Pain, Last Admin: 07/27/25 15:55 Dose: 0.5 mg Documented By: SHOAIB Ondansetron HCl (Ondansetron 4 Mg/2 Ml Inj) 4 mg IV NOW PRN PRN Reason: Nausea And Vomiting Ondansetron HCl (Ondansetron 4 Mg Odt) 4 mg PO NOW PRN PRN Reason: Nausea And Vomiting Discontinued Medications Ondansetron HCl (Ondansetron 4 Mg/2 Ml Inj) 4 mg IV NOW ONE Stop: 07/27/25 15:33 Last Admin: 07/27/25 15:55 Dose: 4 mg Documented By: SHOAIB Vital Signs Vital signs: Vital Signs - 8 hr 07/27/25 14:03 07/27/25 15:03 07/27/25 15:06 Temperature 97.0 F L Pulse Rate 94 H 91 H 90 Respiratory Rate 18 23 20 Blood Pressure 144/69 H Pulse Oximetry 97 93 Oxygen Delivery Method Room Air 07/27/25 15:06 07/27/25 15:30 07/27/25 15:48 Temperature Pulse Rate 95 H 96 H Respiratory Rate 20 21 Blood Pressure 141/65 H Pulse Oximetry 94 95 Oxygen Delivery Method 07/27/25 15:48 07/27/25 16:00 07/27/25 16:00 Temperature Pulse Rate 81 Respiratory Rate 20 Blood Pressure 130/57 L 118/57 L Pulse Oximetry 91 Oxygen Delivery Method 07/27/25 16:27 07/27/25 16:27 07/27/25 16:30 Temperature Pulse Rate 90 89 Respiratory Rate 14 14 Blood Pressure 149/68 H Pulse Oximetry 92 91 Oxygen Delivery Method 07/27/25 17:00 07/27/25 17:00 07/27/25 17:30 Temperature Pulse Rate 87 90 Respiratory Rate 15 15 Blood Pressure 136/63 Pulse Oximetry 94 94 Oxygen Delivery Method 07/27/25 18:00 07/27/25 18:00 07/27/25 18:30 Temperature Pulse Rate 96 H 101 H Respiratory Rate 24 22 Blood Pressure 151/74 H Pulse Oximetry 94 94 Oxygen Delivery Method 07/27/25 19:00 07/27/25 19:00 Temperature Pulse Rate 92 H Respiratory Rate 15 Blood Pressure 134/61 Pulse Oximetry 91 Oxygen Delivery Method Room Air Medical Decision Making Lab Data 07/27/25 14:38 07/27/25 14:38 Labs: Lab Results 07/27/25 Range/Units 14:38 WBC 8.6 (4.5-11.0) X10^3/uL RBC 3.92 L (4.0-5.2) X10^6/uL Hgb 11.7 L (12.0-16.0) g/dL Hct 34.5 L (36-46) % MCV 87.8 (80-100) fL MCH 29.9 (26-34) PG MCHC 34.0 (30-36) % RDW 16.3 H (11.6-14.8) % Plt Count 281 (150-400) X10^3/uL Neut % (Auto) 68.1 (50-75) % Lymph % (Auto) 22.2 L (25-40) % Childress % (Auto) 6.3 (3-14) % Eos % (Auto) 2.3 (2-4) % Baso % (Auto) 1.1 (0-2) % Neut # (Auto) 5900 (4815-9139) /uL Lymph # (Auto) 1900 (3290-1161) /uL Childress # (Auto) 500 (0-900) /uL Eos # (Auto) 200 (0-450) /uL Baso # (Auto) 100 (0-100) /uL Sodium 135 L (137-145) mmol/L Potassium 3.7 (3.4-5.1) mmol/L Chloride 105 (98-107) mmol/L Carbon Dioxide 22 (22-32) mmol/L BUN 20 H (7-17) mg/dL Creatinine 0.77 (0.52-1.04) mg/dL Estimated GFR > 60 (>60) mL/min BUN/Creatinine Ratio 26.0 H (6-22) Glucose 208 H (70-99) mg/dL Calcium 10.3 H (8.4-10.2) mg/dL Total Bilirubin 0.4 (0.2-1.3) mg/dL AST 28 (14-36) IU/L ALT 22 (<35) IU/L Alkaline Phosphatase 101 (38-126) U/L Total Protein 7.1 (6.3-8.2) g/dL Albumin 3.8 (3.5-5.0) g/dL Globulin 3.3 (1.7-4.1) g/dL Albumin/Globulin Ratio 1.2 (1.0-2.8) Lipase 96 (23-300) U/L Imaging Data CT scan - abdomen/pelvis: Radiologist's Impression: PROCEDURE: CT ABDOMEN PELVIS W CON INDICATIONS: probably incarcerated umbilical/abd wall hernia TECHNIQUE: After the administration of intravenous contrast, axial sections acquired from the lung bases to the pubic symphysis. Coronal and sagittal reformats were performed. For radiation dose reduction, the following was used: automated exposure control, adjustment of mA and/or kV according to patient size. COMPARISON: None. FINDINGS: Image quality: Diagnostic. Lower Chest: No significant findings. ABDOMEN: Liver: No solid mass. Gallbladder: No radiopaque gallstones or wall thickening. Biliary ducts: No biliary dilation. Pancreas: No ductal dilation. Spleen: Size is within normal limits. Adrenal Glands: No adrenal nodules. Kidneys and Ureters: No hydronephrosis. No solid mass. No complex renal cystic lesion which requires follow up. Stomach and Bowel: Question incarceration of colon in a periumbilical hernia with inflammatory change in the adjacent fat. No dilated loops. Moderately large diffuse fecal load. Peritoneum: No abnormal intraperitoneal fluid. No free air. Ventral Wall: There is a fairly wide mouth periumbilical hernia with an abdominal wall defect measuring approximately 4.1 x 4.6 cm. There is: Herniating through this hernia with some inflammatory change present within the herniated fat subjacent to the colon. Abdominal Nodes: No retroperitoneal or mesenteric adenopathy by size criteria. Vessels: Aorta and inferior vena cava are normal in size. PELVIS: Pelvic Organs: Unremarkable. Bladder: No bladder wall thickening, accounting for underdistention. Pelvic Nodes: No enlarged lymph nodes. Miscellaneous: No inguinal hernias are seen. Bones: No aggressive osseous abnormality. Bilateral total hip arthroplasties. Thoracolumbar degenerative change. Scoliotic curvature. IMPRESSION: Question incarcerated colon within a fairly wide mouth periumbilical hernia. Moderately large colonic fecal load. Dictated by: Chema Tomlin M.D. on 07/27/2025 at 16:46 MDM Narrative Medical decision making narrative: CC: Abdominal hernia pain acute onset around 1:00 p.m. this afternoon Complicating co-morbidities: Diabetes, stroke, hypertension hyperlipidemia Data collected from: patient, daughter Medical records reviewed: Recent admission for hip replacement reviewed Differential considered: Incarcerated hernia, gangrene, extension of the hernia with no bowel involvement, bowel obstruction Exam documented above, pertinent findings include: Abdominal hernia has a firm area in the superior portion that is not reproducible, pressing on it does recreate her pain Lab Test results independently reviewed as above. Pertinent findings: CBC is unremarkable CMP has a glucose of 208, calcium is at 10.3 previously had been 10.9 Independently reviewed EKG: Sinus rhythm with occasional PAC. No acute ischemia Imaging studies independently reviewed: Ventral Wall: There is a fairly wide mouth periumbilical hernia with an abdominal wall defect measuring approximately 4.1 x 4.6 cm. There is: Herniating through this hernia with some inflammatory change present within the herniated fat subjacent to the colon. Consultations: Dr Escalera, general surgery, we will come and evaluate the patient Treatments: Mily Martin Discussion: 85-year-old woman with abdominal wall hernia with partially incarcerated: Not able to be reduced. No signs of sepsis or bowel necrosis but hernias not able to be reduced in the ER. Findings reviewed with the patient and her daughter and surgery will come into further evaluate Patient is re-evaluated. She continues to be somewhat tender but this is not an acute surgical abdomen at this point. She has been physically evaluated by the surgeon and will anticipate surgery tomorrow afternoon. I have reviewed the care with our hospitalist service and patient will be admitted to the hospital service due to her multiple medical conditions with surgery consulting. She is safe for transfer to the floor Discharge Plan Departure Patient Disposition: Admitted As Inpatient Clinical Impression: Incarcerated umbilical hernia, Diabetes mellitus, Hyperlipidemia, Hypertension Admit Date/Time: 07/27/25 19:46 Admit Provider: Constantino Chacon
[2025-07-27 15:27] LABS: Add Manual Diff / Slide Review NO; Hematocrit 34.5 % (36-46); Hemoglobin 11.7 g/dL (12.0-16.0); Lymphocytes Absolute Auto 1900 /uL (1100-4500); Mean Corpuscular HGB Conc 34.0 % (30-36); Mean Corpuscular Hemoglobin 29.9 PG (26-34); Mean Corpuscular Volume 87.8 fL (80-100); Platelet Count 281 X10^3/uL (150-400)
--- NOTE | 2025-07-27 15:32 | DI.CT.S_ITS ---
PROCEDURE: CT ABDOMEN PELVIS W CON INDICATIONS: probably incarcerated umbilical/abd wall hernia TECHNIQUE: After the administration of intravenous contrast, axial sections acquired from the lung bases to the pubic symphysis. Coronal and sagittal reformats were performed. For radiation dose reduction, the following was used: automated exposure control, adjustment of mA and/or kV according to patient size. COMPARISON: None. FINDINGS: Image quality: Diagnostic. Lower Chest: No significant findings. ABDOMEN: Liver: No solid mass. Gallbladder: No radiopaque gallstones or wall thickening. Biliary ducts: No biliary dilation. Pancreas: No ductal dilation. Spleen: Size is within normal limits. Adrenal Glands: No adrenal nodules. Kidneys and Ureters: No hydronephrosis. No solid mass. No complex renal cystic lesion which requires follow up. Stomach and Bowel: Question incarceration of colon in a periumbilical hernia with inflammatory change in the adjacent fat. No dilated loops. Moderately large diffuse fecal load. Peritoneum: No abnormal intraperitoneal fluid. No free air. Ventral Wall: There is a fairly wide mouth periumbilical hernia with an abdominal wall defect measuring approximately 4.1 x 4.6 cm. There is: Herniating through this hernia with some inflammatory change present within the herniated fat subjacent to the colon. Abdominal Nodes: No retroperitoneal or mesenteric adenopathy by size criteria. Vessels: Aorta and inferior vena cava are normal in size. PELVIS: Pelvic Organs: Unremarkable. Bladder: No bladder wall thickening, accounting for underdistention. Pelvic Nodes: No enlarged lymph nodes. Miscellaneous: No inguinal hernias are seen. Bones: No aggressive osseous abnormality. Bilateral total hip arthroplasties. Thoracolumbar degenerative change. Scoliotic curvature. IMPRESSION: Question incarcerated colon within a fairly wide mouth periumbilical hernia. Moderately large colonic fecal load. Dictated by: Chema Tomlin M.D. on 07/27/2025 at 16:46 Approved by: Chema Tomlin M.D. on 07/27/2025 at 16:52
[2025-07-27] MEDS: ONDANSETRON 4 MG/2 ML INJ IV (15:55)
--- NOTE | 2025-07-27 18:36 | PM.CN.IH.1 ---
History of Present Illness Consult details Date Patient Seen: 07/27/25 Time Patient Seen: 18:36 Chief complaint: Hernia pain belly button Reason for consult: Incarcerated incisional hernia Requesting provider: Jessy Nuñez Narrative: 85yo F patient, surgery consult requested by ED. Patient with incarcerated incisional hernia. C/O pain, irreducible hernia. She had colon resection in 2013 at for polyps. Hernia is in medial portion of RT transverse incision. CT demonstrates colon incarcerated into hernia sac without obstruction. There are inflammatory changes around colon. Patient's daughter at bedside states patient has been eating and having normal bowel movements. No history of hemodynamic instability. H/O CVA, DM, insulin pump, HTN, lipids, RT hip surgery in March. Meds Home Medications and Allergies Home Medications ?Medication ?Instructions ?Recorded ?Confirmed ?Type aspirin 81 mg tablet,delayed 81 mg PO QDAY ##0 10/07/12 03/24/25 History release simvastatin 20 mg tablet 20 mg PO QDAY ##0 10/07/12 03/24/25 History insulin aspart U-100 100 unit/mL 50 unit SUBCUT DAILY 03/05/18 03/12/25 History subcutaneous cartridge One-A-Day Women's Complete 1 tab PO DAILY 03/12/25 03/24/25 History amlodipine 5 mg tablet 5 mg PO DAILY 03/12/25 03/24/25 History fluoxetine 20 mg capsule 20 mg PO DAILY 03/12/25 03/24/25 History lisinopril 40 mg tablet 40 mg PO DAILY 03/12/25 03/24/25 History acetaminophen 325 mg tablet 650 mg (2 x 325 mg) PO Q6H #90 tabs 03/27/25 Rx aspirin 81 mg tablet,delayed 81 mg PO BID #90 tabs 03/27/25 Rx release docusate sodium 100 mg capsule 100 mg PO BID #30 caps 03/27/25 Rx ibuprofen 400 mg tablet 400 mg PO Q4H PRN Pain, Mild (1-3) 03/27/25 Rx #90 tabs insulin lispro 100 unit/mL 1 unit (0.01 mL) miscellaneous 03/27/25 Rx subcutaneous solution (Admelog DAILY@0000 #10 mL U-100 Insulin lispro) ondansetron 4 mg disintegrating 4 mg PO Q4HR PRN Nausea #30 tabs 03/27/25 Rx tablet polyethylene glycol 3350 17 gram 17 g PO DAILY PRN Constipation #14 03/27/25 Rx oral powder packet ea Allergies Allergy/AdvReac Type Severity Reaction Status Date / Time phenytoin Allergy Mild TURNED Verified 07/27/25 14:07 BRIGHT RED Exam Vital Signs (past 8 hours): - 07/27/25 14:03 07/27/25 15:03 07/27/25 15:06 Temperature 97.0 F L Pulse Rate 94 H 91 H 90 Respiratory Rate 18 23 20 Blood Pressure 144/69 H Pulse Oximetry 97 93 Oxygen Delivery Method Room Air 07/27/25 15:06 07/27/25 15:30 07/27/25 15:48 Temperature Pulse Rate 95 H 96 H Respiratory Rate 20 21 Blood Pressure 141/65 H Pulse Oximetry 94 95 Oxygen Delivery Method 07/27/25 15:48 07/27/25 16:00 07/27/25 16:00 Temperature Pulse Rate 81 Respiratory Rate 20 Blood Pressure 130/57 L 118/57 L Pulse Oximetry 91 Oxygen Delivery Method Oxygen Delivery Method Room Air Narrative Exam Narrative: RT sided weakness, chronic due to CVA, aphasic Const General: comfortable Orientation: alert Resp Effort & Inspection: normal respiratory effort and able to speak in complete sentences Cardio Rate: regular rate Rhythm: regular rhythm GI Other: ABD: Right sided transverse scar associated with prior colon resection. Medial portion of incision above umbilicus has palpable hernia, firm to palpation, irreducible, non-peritoneal exam, overlying skin normal. Extrem Other: Chronic RT sided weakness due to CVA Objective Labs 07/27/25 14:38 07/27/25 14:38 Labs: Laboratory Results - last 24 hr 07/27/25 14:38 WBC 8.6 RBC 3.92 L Hgb 11.7 L Hct 34.5 L MCV 87.8 MCH 29.9 MCHC 34.0 RDW 16.3 H Plt Count 281 Neut % (Auto) 68.1 Lymph % (Auto) 22.2 L Chambers % (Auto) 6.3 Eos % (Auto) 2.3 Baso % (Auto) 1.1 Neut # (Auto) 5900 Lymph # (Auto) 1900 Chambers # (Auto) 500 Eos # (Auto) 200 Baso # (Auto) 100 Sodium 135 L Potassium 3.7 Chloride 105 Carbon Dioxide 22 BUN 20 H Creatinine 0.77 Estimated GFR > 60 BUN/Creatinine Ratio 26.0 H Glucose 208 H Calcium 10.3 H Total Bilirubin 0.4 AST 28 ALT 22 Alkaline Phosphatase 101 Total Protein 7.1 Albumin 3.8 Globulin 3.3 Albumin/Globulin Ratio 1.2 Lipase 96 [facility] Medical History DAVID (obstructive sleep apnea) Spasticity as late effect of cerebrovascular accident (CVA) Hypercalcemia (10/13/22) Pelvic fracture (05/2018) Hypercholesteremia Gastritis Depression Anemia Insulin pump in place Hyperlipidemia HTN (hypertension) CVA (cerebral vascular accident) (1992) Diabetes Surgical History Hx of tonsillectomy History of colon resection (2013) History of cataract extraction History of total left hip arthroplasty (04/2009) Social History household members: spouse Tobacco & Substance Use Smoking Status: Never smoker alcohol intake: former Assessment & Plan Assessment and plan (1) Incisional hernia, incarcerated: Status: Acute Plan Incisional hernia incarcerated with colon, without obstruction. No clinical signs/symptoms of ischemia, wide-mouthed hernia. This gives us the luxury of medical optimization prior to surgery. She is being admitted to hospitalists. Will plan to repair this semi-electively tomorrow afternoon unless we need to delay for medical issues. She is on baby asa daily. Will plan to continue this due to h/o cva. The risks, benefits and options regarding the procedure were explained to the patient and her daughter in detail. Risk discussion included but not limited to: medical complications, stroke, cardiovascular complications, infection, bleeding, injury to organs, recurrence of hernia. The patient was encouraged to ask questions and they were answered to their satisfaction. The patient understands and is agreeable to proceed. Time-Based Coding :: [TOTAL MINUTES] spent with patient and on the chart (including review of chart, obtaining history, exam, reviewing outside data, placing orders, documenting exam and treatment plan, and counseling patient) on [DATE]. PROFEE Charge Codes Inpatient or Observation consultation: [id number]
[2025-07-27] MEDS: LACTATED RINGERS 1,000 ML 100 ML IV (22:04)
[2025-07-27] MEDS: SENNOSIDES 8.6 MG TABLET 17.2 MG PO (22:09)
[2025-07-27 23:11] LABS: MRSA (Nasal) PCR NOT DETECTED (Not Detect)
[2025-07-28] VITALS (37 sets, daily range): BP systolic 119–176; BP diastolic 57–88; PULSE 53–99; RESP 15–35; TEMP 36.4–37.1; O2SAT 86–98
--- NOTE | 2025-07-28 | PATH_ITS ---
[facility] Accession Number: [id number] No. of containers..01 Tissue . 01 Material submitted: . body - SACK . 01 Diagnosis: SAC: Portions of mesothelial-lined fibroconnective tissue with no significant histomorphologic abnormality, consistent with hernia sac and contents. MRV 08/06/2025 1652 Local . 01 Electronically signed: . Nicky Hickey MD, Pathologist NPI- [id number] . 01 Gross description: . The specimen is received in formalin with two patient identifiers and sac and consists of a 9.0 x 4.5 x 0.4 cm aggregate of kraus-pink, smooth glistening fibromembranous tissue partially surfaced by yellow, lobulated, unremarkable adipose tissue. Sectioning shows a white, fibrous, saccular, unremarkable cut surface admixed with yellow lobulated unremarkable adipose tissue. Personal Health Coach sections are submitted in cassette A1. ([id number]) /MRV 07/31/2025 1329 Local . 01 Pathologist provided ICD-10: K43.0 . 01 CPT . 718330 Specimen Comment: A courtesy copy of this report has been sent to [facility] Performed at: [address] [facility], [place], [place] [id number] MD Arnold Carrasco MD Phone: [phone]
--- NOTE | 2025-07-28 02:36 | PM.HP.1 ---
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 The pt is generalized but difficult to assess due to her asphasia. She was not in any distress during my exam, family were at the bedside. No fevers, chills, N/V/change in bowel habits. [facility] Medical History DAVID (obstructive sleep apnea) Spasticity as late effect of cerebrovascular accident (CVA) Hypercalcemia (10/13/22) Pelvic fracture (05/2018) Hypercholesteremia Gastritis Depression Anemia Insulin pump in place Hyperlipidemia HTN (hypertension) CVA (cerebral vascular accident) (1992) Diabetes Surgical History Hx of tonsillectomy History of colon resection (2013) History of cataract extraction History of total left hip arthroplasty (04/2009) Social History household members: spouse Smoking Status: Never smoker alcohol intake: former Meds Home Medications and Allergies Home Medications ?Medication ?Instructions ?Recorded ?Confirmed ?Type aspirin 81 mg tablet,delayed 81 mg PO QDAY ##0 10/07/12 07/27/25 History release simvastatin 20 mg tablet 20 mg PO QDAY ##0 10/07/12 07/27/25 History insulin aspart U-100 100 unit/mL 50 unit SUBCUT DAILY 03/05/18 03/12/25 History subcutaneous cartridge One-A-Day Women's Complete 1 tab PO DAILY 03/12/25 07/27/25 History amlodipine 5 mg tablet 10 mg PO DAILY 03/12/25 07/27/25 History fluoxetine 20 mg capsule 20 mg PO DAILY 03/12/25 07/27/25 History lisinopril 40 mg tablet 40 mg PO DAILY 03/12/25 07/27/25 History acetaminophen 325 mg tablet 650 mg (2 x 325 mg) PO Q6H #90 tabs 03/27/25 Rx ibuprofen 400 mg tablet 400 mg PO Q4H PRN Pain, Mild (1-3) 03/27/25 Rx #90 tabs insulin lispro 100 unit/mL 1 unit (0.01 mL) miscellaneous 03/27/25 Rx subcutaneous solution (Admelog DAILY@0000 #10 mL U-100 Insulin lispro) ondansetron 4 mg disintegrating 4 mg PO Q4HR PRN Nausea #30 tabs 03/27/25 Rx tablet polyethylene glycol 3350 17 gram 17 g PO DAILY PRN Constipation #14 03/27/25 Rx oral powder packet ea Allergies Allergy/AdvReac Type Severity Reaction Status Date / Time phenytoin Allergy Mild TURNED Verified 07/27/25 14:07 BRIGHT RED Exam Vital Signs (past 8 hours): - 07/27/25 19:00 07/27/25 19:00 07/27/25 19:30 Temperature Pulse Rate 92 H 94 H Respiratory Rate 15 14 Blood Pressure 134/61 Pulse Oximetry 91 95 Oxygen Delivery Method Room Air Oxygen Flow Rate 07/27/25 20:00 07/27/25 20:00 07/27/25 20:30 Temperature Pulse Rate 90 100 H Respiratory Rate 14 29 H Blood Pressure 135/65 Pulse Oximetry 94 94 Oxygen Delivery Method Oxygen Flow Rate 07/27/25 21:00 07/27/25 21:00 07/27/25 21:35 Temperature 99 F Pulse Rate 91 H 96 H Respiratory Rate 14 19 Blood Pressure 126/55 L 147/67 H Pulse Oximetry 92 96 Oxygen Delivery Method Oxygen Flow Rate 1 07/27/25 21:45 07/27/25 21:45 07/28/25 00:00 Temperature 98.5 F Pulse Rate 84 Respiratory Rate 15 Blood Pressure 126/58 L Pulse Oximetry 97 96 Oxygen Delivery Method Room Air Room Air Oxygen Flow Rate 1 Oxygen Delivery Method Room Air Oxygen Flow Rate 1 Const General: cooperative and comfortable Resp Effort & Inspection: normal respiratory effort Auscultation: clear to auscultation bilaterally Cardio Rate: regular rate Rhythm: regular rhythm GI Auscultation: normal bowel sounds Neuro Other: Rt sided weakness Objective Labs 07/27/25 14:38 07/27/25 14:38 Labs: Laboratory Results - last 24 hr 07/27/25 07/27/25 07/28/25 14:38 21:50 00:06 WBC 8.6 RBC 3.92 L Hgb 11.7 L Hct 34.5 L MCV 87.8 MCH 29.9 MCHC 34.0 RDW 16.3 H Plt Count 281 Neut % (Auto) 68.1 Lymph % (Auto) 22.2 L [place] % (Auto) 6.3 Eos % (Auto) 2.3 Baso % (Auto) 1.1 Neut # (Auto) 5900 Lymph # (Auto) 1900 [place] # (Auto) 500 Eos # (Auto) 200 Baso # (Auto) 100 Sodium 135 L Potassium 3.7 Chloride 105 Carbon Dioxide 22 BUN 20 H Creatinine 0.77 Estimated GFR > 60 BUN/Creatinine Ratio 26.0 H Glucose 208 H POC Whole Bld Glucose 136 H Calcium 10.3 H Total Bilirubin 0.4 AST 28 ALT 22 Alkaline Phosphatase 101 Total Protein 7.1 Albumin 3.8 Globulin 3.3 Albumin/Globulin Ratio 1.2 Lipase 96 Nasal Screen MRSA (PCR) Not detected Assessment & Plan Assessment & Plan narrative: 1. Incarcerated Hernia- I have reviewed the CT abd findings showing the hernia, General surgery ahs been consulted, Dr. Norton who has evaluated the pt in the ER and will possibly take to the ER in the am. will make her NPO tonight after midnight, on IVF, anti-emetics and pain meds available as needed. repeat labs in am. 2. 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 hx of CVA PT/OT consutled, may need placement once medically stable HTN- stable for now, holding meds in preparation for surgery I, Dr. Constantino Chacon in [place] has seen and examined Mariya William in [facility] using telemedicine audio/ video with the pt's consent and nursing assistance. Time-Based Coding :: [TOTAL MINUTES] spent with patient and on the chart (including review of chart, obtaining history, exam, reviewing outside data, placing orders, documenting exam and treatment plan, and counseling patient) on [DATE].
[2025-07-28 05:16] LABS: Add Manual Diff / Slide Review NO; Hematocrit 33.4 % (36-46); Hemoglobin 11.2 g/dL (12.0-16.0); Lymphocytes Absolute Auto 1500 /uL (1100-4500); Mean Corpuscular HGB Conc 33.6 % (30-36); Mean Corpuscular Hemoglobin 29.5 PG (26-34); Mean Corpuscular Volume 87.9 fL (80-100); Platelet Count 280 X10^3/uL (150-400)
[2025-07-28 05:29] LABS: Alanine Aminotransferase 18 IU/L (<35); Albumin 3.6 g/dL (3.5-5.0); Albumin Globulin Ratio 1.2 (1.0-2.8); Alkaline Phosphatase 91 U/L (38-126); Blood Urea Nitrogen 16 mg/dL (7-17); Calcium 10.0 mg/dL (8.4-10.2); Carbon Dioxide 26 mmol/L (22-32); Chloride 106 mmol/L (98-107); Estimated Glomerular Filt Rate > 60 mL/min (>60); Globulin 3.0 g/dL (1.7-4.1); Glucose 108 mg/dL (70-99); HEMOLYSIS < 15 (0-50); Potassium 4.0 mmol/L (3.4-5.1); Sodium 136 mmol/L (137-145); Total Protein 6.6 g/dL (6.3-8.2)
[2025-07-28] MEDS: LACTATED RINGERS 1,000 ML 100 ML IV (07:05)
--- NOTE | 2025-07-28 07:17 | PC.NURSE ---
Admit\Night Note-Patient brought to ICU room 228 at 2135. Oriented x3, has expressive aphagia and right side weaknessh brace on right ankle, able to transfer to bed with 2 person SBA-steady. Denies abdominal pain, nausea, or other discomfort. SR, VSS. NPO after MN. Has own insulin pump LUQ, uses Novolog, CGM is in left thigh, both sites dry and intact without erythema. Bladder scanned in am after patient unable to void on bedpan, order to place [place] for acute retention, tolerated well. Daughter at bedside during admission, will be back this am.
--- NOTE | 2025-07-28 08:07 | PM.HP.1 ---
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 The pt is generalized but difficult to assess due to her asphasia. She was not in any distress during my exam, family were at the bedside. No fevers, chills, N/V/change in bowel habits. S: She was expressive aphasia but can communicate. She notes that her abdomen feels better and there is less pain around the umbilicus. No flatus. ROS: No nausea or vomiting, all else reviewed. Otherwise negative. O: NAD, alert and oriented, fluent speech, calm. Normocephalic skull, EOMI, anicteric sclera, symmetric pupils. Oropharynx unremarkable, no droop. Neck supple, midline trachea, no adenopathy. Lungs clear, normal rate and effort. Heart regular, no murmur gallop or rub. Abdomen is soft, non distended and non tender. Soft periumbilical hernia which is nontender. Extremities are free of edema. Skin is free of rash or lesions. Joints are not swollen or deformed. Judgment appears to be normal. ECG: Intervals [place] Rate: 95 P: 41 [place]: 154 QRS: 14 QRSD: 78 T: 64 QT: 342 QTc: 429 Interpretive Statements Sinus rhythm with premature atrial complexes Nonspecific ST and T wave abnormality IMAGING: APCT: ABDOMEN: Liver: No solid mass. Gallbladder: No radiopaque gallstones or wall thickening. Biliary ducts: No biliary dilation. Pancreas: No ductal dilation. Spleen: Size is within normal limits. Adrenal Glands: No adrenal nodules. Kidneys and Ureters: No hydronephrosis. No solid mass. No complex renal cystic lesion which requires follow up. Stomach and Bowel: Question incarceration of colon in a periumbilical hernia with inflammatory change in the adjacent fat. No dilated loops. Moderately large diffuse fecal load. Peritoneum: No abnormal intraperitoneal fluid. No free air. Ventral Wall: There is a fairly wide mouth periumbilical hernia with an abdominal wall defect measuring approximately 4.1 x 4.6 cm. There is: Herniating through this hernia with some inflammatory change present within the herniated fat subjacent to the colon. Abdominal Nodes: No retroperitoneal or mesenteric adenopathy by size criteria. Vessels: Aorta and inferior vena cava are normal in size. PELVIS: Pelvic Organs: Unremarkable. Bladder: No bladder wall thickening, accounting for underdistention. Pelvic Nodes: No enlarged lymph nodes. Miscellaneous: No inguinal hernias are seen. Bones: No aggressive osseous abnormality. Bilateral total hip arthroplasties. Thoracolumbar degenerative change. Scoliotic curvature. IMPRESSION: Question incarcerated colon within a fairly wide mouth periumbilical hernia. Moderately large colonic fecal load. A/P: 1. Incarcerated Hernia, active. Surgery in AM. 2. 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 3. Remote CVA, stable. 4. HTN, stable. PLAN: -NPO, hold blood pressure medications. Pain medications as needed. Anticipate surgery in the morning of July 28. -we will monitor glucose carefully. -we will discuss the plan with surgery this morning. Anticipate 2 midnights in the hospital, supports inpatient status. Full resuscitation. [facility] Medical History DAVID (obstructive sleep apnea) Spasticity as late effect of cerebrovascular accident (CVA) Hypercalcemia (10/13/22) Pelvic fracture (05/2018) Hypercholesteremia Gastritis Depression Anemia Insulin pump in place Hyperlipidemia HTN (hypertension) CVA (cerebral vascular accident) (1992) Diabetes Surgical History Hx of tonsillectomy History of colon resection (2013) History of cataract extraction History of total left hip arthroplasty (04/2009) Social History household members: spouse alcohol intake: former Meds Home Medications and Allergies Home Medications ?Medication ?Instructions ?Recorded ?Confirmed ?Type aspirin 81 mg tablet,delayed 81 mg PO QDAY ##0 10/07/12 07/27/25 History release simvastatin 20 mg tablet 20 mg PO QDAY ##0 10/07/12 07/27/25 History insulin aspart U-100 100 unit/mL 50 unit SUBCUT DAILY 03/05/18 03/12/25 History subcutaneous cartridge One-A-Day Women's Complete 1 tab PO DAILY 03/12/25 07/27/25 History amlodipine 5 mg tablet 10 mg PO DAILY 03/12/25 07/27/25 History fluoxetine 20 mg capsule 20 mg PO DAILY 03/12/25 07/27/25 History lisinopril 40 mg tablet 40 mg PO DAILY 03/12/25 07/27/25 History acetaminophen 325 mg tablet 650 mg (2 x 325 mg) PO Q6H #90 tabs 03/27/25 Rx ibuprofen 400 mg tablet 400 mg PO Q4H PRN Pain, Mild (1-3) 03/27/25 Rx #90 tabs insulin lispro 100 unit/mL 1 unit (0.01 mL) miscellaneous 03/27/25 Rx subcutaneous solution (Admelog DAILY@0000 #10 mL U-100 Insulin lispro) ondansetron 4 mg disintegrating 4 mg PO Q4HR PRN Nausea #30 tabs 03/27/25 Rx tablet polyethylene glycol 3350 17 gram 17 g PO DAILY PRN Constipation #14 03/27/25 Rx oral powder packet ea Allergies Allergy/AdvReac Type Severity Reaction Status Date / Time phenytoin Allergy Mild TURNED Verified 07/27/25 14:07 BRIGHT RED Exam Vital Signs (past 8 hours): - 07/28/25 04:38 Temperature 98.7 F Pulse Rate 86 Respiratory Rate 17 Blood Pressure 119/57 L Pulse Oximetry 96 Oxygen Flow Rate 1 Oxygen Delivery Method Room Air Oxygen Flow Rate 1 Objective Labs 07/28/25 04:33 07/28/25 04:33 Labs: Laboratory Results - last 24 hr 07/27/25 07/27/25 07/28/25 14:38 21:50 00:06 WBC 8.6 RBC 3.92 L Hgb 11.7 L Hct 34.5 L MCV 87.8 MCH 29.9 MCHC 34.0 RDW 16.3 H Plt Count 281 Neut % (Auto) 68.1 Lymph % (Auto) 22.2 L [place] % (Auto) 6.3 Eos % (Auto) 2.3 Baso % (Auto) 1.1 Neut # (Auto) 5900 Lymph # (Auto) 1900 [place] # (Auto) 500 Eos # (Auto) 200 Baso # (Auto) 100 Sodium 135 L Potassium 3.7 Chloride 105 Carbon Dioxide 22 BUN 20 H Creatinine 0.77 Estimated GFR > 60 BUN/Creatinine Ratio 26.0 H Glucose 208 H POC Whole Bld Glucose 136 H Calcium 10.3 H Total Bilirubin 0.4 AST 28 ALT 22 Alkaline Phosphatase 101 Total Protein 7.1 Albumin 3.8 Globulin 3.3 Albumin/Globulin Ratio 1.2 Lipase 96 Nasal Screen MRSA (PCR) Not detected 07/28/25 04:33 WBC 6.5 RBC 3.80 L Hgb 11.2 L Hct 33.4 L MCV 87.9 MCH 29.5 MCHC 33.6 RDW 16.6 H Plt Count 280 Neut % (Auto) 62.7 Lymph % (Auto) 23.8 L [place] % (Auto) 6.8 Eos % (Auto) 5.1 H Baso % (Auto) 1.6 Neut # (Auto) 4100 Lymph # (Auto) 1500 [place] # (Auto) 400 Eos # (Auto) 300 Baso # (Auto) 100 Sodium 136 L Potassium 4.0 Chloride 106 Carbon Dioxide 26 BUN 16 Creatinine 0.81 Estimated GFR > 60 BUN/Creatinine Ratio 19.8 Glucose 108 H D POC Whole Bld Glucose Calcium 10.0 Total Bilirubin 0.6 AST 28 ALT 18 Alkaline Phosphatase 91 Total Protein 6.6 Albumin 3.6 Globulin 3.0 Albumin/Globulin Ratio 1.2 Lipase Nasal Screen MRSA (PCR) Assessment & Plan Time-Based Coding :: 35 min spent with patient and on the chart (including review of chart, obtaining history, exam, reviewing outside data, placing orders, documenting exam and treatment plan, and counseling patient) on 07/28. Quality MIPS - Admit I confirm the patient?s Advance Care Plan is present, Code status is documented, Surrogate decision maker is in patient?s record [If Yes, STOP here]: Yes MIPS - Meds 'Current medications' to include all prescriptions, [id number] products, herbals, cannabis/cannabidiol products, and vitamin/mineral/dietary (nutritional) supplements. I have utilized all available resources to obtain, update, or review the patient?s current medications. [If Yes, STOP here]: Yes
--- NOTE | 2025-07-28 13:28 | PC.NURSE ---
Insulin pump: Pt manages own Medtronic mini med insulin pump with help from daughter, Jeanne. The hourly unit rates are as follows: 8803-5094 0.950 unit/hr 1100-1606 1.55 unit/hr 2616-5985 1.5 unit/hr 4811-6548 1.2 unit/hr
--- NOTE | 2025-07-28 13:41 | PC.NURSE ---
Addendum entered by Rebekah Cordova RN 07/28/25 16:51: Pt arrived back to room 228 from PACU at approximately 1610. BP elevated provider aware, other vitals stable. Denies pain. Daughter at bedside. Care ongoing. Original Note: Preop nurse Yola transported pt to preop at approximately 1335 via bed.
[2025-07-28] MEDS: LACTATED RINGERS 1,000 ML 42 ML IV ×2 (13:54→23:56)
--- NOTE | 2025-07-28 13:54 | DIET.CONS ---
Dietary Consultation Note Admission Date: 07/27/2025 19:46 Assessment: 85 y F admitted for Incarcerated Hernia. Dietitian consulted for diabetes (insulin pump). PMH of CVA with expressive asphasia and type 1 DM. Pt on: Medtronic Minimed Guardian 4 Pt in surgery, spoke to RN who recorded pt's rates from pump and put in a note and which have been copied and inserted below as well: 2603-7630 0.950 unit/hr 7845-1422 1.55 unit/hr 1471-2385 1.5 unit/hr 1658-5924 1.2 unit/hr A1c ranges 6.5-7.5% since 2017 While pt was NPO in preparation for surgery, BGs were checked with finger prick. Ht: 157.48 cm Wt: 66.678 kg BMI: 26.9 UBW: 68 kg 03/12/25 Last BM: 07/27/25 (07/27/25 21:54) MNA: Nathaniel Score: 18 Diet: 07/28/25 00:01 NPO Diet Diet Modifications: NPO Type: NPO except for Meds Labs: RBC 3.80 X10^6/uL (4.0-5.2) L 07/28/25 04:33 Hgb 11.2 g/dL (12.0-16.0) L 07/28/25 04:33 Hct 33.4 % (36-46) L 07/28/25 04:33 Creatinine 0.81 mg/dL (0.52-1.04) 07/28/25 04:33 Monitoring/Evaluations: No nutrition interventions at this time, will monitor PO intakes when diet restarted and BG Electronically Signed by: Camila Crockett 07/28/25 13:54 Clinical Dietitian [address] [address]
--- NOTE | 2025-07-28 14:16 | PM.PREOP ---
Pre-operative Note Interval Note History & Physical reviewed/Exam performed by Physician: Yes Changes to H&P: No ASA Class (for procedural sedation): III
--- NOTE | 2025-07-28 14:33 | CM.DANOTE ---
B DCP Assessment note pt is a 85yo F admitted with a hernia. general surgery consulted. PMH of prior CVA- expressive aphasia impacts ability to verbally communicate. HYDRAULIC DESIGN ENGINEER reviewed EMR. per chart, pt lives with spouse Mirza in [place]. local supportive dtr Jeanne has been at bedside. per RN note, standby assist. Pt down in surgery during attempted HYDRAULIC DESIGN ENGINEER intervention. likely a potential HH candidate pending how pt mobilizes post surgery? P: anticipate return home with spouse/dtr support and OP f/u. will f/u if PT/OT are indicated post op, potential HH candidate. will continue to follow closely for DCP coordination ABIOLA Saldana Discharge Planning/Care Management CM Discharge Assessment Start: 07/27/25 21:54 Freq: Status: Active Protocol: Document 07/28/25 14:26 SL (Rec: 07/28/25 14:31 SL [id number]) Discharge Planning Assessment Assigned Discharge ABIOLA Delvalle Forest Manager Provider Haleigh Mohan Insurance Medicare Insurance Comment for Life secondary DPOA/Assigned Mirza, spouse/Jeanne dtrina Designee Name Contact Information [phone] Advance Directives? Yes Advance Directives No on File History Provided By Patient,Significant Other,Medical Record Prior Living House Arrangements Household Members spouse Independent with ADL Yes 's Is patient alert and Yes oriented? Needs Assistance Home Chores / Shopping With Comment dtr assists with IADLs? Comment potential HH candidate Discharge Plan Foster Care If patient plan is No SNF: Has PASSR been completed? Review Status In Process Please Provide Date 07/28/25 Initial DC Assessment Was Performed Next Review Type Continued Stay Review
--- NOTE | 2025-07-28 15:06 | SUR.OPER ---
Supine on padded OR bed, head on pillow, left arm secured on padded arm board at <90 degrees abduction, right arm padded and taped across chest, legs uncrossed, safety belt at thigh, tape over blanket over lower legs.
[2025-07-28] MEDS: HEPARIN 5,000 UNIT/ML VIAL 5000 UNIT SUBCUT (15:09)
[2025-07-28] MEDS: BUPivacaine 0.25% W/ EPI (PF) 30 ML VIAL 60 ML INJ (15:09)
--- NOTE | 2025-07-28 15:35 | SUR.OPER ---
50ML OF URINE EMPTIED FROM [facility]
--- NOTE | 2025-07-28 15:48 | PM.OP.1 ---
Operative Date/Time/Diagnoses Date of procedure: 07/28/25 Time of procedure: 15:49 Pre-op diagnosis: Incarcerated incisional hernia Post-op diagnosis: same Procedure & Clinicians Procedure: Open repair of incarcerated incisional hernia with mesh Same procedure(s) as scheduled: Yes Indications: 85yo F presented through ED with incarcerated incisional hernia. CT demonstrated colon in hernia sac. Surgeon: Fred Escalera Assisted?: No Anesthesia Type: General Operative Notes Findings: Hernia reduced with induction of general anesthesia and muscle relaxation. Contained omental fat upon opening sac with few adhesions. Closure Type: primary Specimen(s): other (hernia sac) Applied: none Estimated Blood Loss (mL): 20 Blood products transfused: none Procedure in detail: After informed consent and satisfactory general endotracheal anesthesia, the abdomen was prepped and draped in the usual sterile manner. The patient received appropriate preoperative antibiotics and DVT prophylaxis. Surgical time-out was performed with all team members in agreement. After induction of general endotracheal anesthesia and muscle relaxation, the hernia was easily reduced. The skin incision was made by opening the existing transverse scar with a 10 blade. I injected 0.25% Marcaine with epinephrine into the skin and subcutaneous tissues prior to the incision. Hemostasis was achieved with cautery. The subcutaneous tissues were bluntly dissected around the sac. The sac was opened and noted to contain greater omental fat with a few adhesions that were easily divided with excellent hemostasis. Finger sweep beneath the peritoneum demonstrated that there were no intra-abdominal adhesions or residual adhesions within the sac. The visualized viscera were viable with no evidence for ischemic bowel or omentum. The fascial defect was approximately 5 cm in size. To minimize her anesthesia time due to her significant comorbidities, I elected to use a large [place] strap mesh which provided excellent coverage as an IPOM reinforcement. The fascial defect was closed using 0 Ethibond interrupted suture incorporating the strap into the closure. There were no palpable fascial defects and no fascial defects when probed with the tip of the Marisela clamp. This confidently address the fascial defect with reinforcement. Hemostasis was achieved with cautery. The remainder of the 0.25% marcaine with epinephrine was injected into the musculatore. The large hernia sac had been excised and sent to the pathologist for permanent section. The space was reapproximated using 3-0 Vicryl interrupted. The skin incision was closed using 4-0 Monocryl in a subcuticular manner. Dermabond glue was applied as a final dressing. The patient was straining upon arousal from general anesthetic and this demonstrated an intact hernia repair. The estimated blood loss was minimal. The instrument sponge and needle counts were all correct x2. The patient tolerated the procedure well and was extubated in the operating room and transported to the recovery area in stable condition. Complications: none Post-operative Condition: stable Disposition: PACU Plan for aftercare: PACU then floor
[2025-07-28] MEDS: SENNOSIDES 8.6 MG TABLET 17.2 MG PO (20:19)
[2025-07-28] MEDS: MORPHINE 4 MG/ML INJ 3 MG IV (23:55)
[2025-07-29] VITALS (47 sets, daily range): BP systolic 120–178; BP diastolic 57–82; PULSE 77–102; RESP 17–18; TEMP 36.6–37; O2SAT 86–99
[2025-07-29 05:01] LABS: Add Manual Diff / Slide Review NO; Hematocrit 32.2 % (36-46); Hemoglobin 10.9 g/dL (12.0-16.0); Lymphocytes Absolute Auto 1400 /uL (1100-4500); Mean Corpuscular HGB Conc 33.9 % (30-36); Mean Corpuscular Hemoglobin 29.7 PG (26-34); Mean Corpuscular Volume 87.7 fL (80-100); Platelet Count 254 X10^3/uL (150-400)
[2025-07-29 05:15] LABS: Blood Urea Nitrogen 15 mg/dL (7-17); Calcium 9.6 mg/dL (8.4-10.2); Carbon Dioxide 25 mmol/L (22-32); Chloride 105 mmol/L (98-107); Estimated Glomerular Filt Rate > 60 mL/min (>60); Glucose 98 mg/dL (70-99); HEMOLYSIS 27 (0-50); Potassium 3.9 mmol/L (3.4-5.1); Sodium 135 mmol/L (137-145)
[2025-07-29] MEDS: PANTOPRAZOLE DR 20 MG TABLET PO (06:10)
--- NOTE | 2025-07-29 06:50 | P.PN_ITS ---
Subjective Subjective Date Patient Seen: 07/29/25 Time Patient Seen: 06:50 Interval history: POD#1 incarcerated incisional hernia repair Stable overnight No n/v Tolerating liquids Exam Vital Signs (past 8 hours): - 07/28/25 23:00 07/28/25 23:00 07/28/25 23:30 Temperature 97.7 F Pulse Rate 83 Respiratory Rate 18 Blood Pressure 147/65 H 151/70 H Pulse Oximetry 92 07/28/25 23:30 07/28/25 23:47 07/28/25 23:47 Temperature Pulse Rate 89 53 L Respiratory Rate Blood Pressure 131/62 Pulse Oximetry 91 87 L 07/29/25 00:00 07/29/25 00:00 07/29/25 00:30 Temperature Pulse Rate 93 H 77 Respiratory Rate Blood Pressure 138/68 Pulse Oximetry 97 99 07/29/25 00:30 07/29/25 01:00 07/29/25 01:00 Temperature Pulse Rate 83 Respiratory Rate Blood Pressure 125/59 L 138/64 Pulse Oximetry 98 07/29/25 01:30 07/29/25 01:30 07/29/25 02:00 Temperature Pulse Rate 86 81 Respiratory Rate Blood Pressure 148/67 H Pulse Oximetry 97 95 07/29/25 02:00 07/29/25 02:30 07/29/25 02:30 Temperature Pulse Rate 80 Respiratory Rate Blood Pressure 146/67 H 147/69 H Pulse Oximetry 96 07/29/25 03:00 07/29/25 03:00 07/29/25 03:30 Temperature Pulse Rate 79 Respiratory Rate Blood Pressure 156/72 H 157/72 H Pulse Oximetry 96 07/29/25 03:30 07/29/25 04:00 07/29/25 04:00 Temperature Pulse Rate 78 83 Respiratory Rate Blood Pressure 159/74 H Pulse Oximetry 96 96 07/29/25 04:30 07/29/25 04:30 07/29/25 05:00 Temperature Pulse Rate 78 81 Respiratory Rate Blood Pressure 139/65 Pulse Oximetry 96 97 07/29/25 05:00 Temperature 97.8 F Pulse Rate Respiratory Rate 18 Blood Pressure 154/71 H Pulse Oximetry Oxygen Delivery Method Nasal Cannula Oxygen Flow Rate 1 GI Other: ABD: incision CDI, non-distended, tenderness appropriate for postop Objective Labs 07/29/25 04:17 07/29/25 04:17 Labs: Laboratory Results - last 24 hr 07/28/25 07/28/25 07/28/25 08:45 16:15 18:12 WBC RBC Hgb Hct MCV MCH MCHC RDW Plt Count Neut % (Auto) Lymph % (Auto) [place] % (Auto) Eos % (Auto) Baso % (Auto) Neut # (Auto) Lymph # (Auto) [place] # (Auto) Eos # (Auto) Baso # (Auto) Sodium Potassium Chloride Carbon Dioxide BUN Creatinine Estimated GFR BUN/Creatinine Ratio Glucose POC Whole Bld Glucose 106 H 159 H 151 H Calcium 07/28/25 07/29/25 07/29/25 19:37 04:17 06:21 WBC 7.1 RBC 3.67 L Hgb 10.9 L Hct 32.2 L MCV 87.7 MCH 29.7 MCHC 33.9 RDW 16.9 H Plt Count 254 Neut % (Auto) 70.1 Lymph % (Auto) 19.8 L [place] % (Auto) 8.0 Eos % (Auto) 1.3 L Baso % (Auto) 0.8 Neut # (Auto) 5000 Lymph # (Auto) 1400 [place] # (Auto) 600 Eos # (Auto) 100 Baso # (Auto) 100 Sodium 135 L Potassium 3.9 Chloride 105 Carbon Dioxide 25 BUN 15 Creatinine 0.76 Estimated GFR > 60 BUN/Creatinine Ratio 19.7 Glucose 98 POC Whole Bld Glucose 136 H 106 H Calcium 9.6 PFSH Medical History DAVID (obstructive sleep apnea) Spasticity as late effect of cerebrovascular accident (CVA) Hypercalcemia (10/13/22) Pelvic fracture (05/2018) Hypercholesteremia Gastritis Depression Anemia Insulin pump in place Hyperlipidemia HTN (hypertension) CVA (cerebral vascular accident) (1992) Diabetes Surgical History Hx of tonsillectomy History of colon resection (2013) History of cataract extraction History of total left hip arthroplasty (04/2009) Social History household members: spouse alcohol intake: former Assessment & Plan Assessment and plan (1) Incisional hernia, incarcerated: Status: Acute Plan POD#1 incarcerated incisional hernia repair Hernia contained viable colon Stable overnight Diet as tolerated Abd binder OK for discharge from surgery perspective No lifting/straining for 8 weeks - this will be difficult due to CVA and straining required to assist with ambulation, higher risk for recurrence given circumstances Time-Based Coding :: [TOTAL MINUTES] spent with patient and on the chart (including review of chart, obtaining history, exam, reviewing outside data, placing orders, documenting exam and treatment plan, and counseling patient) on [DATE]. PROFEE Technical Support Assistant Document charge(s): Yes Charge Codes Subsequent inpatient/observation care: [id number]
--- NOTE | 2025-07-29 07:07 | PM.PN.1 ---
Subjective Subjective Date Patient Seen: 07/29/25 Interval history: The pt is a 85 yo with a hx of IDDM on insulin pump, previous CVA resulting in Rt sided weakness nd expressive asphasia who started having abdominal pain earlier today for the past 24 hours. The pt is generalized but difficult to assess due to her asphasia. She was not in any distress during my exam, family were at the bedside. No fevers, chills, N/V/change in bowel habits. S: She was expressive aphasia but can communicate. She notes that her abdomen feels better and there is less pain around the umbilicus. No flatus. The white count is 7.1 with a hemoglobin of 10.9. The metabolic panel is normal. IMAGING: APCT: ABDOMEN: Liver: No solid mass. Gallbladder: No radiopaque gallstones or wall thickening. Biliary ducts: No biliary dilation. Pancreas: No ductal dilation. Spleen: Size is within normal limits. Adrenal Glands: No adrenal nodules. Kidneys and Ureters: No hydronephrosis. No solid mass. No complex renal cystic lesion which requires follow up. Stomach and Bowel: Question incarceration of colon in a periumbilical hernia with inflammatory change in the adjacent fat. No dilated loops. Moderately large diffuse fecal load. Peritoneum: No abnormal intraperitoneal fluid. No free air. Ventral Wall: There is a fairly wide mouth periumbilical hernia with an abdominal wall defect measuring approximately 4.1 x 4.6 cm. There is: Herniating through this hernia with some inflammatory change present within the herniated fat subjacent to the colon. Abdominal Nodes: No retroperitoneal or mesenteric adenopathy by size criteria. Vessels: Aorta and inferior vena cava are normal in size. PELVIS: Pelvic Organs: Unremarkable. Bladder: No bladder wall thickening, accounting for underdistention. Pelvic Nodes: No enlarged lymph nodes. Miscellaneous: No inguinal hernias are seen. Bones: No aggressive osseous abnormality. Bilateral total hip arthroplasties. Thoracolumbar degenerative change. Scoliotic curvature. IMPRESSION: Question incarcerated colon within a fairly wide mouth periumbilical hernia. Moderately large colonic fecal load. A/P: 1. Incarcerated Hernia, active. Doing well POD 1. 2. 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 3. Remote CVA with expressive aphasia, stable. 4. HTN, stable. PLAN: -diet progression per surgery Pain medications as needed. Hernia repair July 28. -we will monitor glucose carefully. -resume lisinopril and amlodipine Full resuscitation. Exam Vital Signs (past 8 hours): - 07/28/25 23:30 07/28/25 23:30 07/28/25 23:47 Temperature Pulse Rate 89 53 L Respiratory Rate Blood Pressure 151/70 H Pulse Oximetry 91 87 L 07/28/25 23:47 07/29/25 00:00 07/29/25 00:00 Temperature Pulse Rate 93 H Respiratory Rate Blood Pressure 131/62 138/68 Pulse Oximetry 97 07/29/25 00:30 07/29/25 00:30 07/29/25 01:00 Temperature Pulse Rate 77 83 Respiratory Rate Blood Pressure 125/59 L Pulse Oximetry 99 98 07/29/25 01:00 07/29/25 01:30 07/29/25 01:30 Temperature Pulse Rate 86 Respiratory Rate Blood Pressure 138/64 148/67 H Pulse Oximetry 97 07/29/25 02:00 07/29/25 02:00 07/29/25 02:30 Temperature Pulse Rate 81 80 Respiratory Rate Blood Pressure 146/67 H Pulse Oximetry 95 96 07/29/25 02:30 07/29/25 03:00 07/29/25 03:00 Temperature Pulse Rate 79 Respiratory Rate Blood Pressure 147/69 H 156/72 H Pulse Oximetry 96 07/29/25 03:30 07/29/25 03:30 07/29/25 04:00 Temperature Pulse Rate 78 83 Respiratory Rate Blood Pressure 157/72 H Pulse Oximetry 96 96 07/29/25 04:00 07/29/25 04:30 07/29/25 04:30 Temperature Pulse Rate 78 Respiratory Rate Blood Pressure 159/74 H 139/65 Pulse Oximetry 96 07/29/25 05:00 07/29/25 05:00 Temperature 97.8 F Pulse Rate 81 Respiratory Rate 18 Blood Pressure 154/71 H Pulse Oximetry 97 Oxygen Delivery Method Nasal Cannula Oxygen Flow Rate 1 Narrative Exam Narrative: Alert and appears oriented. Mumbles in response to questions but appears to have no problem understanding. Heart is regular rate and rhythm without murmur. Lungs are clear to auscultation bilaterally. Abdomen has a midline healing horizontal incision without significant tenderness. Bowel sounds are active. Extremities have no ankle edema. Objective Labs 07/29/25 04:17 07/29/25 04:17 Labs: Laboratory Results - last 24 hr 07/28/25 07/28/25 07/28/25 08:45 16:15 18:12 WBC RBC Hgb Hct MCV MCH MCHC RDW Plt Count Neut % (Auto) Lymph % (Auto) [place] % (Auto) Eos % (Auto) Baso % (Auto) Neut # (Auto) Lymph # (Auto) [place] # (Auto) Eos # (Auto) Baso # (Auto) Sodium Potassium Chloride Carbon Dioxide BUN Creatinine Estimated GFR BUN/Creatinine Ratio Glucose POC Whole Bld Glucose 106 H 159 H 151 H Calcium 07/28/25 07/29/25 07/29/25 19:37 04:17 06:21 WBC 7.1 RBC 3.67 L Hgb 10.9 L Hct 32.2 L MCV 87.7 MCH 29.7 MCHC 33.9 RDW 16.9 H Plt Count 254 Neut % (Auto) 70.1 Lymph % (Auto) 19.8 L [place] % (Auto) 8.0 Eos % (Auto) 1.3 L Baso % (Auto) 0.8 Neut # (Auto) 5000 Lymph # (Auto) 1400 [place] # (Auto) 600 Eos # (Auto) 100 Baso # (Auto) 100 Sodium 135 L Potassium 3.9 Chloride 105 Carbon Dioxide 25 BUN 15 Creatinine 0.76 Estimated GFR > 60 BUN/Creatinine Ratio 19.7 Glucose 98 POC Whole Bld Glucose 136 H 106 H Calcium 9.6 PFSH Medical History DAVID (obstructive sleep apnea) Spasticity as late effect of cerebrovascular accident (CVA) Hypercalcemia (10/13/22) Pelvic fracture (05/2018) Hypercholesteremia Gastritis Depression Anemia Insulin pump in place Hyperlipidemia HTN (hypertension) CVA (cerebral vascular accident) (1992) Diabetes Surgical History Hx of tonsillectomy History of colon resection (2013) History of cataract extraction History of total left hip arthroplasty (04/2009) Social History household members: spouse alcohol intake: former Assessment & Plan Time-Based Coding :: [TOTAL MINUTES] spent with patient and on the chart (including review of chart, obtaining history, exam, reviewing outside data, placing orders, documenting exam and treatment plan, and counseling patient) on [DATE].
[2025-07-29] MEDS: SENNOSIDES 8.6 MG TABLET 17.2 MG PO ×2 (08:17→20:43)
[2025-07-29] MEDS: ASPIRIN EC 81 MG TABLET PO (08:17)
[2025-07-29] MEDS: ATORVASTATIN 20 MG TABLET 10 MG PO (08:17)
--- NOTE | 2025-07-29 14:00 | PC.NURSE ---
1208: BLOOD GLUCOSE CHECKED. STANDBY TO WATCH PATIENT ADMINISTER BOLUS DOSE WITH CONTINUOUS INSULIN PUMP. PT STATES SHE IS GOING TO ADMINISTER 6.5 UNITS AND TYPES 65 INTO CARB COUNT WHICH AUTOMATICALLY PROMPTS TO DELIVER 8.2 UNITS AND HITS OK. UNABLE TO INTERVENE BEFORE BOLUS DOSE IS ADMINISTERED. PT STATES SHE MEANT TO GIVE 6.5. PT EATING LUNCH AT THIS TIME. STATES HER PUMP WILL STOP IF BLOOD SUGAR DROPS. PT EDUCATED ON NEED TO EAT AT THIS TIME AND TO NOTIFY IF FEELING ANY S/S OF HYPOGLYCEMIA. PUMP REMOVED AND NEELAM IN PHARMACY NOTIFIED. UPON FURTHER INVESTIGATION, PAPERWORK FOR SELF INSULIN PUMP ADMINISTRATION NOT FOUND/ NO DOCUMENTATION RECORDED OF INSULIN ADMINISTRATION. DAUGHTER AT BEDSIDE AT THIS TIME ABLE TO GIVE MORE INSIGHT. RECONNECTED TO INSULIN PUMP PER PHARMACY RECOMMENDATION. PATIENT/ DAUGHTER EDUCATED ON POLICY. PAPERWORK FILLED OUT/ SIGNED AND PLACED IN CHART. INFORMATION REGARDING CONTINUOUS BASAL INSULIN DOSE/ MEAL BOLUS DOSE PASSED ON TO PHARMACY. PT PROVIDED WITH APPLE JUICE/ CONRADO CRACKERS WITH MEAL. BLOOD SUGAR > 90 AT THIS TIME.
--- NOTE | 2025-07-29 15:30 | PT.IIE ---
Current Diagnoses Incisional hernia with obstruction, without gangrene (07/27/25) Surgery Performed Operation Date: 07/28/25 13:45 Actual Procedures p Hernia Repair Incisional with mesh(Not Applicable) - Fred Escalera MD Surgical History (Last Reviewed 07/28/25 @ 08:11 by Maurice Membreno MD) History of cataract extraction History of colon resection (2013) History of total left hip arthroplasty (04/2009) Hx of tonsillectomy Medical History (Last Reviewed 07/28/25 @ 08:11 by Maurice Membreno MD) Anemia CVA (cerebral vascular accident) (1992) Depression Diabetes Gastritis HTN (hypertension) Hypercalcemia (10/13/22) Hypercholesteremia Hyperlipidemia Insulin pump in place DAVID (obstructive sleep apnea) Pelvic fracture (05/2018) Spasticity as late effect of cerebrovascular accident (CVA) Physical Therapy Inpatient Evaluation/Re-Eval M1 PT/OT-IP Prior Functional Status Start: 07/29/25 17:10 Freq: NEEDED Status: Active Protocol: Document 07/29/25 15:30 AB (Rec: 07/29/25 17:32 AB [id number]) Medical Review Prior Functional Status Medical History Yes Reviewed Communication pt has aphasia due to h/o CVA but can answer yes/no questions Mobility and Gait pt informed that she ambulates using a 4WW and spouse provides assistance if needed but most of the time just SBA Social History Household Members spouse Living Arrangements House Number of Floors ( One Floor Floors) Number of Stairs To ramp to enter Enter/Railing? Home Environment High Toilet,Walk in Shower,Ramp Home Equipment Four Wheel Walker,Quad Cane,Manual Wheelchair,Shower Seat with Backrest,Hand Held Shower,Grab Bars Near Toilet,Grab Bars In Shower Additional Social pt stated that Jeanne(daughter) assists her with History Comment shower needs pt has R side bed cane M2 PT-IP Current Condition Start: 07/29/25 17:10 Freq: NEEDED Status: Active Protocol: Document 07/29/25 15:30 AB (Rec: 07/29/25 17:32 AB [id number]) Physical Therapy Current Condition Current Condition Evaluation Date 07/29/25 Treatment Diagnosis s/p hernia repair; difficulty in walking Onset Date 07/27/25 M3 PT-IP Subjective Start: 07/29/25 17:10 Freq: NEEDED Status: Active Protocol: Document 07/29/25 15:30 AB (Rec: 07/29/25 17:32 AB [id number]) Subjective Physical Therapy Visit Type Type Initial Evaluation Visit Start Time 15:30 Visit Stop Time 16:00 Number of RATER ASSOCIATE Visits 0 Physical Therapy Visit Comments Patient Comments agreeable to do PT M4 PT-IP Mobility and Gait Start: 07/29/25 17:10 Freq: NEEDED Status: Active Protocol: Document 07/29/25 15:30 AB (Rec: 07/29/25 17:32 AB [id number]) PT-Bed Mobility Assessment Sit to Supine Sit to Supine Minimal Assistance,1 Person Assistance PT-Transfer Assessment Sit to and From Stand Sit to and from Moderate Assistance,Maximum Assistance,1 Person Stand Assistance,Use of Upper Extremities Equipment Transfer Assistive Gait Belt,Front Wheeled Walker Device Orthotic/Prosthetic No Devices or Brace: Transfers Transfer Destination Toilet Transfer Technique ambulated Transfer Ability Level of Assist Moderate Assistance,1 Person Assistance,Use of Upper Extremities Comments Mobility Comments pt sitting on the chair and agreeable to do PT. obtained PLOF and home set up. pt with aphasia and needs increase time to answer questions. nurse in room and wants pt to try to use the toilet since pt has not voided since catheter was discontinued . pt agreed to walk to the toilet. assisted pt with donning R ankle support and shoes. sit to stand from the chair x 2 attempts mod to max A and max cues. pt ambulated to the toilet mod A using FWW. unsteady antalgic gait with slight R knee buckling. needed assist to maneuver fWW. mod to max A for controlled descent to the toilet. sit to stand from the toilet using grab bar mod A and ambulated to the bed using FWW mod to max A and max cues. educated pt on abdominal precautions and log roll bed mobility but required mod A and max cues. pt tends to just throw upper body to lay down in bed. educated pt regarding abdominal precautions and log roll again. positioned pt on the bed. call light and table placed within reach. post-op handout provided to pt. pt informed PT that she uses a 4WW for ambulation therefore FWW was first used during ambulation. EMR reviewed from previous admissions and pt was ambulating using a quad cane. Will assess ambulation using a hemiwalker or a quad cane on next PT visit. Gait Assessment Gait Gait Assistance Moderate Assistance,1 Person Assist Required: Distance (Feet) 15 Able to Maintain Yes Weight Bearing Status During Gait Assistive Devices Assistive Device Gait Belt,Front Wheeled Walker Orthotic/Prosthetic No Devices or Brace: Gait Deviations General Gait Pattern Antalgic,Decreased Stride Length,Decreased Feet Clearance,Step-to Gait Factors Limiting Gait Function Factors Limiting Decreased Activity Tolerance,Decreased Strength, Gait Function Difficulty Following Directions,Poor Balance,Poor Safety Awareness PT-Balance Assessment Sitting Balance and Reactions Static Sitting Good Balance Ability Dynamic Sitting Fair Balance Ability Standing Balance and Reactions Static Standing Fair Balance Ability Dynamic Standing Poor Balance Ability Device Used FWW M5 PT-IP Objective Assessments Start: 07/29/25 17:10 Freq: NEEDED Status: Active Protocol: Document 07/29/25 15:30 AB (Rec: 07/29/25 17:32 AB [id number]) Orientation Orientation/Cognition Level of Alertness Alert Orientation Name Language Function Expressive Aphasia,Receptive Aphasia Ability Safety Awareness Decreased Safety Awareness Gross Range of Motion Upper Extremity ROM Impairments RUE with flexion spasticity and flexion contractures Lower Extremity ROM Assessment Within Functional Limits Impairments R ankle tightness and with spasticity Strength Lower Extremity Strength Assessment Within Functional Limits Muscle Tone Muscle Tone Location Right Upper Extremity Type of Tone Flexor Severity of Tone Severe M6 PT-IP Treatment Start: 07/29/25 17:10 Freq: NEEDED Status: Active Protocol: Document 07/29/25 15:30 AB (Rec: 07/29/25 17:32 AB [id number]) Physical Therapy Treatment Education Education Provided Precautions,Safety M7 PT-IP Assessment and Plan Start: 07/29/25 17:10 Freq: NEEDED Status: Active Protocol: Document 07/29/25 15:30 AB (Rec: 07/29/25 17:32 AB [id number]) PT Summary Assessment and Plan Potential Rehabilitation Fair Potential Status of Condition Evolving at Evaluation Summary Impairments Pain,ROM,Strength,Balance,Coordination,Sensation,Tone, Cognition,Bed Mobility,Transfers,Gait,Activity Tolerance Assessment Summary pt is an 85 y/o F who underwent umbilical hernia repair . pt with abdominal precautions. pt has h/o CVA and has R sided spasticity and with aphasia. pt requiring mod to max A for transfers and ambulation and will need assistance at home. pt informed that spouse can assist. unsure how much assistance spouse can provide but if able, pt may go home and will need HHPT. will continue to assess progress. Goals Bed Mobility Goal Standby Assistance Transfer Goal Standby Assistance,Cane Gait Goal Standby Assistance,Cane,Isai Walker Gait Distance 100 Days to Meet Goals 10 Frequency of Treatment Frequency Of Once a Day Treatment Treatment Plan Physical Therapy Bed Mobility Training,Transfer Training,Gait Training, Treatment Plan Therapeutic Exercise,Balance Retraining,Post Op Education,Discharge Planning,Hot or Cold Pack, Neuromuscular Re-ed,Coordination Retraining,Manual Therapy Precautions Abdominal Surgery Log Roll,Lifting Restrictions,Gait Belt above Precautions Incisional Area Recommendations To Nursing Amount of Assist 1 Person Assist Needed Discharge Recommendations PT Discharge Home with 28/05 Assist Available,Home Health,SNF Rehab, Recommendations Home vs SNF Transportation Needs Private Vehicle,Wheelchair/Cabulance at Discharge - PT assist 1
--- NOTE | 2025-07-29 18:38 | PC.NURSE ---
PT ALERT/ ORIENTED WITH BASELINE EXPRESSIVE APHASIA. TITRATED DOWN TO 1L NC WITH SPO2 > 93%. NO C/O SOB OR S/S OF RESPI DISTRESS NOTED. MEDIAL DERMABOND INCISION REMAINED D/I. ABDOMINAL BINDER IN PLACE. PAIN TO ABDOMEN MINIMAL WITH MOVEMENT. PT UP TO CHAIR. WORKED WITH PHYSICAL THERAPY. CONTINUOUS INSULIN PUMP ON/ MONITORING SUGARS. SEE PRIOR NOTE. CARRERO D/C'D AT 1100 WITH PT UNABLE TO VOID. SEE BLADDER SCAN DOCUMENTATION. PLAN TO ADMINISTER [address] HEREDIA. DAUGHTER AT BEDSIDE. ALL QUESTIONS ANSWERED. CARE ONGOING.
[2025-07-29] MEDS: SODIUM CHLORIDE 0.9% 500 ML 1000 ML IV (18:53)
[2025-07-29] MEDS: LACTATED RINGERS 1,000 ML 42 ML IV (20:43)
[2025-07-30] VITALS (33 sets, daily range): BP systolic 136–197; BP diastolic 63–86; PULSE 95–109; RESP 17–18; TEMP 36.3–36.9; O2SAT 90–95
[2025-07-30] MEDS: hydrALAZINE 20 MG/ML VIAL 5 MG IV (04:26)
--- NOTE | 2025-07-30 04:33 | PC.NURSE ---
0404 MD Marquez aware of patient elevated BP. Orders received for Hydralazine 5 mg q 6 hours SBP > 180 or DBP > 100.
[2025-07-30] MEDS: PANTOPRAZOLE DR 20 MG TABLET PO (06:18)
--- NOTE | 2025-07-30 07:31 | P.DS_ITS ---
History of Present Illness History of Present Illness Date Patient Seen: 07/30/25 Chief complaint: Hernia pain belly button Narrative: The pt is a 85 yo with a hx of IDDM on insulin pump, previous CVA resulting in Rt sided weakness nd expressive asphasia who started having abdominal pain earlier today for the past 24 hours. The pt is generalized but difficult to assess due to her asphasia. She was not in any distress during my exam, family were at the bedside. No fevers, chills, N/V/change in bowel habits. S: She was expressive aphasia but can communicate. She notes that her abdomen feels better and there is less pain around the umbilicus. No flatus. 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 The pt is generalized but difficult to assess due to her asphasia. She was not in any distress during my exam, family were at the bedside. No fevers, chills, N/V/change in bowel habits. S: She has expressive aphasia but can communicate. She notes that her abdomen feels better and there is less pain around the umbilicus. No flatus. The white count is 7.1 with a hemoglobin of 10.9. The metabolic panel is normal. 07/30/2025: In summary her postoperative phase has gone quite well. Surgery has cleared her for discharge. She has been able to be weaned off her oxygen which she seemed to require mainly at night, suggestive of DAVID. She tells me that she lives in a house here in [place] with her . She has been walking in her room and eating breakfast. IMPRESSION: Incarcerated colon within a fairly wide mouth periumbilical hernia. Moderately large colonic fecal load. 1. Incarcerated Hernia - Doing well POD 2. 2. 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 3. Remote CVA with expressive aphasia, stable. 4. HTN, stable. PLAN: -diet progressed to normal. Hernia repair July 28. -resume all home meds -recommend outpatient DAVID evaluation due to noted mild hypoxia while asleep. Full resuscitation. Status at Discharge Cognitive/behavioral status at discharge: oriented Functional status at discharge: independent ambulation Overall status at discharge: patient is back to baseline Time Spent with Patient Time spent: Less than 30 minutes Exam Vital Signs (past 8 hours): - 07/30/25 00:00 07/30/25 00:16 07/30/25 00:16 Temperature 97.3 F L Pulse Rate 98 H 105 H Respiratory Rate 18 Blood Pressure 165/75 H Pulse Oximetry 94 91 Oxygen Delivery Method Oxygen Flow Rate 07/30/25 00:30 07/30/25 01:00 07/30/25 01:30 Temperature Pulse Rate 97 H 97 H 98 H Respiratory Rate Blood Pressure Pulse Oximetry 93 94 94 Oxygen Delivery Method Oxygen Flow Rate 07/30/25 02:00 07/30/25 02:30 07/30/25 03:00 Temperature Pulse Rate 95 H 102 H 95 H Respiratory Rate Blood Pressure Pulse Oximetry 91 91 93 Oxygen Delivery Method Oxygen Flow Rate 07/30/25 03:30 07/30/25 03:57 07/30/25 03:57 Temperature Pulse Rate 97 H 102 H Respiratory Rate Blood Pressure 197/86 H Pulse Oximetry 95 92 Oxygen Delivery Method Oxygen Flow Rate 07/30/25 03:58 07/30/25 03:58 07/30/25 04:00 Temperature 98.4 F Pulse Rate 104 H Respiratory Rate Blood Pressure 188/84 H Pulse Oximetry 94 Oxygen Delivery Method Oxygen Flow Rate 07/30/25 04:00 07/30/25 04:26 07/30/25 04:30 Temperature Pulse Rate 99 H 102 H Respiratory Rate 18 Blood Pressure 188/84 H 136/65 Pulse Oximetry 95 Oxygen Delivery Method Oxygen Flow Rate 07/30/25 04:56 07/30/25 07:00 Temperature Pulse Rate 95 H Respiratory Rate Blood Pressure 136/65 Pulse Oximetry 94 Oxygen Delivery Method Nasal Cannula Oxygen Flow Rate 2 Oxygen Delivery Method Nasal Cannula Oxygen Flow Rate 2 Narrative Exam Narrative: Alert and oriented x3. No apparent distress. Heart is regular rate and rhythm without murmur. Lungs are clear to auscultation bilaterally. Abdomen is soft, positive bowel sounds, well-healed incision without undue tenderness. There is no ankle edema. Objective Labs 07/29/25 04:17 07/29/25 04:17 Labs: Laboratory Results - last 24 hr 07/29/25 07/29/25 07/29/25 12:07 17:11 20:01 POC Whole Bld Glucose 198 H 139 H 139 H 07/30/25 01:54 POC Whole Bld Glucose 151 H PFSH Medical History DAVID (obstructive sleep apnea) Spasticity as late effect of cerebrovascular accident (CVA) Hypercalcemia (10/13/22) Pelvic fracture (05/2018) Hypercholesteremia Gastritis Depression Anemia Insulin pump in place Hyperlipidemia HTN (hypertension) CVA (cerebral vascular accident) (1992) Diabetes Surgical History Hx of tonsillectomy History of colon resection (2013) History of cataract extraction History of total left hip arthroplasty (04/2009) Social History household members: spouse alcohol intake: former Discharge Plan Discharge Plan Patient Disposition: Home Provider Discharge Comment: Follow up with PAC Haleigh Mohan in 1-2 weeks. Discharge orders & Medications Prescriptions: Continued simvastatin 20 MG tablet 20 mg PO QDAY Qty: 0 aspirin 81 MG tablet,delayed release (DR/EC) 81 mg PO QDAY Qty: 0 insulin aspart U-100 100 unit/mL Cartridge 50 unit SUBCUT DAILY Patient Comments: Per insulin pump. Has CGM. amlodipine 5 mg tablet 10 mg PO DAILY lisinopril 40 mg tablet 40 mg PO DAILY fluoxetine 20 mg capsule 20 mg PO DAILY One-A-Day Women's Complete 1 tab PO DAILY acetaminophen 325 mg Tablet 650 mg PO Q6H Qty: 90 0RF polyethylene glycol 3350 17 gram Powder In Packet 17 g PO DAILY PRN (Reason: Constipation) Qty: 14 0RF ibuprofen 400 mg Tablet 400 mg PO Q4H PRN (Reason: Pain, Mild (1-3)) Qty: 90 0RF insulin lispro [Admelog U-100 Insulin lispro] 100 unit/mL Solution 1 unit miscellaneous DAILY@0000 Qty: 10 0RF ondansetron 4 mg Tablet,Disintegrating 4 mg PO Q4HR PRN (Reason: Nausea) Qty: 30 0RF Follow up/Referrals: Haleigh Mohan PA-C [Primary Care Provider, Medical] Diet/Activity/Treatments Diet: Regular Visit Report/Discharge Packet Stand Alone Forms: Patient Portal/API, Stroke Signs & Symptoms Discharge Data Primary Care Provider: Haleigh Mohan
[2025-07-30] MEDS: ASPIRIN EC 81 MG TABLET PO (08:58)
[2025-07-30] MEDS: SENNOSIDES 8.6 MG TABLET 17.2 MG PO (08:58)
[2025-07-30] MEDS: ATORVASTATIN 20 MG TABLET 10 MG PO (08:58)
--- NOTE | 2025-07-30 09:40 | P.PN_ITS ---
Subjective Subjective Date Patient Seen: 07/30/25 Time Patient Seen: 09:40 Interval history: POD#2 incisional hernia repair Sitting in chair eating breakfast No c/o Denies n/v Exam Vital Signs (past 8 hours): - 07/30/25 02:00 07/30/25 02:30 07/30/25 03:00 Temperature Pulse Rate 95 H 102 H 95 H Respiratory Rate Blood Pressure Pulse Oximetry 91 91 93 Oxygen Delivery Method Oxygen Flow Rate 07/30/25 03:30 07/30/25 03:57 07/30/25 03:57 Temperature Pulse Rate 97 H 102 H Respiratory Rate Blood Pressure 197/86 H Pulse Oximetry 95 92 Oxygen Delivery Method Oxygen Flow Rate 07/30/25 03:58 07/30/25 03:58 07/30/25 04:00 Temperature 98.4 F Pulse Rate 104 H Respiratory Rate Blood Pressure 188/84 H Pulse Oximetry 94 Oxygen Delivery Method Oxygen Flow Rate 07/30/25 04:00 07/30/25 04:26 07/30/25 04:30 Temperature Pulse Rate 99 H 102 H Respiratory Rate 18 Blood Pressure 188/84 H 136/65 Pulse Oximetry 95 Oxygen Delivery Method Oxygen Flow Rate 07/30/25 04:30 07/30/25 04:30 07/30/25 04:56 Temperature Pulse Rate 101 H 95 H Respiratory Rate Blood Pressure 136/65 136/65 Pulse Oximetry 95 Oxygen Delivery Method Oxygen Flow Rate 07/30/25 05:00 07/30/25 05:30 07/30/25 06:00 Temperature Pulse Rate 106 H 100 H 102 H Respiratory Rate Blood Pressure Pulse Oximetry 92 93 94 Oxygen Delivery Method Oxygen Flow Rate 07/30/25 06:35 07/30/25 07:00 07/30/25 07:00 Temperature Pulse Rate 104 H 105 H Respiratory Rate Blood Pressure Pulse Oximetry 92 94 94 Oxygen Delivery Method Nasal Cannula Oxygen Flow Rate 2 07/30/25 07:00 07/30/25 07:30 07/30/25 07:48 Temperature Pulse Rate 108 H 109 H Respiratory Rate Blood Pressure Pulse Oximetry 93 92 Oxygen Delivery Method Nasal Cannula Oxygen Flow Rate 07/30/25 07:48 07/30/25 08:00 Temperature Pulse Rate 107 H Respiratory Rate Blood Pressure 147/70 H Pulse Oximetry 94 Oxygen Delivery Method Oxygen Flow Rate Oxygen Delivery Method Nasal Cannula Oxygen Flow Rate 2 GI Other: ABD: non-distended, incision CDI Objective Labs 07/29/25 04:17 07/29/25 04:17 Labs: Laboratory Results - last 24 hr 07/29/25 07/29/25 07/29/25 12:07 17:11 20:01 POC Whole Bld Glucose 198 H 139 H 139 H 07/30/25 07/30/25 01:54 07:27 POC Whole Bld Glucose 151 H 122 H PFSH Medical History DAVID (obstructive sleep apnea) Spasticity as late effect of cerebrovascular accident (CVA) Hypercalcemia (10/13/22) Pelvic fracture (05/2018) Hypercholesteremia Gastritis Depression Anemia Insulin pump in place Hyperlipidemia HTN (hypertension) CVA (cerebral vascular accident) (1992) Diabetes Surgical History Hx of tonsillectomy History of colon resection (2013) History of cataract extraction History of total left hip arthroplasty (04/2009) Social History household members: spouse alcohol intake: former Assessment & Plan Assessment and plan (1) Incisional hernia, incarcerated: Status: Acute Plan POD#2 incisional hernia repair Tolerating regular diet without n/v Pain controlled Ready for d/c from surgical standpoint Time-Based Coding :: [TOTAL MINUTES] spent with patient and on the chart (including review of chart, obtaining history, exam, reviewing outside data, placing orders, documenting exam and treatment plan, and counseling patient) on [DATE]. 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
[2025-07-30] MEDS: INFLUENZA HD VACCINE 0.5 ML SYRINGE IM (11:26)
--- NOTE | 2025-07-30 11:41 | PC.NURSE ---
DISCUSSED FLU VACCINE WITH PATIENT/ DAUGHTER. CONSENT FOR FLU VACCINE OBTAINED FROM PATIENT AND PLACED IN CHART. PER PHARMACY, OK TO GIVE VACCINE. SEE EMAR.
--- NOTE | 2025-07-30 13:09 | PC.NURSE ---
DISCHARGE DISCUSSED WITH PATIENT/ DAUGHTER. SIGNATURE PAGE SIGNED AND PLACED IN CHART. ALL QUESTIONS ANSWERED. PATIENT WHEELED OUT AT 1310 WITH ALL BELONGINGS.
== END 2025-07-30 13:10 | disposition home or self-care (01) | DRG 354 ==
LOC: ED 19:05 → AC 19:47 → ICU 21:17
PROVIDERS: Emergency Medicine; Hospitalist; Surgery; Admitting Provider Internal Medicine; Emergency Provider Emergency Medicine; Family Provider Physician Assistant; PCP Physician Assistant; Referring Provider Emergency Medicine; Visit Provider Internal Medicine
PROC: 0WUF0JZ Supplement Abdominal Wall with Synthetic Substitute, Open Approach (ICD-10-PCS; principal; 2025-07-28 13:45)
DX: K43.0 Incisional hernia with obstruction, without gangrene (principal); I69.351 Hemiplegia and hemiparesis following cerebral infarction affecting right dominant side; E11.9 Type 2 diabetes mellitus without complications; I69.320 Aphasia following cerebral infarction; I10 Essential (primary) hypertension; E78.5 Hyperlipidemia, unspecified; F32.A Depression, unspecified; Z96.41 Presence of insulin pump (external) (internal); Z86.0100 Personal history of colon polyps, unspecified; Z90.49 Acquired absence of other specified parts of digestive tract; Z79.82 Long term (current) use of aspirin; Z79.4 Long term (current) use of insulin
CPT/HCPCS: 36415; 49594; 51798; 74177; 80048; 80053; 82962; 83690; 85025; 87797; 90471; 90662; 93005; 93010; 96374; 96375; 97162; 97530; 99284; C1781; J0360; J0689; J1171; J1644; J2272; J2405; Q9967